=== PATIENT | female | born 2005 | race Caucasian/White ===

== ENCOUNTER 2024-03-28 00:12 | Emergency (ER) | payer OTHER, SELFPAY ==
[2024-03-28 00:18] VITALS: BP 121/83; PULSE 93; TEMP 36.6; O2SAT 96; BMI 28.2
--- NOTE | 2024-03-28 00:42 | ED_ITS ---
HPI - Female Genitourinary General Chief complaint: OB/Uterine Contractions Stated complaint: VAGNIAL BLEEDING Time Seen by Provider: 03/28/24 00:26 Source: patient Mode of arrival: walk-in History of Present Illness HPI Narrative: This 18-year-old female who states she had a home test 5 days ago that was positive presents for evaluation of vaginal bleeding. Patient states she has been having fairly heavy vaginal bleeding but is now just having some light spotting. She states the spotting is greater than implantation bleeding which she has had in the past. Her last menstrual period was February 25 but she states that when her period did not come 5 days ago when it was due she took a test that was positive. She denies any shortness of breath dizziness or syncope. She is not having any abdominal pain at this time. She states that she has had her right ovary removed when she was 14 due to ovarian cysts. She does not know her blood type but stated it is a good one. She has an appointment with her [facility] this morning in [facility] which is where she is from. Related Data Home Medications ?Medication ?Instructions ?Recorded ?Confirmed ondansetron 4 mg disintegrating mg 03/28/24 tablet Allergies Allergy/AdvReac Type Severity Reaction Status Date / Time No Known Drug Allergies Allergy Verified 03/28/24 00:22 Review of Systems ROS Status of ROS 10 or more systems reviewed and unremark able except as noted in history and below Exam Narrative Exam Narrative: Vital signs and Nursing Notes reviewed: Patient is afebrile with a normal pulse, normal blood pressure, she is not hypoxic with pulse ox of 96% on room air General: Awake, alert, oriented, no acute distress, lying comfortably on the stretcher HEENT: Normocephalic atraumatic, mucous membranes are moist and pink, eyes are clear, normal conjunctiva, vision is grossly intact Neck: Supple, no meningeal signs, no anterior or posterior cervical lymphadenopathy Chest: Lungs are clear to auscultation with good air entry, there is no wheezing rhonchi or rales appreciated no accessory muscle use, patient is speaking in complete sentences-no chest wall tenderness to palpation CVS: Regular rate and rhythm S1-S2, no murmurs rubs or gallops, pulses are brisk and equal bilaterally ABD: Soft, nondistended, nontender, no rebound guarding or rigidity, bowel sounds are normal, no pulsatile masses appreciated : Patient declined exam stating she is seeing her [facility] in the morning Extremities: Moving all extremities, no lower extremity tenderness or swelling noted, negative Homans' sign, pulses are brisk and equal bilaterally Skin: Normal in appearance without rash,pallor, petechiae or purpura Neuro: No focal deficits Constitutional Vital Signs, click to edit/add: Last Vital Signs Temp 97.8 F 03/28/24 00:18 Pulse 93 H 03/28/24 00:18 Resp 18 03/28/24 00:18 BP 121/83 03/28/24 00:18 Pulse Ox 96 03/28/24 00:18 O2 Del Method Room Air 03/28/24 00:18 Course Vital Signs Vital signs: Vital Signs Temperature 97.8 F 03/28/24 00:18 Pulse Rate 93 H 03/28/24 00:18 Respiratory Rate 18 03/28/24 00:18 Blood Pressure 121/83 03/28/24 00:18 Pulse Oximetry 96 03/28/24 00:18 Oxygen Delivery Method Room Air 03/28/24 00:18 Temperature 97.8 F 03/28/24 00:18 Pulse Rate 93 H 03/28/24 00:18 Respiratory Rate 18 03/28/24 00:18 Blood Pressure 121/83 03/28/24 00:18 Pulse Oximetry 96 03/28/24 00:18 Oxygen Delivery Method Room Air 03/28/24 00:18 MDM - Female Genitourinary MDM Narrative Medical decision making narrative: This 18-year-old female G3, P3 who was last menstrual period was February 25 and states that she had a positive test 5 days ago and then started having heavy vaginal bleeding that is now spotting and has an appointment tomorrow morning, later this morning with her [facility] in [facility] presents for evaluation of abdominal cramping and spotting. She states she was having some heavy vaginal bleeding and feeling 2-3 pads per hour. She denied any abdominal pain. She denies any dizziness or syncope. She does not know her blood type but states it is the good one. She declined a pelvic exam stating she was seeing her [facility] in the morning. Her vital signs are stable. Abdomen is soft. Routine labs are ordered and are reviewed. She has a normal white count and hemoglobin. Electrolytes are normal. Her beta quantitative hCG is less than 1. This was discussed with her and she verbalized understanding. She may have had a miscarriage of a very early but at this time she is stable for discharge and will be given a copy of her labs to share with her [facility] tomorrow. Lab Data Attestation: I reviewed the patient's lab results. Labs: Lab Results 03/28/24 Range/Units 00:49 WBC 7.9 (4.0-11.0) 10^3/uL RBC 4.24 (4.20-5.40) 10^6/uL Hgb 11.4 L (12.0-16.0) g/dL Hct 36.1 (36.0-48.0) % MCV 85.1 (81.0-99.0) fL MCH 26.9 (26.7-34.0) pg MCHC 31.6 (29.9-35.2) g/dL RDW 14.4 (11.0-15.0) % Plt Count 338 (150-450) 10^3/uL MPV 9.7 (9.5-13.5) fL Neut % (Auto) 52.6 (43.0-75.0) % Lymph % (Auto) 37.5 (20.5-60.0) % Dixon % (Auto) 7.5 (1.7-12.0) % Eos % (Auto) 1.3 (0.9-7.0) % Baso % (Auto) 0.8 (0.2-2.0) % Neut # (Auto) 4.2 (1.4-6.5) 10^3/uL Lymph # (Auto) 3.0 (1.2-3.8) 10^3/uL Dixon # (Auto) 0.6 (0.3-0.8) 10^3/uL Eos # (Auto) 0.1 (0.0-0.7) 10^3/uL Baso # (Auto) 0.1 (0.0-0.1) 10^3/uL Abs Immat Gran (auto) 0.02 (0.00-0.03) 10^3/uL Imm/Tot Granulo (auto) 0.3 (0.0-0.5) % Sodium 139 (136-145) mmol/L Potassium 3.6 (3.5-5.1) mmol/L Chloride 104 (98-107) mmol/L Carbon Dioxide 26.9 (21.0-32.0) mmol/L Anion Gap 11.7 BUN 11.0 (6.4-19.3) mg/dL Creatinine 0.91 (0.55-1.02) mg/dL Est GFR ( Amer) >60 (>=60) Est GFR (Non-Af Amer) >60 (>=60) BUN/Creatinine Ratio 12.1 Glucose 88 (74-106) mg/dL Calcium 8.9 (8.5-10.1) mg/dL Total Bilirubin 0.4 (0.2-1.0) mg/dL AST 22 (15-37) U/L ALT 43 (14-59) U/L Alkaline Phosphatase 74 (46-116) U/L Total Protein 7.6 (6.4-8.2) g/dL Albumin 3.8 (3.4-5.0) g/dL Globulin 3.8 g/dL Albumin/Globulin Ratio 1.0 HCG, Quant <1 mIU/mL Discharge Plan Discharge Stand Alone Forms: Portal Instructions Chief Complaint: OB/Uterine Contractions Clinical Impression: Abnormal vaginal bleeding Patient Disposition: Home, Self-Care Time of Disposition Decision: 01:52 Condition: Good Prescriptions / Home Meds: No Action ondansetron 4 mg tablet,disintegrating Print Language: [place] Instructions: Menorrhagia (ED) Additional Instructions: Follow up tomorrow as scheduled with your [facility]. Referrals: RA MATA [Primary Care Provider] - 1 week
[2024-03-28 01:23] LABS: Basophils Absolute Auto 0.1 10^3/uL (0.0-0.1); Basophils Percent Auto 0.8 % (0.2-2.0); Eosinophils Absolute Auto 0.1 10^3/uL (0.0-0.7); Eosinophils Percent Auto 1.3 % (0.9-7.0); Hematocrit 36.1 % (36.0-48.0); Hemoglobin 11.4 g/dL (12.0-16.0); Immature Granulocytes Abs Auto 0.02 10^3/uL (0.00-0.03); Immature Granulocytes Pct Auto 0.3 % (0.0-0.5); Lymphocytes Percent Auto 37.5 % (20.5-60.0); Mean Corpuscular HGB Conc 31.6 g/dL (29.9-35.2); Mean Corpuscular Hemoglobin 26.9 pg (26.7-34.0); Mean Corpuscular Volume 85.1 fL (81.0-99.0); Mean Platelet Volume 9.7 fL (9.5-13.5); Monocytes Absolute Auto 0.6 10^3/uL (0.3-0.8); Monocytes Percent Auto 7.5 % (1.7-12.0); Neutrophils Absolute Auto 4.2 10^3/uL (1.4-6.5); Neutrophils Percent Auto 52.6 % (43.0-75.0); Platelet Count 338 10^3/uL (150-450); Red Blood Count 4.24 10^6/uL (4.20-5.40); Red Cell Distribution Width 14.4 % (11.0-15.0); White Blood Count 7.9 10^3/uL (4.0-11.0)
[2024-03-28 01:39] LABS: Alanine Aminotransferase 43 U/L (14-59); Albumin Level 3.8 g/dL (3.4-5.0); Alkaline Phosphatase 74 U/L (46-116); Anion Gap 11.7; Aspartate Amino Transferase 22 U/L (15-37); BUN Creatinine Ratio 12.1; Bilirubin Total 0.4 mg/dL (0.2-1.0); Calcium 8.9 mg/dL (8.5-10.1); Carbon Dioxide 26.9 mmol/L (21.0-32.0); Chloride 104 mmol/L (98-107); Estimated GFR (African America >60 (>=60); Estimated GFR (Non-African Ame >60 (>=60); Globulin 3.8 g/dL; Glucose 88 mg/dL (74-106); Potassium 3.6 mmol/L (3.5-5.1); Sodium 139 mmol/L (136-145); Total Protein 7.6 g/dL (6.4-8.2)
[2024-03-28 01:45] LABS: HCG Quantitative <1 mIU/mL
== END 2024-03-28 02:04 | disposition home or self-care (01) ==
PROVIDERS: Emergency Provider Emergency Medicine; PCP Pediatrics
DX: N93.9 Abnormal uterine and vaginal bleeding, unspecified (principal); Z90.721 Acquired absence of ovaries, unilateral
CPT/HCPCS: 36415; 80053; 84702; 84703; 85025; 86900; 86901; 99283

== ENCOUNTER 2024-12-05 11:15 | Observation (INO) | payer OTHER, SELFPAY ==
--- OUTSIDE RECORDS SUMMARY | 2024-12-05 11:28 | XMS_ITS | CCD ---
Author Organization [facility] Care Team Providers Care Senior Design Engineer Name Role Phone RA MATA Unavailable Unavailable SELF, REFERRED Unavailable Unavailable DARA SHI Unavailable Unavailable MARKER, SHEELA Admitting Unavailable MARKER, SHEELA Attending Unavailable MARKER, SHEELA Consulting Unavailable KATEY PIMENTEL Consulting Unavailable Katey Pimentel Primary Care Provider Unavailabl e Katey Pimentel Primary Care Provider [phone] Unavailable Primary Care Provider Unavailabl e Katey Pimentel Primary Care Provider You INSPECTOR WATCH ASSEMBLY - 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 CRANE OPERATOR, Katey Allen Primary Care Provider Esperanza NEUMANN, Ra C Primary Care Provider Katey Pimentel RN Primary Care Provider Unavail able Esperanza NEUMANN, Knapp C Primary Care Provider [phone] Esperanza NEUMANN, Knapp C Primary Care Provider Esperanza NEUMANN, Knapp C Primary Care Provider Esperanza NEUMANN, Knapp C Primary Care Provider Paolo Rodriguez Attending Unavailab Paolo Martin Admitting Unavailab scott Mata Knapp C Primary Care Unavailable ESPERANZA, KNAPP C Primary Care Unavailable MATHIEU MCHUGH Attending Unavailab MATHIEU Medrano Attending Unavailab MATHIEU Medrano Referring Unavailab le ESPERANZA, KNAPP C Primary Care Unavailable YASMINE WELLS Admitting Unavailable YASMINE WELLS Attending Unavailable ESPERANZA KNAPP C Primary Care Unavailable ESPERANZA KNAPP C Primary Care Unavailable MYRTLE DELANEY Attending Unavailable MYRTLE DELANEY Attending Unavailable MYRTLE DELANEY Referring Unavailable KAKARALA, KNAPP C Primary Care Unavailable YASMINE WELLS Attending Unavailable YASMINE WELLS Referring Unavailable KAKARALA, KNAPP C Primary Care Unavailable KAKARALA, KNAPP C Primary Care Unavailable PAPI MARROQUIN Attending Unavailable POOL, YANA E Attending Unavailable KAKARALA, KNAPP C Primary Care Unavailable POOL, YANA E Admitting Unavailable KAKARALA, KNAPP C Primary Care Unavailable DESMOND RODRGIUEZ Attending Unavailable WALLACEHOMER Admitting Unavailable WALLACEHOMER RICKETTS Attending Unavailable KAKARALA, KNAPP C Primary Care Unavailable POOL, YANA E Admitting Unavailable POOL, YANA E Attending Unavailable KAKARALA, KNAPP C Primary Care Unavailable POOL, YANA E Referring Unavailable KAKARALA, KNAPP C Primary Care Unavailable KAKARALA, KNAPP C Referring Unavailable KAKARALA, KNAPP C Primary Care Unavailable KAKARALA, KNAPP C Primary Care Unavailable ANGELINA MATHEWS Referring Unavailabl e POOL, YANA E Referring Unavailable KAKARALA, KNAPP C Primary Care Unavailable D'ABREAU, MORRIS Admitting Unavailable D'ABREAU, MORRIS Attending Unavailable KAKARALA, KNAPP C Primary Care Unavailable ANGELINA MATHEWS Referring Unavailabl e KAKARALA, KNAPP C Primary Care Unavailable ANGELINA MATHEWS Referring Unavailabl e KAKARALA, KNAPP C Primary Care Unavailable POOL, YANA E Referring Unavailable KAKARALA, KNAPP C Primary Care Unavailable Kakarala Ra NEUMANN Primary Care Provider Medications Current Medications Medication Drug Class(es) Dates Sig (Normalized) Sig (Original) Amoxicillin (1 source) Penicillin-class Antibacterial AMOXICILLIN PO Take by mouth 0 Active benzocaine 200 mg/ml / menthol 5 mg/ml topical spray (4 sources) Standardized Chemical Allergen Start: 10-07-2022 apply 1 dose topically twice daily Topical, 2 TIMES DAILY, First dose on Mon10/07/22 at 0130 Apply to perineal area. Patient is capable and may self administer at bedside. Start: 04-22-2021 benzocaine-men thol (DERMOPLAST) 20-0.5 % AERO spray Apply 1 spray topically 2 times daily Can 04/22/2021 Active Start: 04-20-2021 apply 1 dose topical ly twice daily Topical, 2 TIMES DAILY, First dose on Mon04/20/21 at 2100 Apply to perineal area. Patient is capable and may self administer at bedside. 24 hr buPROPion hydrochloride 150 mg extended release oral tablet (3 sources) Aminoketone Start: 02-28-2024 take 1 tablet by mouth once daily in the morning buPROPion (WELLBUTRIN XL) 150 MG extended release tablet Indications: Post depression , Depression with anxiety Take 1 tablet by mouth every morning 30 tablet 1 02/28/2024 Active calcium chloride 0.0014 meq/ml / potassium chloride 0.004 meq/ml / sodium chloride 0.103 meq/ml / sodium lactate 0.028 meq/ml injectable solution (4 sources) Start: 12-28-2023 End: 12-28-2023 lactated ringers IV soln infusion Start: 10-06-2022 End: 10-07-2022 lactated ringers infusion Start: 04-20-2021 End: 04-20-2021 lactated ringers infusion cephalexin 500 mg oral capsule (1 source) Cephalosporin Antibacterial Start: 07-14-2022 End: 07-21-2022 take 1 capsule by mouth three times daily cephALEXin (KEFLEX) 500 MG capsule Take 1 capsule by mouth 3 times daily for 7 days 21 capsule 0 07/14/2022 07/21/2022 Active diphenhydrAMINE hydrochloride 25 mg oral capsule (1 source) Histamine-1 Receptor Antagonist Start: 04-22-2021 diphenhydrAMINE (BENADRYL) capsule 50 mg famotidine 20 mg oral tablet (1 source) Histamine-2 Receptor Antagonist Start: 09-03-2022 End: 09-03-2022 famotidine (PEPCID) tablet 20 mg Start: 09-03-2022 End: 09-03-2022 famotidine (PEPCID) tablet 2 0 mg FLUoxetine 20 mg oral capsule (6 sources) Serotonin Reuptake Inhibitor Start: 08-02-2021 End: 02-04-2022 FLUoxetine (PROZAC) 20 MG capsule take 1 capsule by mouth once dylan ly FLUoxetine (PROZAC) 10 MG capsule Take 1 capsule by mouth daily 0 Active ketorolac tromethamine 10 mg oral tablet (8 sources) Nonsteroidal Anti-inflammatory Drug, Cyclooxygenase Inhibitor Start: 02-24-2023 ketorolac (TORADOL) 10 MG tablet Take 1 tablet by mouth in the morning and 1 tablet at noon and 1 tablet in the evening. Take 3 times a day with food and water starting the day after surgery. Stop medication if having stomach pain.. 15 tablet 0 02/24/2023 Active Start: 10-13-2022 ketorolac (TOR ADOL) injection 30 mg Start: 10-01-2021 End: 02-04-2022 take 1 tablet by mouth every six hours as needed for pain ketorolac (TORADOL) 10 MG tablet Take 1 tablet by mouth every 6 hours as needed for Pain 20 tablet 0 10/01/2021 02/04/2022 Discontinued Start: 08-08-2017 End: 08-28-2020 take 1 tablet by mouth every six hours as needed for pain, then take 4 tablets by mouth every twenty-four hours as needed for pain ketorolac (TORADOL) 10 MG tablet Take 1 tablet by mouth every 6 hours as needed for Pain (maximum of 4 tablets per 24 hrs) 20 tablet 0 08/08/2017 08/28/2020 Discontinued (Therapy completed) lanolin 1000 mg/ml topical cream (2 sources) Start: 10-07-2022 Topical, PRN, Dry Skin, nipple discomfort, Starting on Mon10/07/22 at 0111, Start: 04-20-2021 Topical, PRN, Dry Skin, nipple discomfort, Starting on Tu04/20/21 at 1843, levonorgestrel 0.673429 mg/hr intrauterine system (1 source) Progestin, Progestin-containing Intrauterine Device Start: 07-21-2021 levonorgestrel (MIRENA) IUD 52 mg 1 each ondansetron 4 mg disintegrating oral tablet (15 sources) Serotonin-3 Receptor Antagonist Start: 07-31-2024 take 1 tablet by mouth every eight hours as needed for nausea ondansetron (ZOFRAN-ODT) 4 MG disintegrating tablet Take 1 tablet by mouth every 8 hours as needed for Nausea or Vomiting 30 tablet 1 07/31/2024 Active Start: 12-05-2023 take 1 tablet by gerry th three times daily as needed for nausea ondansetron (ZOFRAN) 4 MG tablet Indications: Nausea and vomiting in Take 1 tablet by mouth 3 times daily as needed for Nausea or Vomiting 30 tablet 0 12/05/2023 Active Start: 11-03-2023 End: 11-10-2023 take 1 tablet by mouth every eight hours as needed for nausea and vomiting ondansetron (ZOFRAN) 4 mg tablet Take 1 tablet (4 mg total) by mouth every 8 (eight) hours as needed for nausea or vomiting for up to 7 days. 21 tablet 0 11/03/2023 11/10/2023 Active Start: 09-03-2022 End: 10-08-2022 take 1 tablet by mouth every eight hours as needed for nausea ondansetron (ZOFRAN ODT) 4 MG disintegrating tablet Take 1 tablet by mouth every 8 hours as needed for Nausea or Vomiting 21 tablet 0 09/03/2022 10/08/2022 Discontinued (Stop Taking at Discharge) Start: 09-03-2022 End: 09-03-2022 ondansetron (ZOFRAN) injecti on 4 mg Start: 06-28-2022 End: 10-08-2022 take 1 tablet by mouth every eight hours as needed for nausea ondansetron (ZOFRAN) 4 MG tablet Indications: Nausea and vomiting during Take 1 tablet by mouth every 8 hours as needed for Nausea or Vomiting 30 tablet 1 06/28/2022 10/08/2022 Discontinued (Stop Taking at Discharge) Start: 04-04-2022 take 1 tablet by gerry th every eight hours as needed for nausea ondansetron (ZOFRAN) 4 MG tablet Indications: Nausea and vomiting during Take 1 tablet by mouth every 8 hours as needed for Nausea or Vomiting 30 tablet 1 04/04/2022 Active Start: 12-24-2019 End: 12-24-2019 ondansetron (ZOFRAN) injecti on 4 mg oxytocin (PITOCIN) 10 unit bolus from the bag (1 source) Start: 04-20-2021 oxytocin (JOSE G PRUDENCIO) 10 unit bolus from the bag penicillin G potassium 2.5 million units in 0.9% sodium chloride 100 mL IVPB (1 source) Start: 12-29-2023 penicillin G p otassium 2.5 million units in 0.9% sodium chloride 100 mL IVPB Prenat UB-Cdf-Hvigqburnlcx-FA (PRENATE) 0.6-0.4 MG CHEW (12 sources) take 1 tablet by mouth once daily Prenat PB-Vqy-Lzbmyxelppcl-FA (PRENATE) 0.6-0.4 MG CHEW Take 1 tablet by mouth Daily Active take 1 tablet by mouth once mary y Prenat JR-Gvq-Acyxmwsvbghj-FA (PRENATE) 0.6- 0.4 MG CHEW Take 1 tablet by mouth Daily 0 Active take 1 tablet by mouth once mary y Prenat VR-Fay-Xdlehmdbmfjt-FA (PRENATE) 0.6- 0.4 MG CHEW Take 1 tablet by mouth Daily 0 Suspended Vit-Fe Fumarate-FA ( VITAMIN) 27-0.8 MG TABS (11 sources) Start: 08-31-2020 take 1 tablet by mouth once daily Vit-Fe Fumarate-FA ( VITAMIN) 27-0.8 MG TABS Indications: Amenorrhea Take 1 tablet by mouth daily 30 tablet 12 08/31/2020 Active promethazine hydrochloride 25 mg oral tablet (4 sources) Phenothiazine Start: 09-03-2022 End: 09-03-2022 promethazine (PHENERGAN) tablet 25 mg Start: 10-12-2020 take 1 tablet by gerry th every six hours as needed for nausea promethazine (PHENERGAN) 25 MG tablet Indications: Nausea and vomiting in Take 1 tablet by mouth every 6 hours as needed for Nausea 30 tablet 0 10/12/2020 Active raNITIdine 150 mg oral tablet (11 sources) Histamine-2 Receptor Antagonist Start: 2017 take 1 tablet by mouth twice daily ranitidine (ZANTAC) 150 MG tablet Take 1 tablet by mouth 2 times daily 60 tablet 0 2017 Active sertraline 50 mg oral tablet (16 sources) Serotonin Reuptake Inhibitor Start: 06-28-2022 take 1 tablet by mouth once daily sertraline (ZOLOFT) 50 MG tablet Indications: Adjustment disorder with depressed mood Take 1 tablet by mouth daily 30 tablet 5 06/28/2022 Active take 1 tablet by mouth once mary y sertraline (ZOLOFT) 25 MG tablet Take 25 mg by mouth daily 0 Active terconazole 4 mg/ml vaginal cream (2 sources) Azole Antifungal Start: 11-06-2023 End: 11-13-2023 terconazole (TERAZOL 7) 0.4 % vaginal cream Indications: Vagina, candidiasis Insert 1 applicator into the vagina nightly for 7 days. 45 g 0 11/06/2023 11/13/2023 Active tolnaftate 10 mg/ml topical solution (2 sources) Start: 06-24-2023 tolnaftate (FU NGAL NAIL ERASER) 1 % external solution Apply topically nightly. 10 mL 0 06/24/2023 Active witch augusto 500 mg/ml medicated pad (4 sources) Start: 10-07-2022 apply 1 dose topically twice daily Topical, 2 TIMES DAILY, First dose on Mon10/07/22 at 0130 Apply to perineal area. Patient is capable and may self administer at bedside. Start: 04-22-2021 End: 05-22-2021 witch augusto-glycerin (TUCKS) pad Place rectally as needed. 40 each 2 04/22/2021 05/22/2021 Active Start: 04-20-2021 apply 1 dose topical ly twice daily Topical, 2 TIMES DAILY, First dose on Mon04/20/21 at 2100 Apply to perineal area. Patient is capable and may self administer at bedside. Completed/Discontinued Medications Medication Drug Class(es) Dates Sig (Normalized) Sig (Original) acetaminophen 325 mg oral tablet (11 sources) Start: 10-13-2022 End: 10-13-2022 acetaminophen (TYLENOL) tablet 650 mg Start: 10-07-2022 1,000 mg, Oral , EVERY 8 HOURS PRN, Starting on Mon10/07/22 at 0111, Until Discontinued, Other, Pain (1-10) Give in addition to any other pain medication ordered at same time for any pain indication. Maximum dose of acetaminophen is 4000mg from all sources in 24 hours. Alternate ibuprofen and acetaminophen every 4 hours. Start: 02-04-2022 End: 02-04-2022 acetaminophen (TYLENOL) tabl et 650 mg Start: 04-20-2021 take 650 mg by mouth every four hours as needed for fever, then take 4000 mg by mouth every twenty-four hours as needed for fever 650 mg, Oral, EVERY 4 HOURS PRN, Fever, Fever >100.5 F (38 C) or pain 1-10, Starting on Mon04/20/21 at 1843 Maximum dose of acetaminophen is 4000 mg from all sources in 24 hours. take 1 tablet by gerry th every six hours as needed for pain acetaminophen (TYLENOL) 500 MG tablet Take 500 mg by mouth every 6 hours as needed for Pain 0 Active End: 04-22-2021 take 1 tablet by mouth every four hours as needed for pain acetaminophen (TYLENOL) 80 MG chewable tablet Take 80 mg by mouth every 4 hours as needed for Pain 0 04/22/2021 Discontinued (Stop Taking at Discharge) acetaminophen 325 mg / butalbital 50 mg / caffeine 40 mg oral tablet (4 sources) Barbiturate, Central Nervous System Stimulant, Methylxanthine Start: 01-18-2021 End: 04-22-2021 aswqjeykbf-gygvdgrjwrwir-lqs feine (FIORICET, ESGIC) 50-325-40 MG per tablet Indications: Tension-type headache, not intractable, unspecified chronicity pattern Take 1-2 tablets every 6 hours as needed for headaches not to exceed more than 6 in 24 hour period. 30 tablet 1 01/18/2021 04/22/2021 Discontinued (Stop Taking at Discharge) acetaminophen 300 mg / codeine phosphate 30 mg oral tablet (5 sources) Opioid Agonist Start: 09-06-2017 End: 08-28-2020 take 1 tablet by mouth every six hours as needed for pain acetaminophen-codeine (TYLENOL #3) 300-30 MG per tablet Take 1 tablet by mouth every 6 hours as needed for Pain . 12 tablet 0 09/06/2017 08/28/2020 Discontinued (Therapy completed) betamethasone 0.5 mg/ml / clotrimazole 10 mg/ml topical cream (2 sources) Azole Antifungal, Corticosteroid Start: 04-13-2021 End: 04-22-2021 clotrimazole-betamethasone (LOTRISONE) 1-0.05 % cream Apply topically 3 times daily. 1 Tube 1 04/13/2021 04/22/2021 Discontinued (Stop Taking at Discharge) 1 ml carboprost 0.25 mg/ml injection (1 source) Prostaglandin Analog Start: 10-07-2022 250 mcg, IntraMUSCular, PRN, Starting on Mon10/07/22 at 0111, Until Discontinued, bleeding May repeat every 15 minutes up to a cumulative maximum dose of 1000 mcg, at physician's request. dexamethasone phosphate 10 mg/ml injectable solution (2 sources) Corticosteroid Start: 10-13-2022 End: 10-13-2022 dexamethasone (DECADRON) inj ection 10 mg Start: 08-21-2021 End: 08-21-2021 dexamethasone (DECADRON) tab let 10 mg docusate sodium 100 mg oral capsule (5 sources) Start: 10-07-2022 take 100 mg by mouth twice daily as needed 100 mg, Oral, 2 TIMES DAILY PRN, Starting on Mon10/07/22 at 0111, Until Discontinued, Constipation Do not crush or break. Start: 04-20-2021 take 1 capsule by mo uth twice daily docusate sodium (COLACE, DULCOLAX) 100 MG CAPS Take 100 mg by mouth 2 times daily 60 capsule 2 04/22/2021 Active Start: 11-09-2020 End: 12-09-2020 take 1 capsule by mouth twice daily docusate sodium (COLACE) 100 MG capsule Indications: Constipation, unspecified constipation type Take 1 capsule by mouth 2 times daily 60 capsule 2 11/09/2020 12/09/2020 Active hydrOXYzine pamoate 50 mg oral capsule (2 sources) Antihistamine Start: 12-29-2023 End: 12-29-2023 hydrOXYzine pamoate (VISTARIL) capsule 50 mg Start: 07-14-2022 End: 07-14-2022 hydrOXYzine pamoate (VISTARI L) capsule 50 mg ibuprofen 800 mg oral tablet (13 sources) Nonsteroidal Anti-inflammatory Drug Start: 10-07-2022 800 mg, Oral, NEMESIO RY 8 HOURS, First dose on Mon10/07/22 at 0130, Until Discontinued Once tolerating PO, discontinue Toradol and begin ibuprofen 8 hours after the final dose of Toradol. Alternate ibuprofen and acetaminophen every 4 hours. Start: 04-27-2021 ibuprofen (ADV IL;MOTRIN) tablet 400 mg Start: 04-20-2021 take 1 tablet by gerry th every eight hours ibuprofen (ADVIL;MOTRIN) 800 MG tablet Take 1 tablet by mouth every 8 hours 120 tablet 3 04/22/2021 Active Start: 04-28-2017 take 1 tablet by gerry th every eight hours as needed for pain ibuprofen (ADVIL;MOTRIN) 600 MG tablet Take 1 tablet by mouth every 8 hours as needed for Pain 120 tablet 3 04/28/2017 Active 1 ml LORazepam 2 mg/ml injection (1 source) Benzodiazepine Start: 12-24-2019 End: 12-24-2019 LORazepam (ATIVAN) injection 1 mg 1 ml methylergonovine maleate 0.2 mg/ml injection (1 source) Ergot Derivative Start: 10-07-2022 200 mcg, IntraMUSCular, PRN, Starting on Mon10/07/22 at 0111, Until Discontinued, Bleeding PRN for post- hemorrhage, if not hypertensive. 2 ml metoclopramide 5 mg/ml prefilled syringe (1 source) Dopamine-2 Receptor Antagonist Start: 10-13-2022 End: 10-13-2022 metoclopramide (REGLAN) injection 10 mg miSOPROStol 0.1 mg oral tablet (1 source) Prostaglandin E1 Analog Start: 10-07-2022 800 mcg, Rectal, PRN , 1 dose, Starting on Mon10/07/22 at 0111, Until Discontinued, Post- Hemorrhage Notify Physician prior to administration. 1 ml nalbuphine hydrochloride 10 mg/ml injection (1 source) Opioid Agonist/Antagonist Start: 04-20-2021 End: 04-20-2021 nalbuphine (NUBAIN) injection 10 mg oxytocin (PITOCIN) 30 units in 500 mL infusion (2 sources) Start: 10-06-2022 End: 10-07-2022 oxytocin (PITOCIN) 30 units in 500 mL infusion Start: 10-06-2022 oxytocin (JOSE G PRUDENCIO) 30 units in 500 mL infusion oxytocin (PITOCIN) 30 Units in sodium chloride 0.9 % 500 mL infusion (1 source) Start: 04-20-2021 End: 04-20-2021 oxytocin (PITOCIN) 30 Units in sodium chloride 0.9 % 500 mL infusion 50 ml sodium chloride 9 mg/m l injection (11 sources) Start: 10-13-2022 End: 10-13-2022 0.9 % sodium chloride bolus Start: 10-07-2022 take 1 dose intraven ously twice daily 5-40 mL, IntraVENous, EVERY 12 HOURS SCHEDULED (2 times per day), First dose on Mon10/07/22 at 0900, Until Discontinued For Line Patency: Peripheral IV = 5 mL; Midline or Central Line = 10 mL/lumen. If following IV push medication, administer flush at same rate as the IV push. Flush volume is determined by type of infusion therapy being given. For non-viscous solutions use: Peripheral IV = 5 mL Midline or Central Line = 10 mL/lumen For viscous solutions (i.e. blood components, parenteral nutrition, contrast media, or after obtaining blood sample) use: Peripheral IV = 10 mL Midline or Central Line = 20 mL/lumen Start: 10-07-2022 IntraVENous, a t 5-250 mL/hr, PRN, if patient receiving piggyback infusions and maintenance fluids are not ordered OR KVO fluids to protect IV site / prevent frequent line interruptions/ long duration, Starting on Mon10/07/22 at 0111 For piggyback infusion, administer at same rate as piggyback for a total of 25 mL. Enter 25 mL into dose field and piggyback rate into rate field of order. If piggyback is infusing at a rate less than 100 mL/hr, enter 25 mL into dose field and 100 mL/hr into rate field of order. For KVO fluids, enter rate of 20 mL/hr or less into rate field of order. Start: 10-07-2022 take 5-40 mL intrave nously once as needed 5-40 mL, IntraVENous, PRN, Starting on Mon10/07/22 at 0111, Until Discontinued, Line Care, After every IV line use For Line Patency: Peripheral IV = 5 mL; Midline or Central Line = 10 mL/lumen. If following IV push medication, administer flush at same rate as the IV push. Flush volume is determined by type of infusion therapy being given. For non-viscous solutions use: Peripheral IV = 5 mL Midline or Central Line = 10 mL/lumen For viscous solutions (i.e. blood components, parenteral nutrition, contrast media, or after obtaining blood sample) use: Peripheral IV = 10 mL Midline or Central Line = 20 mL/lumen Start: 09-03-2022 End: 09-03-2022 0.9 % sodium chloride bolus Start: 04-27-2021 End: 04-27-2021 0.9 % sodium chloride bolus Start: 04-20-2021 10 mL, Intrave nous, EVERY 12 HOURS SCHEDULED (2 times per day), First dose on Mon04/20/21 at 2100, Start: 04-20-2021 take 25 mL intraveno usly every hour as needed 25 mL, Intravenous, at 100 mL/hr, PRN, If patient receiving piggyback infusions without ordered maintenance IV fluids or with frequent/long duration piggyback infusions, Starting on Mon04/20/21 at 1843 Administer at the same rate as the piggyback being infused. Start: 04-20-2021 take 10 mL intravenously once 10 mL, Intravenous, PRN, Line Care, Starting on Mon04/20/21 at 1843 After every IV line use Start: 12-24-2019 End: 12-25-2019 0.9 % sodium chloride bolus Problems Active Problems Problem Classification Problem Date Documented Date Episodic/Chronic Cardiac dysrhythmias (1 source) Tachycardia; Translations: [Tachycardia] Episodic Fever of unknown origin (1 source) Fever; Translations: [Fever, unspecified] Episodic Fluid and electrolyte disorders (1 source) Dehydration; Translations: [Dehydration] Episodic Headache; including migraine (1 source) Headache; Translations: [Headache above the eye region] Episodic Hemorrhage during ; abruptio placenta; placenta previa (6 sources) Threatened miscarriage in first trimester; Translations: [Bleeding from female genital tract during ] Onset: 07-22-2024 Episodic Menstrual disorders (6 sources) Amenorrhea; Translations: [Amenorrhea, unspecified] Onset: 07-31-2024 Chronic Other complications of ; puerperium affecting management of mother (1 source) headache; Translations: [Other complications of the puerperium, not elsewhere classified] Episodic Other complications of (1 source) Rigid pelvic floor affecting ; Translations: [Rigid pelvic floor affecting , second trimester] Episodic Other complications of (1 source) Pruritus of ; Translations: [Diseases of the skin and subcutaneous tissue complicating , third trimester] Episodic Other ear and sense organ disorders (1 source) Unspecified acute noninfective otitis externa, left ear; Translations: [UNS AC NONINFECT OTITIS EXTERNA LT] Onset: 05-24-2019 Episodic Other female genital disorders (1 source) Vaginal bleeding; Translations: [Abnormal uterine and vaginal bleeding, unspecified] Chronic Other screening for suspected conditions (not mental disorders or infectious disease) (2 sources) Encounter for screening for malformations; Translations: [Encounter for other specified screening] Onset: 11-20-2023 Episodic Ovarian cyst (15 sources) Cyst of right ovary; Translations: [Unspecified ovarian cyst, right side] 10-01-2021 Episodic Ovarian cyst (1 source) Cyst of right ovary; Translations: [Cyst of right ovary] Residual codes; unclassified (1 source) Gestation period, 28 weeks; Translations: [28 weeks gestation of ] Episodic Residual codes; unclassified (1 source) Gestation period, 36 weeks; Translations: [36 weeks gestation of ] Episodic Residual codes; unclassified (1 source) Gestation period, 32 weeks; Translations: [32 weeks gestation of ] 12-05-2023 Episodic Residual codes; unclassified (1 source) 20 weeks gestation of ; Translations: [20 weeks gestation of ] Onset: 10-29-2024 Episodic Sprains and strains (1 source) Low back strain; Translations: [Strain of muscle, fascia and tendon of lower back, initial encounter] Episodic Superficial injury; contusion (2 sources) Contusion of right knee, initial encounter; Translations: [Contusion of left elbow, initial encounter] Onset: 05-26-2024 Episodic Unclassified (1 source) Abdominal Pain Onset: 07-22-2024 Unclassified (1 source) Vaginal Bleeding - Onset: 07-22-2024 Unclassified (1 source) Arm Injury Onset: 05-26-2024 Past or Other Problems Problem Classification Problem Date Documented Date Episodic/Chronic Abdominal pain (17 sources) Abdominal pain; Translations: [Unspecified abdominal pain] Onset: 09-03-2022 Resolved: 01-09-2024 Episodic Early or threatened labor (8 sources) Finding of uterine contractions; Translations: [False labor, unspecified] Onset: 12-31-2023 Resolved: 02-28-2024 01-09-2024 Episodic Immunizations and screening for infectious disease (1 source) Encounter for screening for infections with a predominantly sexual mode of transmission; Translations: [Encounter for screening for infections with a predominantly sexual mode of transmission] Onset: 12-05-2023 Episodic Mycoses (1 source) Candidiasis of vagina; Translations: [Vagina, candidiasis] 11-06-2023 Episodic Nausea and vomiting (16 sources) Nausea; Translations: [Nausea] Onset: 07-14-2022 Episodic Other complications of (20 sources) Abnormal findings on screening of mother; Translations: [Abnormal chromosomal and genetic finding on screening of mother] Onset: 11-09-2020 Resolved: 01-09-2024 11-09-2020 Episodic Other complications of (5 sources) Venereal disease in mother complicating , childbirth AND/OR puerperium; Translations: [Other infections with a predominantly sexual mode of transmission complicating , third trimester] Onset: 12-05-2023 Resolved: 02-28-2024 12-05-2023 Episodic Other complications of (1 source) Other specified related conditions, unspecified trimester; Translations: [Other specified related conditions, unspecified trimester] Onset: 11-03-2023 Episodic Other complications of (1 source) with inconclusive viability, not applicable or unspecified; Translations: [ with inconclusive viability, not applicable or unspecified] Onset: 07-31-2024 Episodic Other and delivery including normal (20 sources) Patient encounter status; Translations: [Encounter for supervision of normal , unspecified, unspecified trimester] Onset: 04-20-2021 Resolved: 02-28-2024 Episodic Other upper respiratory infections (20 sources) Acute pharyngitis, unspecified; Translations: [Acute pharyngitis] Onset: 05-22-2019 Resolved: 02-28-2024 04-19-2021 Episodic Residual codes; unclassified (10 sources) Admission statuses; Translations: [Other specified health status] Onset: 10-06-2022 Resolved: 10-08-2022 Episodic Residual codes; unclassified (10 sources) Gestation period, 39 weeks; Translations: [39 weeks gestation of ] Onset: 10-07-2022 Resolved: 10-08-2022 Episodic Residual codes; unclassified (3 sources) Gestation period, 38 weeks; Translations: [38 weeks gestation of ] Onset: 12-28-2023 Resolved: 02-28-2024 02-28-2024 Episodic Residual codes; unclassified (1 source) 36 weeks gestation of ; Translations: [36 weeks gestation of ] Onset: 01-02-2024 Episodic Residual codes; unclassified (1 source) 32 weeks gestation of ; Translations: [32 weeks gestation of ] Onset: 12-05-2023 Episodic Residual codes; unclassified (1 source) 30 weeks gestation of ; Translations: [30 weeks gestation of ] Onset: 11-20-2023 Episodic Urinary tract infections (1 source) Cystitis, unspecified without hematuria; Translations: [Cystitis, unspecified without hematuria] Onset: 03-15-2024 Episodic NEGATED: Highlighted row has been ruled out!Unclassified (6 sources) No known active problems 11-03-2023 Results Test Name Value Interpretation Reference Range Facility US OB LESS THAN 14 WEEKS SIN GLE OR FIRST GESTATIONon 08-02-2024 US OB LESS THAN 14 WEEKS SINGLE OR FIRST GESTATION 7.4 WK IUP CL:4.7 cm HR:155 bpm RT. OVARY:not visualized. LT. OVARY:seen, corpus luteum cyst latonia- 2.6 x 2.4 x 2.4 cm. Interpreted by: Ciera Martínez DO Signed by: Ciera Martínez DO 08/02/24 Final result Normal [facility] Chlamydia/GC DNA, Uron 08-01 Chlamydia Probe, Ur Negative Normal NEG [facility] Comment on above: Result Comment: CHLA MYDIA TRACHOMATIS DNA not detected by nucleic acid amplification. This test is intended for medical purposes only and is not valid for the evaluation of suspected sexual abuse or for other forensic purposes. In certain contexts, culture may be required to meet applicable laws and regulations for diagnosis of C. trachomatis and N. gonorrhoeae infections. Per 2014 CDC recommendations, this test does not include confirmation of positive results by an alternative nucleic acid target. Performed By: #### U [facility] #### [id number] [place] [address] Bone Tender: Wilber Blair MD Gonorrhea Probe, Ur Negative Normal NEG [facility] Comment on above: Result Comment: NEIS SERIA GONORRHOEAE DNA not detected by nucleic acid amplification. This test is intended for medical purposes only and is not valid for the evaluation of suspected sexual abuse or for other forensic purposes. In certain contexts, culture may be required to meet applicable laws and regulations for diagnosis of C. trachomatis and N. gonorrhoeae infections. Per 2014 CDC recommendations, this test does not include confirmation of positive results by an alternative nucleic acid target. Performed By: #### U CGP #### [address] [place] [address] Bone Tender: Wilber Blair MD Cult,Urineon 08-01-2024 Cult,Urine Specimen Description .CLEAN CATCH URINE Special Requests Site: Urine Culture NO SIGNIFICANT GROWTH Report Status FINAL 08/01/2024 Normal [facility] Comment on above: Performed By: #### U CGP #### [address] [place] [phone] Bone Tender: Wilber Blair MD HIV Ag/Abon 07-31-2024 HIV Ag/Ab Non-Reactive Normal [facility] Comment on above: Result Comment: No l aboratory evidence of HIV infection. If acute HIV infection is suspected, consider testing for HIV-1 RNA. Performed By: #### U CGP #### [address] [place] [address] Bone Tender: Wilber Blair MD HIV Screenon 07-31-2024 HIV 1+2 Ab+HIV1 p24 Ag IA Ql Non-Reactive NONREACTIVE [facility] Comment on above: No laboratory eviden ce of HIV infection. If acute HIV infection is suspected, consider testing for HIV-1 RNA. [facility] Hep C Abon 07-31-2024 Hep C Ab Non-Reactive Normal [facility] Comment on above: Result Comment: The hepatitis C procedure used in our laboratory is a Chemiluminescent test specific for three recombinant HCV antigens. A negative anti-HCV result indicates that the antibodies to hepatitis C virus are not present at this time. Individuals with reactive anti-HCV should be considered infected and infectious until proven otherwise. Confirmation of all equivocal or reactive results is recommended by ordering HCV RNA by PCR. Performed By: #### U CGP #### [facility] [employer] [facility] [place], [place] [id number] Bone Tender: Wilber Blair MD Hepatitis C Antibodyon 07-31 HCV Ab IA Ql Non-Reactive NONREACTIVE [facility] Comment on above: The hepatitis C procedure used in our laboratory is a Chemiluminescent test specific for three recombinant HCV antigens. A negative anti-HCV result indicates that the antibodies to hepatitis C virus are not present at this time. Individuals with reactive anti-HCV should be considered infected and infectious until proven otherwise. Confirmation of all equivocal or reactive results is recommended by ordering HCV RNA by PCR. [facility] TYPE AND SCREENon 1 ABO and Rh group Nom (Bld) Blood group O Rh(D) positive [facility] Blood group antibodies identified Nom Negative [facility] Profileon T.pallidum Ab Screen Non-Reactive Normal NR [facility] Comment on above: Result Comment: T. pallidum antibodies are not detected. There is no serological evidence of infection with T. pallidum (early primary syphilis cannot be excluded). Retest in 2-4 weeks if syphilis is clinically suspect. Performed By: #### U CGP #### [facility] [employer] [address] [place] [address] [phone] Bone Tender: Wilber Blair MD Hep B Surf Ag Non-Reactive Normal [facility] Comment on above: Performed By: #### U CGP #### [facility] [address] [place] [address] [phone] Bone Tender: Wilber Blari MD Rubella Ab, IgG 41.7 IU/mL [facility] Comment on above: Result Comment: <10 NON REACTIVE Negative for Anti-Rubella IgG >=10 REACTIVE Positive for Anti Rubella IgG The presence of IgG antibody to Rubella virus is an indication of previous exposure either by prior infection or vaccination. Performed By: #### U CGP #### [facility] [employer] [address] [place] [address] [place] [address] Bone Tender: Wilber Blair MD Abs. Basophil 0.03 k/uL Normal 0.00-0.20 [facility] Comment on above: Performed By: #### U CGP #### [address] [address] Bone Tender: Wilber Blair MD Abs.Imm.Granulocyte <0.03 Normal 0.00-0.30 [facility] Comment on above: Performed By: #### U CGP #### [address] [address] Bone Tender: Wilber Blair MD Abs.Neutrophil (Seg) 4.07 k/uL Normal 1.80-8.00 [facility] Comment on above: Performed By: #### U CGP #### [address] [address] Bone Tender: Wilber Blair MD Basophils/100 WBC (Bld) 1 % Normal 0-2 [facility] Comment on above: Performed By: #### U CGP #### [address] [address] Bone Tender: Wilber Blair MD Eosinophils (Bld) [#/Vol] 0.05 10*3/uL Normal 0.00-0.44 [facility] Comment on above: Performed By: #### U CGP #### [address] [address] Bone Tender: Wilber Blair MD Eosinophils/100 WBC (Bld) 1 % Normal 1-4 [facility] Comment on above: Performed By: #### U CGP #### [address] [address] Bone Tender: Wilber Blair MD Erythrocyte distribution width (RBC) [Ratio] 13.2 % Normal 11.8-14.4 [facility] Comment on above: Performed By: #### U CGP #### [address] [address] Bone Tender: Wilber Blair MD Hematocrit (Bld) [Volume fraction] 36.4 % Normal 36.3-47.1 [facility] Comment on above: Performed By: #### U CGP #### [address] [address] Bone Tender: Wilber Blair MD Hemoglobin (Bld) [Mass/Vol] 11.9 g/dL Normal 11.9-15.1 [facility] Comment on above: Performed By: #### U CGP #### [address] [address] Bone Tender: Wilber Blair MD Immature granulocytes/100 WBC (Bld) 0 % Normal 0 [facility] Comment on above: Performed By: #### U CGP #### [address] [address] Bone Tender: Wilber Blair MD Lymphocytes (Bld) [#/Vol] 1.78 10*3/uL Normal 1.20-5.20 [facility] Comment on above: Performed By: #### U CGP #### [address] [address] Bone Tender: Wilber Blair MD Lymphocytes/100 WBC (Bld) 28 % Normal 25-45 [facility] Comment on above: Performed By: #### U CGP #### [address] [address] Bone Tender: Wilber Blair MD MCH (RBC) [Entitic mass] 28.7 pg Normal 25.2-33.5 [facility] Comment on above: Performed By: #### U CGP #### [address] [address] Bone Tender: Wilber Blair MD MCHC (RBC) [Mass/Vol] 32.7 g/dL Normal 28.4-34.8 [facility] Comment on above: Performed By: #### U CGP #### [address] [address] Bone Tender: Wilber Blair MD MCV (RBC) [Entitic vol] 87.7 fL Normal 82.6-102.9 [facility] Comment on above: Performed By: #### U CGP #### [address] [address] Bone Tender: Wilber Blair MD Monocytes (Bld) [#/Vol] 0.40 10*3/uL Normal 0.10-1.40 [facility] Comment on above: Performed By: #### U CGP #### [address] [address] Bone Tender: Wilber Blair MD Monocytes/100 WBC (Bld) 6 % Normal 2-8 [facility] Comment on above: Performed By: #### U CGP #### [address] [address] Bone Tender: Wilber Blair MD Neutrophil (Seg) 64 % Normal 34-64 [facility] Comment on above: Performed By: #### U CGP #### [address] [address] Bone Tender: Wilber Blair MD NRBC Automated 0.0 per 100 WBC Normal 0.0 [facility] Comment on above: Performed By: #### U CGP #### [address] [address] Bone Tender: Wilber Blair MD Platelet mean volume (Bld) [Entitic vol] 9.9 fL Normal 8.1-13.5 [facility] Comment on above: Performed By: #### U CGP #### [address] [address] Bone Tender: Wilber Blair MD Platelets (Bld) [#/Vol] 272 10*3/uL Normal 138-453 [facility] Comment on above: Performed By: #### U CGP #### [facility] [address] [place], [place] [phone] Bone Tender: Wilber Blair MD RBC (Bld) [#/Vol] 4.15 10*6/uL Normal 3.95-5.11 [facility] Comment on above: Performed By: #### U CGP #### [facility] [address] [place] [address] Bone Tender: Wilber Blair MD WBC (Bld) [#/Vol] 6.4 10*3/uL Normal 4.5-13.5 [facility] Comment on above: Performed By: #### U CGP #### [facility] [employer] [address] [place] [address] Bone Tender: Wilber Blair MD Profile Ion 024 Basophils (Bld) [#/Vol] 0.03 10*3/uL [facility] Basophils/100 WBC (Bld) 1 % 0 - 2 % B on [facility] Eosinophils (Bld) [#/Vol] 0.05 10*3/uL [facility] Eosinophils/100 WBC (Bld) 1 % 1 - 4 % [facility] Erythrocyte distribution width (RBC) [Ratio] 13.2 % 11.8 - 14.4 % [facility] HBV surface Ag IA Ql Non-Reactive NONREACTIVE B on [facility] Hematocrit (Bld) [Volume fraction] 36.4 % 36.3 - 47.1 % [facility] Hemoglobin (Bld) [Mass/Vol] 11.9 g/dL 11.9 - 15.1 g/dL [facility] Immature granulocytes (Bld) [#/Vol] Bon [facility] Immature granulocytes/100 WBC (Bld) 0 % 0 [facility] Lymphocytes/100 WBC (Bld) 28 % 25 - 45 % [facility] Lymphocytes/100 WBC (Bld) 1.78 % [facility] MCH (RBC) [Entitic mass] 28.7 pg 25.2 - 33.5 pg [facility] MCHC (RBC) [Mass/Vol] 32.7 g/dL 28.4 - 34.8 g/dL [facility] MCV (RBC) [Entitic vol] 87.7 fL 82.6 - 102.9 fL [facility] Monocytes/100 WBC (Bld) 6 % 2 - 8 % B on [facility] Monocytes/100 WBC (Bld) 0.40 % B on [facility] Neutrophils/100 WBC (Bld) 64 % 34 - 64 % [facility] Nucleated RBC/100 WBC (Bld) [Ratio] 0.0 % 0.0 per 100 WBC [facility] Platelet mean volume (Bld) [Entitic vol] 9.9 fL 8.1 - 13.5 fL [facility] Platelets (Bld) [#/Vol] 272 10*3/uL [facility] RBC (Bld) [#/Vol] 4.15 10*6/uL 3.95 - 5.1 1 m/uL [facility] Rubella virus IgG IA Ql 41.7 IU/mL B on [facility] Comment on above: <10 NON REACTIVE Negative for Anti-Rubella IgG >=10 REACTIVE Positive for Anti Rubella IgG The presence of IgG antibody to Rubella virus is an indication of previous exposure either by prior infection or vaccination. Segmented neutrophils/100 WBC (Bld) 4.07 % [facility] T. pallidum Ab IA Ql (S) Non-Reactive NONREACTIVE [facility] Comment on above: T. pallidum antibodies are not detected. There is no serological evidence of infection with T. pallidum (early primary syphilis cannot be excluded). Retest in 2-4 weeks if syphilis is clinically suspect. WBC other (Bld) [#/Vol] 6.4 B on [facility] Type + Scrnon 07-31 Type + Scrn Negative Normal [facility] Comment on above: Performed By: #### P RTYS #### [facility] [address] [place] [address] Bone Tender: Omero Murry MD Chlamydia/GC,DNA Ampon 07-29 Chlamydia Probe Negative Normal [facility] Comment on above: Result Comment: CHLA MYDIA TRACHOMATIS DNA not detected by nucleic acid amplification. This test is intended for medical purposes only and is not valid for the evaluation of suspected sexual abuse or for other forensic purposes. In certain contexts, culture may be required to meet applicable laws and regulations for diagnosis of C. trachomatis and N. gonorrhoeae infections. Per 2014 CDC recommendations, this test does not include confirmation of positive results by an alternative nucleic acid target. Performed By: #### U CGP #### [address] [phone] Bone Tender: Wilber Blair MD Gonorrhea Probe Negative Normal [facility] Comment on above: Result Comment: NEIS SERIA GONORRHOEAE DNA not detected by nucleic acid amplification. This test is intended for medical purposes only and is not valid for the evaluation of suspected sexual abuse or for other forensic purposes. In certain contexts, culture may be required to meet applicable laws and regulations for diagnosis of C. trachomatis and N. gonorrhoeae infections. Per 2014 CDC recommendations, this test does not include confirmation of positive results by an alternative nucleic acid target. Performed By: #### U CGP #### [address] [phone] Bone Tender: Wilber Blair MD Trichomonas/Wet Prepon 07-28 Trichomonas/Wet Prep Specimen Descriptio n .VAGINA Direct Exam NO CLUE CELLS SEEN NO TRICHOMONAS SEEN NO YEAST OBSERVED Report Status FINAL 07/28/2024 [facility] Comment on above: Performed By: #### U CGP #### [address] [phone] Bone Tender: Wilbre Blair MD Microscopic Urinalysison Amorphous sediment LM Ql (Urine sed) 1+ Abnormal None [facility] Bacteria LM Ql (Urine sed) TRACE Abnormal None [facility] Epithelial cells LM.HPF (Urine sed) [#/Area] 0 TO 2 [facility] Interpretation and review of laboratory results Abnormal [facility] Mucus Ql (Urine sed) 1+ Abnormal None [facility] RBC LM.HPF (Urine sed) [#/Area] None [facility] WBC LM.HPF (Urine sed) [#/Area] None [facility] UA w/Reflex Cultureon 2023 Bilirubin, SemiQt,Ur Negative Normal NEG [facility] Comment on above: Performed By: #### U CGP #### [address] [place], [place] [phone] Bone Tender: Wilber Blair MD Blood, Urine Negative Normal NEG [facility] Comment on above: Performed By: #### U CGP #### [facility] [employer] [address] [place] [address] [phone] Bone Tender: Wilber Blair MD Clarity (U) Clear Normal CLEAR [facility] Comment on above: Performed By: #### U CGP #### [facility] [address] [place] [address] [phone] Bone Tender: Wilber Blair MD Color (U) Yellow Normal YEL [facility] Comment on above: Performed By: #### U CGP #### [facility] [address] [place] [address] [phone] Bone Tender: Wilber Blair MD Glucose Ql (U) Negative Normal NEG [facility] Comment on above: Performed By: #### U CGP #### [facility] [facility] [place], [place] [phone] Bone Tender: Wilber Blair MD Ketones Ql (U) Negative Normal NEG [facility] Comment on above: Performed By: #### U CGP #### [facility] [address] [place] [address] [phone] Bone Tender: Wilber Blair MD Leukocyte esterase Test strip Ql (U) Negative Normal NEG [facility] Comment on above: Performed By: #### U CGP #### [address] [address] Bone Tender: Wilber Blair MD Nitrite,Ur Negative Normal NEG [facility] Comment on above: Performed By: #### U CGP #### [address] [address] Bone Tender: Wilber Blair MD PH,Ur 6.5 Normal 5.0-9.0 [facility] Comment on above: Performed By: #### U CGP #### [address] [address] Bone Tender: Wilber Blair MD Protein Ql (U) Negative Normal NEG [facility] Comment on above: Performed By: #### U CGP #### [address] [address] Bone Tender: Wilber Blair MD Spec. [place],Ur 1.020 Normal 1.010-1.020 [facility] Comment on above: Performed By: #### U CGP #### [address] [address] Bone Tender: Wilber Blair MD Urobilinogen,Ur ELEVATED Normal 0.0-1.0 [facility] Comment on above: Performed By: #### U CGP #### [address] [address] Bone Tender: Wilber Blair MD Urinalysis with Reflex to Cu ltureon 07-27-2024 Bilirubin Ql (U) Negative NEGATIVE [facility] [employer] Clarity (U) Clear Clear [facility] [employer] Color (U) Yellow Yellow [facility] [employer] Glucose Test strip (U) [Mass/Vol] Negative NEGATIVE mg/dL [facility] [employer] Hemoglobin Auto test strip Ql (U) Negative NEGATIVE [facility] [employer] Ketones (U) [Mass/Vol] Negative NEGAT JG mg/dL [facility] Leukocyte esterase Test strip Ql (U) Negative NEGATIVE [facility] Nitrite Ql (U) Negative NEGATIVE [facility] pH (U) 6.5 [pH] 5.0 - 9.0 [facility] Protein (U) [Mass/Vol] Negative NEGAT JG mg/dL [facility] Specific gravity (U) [Rel density] 1.020 1.010 - 1.020 [facility] Urobilinogen Qn (U) ELEVATED 0.0 - 1. 0 EU/dL [facility] Urinalysis,Microon 4 Amorphous sediment LM Ql (Urine sed) 1+ Abnormal [facility] Comment on above: Performed By: #### U CGP #### [address] [address] Bone Tender: Wilber Blair MD Bacteria TRACE Abnormal [facility] Comment on above: Performed By: #### U CGP #### [facility] [employer] [address] [place] [address] [phone] Bone Tender: Wilber Blair MD Epithelial cells LM Ql (Urine sed) 0 TO 2 Normal 0-25 [facility] Comment on above: Performed By: #### U CGP #### [facility] [address] [place] [address] Bone Tender: Wilber Blair MD Mucus Strands 1+ Abnormal [facility] Comment on above: Performed By: #### U CGP #### [facility] [place] [address] Bone Tender: Wibler Blair MD Urine RBC's None Normal 0-2 [facility] Comment on above: Performed By: #### U CGP #### [facility] [address] [place] [address] Bone Tender: Wilber Blair MD Urine WBC's None Normal 0-5 [facility] Comment on above: Performed By: #### U CGP #### [address] [place] [address] Bone Tender: Wilber Blair MD HCG ( test) Ql (U)o n 07-22-2024 Beta HCG ( test) Ql (U) Positive Abnormal NEG [facility] Comment on above: Performed By: #### C SYBIL, CMP, 8, 3040-3 #### [facility] ([id number]) [address] [place] [address] HCG.beta subunit IA 3rd IS Q non 07-22-2024 [place] [address] m[IU]/mL Normal P [facility] Comment on above: Result Comment: NEW REFERENCE RANGE WEEKS (SINCE LMP) MIU/mL 3 WEEKS 5 - 50 4 WEEKS 5 - 426 5 WEEKS 18 - 7,340 6 WEEKS 1,080 - 56,500 7-8 WEEKS 7,650 - 229,000 9-12 WEEKS 25,700 - 288,000 13-16 WEEKS 13,300 - 254,000 17-24 WEEKS 4,060 - 165,400 25-40 WEEKS 3,640 - 117,000 MALES AND NON- FEMALES - <5 MIU/mL This test has been FDA approved for use in only. Elevated levels are not necessarily diagnostic for trophoblastic or nontrophoblastic neoplasms. Performed By: #### C SYBIL, CMP, 1798-05, 3040-3 #### [facility] ([id number]) [address] [place] [address] HEMOGLOBINon 07-22-2024 Hemoglobin (Bld) [Mass/Vol] 13.4 g/dL Normal 11.7-15.5 [facility] Comment on above: Performed By: #### C SYBIL, CMP, 1798-05, 3040-3 #### [facility] ([id number]) [address] [place] [phone] Hematocrit Auto (Bld) [Volum e fraction]on 07-22-2024 Hematocrit (Bld) [Volume fraction] 39.8 % Normal 35-47 [facility] Comment on above: Performed By: #### C KOFFI DEVINE, 1798-05, 0-3 #### [facility] ([id number]) [address] [place] [address] URN MACROSCOPIC NURon 2023 BILIRUBIN TONG Small Abnormal NEG [facility] Comment on above: Performed By: #### Bharat DEVINE CMP, 1798-05, 3039-3 #### [facility] ([id number]) [address] [place] [address] BLOOD/HGB TONG Trace Abnormal NEG [facility] Comment on above: Performed By: #### Bharat DEVINE CMP, 1798-05, 3039-3 #### [facility] ([id number]) [address] [place] [address] GLUCOSE TONG Negative Normal NEG [facility] Comment on above: Performed By: #### Bharat DEVINE CMP, 1798-05, 3039-3 #### [facility] ([id number]) [address] [place] [address] 68471 KETONES TONG 15 mg/dL Abnormal NEG [facility] [place] Comment on above: Performed By: #### Bharat DEVINE CMP, 1798-05, 3039-3 #### [facility] ([id number]) [address] [place] [address] 85271 LEUKOCYTE ESTERASE TONG Negative Normal NEG Pr [facility] [place] [place] Comment on above: Performed By: #### Bharat DEVINE CMP, 1798-05, 0-3 #### [facility] ([id number]) [address] [place] [address] 72943 NITRITE TONG Negative Normal NEG [facility] [place] Comment on above: Performed By: #### C SYBIL, CMP, 8, 3040-3 #### [facility] ([id number]) [address] [place] [address] 06623 PH TONG 5.5 Normal 5.0-8.5 [facility] [place] Comment on above: Performed By: #### C SYBIL, CMP, 1798-05, 3040-3 #### [facility] ([id number]) [address] [place] [address] 55616 PROTEIN TONG Negative Normal NEG [facility] [place] Comment on above: Performed By: #### C SYBIL, CMP, 1798-05, 3040-3 #### [facility] ([id number]) [address] [place] [address] 07723 SPECIFIC GRAVITY TONG >=1.030 Normal 1.003-1.035 [facility] Comment on above: Performed By: #### C SYBIL, CMP, 1798-05, 3040-3 #### [facility] ([id number]) [address] [place] [address] 21497 UROBILINOGEN TONG 0.2 eu/dL Normal <1.1 [facility] Comment on above: Performed By: #### C SYBIL, CMP, 8, 3040-3 #### [facility] ([id number]) [address] [place] [address] 50707 US PREG LESS THAN 14 WKS WIT H TRANSVAGINALon 07-22-2024 US PREG LESS THAN 14 WKS WITH TRANSVAGINAL US PREG LESS THAN 14 WKS WITH TRANSVAGINAL US PREG LESS THAN 14 WKS WITH TRANSVAGINAL Clinical History: Vaginal bleeding Comparison: CT abdomen and pelvis 03/15/2024, ultrasound 11/03/2023. FINDINGS: Single live IUP at 6 weeks 1 day based on crown-rump length of 4 mm.Yolk sac visualized, and appears unremarkable. Heart rate 112 beats per minute. The gestational sac is normal in morphology. Gestational sac fluid volume is normal for this very early gestational age. Placental morphology and location cannot be determined based on this early gestational age. Status post right oophorectomy. Left ovary measures 4.2 cm and appears unremarkable. No free fluid demonstrated in the pelvis. IMPRESSION: * Single live IUP, proximal gestational age 6 weeks 1 day based on CRL of 4 mm. * Status post right oophorectomy. Left adnexa appears unremarkable. Approved by Resident: Rj Stafford MD on 07/22/2024 5:33 PM IAntione MD have personally reviewed the image(s) and agree with and/or edited the report Finalized by Antione Carlson MD on 07/22/2024 5:41 PM Normal [facility] [place] XR ELBOW LT MIN 3 VWSon XR ELBOW LT MIN 3 VWS XR ELBOW LT MIN 3 VWS XR ELBOW LT MIN 3 VWS HISTORY: pain. COMPARISON: none IMPRESSION: 1. No acute fracture or dislocation. No effusion. 2. Mild soft tissue thickening about the olecranon. Finalized by Sreekanth Foster MD on 05/27/2024 12:47 AM Normal [facility] [place] XR KNEE RT MIN 4 VWSon 05-27 XR KNEE RT MIN 4 VWS XR KNEE RT MIN 4 VW S XR KNEE RT MIN 4 VWS HISTORY: pain, include sunrise. COMPARISON: none IMPRESSION: 1. No acute fracture or dislocation. No effusion. 2. Mild prepatellar soft tissue thickening. Finalized by Sreekanth Foster MD on 05/27/2024 12:47 AM Normal [facility] [place] ENT Food Panelon 05-01-2024 Banana IgE 0.13 kU/L Normal 0.00-0.34 [facility] Comment on above: Performed By: #### U CGP #### [address] [place] [address] Bone Tender: Wilber Blair MD Casein IgE <0.10 Normal 0.00-0.34 [facility] Comment on above: Performed By: #### U CGP #### [address] [address] Bone Tender: Wilber Blair MD Chicken IgE <0.10 Normal 0.00-0.34 [facility] Comment on above: Performed By: #### U CGP #### [address] [address] Bone Tender: Wilber Blair MD Chocolate IgE <0.10 Normal 0.00-0.34 [facility] Comment on above: Performed By: #### U CGP #### [address] [address] Bone Tender: Wilber Blair MD Cinnamon IgE <0.10 Normal 0.00-0.34 [facility] Comment on above: Performed By: #### U CGP #### [address] [address] Bone Tender: Wilber Blair MD Codfish IgE <0.10 Normal 0.00-0.34 [facility] Comment on above: Performed By: #### U CGP #### [address] [address] Bone Tender: Wilber Blair MD Red Level IgE 0.11 kU/L Normal 0.00-0.34 [facility] Comment on above: Performed By: #### U CGP #### [address] [address] Bone Tender: Wilber Blair MD Garlic IgE 0.11 kU/L Normal 0.00-0.34 [facility] Comment on above: Performed By: #### U CGP #### [address] [address] Bone Tender: Wilber Blair MD Milk (Cow) IgE <0.10 Normal 0.00-0.34 [facility] Comment on above: Performed By: #### U CGP #### [address] [address] Bone Tender: Wilber Blair MD Mustard IgE <0.10 Normal 0.00-0.34 [facility] Comment on above: Performed By: #### U CGP #### [address] [address] Bone Tender: Wilber Blair MD [place] IgE <0.10 Normal 0.00-0.34 [facility] Comment on above: Performed By: #### U CGP #### [address] [address] Bone Tender: Wilber Blair MD Peanut IgE 0.11 kU/L Normal 0.00-0.34 [facility] Comment on above: Performed By: #### U CGP #### [address] [address] Bone Tender: Wilber Blair MD Peas, Green IgE <0.10 Normal 0.00-0.34 [facility] Comment on above: Performed By: #### U CGP #### [address] [address] Bone Tender: Wilber Blair MD Potato IgE <0.10 Normal 0.00-0.34 [facility] Comment on above: Performed By: #### U CGP #### [address] [address] Bone Tender: Wilber Blair MD Rice IgE 0.11 kU/L Normal 0.00-0.34 [facility] Comment on above: Performed By: #### U CGP #### [address] [address] Bone Tender: Wilber Blair MD Faith IgE <0.10 Normal 0.00-0.34 [facility] Comment on above: Result Comment: ALLERGEN, INTERP, IMMUNOCAP SCORE IGE <0.10 Class 0 No significant level detected 0.10-0.34 Class 0/1 Clinical relevance undertermined 0.35 to 0.70 Class 1 Low 0.71 to 3.50 Class 2 Moderate 3.51 to 17.50 Class 3 High 17.51 to 50.00 Class 4 Very High 50.01 to 100.00 Class 5 Very High >100.00 Class 6 Very High units: kU/L Increasing ranges are reflective of increasing concentrations of allergen specific IgE. These concentrations may not correlate with the degree of clinical response or skin testing results when challenged with a specific allergen. The correlation of allergy laboratory results with the clinical history and in vivo reactivity to specific allergens is essential. A negative test may not rule out clinical allergy or even anaphylaxis. Performed By: #### U CGP #### [place] [address] Bone Tender: Wilber Blair MD Tuna IgE <0.10 Normal 0.00-0.34 [facility] Comment on above: Performed By: #### U CGP #### [place] [address] Bone Tender: Wilber Blair MD Chase/Bl.Chase IgE <0.10 Normal 0.00-0.34 [facility] Comment on above: Performed By: #### U CGP #### [facility] [address] [place] [address] Bone Tender: Wilber Blair MD Wheat IgE <0.10 Normal 0.00-0.34 [facility] Comment on above: Performed By: #### U CGP #### [facility] [employer] [address] [place] [address] Bone Tender: Wilber Blair MD Yeast, Bakers IgE <0.10 Normal 0.00-0.34 [facility] Comment on above: Result Comment: ALLERGEN, INTERP, IMMUNOCAP SCORE IGE <0.10 Class 0 No significant level detected 0.10-0.34 Class 0/1 Clinical relevance undertermined 0.35 to 0.70 Class 1 Low 0.71 to 3.50 Class 2 Moderate 3.51 to 17.50 Class 3 High 17.51 to 50.00 Class 4 Very High 50.01 to 100.00 Class 5 Very High >100.00 Class 6 Very High units: kU/L Increasing ranges are reflective of increasing concentrations of allergen specific IgE. These concentrations may not correlate with the degree of clinical response or skin testing results when challenged with a specific allergen. The correlation of allergy laboratory results with the clinical history and in vivo reactivity to specific allergens is essential. A negative test may not rule out clinical allergy or even anaphylaxis. Performed By: #### U CGP #### [address] [address] Bone Tender: Wilber Blair MD Beef IgE <0.10 Normal 0.00-0.34 [facility] Comment on above: Performed By: #### U CGP #### [address] [address] Bone Tender: Wilber Blair MD Egg White IgE <0.10 Normal 0.00-0.34 [facility] Comment on above: Performed By: #### U CGP #### [facility] [employer] [address] [place] [address] Bone Tender: Wilber Blair MD Egg, Whole IgE <0.10 Normal 0.00-0.34 [facility] Comment on above: Performed By: #### U CGP #### [facility] [employer] [address] [place] [address] Bone Tender: Wilber Blair MD Pork IgE <0.10 Normal 0.00-0.34 [facility] Comment on above: Performed By: #### U CGP #### [facility] [employer] [address] [place] [address] Bone Tender: Wilber Blair MD Scallop IgE 0.11 kU/L Normal 0.00-0.34 [facility] Comment on above: Performed By: #### U CGP #### [address] [address] Bone Tender: Wilber Blair MD Shrimp IgE <0.10 Normal 0.00-0.34 [facility] Comment on above: Performed By: #### U CGP #### [facility] [address] [place], [place] [phone] Bone Tender: Wilber Blair MD Soybean IgE <0.10 Normal 0.00-0.34 [facility] Comment on above: Performed By: #### U CGP #### [facility] [address] [place], [place] [phone] Bone Tender: Wilber Blair MD Tomato IgE 0.12 kU/L Normal 0.00-0.34 [facility] Comment on above: Result Comment: ALLERGEN, INTERP, IMMUNOCAP SCORE IGE <0.10 Class 0 No significant level detected 0.10-0.34 Class 0/1 Clinical relevance undertermined 0.35 to 0.70 Class 1 Low 0.71 to 3.50 Class 2 Moderate 3.51 to 17.50 Class 3 High 17.51 to 50.00 Class 4 Very High 50.01 to 100.00 Class 5 Very High >100.00 Class 6 Very High units: kU/L Increasing ranges are reflective of increasing concentrations of allergen specific IgE. These concentrations may not correlate with the degree of clinical response or skin testing results when challenged with a specific allergen. The correlation of allergy laboratory results with the clinical history and in vivo reactivity to specific allergens is essential. A negative test may not rule out clinical allergy or even anaphylaxis. Performed By: #### U CGP #### [facility] [address] [place] [address] Bone Tender: Wilber Blair MD Celiac Disease Panelon 04-30 Gliadin Deam Pep IgA 0.9 U/mL Normal <7.0 [facility] Comment on above: Result Comment: CELIAC INTERPRETATION <7.0 Negative 7.0-10.0 Equivocal >10.0 Positive units: U/mL Performed By: #### U CGP #### [facility] [address] [place], [place] [phone] Bone Tender: Wilber Blair MD Gliadin Deam Pep IgG 1.6 U/mL Normal <7.0 [facility] Comment on above: Result Comment: CELIAC INTERPRETATION <7.0 Negative 7.0-10.0 Equivocal >10.0 Positive units: U/mL Performed By: #### U CGP #### [facility] [address] [place], [place] [id number] Bone Tender: Wilber Blair MD Tiss Transglutam IgA 0.4 U/mL Normal <7.0 [facility] Comment on above: Result Comment: CELIAC INTERPRETATION <7.0 Negative 7.0-10.0 Equivocal >10.0 Positive units: U/mL Performed By: #### U CGP #### [address] [id number] Bone Tender: Wilber Blair MD ENT Food Panelon 04-30-2024 Immunoglobulin E 20 IU/mL Normal 0-100 [facility] Comment on above: Performed By: #### U CGP #### [address] [address] Bone Tender: Wilber Blair MD C-Reactive Proteinon 024 CRP High sensitivity method [Mass/Vol] mg/L 0.0 - 5.0 mg/L [facility] CRP [Mass/Vol] mg/L Normal 0.0-5.0 [facility] Comment on above: Performed By: #### P RTYS #### [facility] [address] [place] [address] Bone Tender: Omero [place] MD CBC with Auto Differentialon 04-29-2024 Basophils (Bld) [#/Vol] 0.06 10*3/uL [facility] Basophils/100 WBC (Bld) 1 % 0 - 2 % [facility] Eosinophils (Bld) [#/Vol] 0.19 10*3/uL [facility] Eosinophils/100 WBC (Bld) 3 % 1 - 4 % [facility] Erythrocyte distribution width (RBC) [Ratio] 14.1 % 11.8 - 14.4 % [facility] Hematocrit (Bld) [Volume fraction] 41.3 % 36.3 - 47.1 % [facility] Hemoglobin (Bld) [Mass/Vol] 13.2 g/dL 11.9 - 15.1 g/dL [facility] Immature granulocytes (Bld) [#/Vol] [facility] Immature granulocytes/100 WBC (Bld) 0 % 0 [facility] Lymphocytes/100 WBC (Bld) 37 % 25 - 45 % [facility] Lymphocytes/100 WBC (Bld) 2.21 % [facility] MCH (RBC) [Entitic mass] 27.6 pg 25.2 - 33.5 pg [facility] MCHC (RBC) [Mass/Vol] 32.0 g/dL 28.4 - 34.8 g/dL [facility] MCV (RBC) [Entitic vol] 86.4 fL 82.6 - 102.9 fL [facility] Monocytes/100 WBC (Bld) 6 % 2 - 8 % [facility] Monocytes/100 WBC (Bld) 0.37 % [facility] Neutrophils/100 WBC (Bld) 53 % 34 - 64 % [facility] Nucleated RBC/100 WBC (Bld) [Ratio] 0.0 % 0.0 per 100 WBC [facility] Platelet mean volume (Bld) [Entitic vol] 10.0 fL 8.1 - 13.5 fL [facility] Platelets (Bld) [#/Vol] 290 10*3/uL [facility] RBC (Bld) [#/Vol] 4.78 10*6/uL 3.95 - 5.1 1 m/uL [facility] Segmented neutrophils/100 WBC (Bld) 3.08 % [facility] WBC other (Bld) [#/Vol] 5.9 B [facility] CBC with Diffon 04-29-2024 Abs. Basophil 0.06 k/uL Normal 0.00-0.20 [facility] Comment on above: Performed By: #### P RTYS #### [facility] [address] [place] [address] Dr. Mcdaniel, [facility] Bone Tender: Omero [place] MD Abs.Imm.Granulocyte <0.03 Normal 0.00-0.30 [facility] Comment on above: Performed By: #### P RTYS #### [address] Mcdaniel, [facility] Bone Tender: Omero [place] MD Abs.Neutrophil (Seg) 3.08 k/uL Normal 1.80-8.00 [facility] Comment on above: Performed By: #### P RTYS #### [address] [place] [address] Bone Tender: Omero [place] MD Basophils/100 WBC (Bld) 1 % Normal 0-2 M [facility] Comment on above: Performed By: #### P RTYS #### [address] Mcdaniel, [place] [address] Bone Tender: Omero Mur[place] MD Eosinophils (Bld) [#/Vol] 0.19 10*3/uL Normal 0.00-0.44 [facility] Comment on above: Performed By: #### P RTYS #### [address] Mcdaniel, [facility] Bone Tender: Omero Murry MD Eosinophils/100 WBC (Bld) 3 % Normal 1-4 [facility] Comment on above: Performed By: #### P RTYS #### [facility] [address] [place] [address] Dr. Mcdaniel, [facility] Bone Tender: Omero Mur[place] MD Erythrocyte distribution width (RBC) [Ratio] 14.1 % Normal 11.8-14.4 [facility] Comment on above: Performed By: #### P RTYS #### [address] [place] [id number] Bone Tender: Omero Mur[place] MD Hematocrit (Bld) [Volume fraction] 41.3 % Normal 36.3-47.1 [facility] Comment on above: Performed By: #### P RTYS #### [address] [place], [place] [address]83 Bone Tender: Omero Murry MD Hemoglobin (Bld) [Mass/Vol] 13.2 g/dL Normal 11.9-15.1 [facility] Comment on above: Performed By: #### P RTYS #### [address] [place], [place] [phone] Bone Tender: Omero Mur[place] MD Immature granulocytes/100 WBC (Bld) 0 % Normal 0 [facility] Comment on above: Performed By: #### P RTYS #### [address] Mcdaniel, [facility] Bone Tender: Omero [place] MD Lymphocytes (Bld) [#/Vol] 2.21 10*3/uL Normal 1.20-5.20 [facility] Comment on above: Performed By: #### P RTYS #### [address] Mcdaniel, [facility] Bone Tender: Omero [place] MD Lymphocytes/100 WBC (Bld) 37 % Normal 25-45 [facility] Comment on above: Performed By: #### P RTYS #### [address] Mcdaniel, [facility] Bone Tender: Omero [place] MD MCH (RBC) [Entitic mass] 27.6 pg Normal 25.2-33.5 [facility] Comment on above: Performed By: #### P RTYS #### [address] [place], [place] [phone] Bone Tender: Omero [place] MD MCHC (RBC) [Mass/Vol] 32.0 g/dL Normal 28.4-34.8 [facility] Comment on above: Performed By: #### P RTYS #### [facility] [address] [place] [address] Bone Tender: Omero [place] MD MCV (RBC) [Entitic vol] 86.4 fL Normal 82.6-102.9 [facility] Comment on above: Performed By: #### P RTYS #### [facility] [address] [place] [id number] Bone Tender: Omero [place] MD Monocytes (Bld) [#/Vol] 0.37 10*3/uL Normal 0.10-1.40 [facility] Comment on above: Performed By: #### P RTYS #### [address] [place] [id number] Bone Tender: Omero [place] MD Monocytes/100 WBC (Bld) 6 % Normal 2-8 M [facility] Comment on above: Performed By: #### P RTYS #### [address] [place] [id number] Bone Tender: Omero [place] MD Neutrophil (Seg) 53 % Normal 34-64 [facility] Comment on above: Performed By: #### P RTYS #### [address] [place], [place] [id number] Bone Tender: Omero Mur[place] MD NRBC Automated 0.0 per 100 WBC Normal 0.0 [facility] Comment on above: Performed By: #### P RTYS #### [facility] [address] [place] [address] Dr. [place], [place] 2328883 Bone Tender: Omero Mur[place] MD Platelet mean volume (Bld) [Entitic vol] 10.0 fL Normal 8.1-13.5 [facility] Comment on above: Performed By: #### P RTYS #### [address] [place] [phone] Bone Tender: Omero [place] MD Platelets (Bld) [#/Vol] 290 10*3/uL Normal 138-453 [facility] Comment on above: Performed By: #### P RTYS #### [facility] [address] [place], [place] [phone] Bone Tender: Omero [place] MD RBC (Bld) [#/Vol] 4.78 10*6/uL Normal 3.95-5.11 [facility] Comment on above: Performed By: #### P RTYS #### [facility] [address] [place] [phone] Bone Tender: Omero Mur[place] MD WBC (Bld) [#/Vol] 5.9 10*3/uL Normal 4.5-13.5 [facility] Comment on above: Performed By: #### P RTYS #### [address] [place], [place] [phone] Bone Tender: Omero Mur[place] MD Celiac Disease Panelon 04-29 IgA [Mass/Vol] 201 mg/dL Normal 70-400 [facility] Comment on above: Performed By: #### U CGP #### [address] [address] Bone Tender: Wilber Blair MD Comp Metabolic Profon 2023 Albumin [Mass/Vol] 4.5 g/dL Normal 3.5-5.2 [facility] Comment on above: Performed By: #### P RTYS #### [facility] [address] [place], [place] [phone] Bone Tender: Omero Mur[place] MD Albumin/Glob Ratio 1.5 Normal 1.0-2.5 [facility] Comment on above: Performed By: #### P RTYS #### [facility] [address] [place] [address] Bone Tender: Omero Murry MD Alkaline Phos 74 U/L Normal 35-104 [facility] Comment on above: Performed By: #### P RTYS #### [facility] [address] [place], [place] [phone] Bone Tender: Omero Mur[place] MD ALT [Catalytic activity/Vol] 33 U/L Normal 5-33 [facility] Comment on above: Performed By: #### P RTYS #### [facility] [address] [place], [place] 8[address]83 Bone Tender: Omero Murry MD Anion gap [Moles/Vol] 8 mmol/L Low 9-17 [facility] Comment on above: Performed By: #### P RTYS #### [facility] [address] [place], [place] 2543383 Bone Tender: Omero Mur[place] MD AST [Catalytic activity/Vol] 24 U/L Normal <32 [facility] Comment on above: Performed By: #### P RTYS #### [facility] [address] [place], [place] 5018183 Bone Tender: Omero Murry MD Bilirubin [Mass/Vol] 0.3 mg/dL Normal 0.3-1.2 [facility] Comment on above: Performed By: #### P RTYS #### [facility] [address] [place], [place] 4415383 Bone Tender: Omero Murry MD BUN/CRE Ratio 11 Normal 9-20 [facility] Comment on above: Performed By: #### P RTYS #### [facility] [address] [place], [place] 2275983 Bone Tender: Omero Mur[place] MD Calcium [Mass/Vol] 9.0 mg/dL Normal 8.6-10.4 [facility] Comment on above: Performed By: #### P RTYS #### [facility] [address] [place], [place] 1544283 Bone Tender: Omero Murry MD Chloride [Moles/Vol] 105 mmol/L Normal 98-107 [facility] Comment on above: Performed By: #### P RTYS #### [facility] [address] [place] [address] Bone Tender: Omero Murry MD CO2 [Moles/Vol] 25 mmol/L Normal 20-31 [facility] Comment on above: Performed By: #### P RTYS #### [facility] [address] [place] [address] Bone Tender: Omero Murry MD Creatinine [Mass/Vol] 0.7 mg/dL Normal 0.5-0.9 [facility] Comment on above: Performed By: #### P RTYS #### [facility] [address] [place] [address] Bone Tender: Omero Murry MD GFR/1.73 sq M.predicted among non-blacks MDRD (S/P/Bld) [Vol rate/Area] mL/min/{1.73_m2} Normal >60 [facility] Comment on above: Result Comment: These results are not intended for use in patients <18 years of age. eGFR results are calculated without a race factor using the 2020 CKD-EPI equation. Careful clinical correlation is recommended, particularly when comparing to results calculated using previous equations. The CKD-EPI equation is less accurate in patients with extremes of muscle mass, extra-renal metabolism of creatine, excessive creatine ingestion, or following therapy that affects renal tubular secretion. Performed By: #### P RTYS #### [facility] [address] [place] [address] Bone Tender: Omero Murry MD Glucose [Mass/Vol] 84 mg/dL Normal 70-99 [facility] Comment on above: Performed By: #### P RTYS #### [facility] [address] [place] [address] Bone Tender: Omero Murry MD Potassium [Moles/Vol] 4.6 mmol/L Normal 3.7-5.3 [facility] Comment on above: Performed By: #### P RTYS #### [facility] [address] [place] [address] Bone Tender: Omero Murry MD Protein [Mass/Vol] 7.6 g/dL Normal 6.4-8.3 [facility] Comment on above: Performed By: #### P RTYS #### [facility] [address] [place], [place] [phone] Bone Tender: Omero Murry MD Sodium [Moles/Vol] 138 mmol/L Normal 135-144 [facility] Comment on above: Performed By: #### P RTYS #### [facility] [address] [place] [address] Bone Tender: Omero Murry MD Urea nitrogen [Mass/Vol] 8 mg/dL Normal 6-20 [facility] Comment on above: Performed By: #### P RTYS #### [facility] [address] [place] [address] Bone Tender: Omero Murry MD [facility] Metabolic [facility] 04-29-2024 Albumin [Mass/Vol] 4.5 g/dL 3.5 - 5.2 g/dL [facility] Albumin/Globulin [Mass ratio] 1.5 {ratio} 1.0 - 2.5 [facility] ALP [Catalytic activity/Vol] 74 U/L 35 - 104 U/L [facility] ALT [Catalytic activity/Vol] 33 U/L 5 - 33 U/L [facility] Anion gap [Moles/Vol] 8 mmol/L Low 9 - 17 mmol/L [facility] AST [Catalytic activity/Vol] 24 U/L NINF - 32 U/L [facility] Bilirubin [Mass/Vol] 0.3 mg/dL 0.3 - 1 .2 mg/dL [facility] Calcium [Mass/Vol] 9.0 mg/dL 8.6 - 10. 4 mg/dL [facility] Chloride [Moles/Vol] 105 mmol/L 98 - 10 7 mmol/L [facility] CO2 [Moles/Vol] 25 mmol/L 20 - 31 mmol/L [facility] Creatinine [Mass/Vol] 0.7 mg/dL 0.5 - 0.9 mg/dL [facility] Khari Stearns Rate - [facility] Comment on above: These results are not intended for use in patients <18 years of age. eGFR results are calculated without a race factor using the 2020 CKD-EPI equation. Careful clinical correlation is recommended, particularly when comparing to results calculated using previous equations. The CKD-EPI equation is less accurate in patients with extremes of muscle mass, extra-renal metabolism of creatine, excessive creatine ingestion, or following therapy that affects renal tubular secretion. Glucose [Mass/Vol] 84 mg/dL 70 - 99 mg/dL [facility] Interpretation and review of laboratory results Abnormal [facility] Potassium [Moles/Vol] 4.6 mmol/L 3.7 - 5.3 mmol/L [facility] Protein [Mass/Vol] 7.6 g/dL 6.4 - 8.3 g/dL [facility] Sodium [Moles/Vol] 138 mmol/L 135 - 144 mmol/L [facility] Urea nitrogen [Mass/Vol] 8 mg/dL 6 - 20 mg/dL [facility] Urea nitrogen/Creatinine [Mass ratio] 11 mg/mg 9 - 20 [facility] Ferritinon 04-29-2024 Ferritin [Mass/Vol] 11 ng/mL Low 13 - 150 ng/mL [facility] Comment on above: FERRITIN Reference Ranges: Adult Males 20 - 60 years: 30 - 400 ng/mL Adult females 17 - 60 years: 13 - 150 ng/mL Adults greater than 60 years: no established reference range Pediatrics: no established reference range Ferritin [Mass/Vol] 11 ng/mL Low 13-150 [facility] Comment on above: Result Comment: FERRITIN Reference Ranges: Adult Males 20 - 60 years: 30 - 400 ng/mL Adult females 17 - 60 years: 13 - 150 ng/mL Adults greater than 60 years: no established reference range Pediatrics: no established reference range Performed By: #### P RTYS #### [facility] [address] [place] [address] Bone Tender: Omero Murry MD HCG Qualitative, Serumon HCG ( test) Ql Negative NEGATIVE B ON [facility] Comment on above: Specimens with hCG l evels near the threshold of the test (25 mIU/mL) may give a negative or indeterminate result. In such cases, another test should be performed with a new specimen in 48-72 hours. If early is suspected clinically in this setting, correlation with quantitative serum b-hCG level is suggested. [facility] has confirmed the use of plasma for this test. This has not been cleared or approved by the U.S. Food and Drug Administration. The FDA has determined that such clearance is not necessary. [facility] HCG Screen, Bloodon 04-29-20 24 HCG Screen, Blood Negative Normal NEG [facility] Comment on above: Result Comment: Spec imens with hCG levels near the threshold of the test (25 mIU/mL) may give a negative or indeterminate result. In such cases, another test should be performed with a new specimen in 48-72 hours. If early is suspected clinically in this setting, correlation with quantitative serum b-hCG level is suggested. [facility] has confirmed the use of plasma for this test. This has not been cleared or approved by the U.S. Food and Drug Administration. The FDA has determined that such clearance is not necessary. Performed By: #### P RTYS #### [facility] [address] [place] [address] Bone Tender: Omero Murry MD Iron Binding Cap.on 04-29-20 24 % Fe Saturation 12 % Low 20-55 [facility] Comment on above: Performed By: #### P RTYS #### [facility] [address] [place] [address] Bone Tender: Omero Murry MD Iron [Mass/Vol] 47 ug/dL Normal 37-145 [facility] Comment on above: Performed By: #### P RTYS #### [facility] [address] [place], [place] [address] Bone Tender: Omero Murry MD Total Fe Binding Cap 381 ug/dL Normal 250-450 [facility] Comment on above: Performed By: #### P RTYS #### [facility] [address] [place], [place] [id number] Bone Tender: Omero Murry MD Unbound Fe Bind Cap 334 ug/dL Normal 112-347 [facility] Comment on above: Performed By: #### P RTYS #### [facility] [address] [place] [address] Bone Tender: Omero Murry MD Iron and TIBCon 04-29-2024 Iron [Mass/Vol] 47 ug/dL 37 - 145 ug/dL [facility] Iron binding capacity [Mass/Vol] 381 ug/dL 250 - 450 ug/dL [facility] Iron saturation [Mass fraction] 12 % Low 20 - 55 % [facility] UIBC 334 ug/dL 112 - 347 ug/dL [facility] No Panel Informationon 04-29 Interpretation and review of laboratory results Abnormal [facility] Sedimentation Rateon 024 ESR Photometric method (Bld) [Velocity] 6 [facility] Sedimentation Rate 6 mm/Hr Normal 0-20 [facility] Comment on above: Performed By: #### P RTYS #### [facility] [address] [place] [address] Bone Tender: Omero Murry MD T4, Freeon 04-29-2024 Free T4 [Mass/Vol] 1.2 ng/dL 0.92 - 1. 68 ng/dL [facility] TSHon 04-29-2024 TSH Qn 1.92 m[IU]/L [facility] Thyroid Stim. Horm.on 2023 Thyroid Stim. Horm. 1.92 uIU/mL Normal 0.30-5.00 [facility] Comment on above: Performed By: #### P RTYS #### [facility] [address] [place], [place] [address] Bone Tender: Omero Murry MD Thyroxine, Freeon 04-29-2024 Thyroxine, Free 1.2 ng/dL Normal 0.92-1.68 [facility] Comment on above: Performed By: #### P RTYS #### [facility] [address] [place], [place] [address] Bone Tender: Omero Murry MD CBC AND AUTO DIFFon 03-15-20 ABSOLUTE BASOPHIL 0.0 X10E9/L Normal 0.0-0.2 [facility] Comment on above: Performed By: #### C SYBIL, CMP, 1798-05, 0-3 #### [facility] ([id number]) [address] [place] [address] 50967 ABSOLUTE NEUTROPHIL 5.7 X10E9/L Normal 1.5-6.6 [facility] Comment on above: Performed By: #### C BCA, CMP, 1798-05, 0-3 #### [facility] ([id number]) [address] [place] [address] 92785 Basophils/100 WBC (Bld) 0.5 % Normal [facility] Comment on above: Performed By: #### C BCA, CMP, 1798-05, 0-3 #### [facility] ([id number]) [address] [place] [address] 79924 Eosinophils (Bld) [#/Vol] 0.0 10*3/uL Normal 0.0-0.4 [facility] Comment on above: Performed By: #### C BCA, CMP, 1798-05, 0-3 #### [facility] ([id number]) [address] [place] [address] 58796 Eosinophils/100 WBC (Bld) 0.2 % Normal [facility] Comment on above: Performed By: #### Bharat DEVINE CMP, 1798-05, 3 #### [facility] ([id number]) [address] [place] [address] 01559 Erythrocyte distribution width (RBC) [Ratio] 15.6 % High 11.5-15.0 [facility] Comment on above: Performed By: #### Bharat DEVINE CMP, 1798-05, 3 #### [facility] ([id number]) [address] [place] [address] 84375 Hematocrit (Bld) [Volume fraction] 35.1 % Normal 35-47 [facility] Comment on above: Performed By: #### Bharat DEVINE CMP, 1798-05, 3 #### [facility] ([id number]) [address] [place] [address] 88469 Hemoglobin (Bld) [Mass/Vol] 11.8 g/dL Normal 11.7-15.5 [facility] Comment on above: Performed By: #### Bharat DEVINE [facility], 1798-05, 3 #### [facility] ([id number]) [address] [place] [address] 85822 Lymphocytes (Bld) [#/Vol] 1.7 10*3/uL Normal 1.0-3.5 [facility] Comment on above: Performed By: #### Bharat DEVINE CMP, 1798-05, 3 #### [facility] ([id number]) [address] [place] [address] 84290 Lymphocytes/100 WBC (Bld) 20.2 % Normal [facility] Comment on above: Performed By: #### Bharat DEVINE CMP, 1798-05, 3 #### [facility] ([id number]) [address] [place] [address] 38837 MCH (RBC) [Entitic mass] 27.3 pg Normal 27-34 [facility] Comment on above: Performed By: #### Bharat DEVINE CMP, 1798-05, 3 #### [facility] ([id number]) [address] [place] [address] 21067 MCHC (RBC) [Mass/Vol] 33.7 g/dL Normal 32-36 [facility] Comment on above: Performed By: #### Bharat DEVINE CMP, 1798-05, 3 #### [facility] ([id number]) [address] [place] [address] 00842 MCV (RBC) [Entitic vol] 81 fL Normal 80-100 [facility] Comment on above: Performed By: #### Bharat DEVINE CMP, 1798-05, 3 #### [facility] ([id number]) [address] [place] [address] 49888 Monocytes (Bld) [#/Vol] 1.0 10*3/uL High 0-0.9 [facility] Comment on above: Performed By: #### Bharat DEVINE CMP, 1798-05, 3 #### [facility] ([id number]) [address] [place] [address] 63298 Monocytes/100 WBC (Bld) 12.1 % Normal [facility] Comment on above: Performed By: #### Bharat DEVINE CMP, 1798-05, 3 #### [facility] ([id number]) [address] [place] [address] 70565 Neutrophils/100 WBC (Bld) 67.0 % Normal [facility] Comment on above: Performed By: #### Bharat DEVINE CMP, 1798-05, 3 #### [facility] ([id number]) [address] [place] [address] 85631 Platelet mean volume (Bld) [Entitic vol] 8.0 fL Normal 7-12 [facility] Comment on above: Performed By: #### C BCA, CMP, 1798-05, 3039-3 #### [facility] ([id number]) [address] [place] [address] 02120 Platelets (Bld) [#/Vol] 226 10*3/uL Normal 150-450 [facility] Comment on above: Performed By: #### Bharat BCA, CMP, 1798-05, 3039-3 #### [facility] ([id number]) [address] [place] [address] 80566 RBC COUNT 4.35 X10E12/L Normal 3.80-5.20 [facility] Comment on above: Performed By: #### Bharat BCA, CMP, 1798-05, 3039-3 #### [facility] ([id number]) [address] [place] [address] 11739 WBC (Bld) [#/Vol] 8.5 10*3/uL Normal 4.0-11.0 [facility] Comment on above: Performed By: #### C BCA, CMP, 1798-05, 3039-3 #### [facility] ([id number]) [address] [place] [address] 82673 COMPREHENSIVE METABOLIC PANE Josh 03-15-2024 Albumin [Mass/Vol] 4.3 g/dL Normal 3.2-5.3 [facility] Comment on above: Performed By: #### C BCA, CMP, 1798-05, 3039-3 #### [facility] ([id number]) [address] [place] [address] 69010 ALP [Catalytic activity/Vol] 71 U/L Normal 39-130 [facility] Comment on above: Performed By: #### Bharat BCA, CMP, 1798-05, 3039-3 #### [facility] ([id number]) [address] [place] [address] ALT [Catalytic activity/Vol] 28 U/L Normal 0-31 [facility] Comment on above: Performed By: #### C BCA, CMP, 1798-05, 3039-3 #### [facility] ([id number]) [address] [place] [address] 06674 Anion gap [Moles/Vol] 9 mmol/L Normal 5-15 [facility] Comment on above: Performed By: #### C BCA, CMP, 1798-05, 3039-3 #### [facility] ([id number]) [address] [place] [address] 79424 AST [Catalytic activity/Vol] 20 U/L Normal 0-41 [facility] Comment on above: Performed By: #### C SYBIL, CMP, 1798-05, 3 #### [facility] ([id number]) [address] [place] [address] 22245 Bilirubin [Mass/Vol] 1.0 mg/dL Normal 0.3-1.2 [facility] Comment on above: Performed By: #### C BCA, CMP, 1798-05, 3039-3 #### [facility] ([id number]) [address] [place] [address] 01870 Calcium [Mass/Vol] 9.0 mg/dL Normal 8.5-10.5 [facility] Comment on above: Performed By: #### C BCA, CMP, 1798-05, 3039-3 #### [facility] ([id number]) [address] [place] [address] 62744 Chloride [Moles/Vol] 101 mmol/L Normal 98-109 [facility] Comment on above: Performed By: #### C BCA, CMP, 1798-05, 3039-3 #### [facility] ([id number]) [address] [place] [address] 40981 CO2 [Moles/Vol] 24 mmol/L Normal 22-32 [facility] Comment on above: Performed By: #### C KOFFI DEVINE, 1798-05, 3039-3 #### [facility] ([id number]) [address] [place] [address] 90203 Creatinine [Mass/Vol] 0.79 mg/dL Normal 0.40-1.00 [facility] Comment on above: Result Comment: METH OD TRACEABLE TO IDMS STANDARD Performed By: #### C KOFFI DEVINE, 1798-05, 3 #### [facility] ([id number]) [address] [place] [address] 49015 eGFR (CKD-EPI) NON-RACE DEPENDENT >90 Normal >59 [facility] Comment on above: Result Comment: Reported eGFR is based on the CKD-EPI 2020 equation that does not use a race coefficient. Performed By: #### C KOFFI DEVINE, 1798-05, 3 #### [facility] ([id number]) [address] [place] [address] 14042 Glucose [Mass/Vol] 97 mg/dL Normal 65-99 [facility] Comment on above: Performed By: #### C KOFFI DEVINE, 1798-05, 3039-3 #### [facility] ([id number]) [address] [place] [address] 08311 Potassium [Moles/Vol] 3.6 mmol/L Normal 3.5-5.0 [facility] Comment on above: Performed By: #### C KOFFI DEVINE, 1798-05, 3039-3 #### [facility] ([id number]) [address] [place] [address] 49525 Protein [Mass/Vol] 8.2 g/dL High 6.0-8.0 [facility] Comment on above: Performed By: #### C KOFFI DEVINE, 1798-05, 3040-3 #### [facility] ([id number]) [address] [place] [address] Sodium [Moles/Vol] 134 mmol/L Normal 134-146 [facility] Comment on above: Performed By: #### C BCA, CMP, 1798-8, 3040-3 #### [facility] ([id number]) [address] [place] [address] Urea nitrogen [Mass/Vol] 7 mg/dL Normal 5-23 [facility] Comment on above: Performed By: #### C BCA, CMP, 1798-8, 3040-3 #### [facility] ([id number]) [address] [place] [address] 48826 CRP [Mass/Vol]on 03-15-2024 C REACTIVE PROTEIN 8.3 mg/dL High 0.000-0.744 [facility] Comment on above: Performed By: #### C BCA, CMP, 1798-8, 3040-3 #### [facility] ([id number]) [address] [place] [address] ABDOMEN AND PELVIS WO CON Ton 03-15-2024 CT ABDOMEN AND PELVIS WO CONT CT ABDOMEN AND PELVIS WO CONT CLINICAL INFORMATION: Abdominal/flank pain, stone suspected. TECHNIQUE: CT Abdomen and Pelvis without intravenous contrast. All CT scans at this facility use dose modulation, iterative reconstruction, and/or weight based dosing when appropriate to reduce radiation dose to as low as reasonably achievable. COMPARISON: No relevant prior studies available. FINDINGS: Lack of intravenous contrast limits evaluation of the viscera and vessels. LOWER THORAX: Unremarkable. HEPATOBILIARY: No focal aggressive appearing hepatic lesions. No biliary ductal dilatation. Gallbladder surgically absent. SPLEEN: Unremarkable. PANCREAS: Grossly normal for technique. ADRENALS: No exophytic adrenal nodules. KIDNEYS/URETERS: No aggressive appearing exophytic mass lesion. No obstructive renal calculus. No collecting system dilatation. Bladder: Nonspecific bladder wall thickening. PELVIC ORGANS: Within normal limits. GI TRACT: No acute bowel obstruction. The appendix is normal. LYMPH NODES: No enlarged lymph nodes within limitations of noncontrast technique. VESSELS: No abdominal aortic aneurysm. BONES AND SOFT TISSUES: No suspicious osseous lesion. . PERITONEUM/RETROPERI TONEUM: No free air or significant free fluid. IMPRESSION: * Nonspecific bladder wall thickening. Otherwise unremarkable. Finalized by Guzman Ellison on 03/15/2024 8:48 PM Normal [facility] HCG ( test) Ql (U)o n 03-15-2024 Beta HCG ( test) Ql (U) Negative Normal NEG [facility] Comment on above: Performed By: #### C KOFFI DEVINE, 1798-05, 3039-3 #### [facility] ([id number]) [address] [place] [address] 84854 URINE CULTUREon 03-15-2024 Bacteria identified Cx Nom (U) CULTURE RESULTS NO GROWTH [facility] Comment on above: Performed By: #### C KOFFI DEVINE, 1798-05, 3039-3 #### [facility] ([id number]) [address] [place] [address] 81325 URN MACROSCOPIC NURon 2023 BILIRUBIN TONG Negative Normal NEG [facility] Comment on above: Performed By: #### C KOFFI DEVINE, 1798-05, 3039-3 #### [facility] ([id number]) [address] [place] [address] 93985 BLOOD/HGB TONG Trace Abnormal NEG [facility] Comment on above: Performed By: #### C KOFFI DEVINE, 1798-05, 3039-3 #### [facility] ([id number]) [address] [place] [address] 02571 GLUCOSE TONG Negative Normal NEG [facility] Comment on above: Performed By: #### C KOFFI DEVINE, 1798-05, 3039-3 #### [facility] ([id number]) [address] [place] [address] 51477 KETONES TONG Negative Normal NEG [facility] Comment on above: Performed By: #### C SYBIL, CMP, 1798-05, 0-3 #### [facility] ([id number]) [address] [place] [address] 81300 LEUKOCYTE ESTERASE TONG Trace Abnormal NEG Pr [facility] [place] Comment on above: Performed By: #### C SYBIL, CMP, 1798-05, 0-3 #### [facility] ([id number]) [address] [place] [address] 91529 NITRITE TONG Negative Normal NEG [facility] Comment on above: Performed By: #### C SYBIL, CMP, 1798-05, 3039-3 #### [facility] ([id number]) [address] [place] [address] 33394 PH TONG 5.5 Normal 5.0-8.5 [facility] Comment on above: Performed By: #### C SYBIL, CMP, 1798-05, 3039-3 #### [facility] ([id number]) [address] [place] [address] 73773 PROTEIN TONG Trace Abnormal NEG [facility] Comment on above: Performed By: #### C SYBIL, CMP, 1798-05, 3039-3 #### [facility] ([id number]) [address] [place] [address] 61416 SPECIFIC GRAVITY TONG 1.015 Normal 1.003-1.035 [facility] Comment on above: Performed By: #### C BCA, CMP, 1798-05, 3039-3 #### [facility] ([id number]) [address] [place] [address] 65797 UROBILINOGEN TONG 1.0 eu/dL Normal <1.1 [facility] Comment on above: Performed By: #### C BCA, CMP, 1798-05, 0-3 #### [facility] ([id number]) [address] [place] [address] 20161 CBC with Diffon 01-17-2024 Abs. Basophil <0.03 Normal 0.00-0.20 [facility] Comment on above: Performed By: #### P RTYS #### [facility] [address] [place], [place] [address] Bone Tender: Omero [place] MD Abs. Eosinophil <0.03 Normal 0.00-0.44 [facility] Comment on above: Performed By: #### P RTYS #### [facility] [address] [place], [facility] Bone Tender: Omero Murry MD Abs.Imm.Granulocyte 0.03 k/uL Normal 0.00-0.30 [facility] Comment on above: Performed By: #### P RTYS #### [facility] [address] [place], [facility] Bone Tender: Omero Murry MD Abs.Neutrophil (Seg) 6.12 k/uL Normal 1.80-8.00 [facility] Comment on above: Performed By: #### P RTYS #### [facility] [address] [place], [facility] Bone Tender: Omero Murry MD Basophils/100 WBC (Bld) 0 % Normal 0-2 [facility] Comment on above: Performed By: #### P RTYS #### [facility] [address] [place], [facility] Bone Tender: Omero Murry MD Eosinophils/100 WBC (Bld) 0 % Low 1-4 [facility] Comment on above: Performed By: #### P RTYS #### [facility] [address] [place] [id number] Bone Tender: Omero Murry MD Erythrocyte distribution width (RBC) [Ratio] 13.4 % Normal 11.8-14.4 [facility] Comment on above: Performed By: #### P RTYS #### [facility] [address] [place], [facility] Bone Tender: Omero Murry MD Hematocrit (Bld) [Volume fraction] 34.2 % Low 36.3-47.1 [facility] Comment on above: Performed By: #### P RTYS #### [address] [place] [facility] Bone Tender: Omero Murry MD Hemoglobin (Bld) [Mass/Vol] 11.1 g/dL Low 11.9-15.1 [facility] Comment on above: Performed By: #### P RTYS #### [address] [place], [facility] Bone Tender: Omero Mur[place] MD Immature granulocytes/100 WBC (Bld) 0 % Normal 0 [facility] Comment on above: Performed By: #### P RTYS #### [address] [place], [facility] Bone Tender: Omero [place] MD Lymphocytes (Bld) [#/Vol] 2.67 10*3/uL Normal 1.20-5.20 [facility] Comment on above: Performed By: #### P RTYS #### [address] [place], [facility] Bone Tender: Omero [place] MD Lymphocytes/100 WBC (Bld) 29 % Normal 25-45 [facility] Comment on above: Performed By: #### P RTYS #### [address] [place], [facility] Bone Tender: Omero [place] MD MCH (RBC) [Entitic mass] 27.2 pg Normal 25.2-33.5 [facility] Comment on above: Performed By: #### P RTYS #### [address] [place] [facility] Bone Tender: Omero [place] MD MCHC (RBC) [Mass/Vol] 32.5 g/dL Normal 28.4-34.8 [facility] Comment on above: Performed By: #### P RTYS #### [facility] [address] [place], [place] [id number] Bone Tender: Omero [place] MD MCV (RBC) [Entitic vol] 83.8 fL Normal 82.6-102.9 [facility] Comment on above: Performed By: #### P RTYS #### [facility] [address] [place] [address] Bone Tender: Omero Mur[place] MD Monocytes (Bld) [#/Vol] 0.49 10*3/uL Normal 0.10-1.40 [facility] Comment on above: Performed By: #### P RTYS #### [address] [place], [place] [address] Bone Tender: Omero [place] MD Monocytes/100 WBC (Bld) 5 % Normal 2-8 [facility] Comment on above: Performed By: #### P RTYS #### [address] [place] [address] Bone Tender: Omero Mur[place] MD Neutrophil (Seg) 66 % High 34-64 [facility] Comment on above: Performed By: #### P RTYS #### [facility] [address] [place], [place] [id number] Bone Tender: Omero Mur[place] MD NRBC Automated 0.0 per 100 WBC Normal 0.0 [facility] Comment on above: Performed By: #### P RTYS #### [facility] [address] [place], [place] [address] Bone Tender: Omero Mur[place] MD Platelet mean volume (Bld) [Entitic vol] 10.3 fL Normal 8.1-13.5 [facility] Comment on above: Performed By: #### P RTYS #### [facility] [address] [place], [place] [address] Bone Tender: Omero [place] MD Platelets (Bld) [#/Vol] 243 10*3/uL Normal 138-453 [facility] Comment on above: Performed By: #### P RTYS #### [facility] [address] [place], [place] [id number] Bone Tender: Omero [place] MD RBC (Bld) [#/Vol] 4.08 10*6/uL Normal 3.95-5.11 [facility] Comment on above: Performed By: #### P RTYS #### [facility] [address] [place] [id number] Bone Tender: Omero Murry MD WBC (Bld) [#/Vol] 9.4 10*3/uL Normal 4.5-13.5 [facility] Comment on above: Performed By: #### P RTYS #### [facility] [address] [place], [place] [id number] Bone Tender: Omero Murry MD Type + Screenon 01-17-2024 Type + Screen Sample Expiration 01/20/2024,2359 Arm Band Number [id number] ABO/Rh(D) O POSITIVE Antibody Screen NEGATIVE Normal [facility] Comment on above: Performed By: #### T YS #### [facility] [address] [place], [place] [id number] Bone Tender: Omero Murry MD Urinalysis, Routineon 2023 Bilirubin, SemiQt,Ur Negative Normal NEG [facility] Comment on above: Performed By: #### TOSHA Allen #### [facility] [address] [place] [address] Bone Tender: Omero Murry MD Blood, Urine Negative Normal NEG [facility] Comment on above: Performed By: #### TOSHA Allen #### [facility] [address] [place], [place] 9091983 Bone Tender: Omero Murry MD Clarity (U) Clear Normal CLEAR [facility] Comment on above: Performed By: #### U A, UMICAO #### [facility] [address] [place], [place] [id number] Bone Tender: Omero Murry MD Color (U) Yellow Normal YEL [facility] Comment on above: Performed By: #### U A, UMICAO #### [facility] [address] [place], [place] 1557683 Bone Tender: Omero Murry MD Glucose Ql (U) Negative Normal NEG [facility] in [facility] Comment on above: Performed By: #### U A, UMICAO #### [facility] [address] [place] [address] [place], [place] [phone] Bone Tender: Omero Murry MD Ketones Ql (U) Negative Normal NEG [facility] in [facility] Comment on above: Performed By: #### U A, UMICAO #### [address] [place], [place] [phone] Bone Tender: Omero Murry MD Leukocyte esterase Test strip Ql (U) Negative Normal NEG [facility] Comment on above: Performed By: #### U A, UMICAO #### [facility] [address] [place], [place] [phone] Bone Tender: Omero Murry MD Nitrite,Ur Negative Normal NEG [facility] Comment on above: Performed By: #### U A, UMICAO #### [facility] [address] [place], [place] [id number] Bone Tender: Omero Murry MD PH,Ur 6.0 Normal 5.0-9.0 [facility] Comment on above: Performed By: #### U A, UMICAO #### [facility] [address] [place], [place] [phone] Bone Tender: Omero Murry MD Protein Ql (U) Negative Normal NEG [facility] Comment on above: Performed By: #### U A, UMICAO #### [facility] [address] [place] [address] [place] [place], [place] [phone] Bone Tender: Omero Murry MD Spec. [place],Ur >1.030 High 1.010-1.020 [facility] Comment on above: Performed By: #### U A, UMICAO #### [facility] [address] [place] [address] [place], [place] [phone] Bone Tender: Omero Murry MD Urobilinogen,Ur ELEVATED Normal 0.0-1.0 [facility] Comment on above: Performed By: #### U A, UMICAO #### [facility] [address] [place] [address] [place] [address] Bone Tender: Omero Murry MD Urinalysis,Microon 4 Bacteria TRACE Abnormal [facility] Comment on above: Performed By: #### U A, UMICAO #### [address] [place], [place] [phone] Bone Tender: Omero Murry MD Crystals LM Nom (Urine sed) 5 TO 10 Abnormal [facility] Comment on above: Result Comment: CALC IUM OXALATE Performed By: #### U A, UMICAO #### [facility] [address] [place] [address] [place] [address] Bone Tender: Omero Murry MD Epithelial cells LM Ql (Urine sed) 2 TO 5 Normal 0-25 [facility] Comment on above: Performed By: #### U A, UMICAO #### [facility] [address] [place] [address] [place], [place] [phone] Bone Tender: Omero Murry MD Mucus Strands 2+ Abnormal [facility] Comment on above: Performed By: #### U A, UMICAO #### [facility] [address] [place], [place] [phone] Bone Tender: Omero Murry MD Urine RBC's None Normal 0-2 [facility] Comment on above: Performed By: #### U A, UMICAO #### [facility] [address] [place], [place] 3166983 Bone Tender: Omero Murry MD Urine WBC's 2 TO 5 Normal 0-5 [facility] Comment on above: Performed By: #### U A, UMICAO #### [facility] [address] [place], [place] [phone] Bone Tender: Omero Murry MD Rule Out Grp.B Strepon 01-04 Rule Out Grp.B Strep Specimen Descriptio n .VAGINA Culture NEGATIVE FOR GROUP B STREPTOCOCCI Report Status FINAL 01/05/2024 Normal [facility] Comment on above: Performed By: #### U A #### [facility] [address] [place] [address] Bone Tender: Omero Murry MD Chlamydia/GC,DNA Ampon 01-02 Chlamydia Probe Negative Normal NEG [facility] Comment on above: Result Comment: CHLA MYDIA TRACHOMATIS DNA not detected by nucleic acid amplification. This test is intended for medical purposes only and is not valid for the evaluation of suspected sexual abuse or for other forensic purposes. In certain contexts, culture may be required to meet applicable laws and regulations for diagnosis of C. trachomatis and N. gonorrhoeae infections. Per 2014 CDC recommendations, this test does not include confirmation of positive results by an alternative nucleic acid target. Performed By: #### U A #### [facility] [address] [place] [address] Bone Tender: Omero Murry MD Gonorrhea Probe Negative Normal NEG [facility] Comment on above: Result Comment: NEIS SERIA GONORRHOEAE DNA not detected by nucleic acid amplification. This test is intended for medical purposes only and is not valid for the evaluation of suspected sexual abuse or for other forensic purposes. In certain contexts, culture may be required to meet applicable laws and regulations for diagnosis of C. trachomatis and N. gonorrhoeae infections. Per 2014 CDC recommendations, this test does not include confirmation of positive results by an alternative nucleic acid target. Performed By: #### U A #### [facility] [address] [place] [address] Dr. [place], [id number] Bone Tender: Omero Murry MD Urinalysis, Routineon 2023 Bilirubin, SemiQt,Ur Negative Normal NEG [facility] Comment on above: Performed By: #### U A #### [address] [place], [facility] Bone Tender: Omero Murry MD Blood, Urine Negative Normal NEG [facility] Comment on above: Performed By: #### U A #### [address] [place], [facility] Bone Tender: Omero Murry MD Clarity (U) Clear Normal CLEAR [facility] Comment on above: Performed By: #### U A #### [address] [place], [facility] Bone Tender: Omero Murry MD Color (U) Yellow Normal YEL [facility] Comment on above: Performed By: #### U A #### [facility] [address] [place] [address] Dr. [place], [id number] Bone Tender: Omero Murry MD Glucose Ql (U) Negative Normal NEG [facility] Comment on above: Performed By: #### U A #### [address] [place] [address] Bone Tender: Omero Murry MD Ketones Ql (U) Negative Normal NEG [facility] Comment on above: Performed By: #### U A #### [address] [place], [place] [phone] Bone Tender: Omero Murry MD Leukocyte esterase Test strip Ql (U) Negative Normal NEG [facility] Comment on above: Performed By: #### U A #### [facility] [address] [place] [address] [place], [place] [phone] Bone Tender: Omero Murry MD Nitrite,Ur Negative Normal NEG [facility] Comment on above: Performed By: #### U A #### [facility] [address] [place] [address] [place] [address] Bone Tender: Omero Murry MD PH,Ur 6.5 Normal 5.0-9.0 [facility] Comment on above: Performed By: #### U A #### [facility] [address] [place] [address] [place], [place] [phone] Bone Tender: Omero Murry MD Protein Ql (U) Negative Normal NEG [facility] Comment on above: Performed By: #### U A #### [facility] [address] [place] [address] [place] [address] Bone Tender: Omero Murry MD Spec. [place],Ur 1.020 Normal 1.010-1.020 [facility] Comment on above: Performed By: #### U A #### [facility] [address] [place] [address] [place], [place] [phone] Bone Tender: Omero Murry MD Urobilinogen,Ur Normal Normal 0.0-1.0 [facility] Comment on above: Performed By: #### U A #### [facility] [address] [place] [address] [place] [address] Bone Tender: Omero Murry MD TYPE AND SCREENon 12-29-2023 ABO and Rh group Nom (Bld) Blood group O Rh(D) positive [facility] Arm Band Number [id number] [facility] Blood Bank Sample Expiration 12/31/2023,2359 [facility] Blood group antibodies identified Nom Negative [facility] Type + Screenon 12-29-2023 Type + Screen Sample Expiration 12/31/2023,2359 Arm Band Number [id number] ABO/Rh(D) O POSITIVE Antibody Screen NEGATIVE Normal [facility] Comment on above: Performed By: #### U A #### [facility] [address] [place] [address] Bone Tender: Omero Murry MD CBC with Auto Differentialon 12-28-2023 Basophils (Bld) [#/Vol] B [facility] Basophils/100 WBC (Bld) 0 % 0 - 2 % B [facility] Eosinophils (Bld) [#/Vol] 0.03 10*3/uL [facility] Eosinophils/100 WBC (Bld) 0 % Low 1 - 4 % [facility] Erythrocyte distribution width (RBC) [Ratio] 13.1 % 11.8 - 14.4 % [facility] Hematocrit (Bld) [Volume fraction] 33.6 % Low 36.3 - 47.1 % [facility] Hemoglobin (Bld) [Mass/Vol] 11.0 g/dL Low 11.9 - 15.1 g/dL [facility] Immature granulocytes (Bld) [#/Vol] [facility] Immature granulocytes/100 WBC (Bld) 0 % 0 [facility] Interpretation and review of laboratory results Abnormal [facility] Lymphocytes/100 WBC (Bld) 28 % 25 - 45 % [facility] Lymphocytes/100 WBC (Bld) 2.07 % [facility] MCH (RBC) [Entitic mass] 28.1 pg 25.2 - 33.5 pg [facility] MCHC (RBC) [Mass/Vol] 32.7 g/dL 28.4 - 34.8 g/dL [facility] MCV (RBC) [Entitic vol] 85.9 fL 82.6 - 102.9 fL [facility] Monocytes/100 WBC (Bld) 7 % 2 - 8 % B [facility] Monocytes/100 WBC (Bld) 0.51 % B [facility] Neutrophils/100 WBC (Bld) 65 % High 34 - 64 % [facility] Nucleated RBC/100 WBC (Bld) [Ratio] 0.0 % 0.0 per 100 WBC [facility] Platelet mean volume (Bld) [Entitic vol] 10.3 fL 8.1 - 13.5 fL [facility] Platelets (Bld) [#/Vol] 247 10*3/uL [facility] RBC (Bld) [#/Vol] 3.91 10*6/uL Low 3.95 - 5.1 1 m/uL [facility] Segmented neutrophils/100 WBC (Bld) 4.78 % [facility] WBC other (Bld) [#/Vol] 7.4 B ON [facility] CBC with Diffon 12-28-2023 Abs. Basophil <0.03 Normal 0.00-0.20 [facility] Comment on above: Performed By: #### U A #### [facility] [address] [place] [address] [place] [id number] Bone Tender: Omero Murry MD Abs.Imm.Granulocyte <0.03 Normal 0.00-0.30 [facility] Comment on above: Performed By: #### U A #### [facility] [address] [place] [address] [place] [address] Bone Tender: Omero Murry MD Abs.Neutrophil (Seg) 4.78 k/uL Normal 1.80-8.00 [facility] Comment on above: Performed By: #### U A #### [facility] [address] [place] [address] Bone Tender: Omero Murry MD Basophils/100 WBC (Bld) 0 % Normal 0-2 M [facility] Comment on above: Performed By: #### U A #### [facility] [address] [place] [address] [place] [address] Bone Tender: Omero Murry MD Eosinophils (Bld) [#/Vol] 0.03 10*3/uL Normal 0.00-0.44 [facility] Comment on above: Performed By: #### U A #### [address] [place] [address] Bone Tender: Omero Murry MD Eosinophils/100 WBC (Bld) 0 % Low 1-4 [facility] Comment on above: Performed By: #### U A #### [address] [place], [place] 9052383 Bone Tender: Omero Murry MD Erythrocyte distribution width (RBC) [Ratio] 13.1 % Normal 11.8-14.4 [facility] Comment on above: Performed By: #### U A #### [address] [place], [id number] Bone Tender: Omero Murry MD Hematocrit (Bld) [Volume fraction] 33.6 % Low 36.3-47.1 [facility] Comment on above: Performed By: #### U A #### [address] [place], [place] [phone] Bone Tender: Omero Murry MD Hemoglobin (Bld) [Mass/Vol] 11.0 g/dL Low 11.9-15.1 [facility] Comment on above: Performed By: #### U A #### [address] [place], [place] 1888883 Bone Tender: Omero Murry MD Immature granulocytes/100 WBC (Bld) 0 % Normal 0 [facility] Comment on above: Performed By: #### U A #### [address] [place] [address] Bone Tender: Omero Murry MD Lymphocytes (Bld) [#/Vol] 2.07 10*3/uL Normal 1.20-5.20 [facility] Comment on above: Performed By: #### U A #### [address] [place] [address] Bone Tender: Omero Murry MD Lymphocytes/100 WBC (Bld) 28 % Normal 25-45 [facility] Comment on above: Performed By: #### U A #### [address] [place], [id number] Bone Tender: Omero Murry MD MCH (RBC) [Entitic mass] 28.1 pg Normal 25.2-33.5 [facility] Comment on above: Performed By: #### U A #### [address] [place], [id number] Bone Tender: Omero Murry MD MCHC (RBC) [Mass/Vol] 32.7 g/dL Normal 28.4-34.8 [facility] Comment on above: Performed By: #### U A #### [address] [place], [id number] Bone Tender: Omero Murry MD MCV (RBC) [Entitic vol] 85.9 fL Normal 82.6-102.9 [facility] Comment on above: Performed By: #### U A #### [address] [place], [id number] Bone Tender: Omero Murry MD Monocytes (Bld) [#/Vol] 0.51 10*3/uL Normal 0.10-1.40 [facility] Comment on above: Performed By: #### U A #### [address] [place], [id number] Bone Tender: Omero Murry MD Monocytes/100 WBC (Bld) 7 % Normal 2-8 M [facility] Comment on above: Performed By: #### U A #### [address] [place] [id number] Bone Tender: Omero Murry MD Neutrophil (Seg) 65 % High 34-64 [facility] Comment on above: Performed By: #### U A #### [facility] [address] [place] [address] Bone Tender: Omero Murry MD NRBC Automated 0.0 per 100 WBC Normal 0.0 [facility] Comment on above: Performed By: #### U A #### [facility] [address] [place] [address] Bone Tender: Omero Murry MD Platelet mean volume (Bld) [Entitic vol] 10.3 fL Normal 8.1-13.5 [facility] Comment on above: Performed By: #### U A #### [address] [place] [address] Bone Tender: Omeor Murry MD Platelets (Bld) [#/Vol] 247 10*3/uL Normal 138-453 [facility] Comment on above: Performed By: #### U A #### [address] [place] [address] Bone Tender: Omero Murry MD RBC (Bld) [#/Vol] 3.91 10*6/uL Low 3.95-5.11 [facility] Comment on above: Performed By: #### U A #### [facility] [address] [place] [address] [place], [place] 3914583 Bone Tender: Omero Murry MD WBC (Bld) [#/Vol] 7.4 10*3/uL Normal 4.5-13.5 [facility] Comment on above: Performed By: #### U A #### [address] [place] [address] Bone Tender: Omero Murry MD Comp Metabolic Profon 2023 Albumin [Mass/Vol] 3.5 g/dL Normal 3.5-5.2 [facility] Comment on above: Performed By: #### U A #### [facility] [address] [place] [address] [place], [place] [phone] Bone Tender: Omero Murry MD Albumin/Glob Ratio 1.0 Normal 1.0-2.5 [facility] Comment on above: Performed By: #### U A #### [facility] [address] [place] [address] [place], [place] [phone] Bone Tender: Omero Murry MD Alkaline Phos 138 U/L High 35-104 [facility] Comment on above: Performed By: #### U A #### [address] [place], [place] 1660483 Bone Tender: Omero Murry MD ALT [Catalytic activity/Vol] 7 U/L Normal 5-33 [facility] Comment on above: Performed By: #### U A #### [facility] [address] [place] [address] [place], [place] 1916483 Bone Tender: Omero Murry MD Anion gap [Moles/Vol] 10 mmol/L Normal 9-17 [facility] Comment on above: Performed By: #### U A #### [address] [place], [place] 6656983 Bone Tender: Omero Murry MD AST [Catalytic activity/Vol] 13 U/L Normal <32 [facility] Comment on above: Performed By: #### U A #### [facility] [address] [place] [address] [place], [place] 1944383 Bone Tender: Omero Murry MD Bilirubin [Mass/Vol] 0.3 mg/dL Normal 0.3-1.2 [facility] Comment on above: Performed By: #### U A #### [address] [place], [place] 8861683 Bone Tender: Omero Murry MD BUN/CRE Ratio 15 Normal 9-20 [facility] Comment on above: Performed By: #### U A #### [facility] [address] [place], [place] [phone] Bone Tender: Omero Murry MD Calcium [Mass/Vol] 8.4 mg/dL Low 8.6-10.4 [facility] Comment on above: Performed By: #### U A #### [facility] [address] [place] 1838483 Bone Tender: Omero Murry MD Chloride [Moles/Vol] 101 mmol/L Normal 98-107 [facility] Comment on above: Performed By: #### U A #### [facility] [address] [place], [place] 2646683 Bone Tender: Omero Murry MD CO2 [Moles/Vol] 21 mmol/L Normal 20-31 [facility] Comment on above: Performed By: #### U A #### [facility] [address] [place], [place] 6707383 Bone Tender: Omero Murry MD Creatinine [Mass/Vol] 0.6 mg/dL Normal 0.5-0.9 [facility] Comment on above: Performed By: #### U A #### [facility] [address] [place], [place] 0377383 Bone Tender: Omero Murry MD GFR/1.73 sq M.predicted among non-blacks MDRD (S/P/Bld) [Vol rate/Area] mL/min/{1.73_m2} Normal >60 [facility] Comment on above: Result Comment: These results are not intended for use in patients <18 years of age. eGFR results are calculated without a race factor using the 2020 CKD-EPI equation. Careful clinical correlation is recommended, particularly when comparing to results calculated using previous equations. The CKD-EPI equation is less accurate in patients with extremes of muscle mass, extra-renal metabolism of creatine, excessive creatine ingestion, or following therapy that affects renal tubular secretion. Performed By: #### U A #### [facility] [address] [place], [place] 3979683 Bone Tender: Omero Murry MD Glucose [Mass/Vol] 96 mg/dL Normal 70-99 [facility] Comment on above: Performed By: #### U A #### [facility] [address] [place] 7183783 Bone Tender: Omero Murry MD Potassium [Moles/Vol] 4.0 mmol/L Normal 3.7-5.3 [facility] Comment on above: Performed By: #### U A #### [facility] [address] [place] [address] [place], [place] 5688383 Bone Tender: Omero Murry MD Protein [Mass/Vol] 7.0 g/dL Normal 6.4-8.3 [facility] Comment on above: Performed By: #### U A #### [facility] [address] [place] [address] [place], [place] 4323083 Bone Tender: Omero Murry MD Sodium [Moles/Vol] 132 mmol/L Low 135-144 [facility] Comment on above: Performed By: #### U A #### [facility] [address] [place] [address] [place], [place] [phone] Bone Tender: Omero Murry MD Urea nitrogen [Mass/Vol] 9 mg/dL Normal 6-20 [facility] Comment on above: Performed By: #### U A #### [facility] [address] [place], [place] 4830383 Bone Tender: Omero Murry MD Comprehensive Metabolic Pane [facility] 12-28-2023 Albumin [Mass/Vol] 3.5 g/dL 3.5 - 5.2 g/dL [facility] Albumin/Globulin [Mass ratio] 1.0 {ratio} 1.0 - 2.5 [facility] ALP [Catalytic activity/Vol] 138 U/L High 35 - 104 U/L [facility] ALT [Catalytic activity/Vol] 7 U/L 5 - 33 U/L [facility] Anion gap [Moles/Vol] 10 mmol/L 9 - 17 mmol/L [facility] AST [Catalytic activity/Vol] 13 U/L NINF - 32 U/L [facility] Bilirubin [Mass/Vol] 0.3 mg/dL 0.3 - 1 .2 mg/dL [facility] Calcium [Mass/Vol] 8.4 mg/dL Low 8.6 - 10. 4 mg/dL [facility] Chloride [Moles/Vol] 101 mmol/L 98 - 10 7 mmol/L [facility] CO2 [Moles/Vol] 21 mmol/L 20 - 31 mmol/L [facility] Creatinine [Mass/Vol] 0.6 mg/dL 0.5 - 0.9 mg/dL [facility] GFR/1.73 sq M.predicted MDRD (S/P/Bld) [Vol rate/Area] - PINF [facility] Comment on above: These results are not intended for use in patients <18 years of age. eGFR results are calculated without a race factor using the 2020 CKD-EPI equation. Careful clinical correlation is recommended, particularly when comparing to results calculated using previous equations. The CKD-EPI equation is less accurate in patients with extremes of muscle mass, extra-renal metabolism of creatine, excessive creatine ingestion, or following therapy that affects renal tubular secretion. Glucose [Mass/Vol] 96 mg/dL 70 - 99 mg/dL [facility] Interpretation and review of laboratory results Abnormal [facility] Potassium [Moles/Vol] 4.0 mmol/L 3.7 - 5.3 mmol/L [facility] Protein [Mass/Vol] 7.0 g/dL 6.4 - 8.3 g/dL [facility] Sodium [Moles/Vol] 132 mmol/L Low 135 - 144 mmol/L [facility] Urea nitrogen [Mass/Vol] 9 mg/dL 6 - 20 mg/dL [facility] Urea nitrogen/Creatinine [Mass ratio] 15 mg/mg 9 - 20 [facility] Microscopic Urinalysison Bacteria LM Ql (Urine sed) 1+ Abnormal None [facility] Epithelial cells LM.HPF (Urine sed) [#/Area] 0 TO 2 [facility] Interpretation and review of laboratory results Abnormal [facility] Mucus Ql (Urine sed) TRACE Abnormal None [facility] RBC LM.HPF (Urine sed) [#/Area] None [facility] WBC LM.HPF (Urine sed) [#/Area] 0 TO 2 [facility] Urinalysison 12-28-2023 Bilirubin Ql (U) Negative NEGATIVE [facility] Clarity (U) Clear Clear [facility] Color (U) Yellow Yellow [facility] Glucose Test strip (U) [Mass/Vol] Negative NEGATIVE mg/dL [facility] Hemoglobin Auto test strip Ql (U) Negative NEGATIVE [facility] Interpretation and review of laboratory results Abnormal [facility] Ketones (U) [Mass/Vol] TRACE Abnormal NEGAT JG mg/dL [facility] Leukocyte esterase Test strip Ql (U) TRACE Abnormal NEGATIVE [facility] H[facility]PITAL Nitrite Ql (U) Negative NEGATIVE [facility] pH (U) 7.0 [pH] 5.0 - 9.0 [facility] Protein (U) [Mass/Vol] Negative NEGAT JG mg/dL [facility] Specific gravity (U) [Rel density] 1.025 High 1.010 - 1.020 [facility] Urobilinogen Qn (U) ELEVATED 0.0 - 1. 0 EU/dL [facility] Urinalysis, Routineon 2023 Bilirubin, SemiQt,Ur Negative Normal NEG [facility] Comment on above: Performed By: #### U HUYEN THORPE #### [facility] [address] [place] [address] Bone Tender: Omero Murry MD Blood, Urine Negative Normal NEG [facility] Comment on above: Performed By: #### U MICAO, UA #### [facility] [address] [place], [place] [phone] Bone Tender: Omero Murry MD Clarity (U) Clear Normal CLEAR [facility] Comment on above: Performed By: #### U MICAO, UA #### [facility] [address] [place] [address] [place], [place] [phone] Bone Tender: Omero Murry MD Color (U) Yellow Normal YEL [facility] Comment on above: Performed By: #### U MICAO, UA #### [facility] [address] [place] [address] [place] [place], [place] [phone] Bone Tender: Omero Murry MD Glucose Ql (U) Negative Normal NEG [facility] in Hospital Comment on above: Performed By: #### U MICAO, UA #### [address] [place], [place] [phone] Bone Tender: Omero Murry MD Ketones Ql (U) TRACE Abnormal NEG [facility] Comment on above: Performed By: #### U MICAO, UA #### [address] [place], [place] [phone] Bone Tender: Omero Murry MD Leukocyte esterase Test strip Ql (U) TRACE Abnormal NEG [facility] Comment on above: Performed By: #### U MICAO, UA #### [facility] [address] [place] [address] [place], [place] [phone] Bone Tender: Omero Murry MD Nitrite,Ur Negative Normal NEG [facility] Comment on above: Performed By: #### U MICAO, UA #### [address] [place], [place] [phone] Bone Tender: Omero Murry MD PH,Ur 7.0 Normal 5.0-9.0 [facility] Comment on above: Performed By: #### U MICAO, UA #### [facility] [address] [place] [address] [place] [address] Bone Tender: Omero Murry MD Protein Ql (U) Negative Normal NEG [facility] Comment on above: Performed By: #### U MICAO, UA #### [facility] [address] [place] [address] [place], [place] 1886883 Bone Tender: Omero Murry MD Spec. [place],Ur 1.025 High 1.010-1.020 [facility] Comment on above: Performed By: #### U MICAO, UA #### [facility] [address] [place] [address] [place] [place], [place] [phone] Bone Tender: Omero Murry MD Urobilinogen,Ur ELEVATED Normal 0.0-1.0 [facility] Comment on above: Performed By: #### U CHRISTOPHERO, UA #### [facility] [address] [place] [address] Dr. [place], [id number] Bone Tender: Omero Murry MD Urinalysis,Microon 4 Bacteria 1+ Abnormal NONE [facility] Comment on above: Performed By: #### U CHRISTOPHERO, UA #### [address] [place], [place] [phone] Bone Tender: Omero Murry MD Epithelial cells LM Ql (Urine sed) 0 TO 2 Normal 0-25 [facility] Comment on above: Performed By: #### U MICAO, UA #### [facility] [address] [place] [address] Dr. [place], [id number] Bone Tender: Omero Murry MD Mucus Strands TRACE Abnormal NONE [facility] Comment on above: Performed By: #### U MICAO, UA #### [address] [place] [address] Bone Tender: Omero Murry MD Urine RBC's None Normal 0-2 [facility] Comment on above: Performed By: #### U MICAO, UA #### [facility] [address] [place] [address] [place], [place] [phone] Bone Tender: Omero Murry MD Urine WBC's 0 TO 2 Normal 0-5 [facility] Comment on above: Performed By: #### U MICAO, UA #### [address] [place], [place] [phone] Bone Tender: Omero Murry MD Vaginitis DNA Probeon 2023 Hieu Positive Abnormal NEG [facility] Comment on above: Result Comment: for Hieu sp. Method of testing is a DNA probe intended for detection and identification of Hieu species, Gardnerella vaginalis, and Trichomonas vaginalis nucleic acid in vaginal fluid specimens from patients with symptoms of vaginitis/vaginosis. Performed By: #### V AGP #### [address] [address] Bone Tender: Wilber Blair MD [address] [place], [place] [phone] Bone Tender: Omero Murry MD Gardnerella Negative [facility] Comment on above: Result Comment: for Gardnerella vaginalis Performed By: #### V AGP #### [address] [address] Bone Tender: Wilber Blair MD [address] [place], [place] [phone] Bone Tender: Omero Murry MD Trichomonas Negative Normal [facility] Comment on above: Result Comment: for Trichomonas Vaginalis Performed By: #### V AGP #### [address] [address] Bone Tender: Wilber Blair MD [address] [place], [place] [phone] Bone Tender: Omero Murry MD Urinalysis, Routineon 2023 Bilirubin, SemiQt,Ur Negative Normal NEG [facility] Comment on above: Performed By: #### U A #### [facility] [address] [place] [address] [place], [place] [phone] Bone Tender: Omero Murry MD Blood, Urine Negative Normal NEG [facility] Comment on above: Performed By: #### U A #### [facility] [address] [place] [address] [place] [place], [place] [phone] Bone Tender: Omero Murry MD Clarity (U) Clear Normal CLEAR [facility] Comment on above: Performed By: #### U A #### [facility] [address] [place] [address] [place] [address] Bone Tender: Omero Murry MD Color (U) Yellow Normal YEL [facility] Comment on above: Performed By: #### U A #### [address] [place], [id number] Bone Tender: Omero Murry MD Glucose Ql (U) Negative Normal NEG [facility] Comment on above: Performed By: #### U A #### [facility] [address] [place] [address] Dr. [place], [place] [address] Bone Tender: Omero Murry MD Ketones Ql (U) Negative Normal NEG [facility] Comment on above: Performed By: #### U A #### [facility] [address] [place] [address] Dr. [place], [id number] Bone Tender: Omero Murry MD Leukocyte esterase Test strip Ql (U) Negative Normal NEG [facility] Comment on above: Performed By: #### U A #### [facility] [address] [place] [address] Dr. [place], [id number] Bone Tender: Omero Murry MD Nitrite,Ur Negative Normal NEG [facility] Comment on above: Performed By: #### U A #### [facility] [address] [place] [address] [place] [address] Bone Tender: Omero Murry MD PH,Ur 6.5 Normal 5.0-9.0 [facility] Comment on above: Performed By: #### U A #### [facility] [address] [place] [address] [place], [place] 8872283 Bone Tender: Omero Murry MD Protein Ql (U) Negative Normal NEG [facility] Comment on above: Performed By: #### U A #### [facility] [address] [place] [address] [place] [address] Bone Tender: Omero Murry MD Spec. [place],Ur 1.020 Normal 1.010-1.020 [facility] Comment on above: Performed By: #### U A #### [address] [place] [address] Bone Tender: Omero Murry MD Urobilinogen,Ur Normal Normal 0.0-1.0 [facility] Comment on above: Performed By: #### U A #### [address] [place] [address] Bone Tender: Omero Murry MD Vaginitis DNA Probeon 2023 Source .VAGINAL SWAB Normal [facility] Comment on above: Performed By: #### V AGP #### [facility] [address] [place], [place] 3696808 Bone Tender: Wilber Blair MD [facility] [address] [place] [address] [place] [address] Bone Tender: Omero Murry MD Chlamydia/GC,DNA Ampon 12-06 Chlamydia Probe Negative Normal NEG [facility] Comment on above: Result Comment: CHLA MYDIA TRACHOMATIS DNA not detected by nucleic acid amplification. This test is intended for medical purposes only and is not valid for the evaluation of suspected sexual abuse or for other forensic purposes. In certain contexts, culture may be required to meet applicable laws and regulations for diagnosis of C. trachomatis and N. gonorrhoeae infections. Per 2014 CDC recommendations, this test does not include confirmation of positive results by an alternative nucleic acid target. Performed By: #### U A #### [facility] [address] [place] [address] Bone Tender: Omero Murry MD Gonorrhea Probe Negative Normal NEG [facility] Comment on above: Result Comment: NEIS SERIA GONORRHOEAE DNA not detected by nucleic acid amplification. This test is intended for medical purposes only and is not valid for the evaluation of suspected sexual abuse or for other forensic purposes. In certain contexts, culture may be required to meet applicable laws and regulations for diagnosis of C. trachomatis and N. gonorrhoeae infections. Per 2014 CDC recommendations, this test does not include confirmation of positive results by an alternative nucleic acid target. Performed By: #### U A #### [facility] [address] [place], [place] 9292583 Bone Tender: Omero Murry MD US OB FOLLOW UP TRANSABDOMIN AL APPROACHon 11-21-2023 OB FOLLOW UP TRANSABDOMINAL APPROACH Table formatting from the original result was not included. 11/20/2023 1:51 PM EST 31.6 WK IUP EFW:73% (3lb 14oz) CL:5.2cm ALINE:24.4cm HR:122bpm anterior placenta, cephalic presentation Active movements Renal pelvis: both measure 4mm Interpreted by: Yana Bird, INSPECTOR WATCH [employer]SEM[employer] - CNM Juma Colindres MD Signed by: Juma Colindres MD 11/21/23 Final result Normal [facility] AMYLASEon 11-03-2023 Amylase [Catalytic activity/Vol] 52 U/L Normal 28-100 [facility] Comment on above: Performed By: #### C KOFFI DEVINE, 1798-8, 3040-3 #### [facility] ([id number]) [address] [place] [address], [place] [address] CBC AND AUTO DIFFon 11-03-19 ABSOLUTE BASOPHIL 0.0 X10E9/L Normal 0.0-0.2 [facility] Comment on above: Performed By: #### C KOFFI DEVINE, 1798-05, 3 #### [facility] ([id number]) [address] [place] [address] ABSOLUTE NEUTROPHIL 6.5 X10E9/L Normal 1.5-6.6 [facility] Comment on above: Performed By: #### C SYBIL, CMP, 1798-05, 3 #### [facility] ([id number]) [address] [place] [address] Basophils/100 WBC (Bld) 0.2 % Normal [facility] Comment on above: Performed By: #### C SYBIL, [facility], 1798-05, 3 #### [facility] ([id number]) [address] [place] [address] Eosinophils (Bld) [#/Vol] 0.0 10*3/uL Normal 0.0-0.4 [facility] Comment on above: Performed By: #### Bharat DEVINE, CMP, 1798-05, 3039-12 #### [facility] ([id number]) [address] [place] [address] Eosinophils/100 WBC (Bld) 0.3 % Normal [facility] Comment on above: Performed By: #### Bharat DEVINE, CMP, 1798-05, 3 #### [facility] ([id number]) [address] [place] [address] Erythrocyte distribution width (RBC) [Ratio] 13.5 % Normal 11.5-15.0 [facility] Comment on above: Performed By: #### Bharat DEVINE, CMP, 1798-05, 3 #### [facility] ([id number]) [address] [place] [address] Hematocrit (Bld) [Volume fraction] 31.1 % Low 35-47 [facility] Comment on above: Performed By: #### Bharat DEVINE CMP, 1798-05, 3 #### [facility] ([id number]) [address] [place] [address] Hemoglobin (Bld) [Mass/Vol] 10.8 g/dL Low 11.7-15.5 [facility] Comment on above: Performed By: #### Bharat DEVINE [facility], 1798-05, 3 #### [facility] ([id number]) [address] [place] [address] Lymphocytes (Bld) [#/Vol] 1.2 10*3/uL Normal 1.0-3.5 [facility] Comment on above: Performed By: #### Bharat DEVINE [facility], 1798-05, 3 #### [facility] ([id number]) [address] [place] [address] Lymphocytes/100 WBC (Bld) 14.6 % Normal [facility] Comment on above: Performed By: #### Bharat DEVINE [facility], 1798-05, 3 #### [facility] ([id number]) [address] [place] [address] MCH (RBC) [Entitic mass] 30.0 pg Normal 27-34 [facility] Comment on above: Performed By: #### Bharat DEVINE [facility], 1798-05, 3 #### [facility] ([id number]) [address] [place] [address] MCHC (RBC) [Mass/Vol] 34.8 g/dL Normal 32-36 [facility] Comment on above: Performed By: #### Bharat DEVINE, [facility], 1798-05, 3 #### [facility] ([id number]) [address] [place] [address] MCV (RBC) [Entitic vol] 86 fL Normal 80-100 [facility] Comment on above: Performed By: #### Bharat DEVINE, CMP, 1798-05, 3039-3 #### [facility] ([id number]) [address] [place] [address] Monocytes (Bld) [#/Vol] 0.6 10*3/uL Normal 0-0.9 [facility] Comment on above: Performed By: #### Bharat DEVINE, CMP, 1798-05, 3039-3 #### [facility] ([id number]) [address] [place] [address] Monocytes/100 WBC (Bld) 6.7 % Normal [facility] Comment on above: Performed By: #### Bharat DEVINE, CMP, 1798-05, 3039-3 #### [facility] ([id number]) [address] [place] [address] Neutrophils/100 WBC (Bld) 78.2 % Normal [facility] Comment on above: Performed By: #### Bharat DEVINE, CMP, 1798-05, 3039-3 #### [facility] ([id number]) [address] [place] [address] Platelet mean volume (Bld) [Entitic vol] 7.6 fL Normal 7-12 [facility] Comment on above: Performed By: #### Bharat DEVINE, CMP, 1798-05, 3039-3 #### [facility] ([id number]) [address] [place] [address] Platelets (Bld) [#/Vol] 283 10*3/uL Normal 150-450 [facility] Comment on above: Performed By: #### Bharat DEVINE, CMP, 1798-05, 3039-3 #### [facility] ([id number]) [address] [place] [address] RBC COUNT 3.61 X10E12/L Low 3.80-5.20 [facility] Comment on above: Performed By: #### C KOFFI DEVINE, 1798-05, 3039-3 #### [facility] ([id number]) [address] [place] [address] WBC (Bld) [#/Vol] 8.4 10*3/uL Normal 4.0-11.0 [facility] Comment on above: Performed By: #### C KOFFI DEVINE, 1798-05, 3039-3 #### [facility] ([id number]) [address] [place] [address] CHLAMYDIA/GC BY PCRon 2023 CHLAMYDIA/GC BY PCR SPECIMEN SOURCE CERVICAL CHLAMYDIA DNA(PCR) Negative (qualifier value) Chlamydia trachomatis not detected by nucleic acid amplification. This does not exclude the possibility of infection because results are dependent on adequate specimen collection. GONORRHOEAE DNA(PCR) Negative (qualifier value) Neisseria gonorrhoeae not detected by nucleic acid amplification. This does not exclude the possibility of infection because results are dependent on adequate specimen collection. Normal [facility] Comment on above: Performed By: #### C KOFFI DEVINE, 1798-05, 3039-3 #### [facility] ([id number]) [address] [place] [address] COMPREHENSIVE METABOLIC PANE Josh 11-03-2023 Albumin [Mass/Vol] 3.0 g/dL Low 3.2-5.3 [facility] Comment on above: Performed By: #### C KOFFI DEVINE, 1798-05, 3039-3 #### [facility] ([id number]) [address] [place] [address] ALP [Catalytic activity/Vol] 89 U/L Normal 39-130 [facility] Comment on above: Performed By: #### C KOFFI DEVINE, 1798-05, 3039-3 #### [facility] ([id number]) [address] [place] [address] ALT [Catalytic activity/Vol] 12 U/L Normal 0-31 [facility] Comment on above: Performed By: #### C SYBIL, CMP, 1798-05, 3039-3 #### [facility] ([id number]) [address] [place] [address] Anion gap [Moles/Vol] 7 mmol/L Normal 5-15 [facility] Comment on above: Performed By: #### C SYBIL, CMP, 1798-05, 3039-3 #### [facility] ([id number]) [address] [place] [address] [place] [address] AST [Catalytic activity/Vol] 20 U/L Normal 0-41 [facility] Comment on above: Performed By: #### C SYBIL, CMP, 1798-05, 3 #### [facility] ([id number]) [address] [place] [address] [place] [address] Bilirubin [Mass/Vol] 0.6 mg/dL Normal 0.3-1.2 [facility] Comment on above: Performed By: #### C SYBIL, CMP, 1798-05, 3039-3 #### [facility] ([id number]) [address] [place] [address] [place] [address] Calcium [Mass/Vol] 8.4 mg/dL Low 8.5-10.5 [facility] Comment on above: Performed By: #### C SYBIL, CMP, 1798-05, 3 #### [facility] ([id number]) [address] [place] [address] [place] [address] Chloride [Moles/Vol] 104 mmol/L Normal 98-109 [facility] Comment on above: Performed By: #### C SYBIL, CMP, 1798-05, 3 #### [facility] ([id number]) [address] [place] [address] [place] [address] CO2 [Moles/Vol] 23 mmol/L Normal 22-32 [facility] Comment on above: Performed By: #### C KOFFI DEVINE, 1798-05, 3039-3 #### [facility] ([id number]) [address] [place] [address]797 Creatinine [Mass/Vol] 0.57 mg/dL Normal 0.40-1.00 [facility] Comment on above: Result Comment: METH OD TRACEABLE TO IDMS STANDARD Performed By: #### C KOFFI DEVINE, 1798-05, 3 #### [facility] ([id number]) [address] [place] [address]886 eGFR (CKD-EPI) NON-RACE DEPENDENT >90 Normal >59 [facility] Comment on above: Result Comment: Reported eGFR is based on the CKD-EPI 2020 equation that does not use a race coefficient. Performed By: #### C KOFFI DEVINE, 1798-05, 3 #### [facility] ([id number]) [address] [place] [address]16 Glucose [Mass/Vol] 104 mg/dL High 65-99 [facility] Comment on above: Performed By: #### C KOFFI DEVINE, 1798-05, 3 #### [facility] ([id number]) [address] [place] [address] 05900 Potassium [Moles/Vol] 3.5 mmol/L Normal 3.5-5.0 [facility] Comment on above: Performed By: #### C KOFFI DEVINE, 1798-05, 3039-3 #### [facility] ([id number]) [address] [place] [address] 34575 Protein [Mass/Vol] 6.7 g/dL Normal 6.0-8.0 [facility] Comment on above: Performed By: #### C KOFFI DEVINE, 1798-05, 3039-3 #### [facility] ([id number]) [address] [place] [address] 37061 Sodium [Moles/Vol] 134 mmol/L Normal 134-146 [facility] Comment on above: Performed By: #### C SYBIL, [facility], 1798-8, 3040-3 #### [facility] ([id number]) [address] [place] [address] 88420 Urea nitrogen [Mass/Vol] 8 mg/dL Normal 5-23 [facility] Comment on above: Performed By: #### C SYBIL, [facility], 1797-8, 3040-3 #### [facility] ([id number]) [address] [place] [address] 45461 DRUG SCREEN, URINEon 024 AMPHETAMINE/METHAMP Negative Normal NEG [facility] Comment on above: Result Comment: AMPH /METH screening cut off = 1000 ng/mL Performed By: #### D LABOY #### [facility] ([id number]) [address] [place] [address] 50819 BARBITURATES Negative Normal NEG [facility] Comment on above: Result Comment: Lisseth iturates screening cut off value = 200 ng/mL Performed By: #### D LABOY #### [facility] ([id number]) [address] [place] [address] 59955 BENZODIAZEPINES Negative Normal NEG [facility] Comment on above: Result Comment: Luke odiazepines screening cut off value = 200 ng/mL Performed By: #### D LABOY #### [facility] ([id number]) [address] [place] [address] [place] [address] CANNABINOIDS Negative Normal NEG [facility] Comment on above: Result Comment: Robbie abinoids/THC screening cut off value = 50 ng/mL Performed By: #### D LABOY #### [facility] ([id number]) [address] [place] [address] 10585 COCAINE METABOLITE Negative Normal NEG [facility] Comment on above: Result Comment: Coca ine screening cut off value = 300 ng/mL Performed By: #### D LABOY #### [facility] ([id number]) [address] [place] [address]56 ECSTASY Negative Normal NEG [facility] Comment on above: Result Comment: Ecst asy screening cut off value = 500 ng/mL This report is intended for use in clinical monitoring or management of patients. Performed By: #### D LABOY #### [facility] ([id number]) [address] [place] [address] 20010 METHADONE Negative Normal NEG [facility] Comment on above: Result Comment: Meth adone screening cut off value = 300 ng/mL. Performed By: #### D LABOY #### [facility] ([id number]) [address] [place] [address] 98774 OPIATES Negative Normal NEG [facility] Comment on above: Result Comment: Opia giselle screening cut off value = 300 ng/mL NOTE: This test is used for the detection of codeine, hydrocodone (>1000 ng/mL), morphine and hydromorphone (>900 ng/mL) in urine. Performed By: #### D ALBOY #### [facility] ([id number]) [address] [place] [address]35 OXYCODONE Negative Normal NEG [facility] Comment on above: Result Comment: Oxyc odone screening cut off value = 300 ng/mL NOTE: This test is used for the detection of oxycodone and oxymorphone in urine. Performed By: #### D LABOY #### [facility] ([id number]) [address] [place] [address] 72030 PHENCYCLIDINE Negative Normal [facility] Comment on above: Result Comment: Phen cyclidine screening cut off value = 25 ng/mL Performed By: #### D LABOY #### [facility] ([id number]) [address] [place] [address] 67662 Fibronectin. Ql (Vag fl d)on 11-03-2023 FIBRONECTIN Negative Normal NEG [facility] [place] [facility] Comment on above: Performed By: #### 2 0404-0 #### [facility] ([id number]) [address] [place] [address] #### VPPCR #### [facility] ([id number]) [address], [address] [place] [address] LIPASEon 11-03-2023 Lipase [Catalytic activity/Vol] 31 U/L Normal 17-40 [facility] Comment on above: Performed By: #### C BCA, CMP, 1798-8, 3040-3 #### [facility] ([id number]) [address] [place] [address] SARS/FLU A+B/RSV by NAAT/Mol ecularon 11-03-2023 SARS/FLU A+B/RSV by NAAT/Molecular FLU A PCR Negative (qualifier value) FLU B PCR Negative (qualifier value) RSV by PCR Negative (qualifier value) SARS CoV 2 Not detected (qualifier value) NOTE The Xpert Xpress SARS-CoV-2/Flu/RSV Plus test is a rapid, multiplexed real-time RT-PCR test intended for the simultaneous qualitative detection and differentiation of SARS-CoV-2, influenza A, influenza B and respiratory syncytial virus (RSV) viral RNA from individuals suspected of respiratory viral infection consistent with COVID-19 by their healthcare provider. This test has not been validated in asymptomatic patients. The Xpert Xpress SARS-CoV-2 test is intended for use by qualified and trained operators who are performing tests using either [employer] or [employer] systems and is limited to laboratories that meet the CLIA requirements to perform high and moderate complexity tests. The Xpert Xpress SARS-CoV-2/Flu/RSV Plus is only for use under the Food and Drug Administration's Emergency Use Authorization. Results are for the simultaneous detection and differentiation of SARS-CoV-2, influenza A, influenza B and RSV nucleic acids in clinical specimens. SARS-CoV-2, influenza A, influenza B and RSV RNA identified by this test are generally detectable in upper respiratory samples during the acute phase of infection. Positive results are indicative of the presence of the identified virus, but do not rule out bacterial infection or co-infection with other pathogens not detected by this test. Clinical correlation with patient history and other diagnostic information is necessary to determine patient infection status. The agent detected may not be the definite cause of disease. Negative results do not preclude SARS-CoV-2, influenza A, influenza B and RSV infection and should not be used as the sole basis for treatment or other patient management decisions. Negative results must be combined with clinical observations, patient history and epidemiological information. An Invalid result may occur with specimen-associated inhibition unable to be resolved with specimen repeat. Fact Sheet for Healthcare Providers: https://www.fda.gov/ media/904218/downloa d Fact Sheet for Patients: https://www.fda.gov/ media/046660/downloa d Normal [facility] [place] Comment on above: Performed By: #### C OVFLR #### [facility] ([id number]) [address] [place] [address]28 STREP B SCREEN CULTUREon S. agalactiae Org specific cx Ql (Vag+Rectum) CULTURE RESULTS NEGATIVE FOR GROUP B STREPTOCOCCUS BY NUCLEIC ACID AMPLIFICATION Normal [facility] [place] Comment on above: Performed By: #### C BCA, CMP, 1798-8, 3040-3 #### [facility] ([id number]) [address] [place] [address] 32235 URINALYSISon 11-03-2023 Bilirubin Ql (U) Negative Normal NEG [facility] Comment on above: Performed By: #### U A #### [facility] ([id number]) [address] [place] [address] BLOOD/HGB Negative Normal NEG [facility] [place] Comment on above: Performed By: #### U A #### [facility] ([id number]) [address] [place] [address] Color (U) YELLOW Normal YELLOW [facility] [place] Comment on above: Performed By: #### U A #### [facility] ([id number]) [address] [place] [address] [place] [address] Glucose Ql (U) Negative Normal NEG [facility] Comment on above: Performed By: #### U A #### [facility] ([id number]) [address] [place] [address] [place] [address] Ketones Ql (U) Negative Normal NEG [facility] [place] Comment on above: Performed By: #### U A #### [facility] ([id number]) [address] [place] [address] [place] [address] Leukocyte esterase Test strip Ql (U) Trace Abnormal NEG [facility] Comment on above: Performed By: #### U A #### [facility] ([id number]) [address] [place] [address]9768 Nitrite Ql (U) Negative Normal NEG [facility] [place] Comment on above: Performed By: #### U A #### [facility] ([id number]) [address] [place] [address] [place] [address] pH (U) 7.5 [pH] Normal 5.0-8.5 [facility] Comment on above: Performed By: #### U A #### [facility] ([id number]) [address] [place] [address] Protein Ql (U) Negative Normal NEG [facility] [place] Comment on above: Performed By: #### U A #### [facility] ([id number]) [address] [place] [address], [place] [address] R.B.CELLS 1 /hpf Normal 0-5 [facility] Comment on above: Performed By: #### U A #### [facility] ([id number]) [address] [place] [address] [place] [address] Specific gravity (U) [Rel density] 1.015 Normal 1.003-1.035 [facility] [place] Comment on above: Performed By: #### U A #### [facility] ([id number]) [address] [place] [address] SQUAMOUS EPITHELIUM 5 /hpf Normal 0-5 [facility] Comment on above: Performed By: #### U A #### [facility] ([id number]) [address] [place] [address] TURBIDITY HAZY Abnormal CLEAR [facility] [place] Comment on above: Performed By: #### U A #### [facility] ([id number]) [address] [place] [address]47 Urobilinogen Qn (U) 4.0 {Richa'U}/dL High <1.1 [facility] [place] Comment on above: Performed By: #### U A #### [facility] ([id number]) [address] [place] [address] W.B.CELLS 2 /hpf Normal 0-5 [facility] Comment on above: Performed By: #### U A #### [facility] ([id number]) [address] [place] [address]28[address] URINE CULTUREon 11-03-2023 Bacteria identified Cx Nom (U) CULTURE RESULTS 50-100,000 ORGANISMS/ML NORMAL UROGENITAL JOE Normal [facility] [place] Comment on above: Performed By: #### C BCA, CMP, 1798-8, 3040-3 #### [facility] ([id number]) [address] [place] [address] US ABDOMEN LMTDon 11-03-2023 US ABDOMEN LMTD US ABDOMEN LMTD History: Right upper quadrant pain. Patient is 20 weeks . Exam/Technique: 5 MHz curvilinear transducer utilized to scan the right upper quadrant. Doppler imaging and grayscale imaging performed. Comparison: None available. CBD diameter is 21.1 mm cm. Hepatopetal flow in the portal vein is noted. No obvious focal liver lesion. Hepatopedal flow in the portal vein. Mild pulsatile flow in the portal vein. Additional images in the right lower quadrant demonstrates no obvious dilated appendix. Evidence of a intrauterine . IMPRESSION: Study is limited given the patient's . Patient has had gallbladder removed however the CBD is dilated at 21 mm. Correlation should be made with any features of obstructive biliary symptoms and if present, patient may require MR of an MRCP abdomen and pancreas. Finalized by Jeremy Allen MD on 11/03/2023 11:27 PM Normal [facility] US PREG LMTD 1 OR MORE FETUS on 11-03-2023 US PREG LMTD 1 OR MORE FETUS US PREG LMTD 1 OR MORE FETUS History: [37 weeks . Epigastric pain. Concern for abruptio placentae. Exam/Technique: Study performed with maxwell scale imaging utilizing the appropriate ultrasound transducer and protocol for the patient's condition including Doppler imaging. Comparison: Findings: Note is made of a intrauterine gestation with the fetus in a cephalic presentation. Placenta is anterior without abruption. Placenta has a type II appearance. Amniotic fluid index is 20.4 cm which is appropriate. The heart is documented at 122 beats per minute. No survey was performed. Right ovary surgically absent. Left ovary measures 2.8 x 1.6 x 2.4 cm with both arterial and venous flow documented. IMPRESSION: Limited examination of the fetus demonstrates cephalic presentation fetus with a distended bladder demonstrates no obstruction. Finalized by Jeremy Allen MD on 11/03/2023 11:22 PM Normal [facility] US RETROPERITONEAL COMPLETEo n 11-03-2023 US RETROPERITONEAL COMPLETE US RETROPERITONEAL COMPLETE History: Patient with epigastric pain and 27 weeks . Evaluate for any renal abnormality. Exam/Technique: 5 MHz curvilinear transducer. Doppler imaging performed. Comparison: Findings: Right kidney: Normal echo pattern. No hydronephrosis. Measurements are 11.5 4.6 x 6.5cm. Cortex is cm. No stone or mass. Left kidney: Normal echo pattern. No hydronephrosis. Measurements are 11.7 x 6.1 x 4.6cm. Cortex is cm. No stone or mass. Both bladder jets visualized. IMPRESSION: No significant acute renal abnormality. Finalized by Jeremy Allen MD on 11/03/2023 11:20 PM Normal [facility] VAGINITIS PANEL PCRon 2023 VAGINITIS PANEL PCR BACT. VAGINOSIS DNA Not detected (qualifier value) Qualitative results are reported based on detection and quantitation of targeted organism markers which include: Lactobacillus spp. (L. crispatus and L. jensenii), Gardnerella vaginalis, Atopobium vaginae, Bacterial Vaginosis Associated Bacteria-2 (BVAB-2) and Megasphaera-1 HIEU SPECIES DNA Detected (qualifier value) Hieu species result based on detection of one or more of the following species: C. albicans, C. tropicalis, C. parapsilosis or C. dubliniensis HIEU KRUSEI DNA Not detected (qualifier value) No Hieu krusei detected HIEU GLABRATA DNA Not detected (qualifier value) No Hieu glabrata detected TRICHOMONAS VAG DNA Not detected (qualifier value) No Trichomonas vaginalis detected NOTE BD MAX Vaginal Panel has not been evaluated for patients under 18 years old. Results for these patients should be reviewed and assessed in accordance with clinical presentation to determine patient diagnosis. Normal [facility] Comment on above: Performed By: #### 2 0404-0 #### [facility] ([id number]) [address] [place] [address], [place] [address] #### VPPCR #### [facility] ([id number]) [address] [place] [address], [address] [place] [address] HIV Screenon 06-05-2023 HIV 1+2 Ab+HIV1 p24 Ag IA Ql Non-Reactive NONREACTIVE [facility] Comment on above: No laboratory eviden ce of HIV infection. If acute HIV infection is suspected, consider testing for HIV-1 RNA. [facility] Hepatitis C Antibodyon 06-05 HCV Ab IA Ql Non-Reactive NONREACTIVE [facility] Comment on above: The hepatitis C procedure used in our laboratory is a Chemiluminescent test specific for three recombinant HCV antigens. A negative anti-HCV result indicates that the antibodies to hepatitis C virus are not present at this time. Individuals with reactive anti-HCV should be considered infected and infectious until proven otherwise. Confirmation of all equivocal or reactive results is recommended by ordering HCV RNA by PCR. [facility] TYPE AND SCREENon 0 06-05-2023 ABO and Rh group Nom (Bld) Blood group O Rh(D) positive [facility] Blood group antibodies identified Nom Negative [facility] HCG, Quantitative, on 02-22-2023 hCG Quant NINF [facility] Comment on above: Non-preg premeno <=5 Postmeno <=8 Male <=3 If HCG results do not concur with clinical observations, additional testing to confirm results is recommended. [facility] CBC with Auto Differentialon 10-13-2022 Absolute Eos # 0.00 [facility] Absolute Immature Granulocyte 0.00 [facility] Absolute Lymph # 0.29 Low [facility] Absolute [place]ly # 0.46 [facility] Basophils (Bld) [#/Vol] 0.00 10*3/uL [facility] Basophils/100 WBC (Bld) 0 % 0 - 2 % [facility] Eosinophils/100 WBC (Bld) 0 % Low 1 - 4 % [facility] Hematocrit (Bld) [Volume fraction] 39.9 % 36.3 - 47.1 % [facility] Hemoglobin (Bld) [Mass/Vol] 13.1 g/dL 11.9 - 15.1 g/dL [facility] Immature granulocytes/100 WBC (Bld) 0 % 0 [facility] Interpretation and review of laboratory results Abnormal [facility] Lymphocytes/100 WBC (Bld) 5 % Low 25 - 45 % [facility] MCH (RBC) [Entitic mass] 29.2 pg 25.0 - 35.0 pg [facility] MCHC (RBC) [Mass/Vol] 32.8 g/dL 28.4 - 34.8 g/dL [facility] MCV (RBC) [Entitic vol] 88.9 fL 78.0 - 102.0 fL [facility] Monocytes/100 WBC (Bld) 8 % 2 - 8 % B ON [facility] Morphology [place] (Bld) [Interp] Normal [facility] NRBC Automated 0.0 0.0 per 100 WBC [facility] Platelet distribution width (Bld) [Ratio] 12.3 % 11.8 - 14.4 % [facility] Platelet mean volume (Bld) [Entitic vol] 9.6 fL 8.1 - 13.5 fL [facility] Platelets (Bld) [#/Vol] 240 10*3/uL [facility] RBC (Bld) [#/Vol] 4.49 10*6/uL 3.95 - 5.1 1 m/uL [facility] Segmented neutrophils/100 WBC (Bld) 87 % High 34 - 64 % [facility] Segs Absolute 5.05 [facility] WBC (Bld) [#/Vol] 5.8 10*3/uL [facility] COVID-19, Rapidon 10-13-2022 SARS-CoV-2 (COVID-19) RNA JULIO CÉSAR+probe Ql (Unsp spec) Not detected Not Detected [facility] Comment on above: Rapid NAAT: The specimen is NEGATIVE for SARS-CoV-2, the novel coronavirus associated with COVID-19. The ID NOW COVID-19 assay is designed to detect the virus that causes COVID-19 in patients with signs and symptoms of infection who are suspected of COVID-19. An individual without symptoms of COVID-19 and who is not shedding SARS-CoV-2 virus would expect to have a negative (not detected) result in this assay. Negative results should be treated as presumptive and, if inconsistent with clinical signs and symptoms or necessary for patient management, should be tested with an alternative molecular assay. Negative results do not preclude SARS-CoV-2 infection and should not be used as the sole basis for patient management decisions. Fact sheet for Healthcare Providers: https://www.fda.gov/media/727178/download Fact sheet for Patients: https://www.fda.gov/media/795351/download Methodology: Isothermal Nucleic Acid Amplification Specimen Description .NASOPHARYNGEAL SWAB [facility] Comprehensive Metabolic Pane josh 10-13-2022 Albumin [Mass/Vol] 4.1 g/dL 3.5 - 5.2 g/dL [facility] Albumin/Globulin [Mass ratio] 1.1 {ratio} 1.0 - 2.5 [facility] ALP (Bld) [Catalytic activity/Vol] 139 U/L High 35 - 104 U/L [facility] ALT [Catalytic activity/Vol] 23 U/L 5 - 33 U/L [facility] Anion gap [Moles/Vol] 11 mmol/L 9 - 17 mmol/L [facility] AST [Catalytic activity/Vol] 17 U/L NINF - 32 U/L [facility] Bilirubin [Mass/Vol] 0.2 mg/dL Low 0.3 - 1 .2 mg/dL [facility] Calcium [Mass/Vol] 9.5 mg/dL 8.6 - 10. 4 mg/dL [facility] Chloride [Moles/Vol] 98 mmol/L 98 - 10 7 mmol/L [facility] CO2 [Moles/Vol] 23 mmol/L 20 - 31 mmol/L [facility] Creatinine [Mass/Vol] 0.6 mg/dL 0.50 - 0.90 mg/dL [facility] GFR/1.73 sq M.predicted MDRD (S/P/Bld) [Vol rate/Area] - PINF [facility] Comment on above: Effective Jul 25, 2022 These results are not intended for use in patients <18 years of age. eGFR results are calculated without a race factor using the 2020 CKD-EPI equation. Careful clinical correlation is recommended, particularly when comparing to results calculated using previous equations. The CKD-EPI equation is less accurate in patients with extremes of muscle mass, extra-renal metabolism of creatine, excessive creatine ingestion, or following therapy that affects renal tubular secretion. Glucose [Mass/Vol] 98 mg/dL 70 - 99 mg/dL [facility] Interpretation and review of laboratory results Abnormal [facility] Potassium [Moles/Vol] 3.9 mmol/L 3.7 - 5.3 mmol/L [facility] Protein [Mass/Vol] 7.7 g/dL 6.4 - 8.3 g/dL [facility] Sodium [Moles/Vol] 132 mmol/L Low 135 - 144 mmol/L [facility] Urea nitrogen (BldV) [Mass/Vol] 12 mg/dL 6 - 20 mg/dL [facility] Urea nitrogen/Creatinine (Bld) [Mass ratio] 20 9 - 20 [facility] Lactic Acidon 10-13-2022 Lactate [Moles/Vol] 1.1 mmol/L 0.5 - 2. 2 mmol/L [facility] Microscopic Urinalysison Bacteria, UA TRACE Abnormal None [facility] Epithelial Cells UA 0 TO 2 [facility] Interpretation and review of laboratory results Abnormal [facility] Mucus, UA TRACE Abnormal None [facility] RBC, UA 0 TO 2 [facility] WBC, UA 2 TO 5 [facility] Mononucleosis Screenon 10-13 Mononucleosis Screen Negative NEGATIVE [facility] Rapid influenza A/B antigens on 10-13-2022 Flu A Antigen Negative NEGATIVE [facility] Comment on above: for Influenza A Anti gen Flu B Antigen Negative NEGATIVE [facility] Comment on above: for Influenza B Anti gen. [facility] Strep Screen Group A Throato n 10-13-2022 S. pyogenes Ag Ql (Throat) Negative NEGATIVE [facility] Comment on above: Rapid Strep A negati ve. A negative Rapid Group A Strep Screen result does not rule out the possibility of Group A Streptococci in the specimen. A Group A Strep DNA test is available upon request. Source .THROAT SWAB [facility] Urinalysis with Reflex to Cu ltureon 10-13-2022 Bilirubin Urine Negative NEGATIVE [facility] Color, UA Yellow Yellow [facility] Glucose, Ur Negative NEGATIVE [facility] Interpretation and review of laboratory results Abnormal [facility] Ketones Ql (U) Negative NEGATIVE [facility] Leukocyte esterase Test strip Ql (U) Negative NEGATIVE [facility] Nitrite, Urine Negative NEGATIVE [facility] pH, UA 7.0 5.0 - 9.0 [facility] Protein, UA Negative NEGATIVE [facility] Specific [place], UA 1.025 High 1.010 - 1.020 [facility] Turbidity UA Clear Clear [facility] Urine Hgb Negative NEGATIVE [facility] Urobilinogen, Urine Normal Normal [facility] CBCon 10-06-2022 Hematocrit (Bld) [Volume fraction] 32.1 % Low 36.3 - 47.1 % [facility] Hemoglobin (Bld) [Mass/Vol] 10.8 g/dL Low 11.9 - 15.1 g/dL [facility] Interpretation and review of laboratory results Abnormal [facility] MCH (RBC) [Entitic mass] 29.8 pg 25.0 - 35.0 pg [facility] MCHC (RBC) [Mass/Vol] 33.6 g/dL 28.4 - 34.8 g/dL [facility] MCV (RBC) [Entitic vol] 88.4 fL 78.0 - 102.0 fL [facility] NRBC Automated 0.0 0.0 per 100 WBC [facility] Platelet distribution width (Bld) [Ratio] 12.9 % 11.8 - 14.4 % [facility] Platelet mean volume (Bld) [Entitic vol] 10.4 fL 8.1 - 13.5 fL [facility] Platelets (Bld) [#/Vol] 223 10*3/uL [facility] RBC (Bld) [#/Vol] 3.63 10*6/uL Low 3.95 - 5.1 1 m/uL [facility] WBC (Bld) [#/Vol] 8.0 10*3/uL [facility] DRUG SCREEN MULTI URINEon Amphetamine Screen, Ur Negative NEGATIVE [facility] Barbiturate Screen, Ur Negative NEGATIVE [facility] Benzodiazepine Screen, Urine Negative NEGATIVE [facility] Buprenorphine Urine Negative NEGATIVE [facility] Cannabinoid Scrn, Ur Negative NEGATIVE [facility] Cocaine Metabolite, Urine Negative NEGATIVE [facility] Methadone Screen, Urine Negative NEGATIVE [facility] Methamphetamine, Urine Negative NEGATIVE [facility] Opiates, Urine Negative NEGATIVE [facility] Oxycodone Screen, Ur Negative NEGATIVE [facility] Phencyclidine, Urine Negative NEGATIVE [facility] Propoxyphene, Urine Negative NEGATIVE [facility] Tricyclic Antidepressants, Urine Negative NEGATIVE [facility] Comment on above: Drug screen results are to be used for medical purposes only. All positive results are unconfirmed. Testing for employment or legal uses should be sent to a reference laboratory for confirmation. [facility] TYPE AND SCREENon 10-06-2022 ABO/Rh Positive [facility] Arm Band Number [id number] [facility] Expiration Date 10/09/2022,2359 [facility] BMPon 09-03-2022 Anion gap [Moles/Vol] 10 mmol/L 9 - 17 mmol/L [facility] Calcium [Mass/Vol] 9.2 mg/dL 8.6 - 10. 4 mg/dL [facility] Chloride [Moles/Vol] 102 mmol/L 98 - 10 7 mmol/L [facility] CO2 [Moles/Vol] 23 mmol/L 20 - 31 mmol/L [facility] Creatinine [Mass/Vol] 0.5 mg/dL 0.50 - 0.90 mg/dL [facility] GFR/1.73 sq M.predicted MDRD (S/P/Bld) [Vol rate/Area] - PINF [facility] Comment on above: Effective Jul 25, 2022 These results are not intended for use in patients <18 years of age. eGFR results are calculated without a race factor using the 2020 CKD-EPI equation. Careful clinical correlation is recommended, particularly when comparing to results calculated using previous equations. The CKD-EPI equation is less accurate in patients with extremes of muscle mass, extra-renal metabolism of creatine, excessive creatine ingestion, or following therapy that affects renal tubular secretion. Glucose [Mass/Vol] 84 mg/dL 70 - 99 mg/dL [facility] Potassium [Moles/Vol] 3.9 mmol/L 3.7 - 5.3 mmol/L [facility] Sodium [Moles/Vol] 135 mmol/L 135 - 144 mmol/L [facility] Urea nitrogen (BldV) [Mass/Vol] 6 mg/dL 6 - 20 mg/dL [facility] Urea nitrogen/Creatinine (Bld) [Mass ratio] 12 9 - 20 [facility] CBC with Auto Differentialon 09-03-2022 Absolute Eos # 0.04 [facility] Absolute Immature Granulocyte 0.04 [facility] Absolute Lymph # 1.19 Low [facility] Absolute Stanly # 0.46 [facility] Basophils Absolute [facility] Basophils/100 WBC (Bld) 0 % 0 - 2 % [facility] Eosinophils/100 WBC (Bld) 1 % 1 - 4 % [facility] Hematocrit (Bld) [Volume fraction] 33.5 % Low 36.3 - 47.1 % [facility] Hemoglobin (Bld) [Mass/Vol] 11.4 g/dL Low 11.9 - 15.1 g/dL [facility] Immature granulocytes/100 WBC (Bld) 1 % High 0 [facility] Interpretation and review of laboratory results Abnormal [facility] Lymphocytes/100 WBC (Bld) 15 % Low 25 - 45 % [facility] MCH (RBC) [Entitic mass] 30.6 pg 25.0 - 35.0 pg [facility] MCHC (RBC) [Mass/Vol] 34.0 g/dL 28.4 - 34.8 g/dL [facility] MCV (RBC) [Entitic vol] 90.1 fL 78.0 - 102.0 fL [facility] Monocytes/100 WBC (Bld) 6 % 2 - 8 % [facility] NRBC Automated 0.0 0.0 per 100 WBC [facility] Platelet distribution width (Bld) [Ratio] 13.3 % 11.8 - 14.4 % [facility] Platelet mean volume (Bld) [Entitic vol] 9.7 fL 8.1 - 13.5 fL [facility] Platelets (Bld) [#/Vol] 194 10*3/uL [facility] RBC (Bld) [#/Vol] 3.72 10*6/uL Low 3.95 - 5.1 1 m/uL [facility] Segmented neutrophils/100 WBC (Bld) 77 % High 34 - 64 % [facility] Segs Absolute 6.12 [facility] WBC (Bld) [#/Vol] 7.9 10*3/uL [facility] COVID-19, Rapidon 09-03-2022 SARS-CoV-2 (COVID-19) RNA JULIO CÉSAR+probe Ql (Unsp spec) Not detected Not Detected [facility] Comment on above: Rapid NAAT: The specimen is NEGATIVE for SARS-CoV-2, the novel coronavirus associated with COVID-19. The ID NOW COVID-19 assay is designed to detect the virus that causes COVID-19 in patients with signs and symptoms of infection who are suspected of COVID-19. An individual without symptoms of COVID-19 and who is not shedding SARS-CoV-2 virus would expect to have a negative (not detected) result in this assay. Negative results should be treated as presumptive and, if inconsistent with clinical signs and symptoms or necessary for patient management, should be tested with an alternative molecular assay. Negative results do not preclude SARS-CoV-2 infection and should not be used as the sole basis for patient management decisions. Fact sheet for Healthcare Providers: https://www.fda.gov/media/624246/download Fact sheet for Patients: https://www.fda.gov/media/285293/download Methodology: Isothermal Nucleic Acid Amplification Specimen Description .NASOPHARYNGEAL SWAB [facility] Magnesiumon 09-03-2022 Interpretation and review of laboratory results Abnormal [facility] Magnesium [Mass/Vol] 1.6 mg/dL Low 1.7 - 2 .2 mg/dL [facility] No Panel Informationon 09-03 [facility] Rapid influenza A/B antigens on 09-03-2022 Flu A Antigen Negative NEGATIVE [facility] Comment on above: for Influenza A Anti gen Flu B Antigen Negative NEGATIVE [facility] Comment on above: for Influenza B Anti gen. [facility] Microscopic Urinalysison Bacteria, UA TRACE Abnormal None [facility] Epithelial Cells UA 0 TO 2 [facility] Interpretation and review of laboratory results Abnormal [facility] Mucus, UA 2+ Abnormal None [facility] RBC, UA 5 TO 10 [facility] WBC, UA 20 TO 50 [facility] Urinalysison 07-14-2022 Bilirubin Urine Negative NEGATIVE [facility] Color, UA Yellow Yellow [facility] Glucose, Ur Negative NEGATIVE [facility] Interpretation and review of laboratory results Abnormal [facility] Ketones Ql (U) Negative NEGATIVE [facility] Leukocyte esterase Test strip Ql (U) SMALL Abnormal NEGATIVE [facility] Nitrite, Urine Negative NEGATIVE [facility] pH, UA 7.0 5 - 9 [facility] Protein, UA Negative NEGATIVE [facility] Specific [place], UA 1.020 1.01 - 1.02 [facility] Turbidity UA Clear Clear [facility] Urine Hgb 1+ Abnormal NEGATIVE [facility] Urobilinogen, Urine ELEVATED Abnormal Normal [facility] CBC with Auto Differentialon 05-10-2022 Absolute Eos # 0.04 [facility] Absolute Immature Granulocyte [facility] Absolute Lymph # 2.27 [facility] Absolute Stanly # 0.46 [facility] Basophils Absolute [facility] Basophils/100 WBC (Bld) 0 % 0 - 2 % B [facility] Eosinophils/100 WBC (Bld) 1 % 1 - 4 % [facility] Hematocrit (Bld) [Volume fraction] 36.2 % Low 36.3 - 47.1 % [facility] Hemoglobin (Bld) [Mass/Vol] 11.9 g/dL 11.9 - 15.1 g/dL [facility] Immature granulocytes/100 WBC (Bld) 0 % 0 [facility] Interpretation and review of laboratory results Abnormal [facility] Lymphocytes/100 WBC (Bld) 29 % 25 - 45 % [facility] MCH (RBC) [Entitic mass] 29.8 pg 25 - 35 pg [facility] MCHC (RBC) [Mass/Vol] 32.9 g/dL 28.4 - 34.8 g/dL [facility] MCV (RBC) [Entitic vol] 90.5 fL 78 - 102 fL [facility] Monocytes/100 WBC (Bld) 6 % 2 - 8 % B ON [facility] NRBC Automated 0.0 0.0 per 100 WBC [facility] Platelet distribution width (Bld) [Ratio] 12.9 % 11.8 - 14.4 % [facility] Platelet mean volume (Bld) [Entitic vol] 9.5 fL 8.1 - 13.5 fL [facility] Platelets (Bld) [#/Vol] 229 10*3/uL [facility] RBC (Bld) [#/Vol] 4.00 10*6/uL 3.95 - 5.1 1 m/uL [facility] Segmented neutrophils/100 WBC (Bld) 64 % 34 - 64 % [facility] Segs Absolute 5.15 [facility] WBC (Bld) [#/Vol] 8.0 10*3/uL [facility] Microscopic Urinalysison - [facility] Epithelial Cells UA 2 TO 5 [facility] RBC, UA 10 TO 20 [facility] WBC, UA 10 TO 20 [facility] US OB 14 PLUS WEEKS SINGLE O R FIRST GESTATIONon 05-10-2022 A single live intrauterine with estimated gestational age of 18 weeks 0 days and heart rate of 153 beats per minute by ultrasound. The estimated weight is 233.15 g. ALINE of 10.18 but subjectively appears decreased on the ultrasound. [facility] RIS CONSOLIDATED EXAMINATION: TRANSABDOMINAL SECOND/THIRD TRIMESTER OBSTETRIC PELVIC ULTRASOUND WITH COLOR DOPPLER FLOW 05/10/2022 1:46 am TECHNIQUE: TRANSABDOMINAL PELVIC ULTRASOUND WITH COLOR DOPPLER FLOW Limited 2nd trimester ultrasound for viability. Not a anatomy survey. COMPARISON: 03/07/2022 HISTORY: ORDERING SYSTEM PROVIDED HISTORY: Bleeding in with confirmed IUP TECHNOLOGIST PROVIDED HISTORY: Bleeding in with confirmed IUP LMP of 01/06/2022. FINDINGS: GENERAL OBSERVATIONS: : Single CARDIAC ACTIVITY: Yes HEART RATE: 153 beats per minute BODY & LIMB MOVEMENTS: Not evaluated POSITION: Breech PLACENTA LOCATION: Anterior and appears acceptable ALINE: 10.18 ESTIMATED AGE: BY LMP: 17 weeks 5 days CURRENT US: 18 weeks 0 days ESTIMATED WEIGHT: 233.15 grams MEASUREMENTS: BPD: 3.78 cm corresponding to 17 weeks 4 days HEAD CIRCUMFERENCE: 14.73 cm corresponding to 17 weeks 6 days ABD. CIRCUMFERENCE: 13.02 cm corresponding to 18 weeks 4 days FEMUR LENGTH: 2.68 cm corresponding to 18 weeks 1 day CERVICAL LENGTH: 3.8 cm. [facility] Froylan Carmona - 05/10/2022 EXAMINATION: TRANSABDOMINAL SECOND/THIRD TRIMESTER OBSTETRIC PELVIC ULTRASOUND WITH COLOR DOPPLER FLOW 05/10/2022 1:46 am TECHNIQUE: TRANSABDOMINAL PELVIC ULTRASOUND WITH COLOR DOPPLER FLOW Limited 2nd trimester ultrasound for viability. Not a anatomy survey. COMPARISON: 03/07/2022 HISTORY: ORDERING SYSTEM PROVIDED HISTORY: Bleeding in with confirmed IUP TECHNOLOGIST PROVIDED HISTORY: Bleeding in with confirmed IUP LMP of 01/06/2022. FINDINGS: GENERAL OBSERVATIONS: : Single CARDIAC ACTIVITY: Yes HEART RATE: 153 beats per minute BODY & LIMB MOVEMENTS: Not evaluated POSITION: Breech PLACENTA LOCATION: Anterior and appears acceptable ALINE: 10.18 ESTIMATED AGE: BY LMP: 17 weeks 5 days CURRENT US: 18 weeks 0 days ESTIMATED WEIGHT: 233.15 grams MEASUREMENTS: BPD: 3.78 cm corresponding to 17 weeks 4 days HEAD CIRCUMFERENCE: 14.73 cm corresponding to 17 weeks 6 days ABD. CIRCUMFERENCE: 13.02 cm corresponding to 18 weeks 4 days FEMUR LENGTH: 2.68 cm corresponding to 18 weeks 1 day CERVICAL LENGTH: 3.8 cm. IMPRESSION: A single live intrauterine with estimated gestational age of 18 weeks 0 days and heart rate of 153 beats per minute by ultrasound. The estimated weight is 233.15 g. ALINE of 10.18 but subjectively appears decreased on the ultrasound. [employer] Work Phone: Radiology Study observation (narrative) BEAT[employer]Z [facility] [employer] Work Phone: US OB 14 PLUS WEEKS SINGLE O R FIRST GESTATIONOrdered By: Froylan Mendez on 05-10-2022 [facility] [employer] Work Phone: Urinalysison 05-10-2022 Bilirubin Urine Negative NEGATIVE [facility] [employer] Color, UA Yellow Yellow [facility] Glucose, Ur Negative NEGATIVE [facility] Interpretation and review of laboratory results Abnormal [facility] Ketones Ql (U) 1+ Abnormal NEGATIVE [facility] Leukocyte esterase Test strip Ql (U) TRACE Abnormal NEGATIVE [facility] Nitrite, Urine Negative NEGATIVE [facility] pH, UA 6.0 5 - 9 [facility] Protein, UA TRACE Abnormal NEGATIVE [facility] [employer] Specific [place], UA High 1.01 - 1.02 [facility] Turbidity UA Clear Clear [facility] Urine Hgb 3+ Abnormal NEGATIVE [facility] Urobilinogen, Urine Normal Normal [facility], quantitative, on 05-10-2022 hCG Quant [id number] High NINF [facility] Comment on above: Non-preg premeno <=5 Postmeno <=8 Male <=3 If HCG results do not concur with clinical observations, additional testing to confirm results is recommended. Elevated results not associated with may be found in patients with other diseases such as tumors of the germ cells (testis, ovaries, etc.), bladder, pancreas, stomach, lungs, and liver. Interpretation and review of laboratory results Abnormal [facility] [employer] [facility] HIV Screenon 03-07-2022 HIV Ag/Ab Non-Reactive NONREACTIVE [facility] Comment on above: No laboratory eviden ce of HIV infection. If acute HIV infection is suspected, consider testing for HIV-1 RNA. [facility] [employer] Hepatitis C Antibodyon 03-07 Hepatitis C Ab Non-Reactive NONREACTIVE [facility] Comment on above: The hepatitis C procedure used in our laboratory is a Chemiluminescent test specific for three recombinant HCV antigens. A negative anti-HCV result indicates that the antibodies to hepatitis C virus are not present at this time. Individuals with reactive anti-HCV should be considered infected and infectious until proven otherwise. Confirmation of all equivocal or reactive results is recommended by ordering HCV RNA by PCR. [facility] TYPE AND SCREENon 0 03-07-2022 ABO/Rh Positive [facility] Profile Ion 022 Absolute Eos # 0.06 [facility]al th Absolute Immature Granulocyte 0.03 [facility] Absolute Lymph # 2.23 [facility] alth Absolute Stanly # 0.50 [facility] Basophils (Bld) [#/Vol] 0.03 10*3/uL [facility] Basophils/100 WBC (Bld) 0 % 0 - 2 % [facility] Eosinophils/100 WBC (Bld) 1 % 1 - 4 % [facility] Hematocrit (Bld) [Volume fraction] 38.7 % 36.3 - 47.1 % [facility] Hemoglobin.gastrointest inal spec 1 Ql (Stl) 12.8 g/dL 11.9 - 15.1 g/dL [facility] Hepatitis B Surface Ag Non-Reactive NONREACTIVE [facility] Immature granulocytes/100 WBC (Bld) 0 % 0 [facility] Lymphocytes/100 WBC (Bld) 33 % 25 - 45 % [facility] MCH (RBC) [Entitic mass] 29.9 pg 25.0 - 35.0 pg [facility] MCHC (RBC) [Mass/Vol] 33.1 g/dL 28.4 - 34.8 g/dL [facility] MCV (RBC) [Entitic vol] 90.4 fL 78.0 - 102.0 fL [facility] Monocytes/100 WBC (Bld) 7 % 2 - 8 % [facility] NRBC Automated 0.0 0.0 per 100 WBC [facility] Platelet distribution width (Bld) [Ratio] 13.0 % 11.8 - 14.4 % [facility] Platelet mean volume (Bld) [Entitic vol] 9.8 fL 8.1 - 13.5 fL [facility] Platelets (Bld) [#/Vol] 281 10*3/uL [facility] RBC (Bld) [#/Vol] 4.28 10*6/uL 3.95 - 5.1 1 m/uL [facility] Rubella virus IgG Ql (S) 43.8 IU/mL [facility] Comment on above: REFERENCE RANGE: <5.0 NON-REACTIVE (non-immune) 5.0 TO 9.9 EQUIVOCAL >=10.0 REACTIVE (immune) Segmented neutrophils/100 WBC (Bld) 59 % 34 - 64 % [facility] Segs Absolute 4.01 [facility] T. pallidum, IgG Non-Reactive NONREACTIVE [facility] Comment on above: T. pallidum antibodies are not detected. There is no serological evidence of infection with T. pallidum (early primary syphilis cannot be excluded). Retest in 2-4 weeks if syphilis is clinically suspect. WBC (Bld) [#/Vol] 6.9 10*3/uL [facility] Urine Drug Screen, Comprehen siveon 03-07-2022 Amphetamine Screen, Ur Negative NEGATIVE [facility] Barbiturate Screen, Ur Negative NEGATIVE [facility] Benzodiazepine Screen, Urine Negative NEGATIVE [facility] Buprenorphine Urine Negative NEGATIVE [facility] Cannabinoid Scrn, Ur Negative NEGATIVE [facility] Cocaine Metabolite, Urine Negative NEGATIVE [facility] Methadone Screen, Urine Negative NEGATIVE [facility] Methamphetamine, Urine Negative NEGATIVE [facility] Opiates, Urine Negative NEGATIVE [facility] Oxycodone Screen, Ur Negative NEGATIVE [facility] Phencyclidine, Urine Negative NEGATIVE [facility] Propoxyphene, Urine Negative NEGATIVE [facility] Tricyclic Antidepressants, Urine Negative NEGATIVE [facility] Comment on above: Drug screen results are to be used for medical purposes only. All positive results are unconfirmed. Testing for employment or legal uses should be sent to a reference laboratory for confirmation. [facility] Microscopic Urinalysison - [facility] Epithelial Cells UA 10 TO 20 [facility] RBC, UA 0 TO 2 [facility] WBC, UA 5 TO 10 [facility] Urinalysis with Reflex to Cu ltureon 02-04-2022 Bilirubin Urine Negative NEGATIVE [facility] Hea lt Color, UA Yellow Yellow [facility] Glucose, Ur Negative NEGATIVE [facility] Interpretation and review of laboratory results Abnormal [facility] Ketones Ql (U) Negative NEGATIVE [facility] Leukocyte esterase Test strip Ql (U) SMALL Abnormal NEGATIVE [facility] Nitrite, Urine Negative NEGATIVE [facility] pH, UA 7.0 [facility] Protein, UA Negative NEGATIVE [facility] Specific [place], UA 1.020 [employer] Turbidity UA SLIGHTLY CLOUDY Abnormal Clear [facility] H ealth Urine Hgb Negative NEGATIVE [employer] Urobilinogen, Urine ELEVATED Abnormal Normal [facility] [employer] [facility], quantitative, on 02-04-2022 hCG Quant 105 High <5 mIU/mL [facility] Comment on above: Non-preg premeno <=5 Postmeno <=8 Male <=3 If HCG results do not concur with clinical observations, additional testing to confirm results is recommended. Elevated results not associated with may be found in patients with other diseases such as tumors of the germ cells (testis, ovaries, etc.), bladder, pancreas, stomach, lungs, and liver. Interpretation and review of laboratory results Abnormal [facility] hCG, Quantitative, Ordered By: Angelina Mathews on 07-20-2021 hCG Quant <1 <5 IU/L IMRSV Phone: Comment on above: Non-preg premeno <=5 Postmeno <=8 Male <=3 If HCG results do not concur with clinical observations, additional testing to confirm results is recommended. Elevated results not associated with may be found in patients with other diseases such as tumors of the germ cells (testis, ovaries, etc.), bladder, pancreas, stomach, lungs, and liver. [employer] Work Phone: APTTOrdered By: Sheela Mcdowell on 04-27-2021 aPTT Coag (Bld) [Time] 37.8 s High [facility] [employer] Work Phone: Comment on above: IV Heparin Therapy Range: 62.0-94.0 Interpretation and review of laboratory results Abnormal [employer] Work Phone: [employer] Work Phone: CBC Auto DifferentialOrdered By: Sheela Mcdowell on 04-27-2021 Absolute Eos # 0.09 [facility] HospitalSnapt[facility] Work Phone: Absolute Immature Granulocyte <0.03 [facility] Work Phone: Absolute Lymph # 2.38 [email or web address] Work Phone: Absolute [place]ly # 0.61 [facility] [facility] Work Phone: Basophils (Bld) [#/Vol] 0.03 10*3/uL [employer] Work Phone: Basophils/100 WBC (Bld) 0 % 0 - 2 % M [employer] Phone: Differential Type NOT REPORTED IMRSV Phone: Eosinophils/100 WBC (Bld) 1 % 1 - 4 % IM[facility] Phone: Hematocrit (Bld) [Volume fraction] 37.9 % 36.3 - 47.1 % IM[facility] Phone: Hemoglobin.gastrointest inal spec 1 Ql (Stl) 12.2 g/dL 11.9 - 15.1 g/dL IM[facility] Phone: Immature granulocytes/100 WBC (Bld) 0 % 0 [facility] Phone: Lymphocytes/100 WBC (Bld) 31 % 25 - 45 % [facility] Phone: MCH (RBC) [Entitic mass] 28.1 pg 25.0 - 35.0 pg [facility] Phone: MCHC (RBC) [Mass/Vol] 32.2 g/dL 28.4 - 34.8 g/dL [facility] Phone: MCV (RBC) [Entitic vol] 87.3 fL 78.0 - 102.0 fL [facility] Phone: Monocytes/100 WBC (Bld) 8 % 2 - 8 % M [employer] Work Phone: NRBC Automated 0.0 0.0 per 100 WBC [facility]V Phone: Platelet distribution width (Bld) [Ratio] 12.6 % 11.8 - 14.4 % IM[facility] Phone: Platelet Estimate NOT REPORTED [facility] Phone: Platelet mean volume (Bld) [Entitic vol] 9.4 fL 8.1 - 13.5 fL [facility] Phone: Platelets (Bld) [#/Vol] 332 10*3/uL [facility] Phone: RBC (Bld) [#/Vol] 4.34 10*6/uL 3.95 - 5.1 1 m/uL [employer] Work Phone: RBC (Bld) [#/Vol] NOT REPORTED IM[facility]V Phone: Segmented neutrophils/100 WBC (Bld) 60 % 34 - 64 % [employer] Work Phone: Segs Absolute 4.63 [employer] Work Phone: WBC (Bld) [#/Vol] 7.8 10*3/uL [employer] Work Phone: WBC (Bld) [#/Vol] NOT REPORTED IMRSV Phone: IMRSV Phone: Comprehensive Metabolic Pane l w/ Reflex to MGOrdered By: Sheela Mcdowell on 04-27-2021 Albumin [Mass/Vol] 4.4 g/dL 3.2 - 4.5 g/dL [facility] Phone: Albumin/Globulin [Mass ratio] 1.1 {ratio} IM[facility] Phone: ALP (Bld) [Catalytic activity/Vol] 175 U/L High 47 - 119 U/L IM[facility] Phone: ALT [Catalytic activity/Vol] 17 U/L 5 - 33 U/L IM[facility] Phone: Anion gap [Moles/Vol] 13 mmol/L 9 - 17 mmol/L IM[facility] Phone: AST [Catalytic activity/Vol] 16 U/L <32 IM[facility] Phone: Bilirubin [Mass/Vol] 0.25 mg/dL Low 0.3 - 1 .2 mg/dL [facility] Phone: Calcium [Mass/Vol] 9.8 mg/dL 8.4 - 10. 2 mg/dL [facility] Phone: Chloride [Moles/Vol] 99 mmol/L 98 - 10 7 mmol/L IM[facility] Phone: CO2 [Moles/Vol] 24 mmol/L 20 - 31 mmol/L IM[facility] Phone: Creatinine [Mass/Vol] 0.6 mg/dL 0.50 - 0.90 mg/dL [facility] Phone: Free PSA/Total PSA [Mass fraction] 8.5 g/dL High 6.0 - 8.0 g/dL [facility] Phone: GFR NOT REPORTED >60 mL/min [employer] Phone: GFR Non- Pediatric GFR requires additional information. Refer to [email or web address] website for calculator. >60 mL/min IM[facility] Phone: Glucose [Mass/Vol] 98 mg/dL 60 - 100 mg/dL IM[facility]V Phone: Interpretation and review of laboratory results Abnormal [facility] Phone: Potassium [Moles/Vol] 3.9 mmol/L 3.6 - 4.9 mmol/L IM[facility] Phone: Sodium [Moles/Vol] 136 mmol/L 135 - 144 mmol/L IM[facility] Phone: Urea nitrogen (BldV) [Mass/Vol] 14 mg/dL 5 - 18 mg/dL IM[facility] Phone: Urea nitrogen/Creatinine (Bld) [Mass ratio] 23 High IMRSV Phone: IMRSV Phone: Laboratory - Chemistry and C hemistry - challengeOrdered By: Sheela Mcdowell on 04-27-2021 GFR/1.73 sq M.predicted MDRD (S/P/Bld) [Vol rate/Area] [facility] Work Phone: Comment on above: Average GFR for <20 years old not available. Chronic Kidney Disease: <60 mL/min/1.73sq m Kidney failure: <15 mL/min/1.73sq m eGFR calculated using average adult body mass. Additional eGFR calculator available at: http://www.[employer]/multiple_crcl_2012.htm Stage 1: Some kidney damage normal GFR Stage 2: Mild kidney damage GFR 60-89 Stage 3: Moderate kidney damage GFR 30-59 Stage 4: Severe kidney damage GFR 15-29 Stage 5: Severe kidney damage GFR <15 ESRD - chronic treatment by dialysis or transplant Protime-INROrdered By: Day Mcdowell on 04-27-2021 INR Coag (Bld) [Relative time] 1.0 {INR} [facility] Work Phone: Comment on above: Non-therapeutic Range: INR = 0.9-1.2 Therapeutic Range: Moderate Anticoagulant Intensity: INR = 2.0-3.0 High Anticoagulant Intensity: INR = 2.5-3.5 PT Coag (PPP) [Time] 13.3 s [facility] [employer] Work Phone: [employer] Work Phone: CBC auto differentialOrdered By: Yana Bird on 04-20-2021 Absolute Eos # 0.04 [facility] HospitalSnaptalent [facility] Work Phone: Absolute Immature Granulocyte 0.03 [facility] [employer] Work Phone: Absolute Lymph # 3.04 [facility] HospitalSn[facility] al[facility] Work Phone: Absolute [place] # 0.55 [facility] HospitalSnaptalent [facility] Work Phone: Basophils (Bld) [#/Vol] 10*3/uL M [facility] [employer] Work Phone: Basophils/100 WBC (Bld) 0 % 0 - 2 % M [employer] Phone: Differential Type NOT REPORTED IMRSV Phone: Eosinophils/100 WBC (Bld) 1 % 1 - 4 % IMRSV Phone: Hematocrit (Bld) [Volume fraction] 33.0 % Low 36.3 - 47.1 % IMRSV Phone: Hemoglobin.gastrointest inal spec 1 Ql (Stl) 10.8 g/dL Low 11.9 - 15.1 g/dL IMRSV Phone: Immature granulocytes/100 WBC (Bld) 0 % 0 IMRSV Phone: Interpretation and review of laboratory results Abnormal IMRSV Phone: Lymphocytes/100 WBC (Bld) 37 % 25 - 45 % IMRSV Phone: MCH (RBC) [Entitic mass] 28.7 pg 25.0 - 35.0 pg IM[facility]V Phone: MCHC (RBC) [Mass/Vol] 32.7 g/dL 28.4 - 34.8 g/dL IM[facility]V Phone: MCV (RBC) [Entitic vol] 87.8 fL 78.0 - 102.0 fL IM[facility]V Phone: Monocytes/100 WBC (Bld) 7 % 2 - 8 % [employer] Phone: NRBC Automated 0.0 0.0 per 100 WBC IMRSV Phone: Platelet distribution width (Bld) [Ratio] 13.0 % 11.8 - 14.4 % IM[facility]V Phone: Platelet Estimate NOT REPORTED IMRSV Phone: Platelet mean volume (Bld) [Entitic vol] 10.9 fL 8.1 - 13.5 fL [employer] Work Phone: Platelets (Bld) [#/Vol] 220 10*3/uL [employer] Work Phone: RBC (Bld) [#/Vol] 3.76 10*6/uL Low 3.95 - 5.1 1 m/uL [employer] Work Phone: RBC (Bld) [#/Vol] NOT REPORTED [facility] Work Phone: Segmented neutrophils/100 WBC (Bld) 55 % 34 - 64 % [employer] Work Phone: Segs Absolute 4.58 [employer] Work Phone: WBC (Bld) [#/Vol] 8.3 10*3/uL [employer] Work Phone: WBC (Bld) [#/Vol] NOT REPORTED [facility] Work Phone: [employer] Work Phone: DRUG SCREEN MULTI URINEOrder ed By: Yana Bird on 04-20-2021 Amphetamine Screen, Ur Negative NEGATIVE [facility] Work Phone: Barbiturate Screen, Ur Negative NEGATIVE [facility] Work Phone: Benzodiazepine Screen, Urine Negative NEGATIVE [facility] Work Phone: Buprenorphine Urine Negative NEGATIVE [facility] Work Phone: Cannabinoid Scrn, Ur Negative NEGATIVE [facility] Work Phone: Cocaine Metabolite, Urine Negative NEGATIVE [facility] Work Phone: MDMA, Urine NOT REPORTED NEGATIVE [facility] [employer] [facility] [facility] Work Phone: Methadone Screen, Urine Negative [facility]IVE [facility] Work Phone: Methamphetamine, Urine Negative NEGATIVE [facility] Work Phone: Opiates, Urine Negative NEGATIVE [facility] Work Phone: Oxycodone Screen, Ur Negative NEGATIVE [employer] Phone: Phencyclidine, Urine Negative NEGATIVE [employer] Phone: Propoxyphene, Urine Negative NEGATIVE [employer] Work Phone: Test Information NOT REPORTED IMRSV Phone: Tricyclic Antidepressants, Urine Negative NEGATIVE [facility] Work Phone: Comment on above: Drug screen results are to be used for medical purposes only. All positive results are unconfirmed. Testing for employment or legal uses should be sent to a reference laboratory for confirmation. IMRSV Phone: Comprehensive Metabolic Pane lOrdered By: Angelina Mathews on 04-14-2021 Albumin [Mass/Vol] 3.6 g/dL 3.2 - 4.5 g/dL IM[facility]V Phone: Albumin/Globulin [Mass ratio] 1.1 {ratio} IM[facility]V Phone: ALP (Bld) [Catalytic activity/Vol] 198 U/L High 47 - 119 U/L [facility] Phone: ALT [Catalytic activity/Vol] 10 U/L 5 - 33 U/L [facility] Phone: Anion gap [Moles/Vol] 9 mmol/L 9 - 17 mmol/L [facility] Phone: AST [Catalytic activity/Vol] 15 U/L <32 [facility] Phone: Bilirubin [Mass/Vol] 0.24 mg/dL Low 0.3 - 1 .2 mg/dL [facility] Phone: Calcium [Mass/Vol] 9.6 mg/dL 8.4 - 10. 2 mg/dL [facility] Phone: Chloride [Moles/Vol] 106 mmol/L 98 - 10 7 mmol/L [facility] Phone: CO2 [Moles/Vol] 22 mmol/L 20 - 31 mmol/L [facility] Phone: Creatinine [Mass/Vol] 0.6 mg/dL 0.50 - 0.90 mg/dL [facility] Phone: Free PSA/Total PSA [Mass fraction] 7.0 g/dL 6.0 - 8.0 g/dL [facility] Phone: GFR NOT REPORTED >60 mL/min [employer] Phone: GFR Non- Pediatric GFR requires additional information. Refer to [email or web address] website for calculator. >60 mL/min [facility] Phone: Glucose [Mass/Vol] 95 mg/dL 60 - 100 mg/dL [facility] Phone: Interpretation and review of laboratory results Abnormal [facility] Phone: Potassium [Moles/Vol] 3.9 mmol/L 3.6 - 4.9 mmol/L [facility] Phone: Sodium [Moles/Vol] 137 mmol/L 135 - 144 mmol/L [facility] Phone: Urea nitrogen (BldV) [Mass/Vol] 9 mg/dL 5 - 18 mg/dL [facility] Phone: Urea nitrogen/Creatinine (Bld) [Mass ratio] 15 [facility] Phone: [facility] Phone: Laboratory - Chemistry and C hemistry - challengeOrdered By: Angelina Mathews on 04-14-2021 GFR/1.73 sq M.predicted MDRD (S/P/Bld) [Vol rate/Area] [facility] Phone: Comment on above: Average GFR for <20 years old not available. Chronic Kidney Disease: <60 mL/min/1.73sq m Kidney failure: <15 mL/min/1.73sq m eGFR calculated using average adult body mass. Additional eGFR calculator available at: http://www.[employer].WhipTail/multiple_crcl_2012.htm Stage 1: Some kidney damage normal GFR Stage 2: Mild kidney damage GFR 60-89 Stage 3: Moderate kidney damage GFR 30-59 Stage 4: Severe kidney damage GFR 15-29 Stage 5: Severe kidney damage GFR <15 ESRD - chronic treatment by dialysis or transplant Glucose tolerance, 1 houron 02-01-2021 GLU ADMN Glucola [employer] Work Phone: Glucose tolerance screen 50g 84 mg/dL 70 - 135 mg/dL [facility] Phone: Hemoglobinon 02-01-2021 Hemoglobin.gastrointest inal spec 1 Ql (Stl) 11.7 g/dL Low 11.9 - 15.1 g/dL [facility] Phone: Interpretation and review of laboratory results Abnormal [employer] Work Phone: Urinalysis with microscopico n 01-04-2021 Amorphous, UA NOT REPORTED None [employer] Work Phone: Bacteria, UA NOT REPORTED None [employer] Work Phone: Bilirubin Urine Negative NEGATIVE [employer] Work Phone: Casts UA NOT REPORTED /LPF [employer] Work Phone: Color, UA YELLOW YELLOW [employer] Work Phone: Crystals, UA NOT REPORTED None /HPF [employer] Work Phone: Epithelial Cells UA 2 TO 5 [employer] Work Phone: Glucose, Ur Negative NEGATIVE [employer] Work Phone: Interpretation and review of laboratory results Abnormal [facility] Phone: Ketones Ql (U) Negative NEGATIVE [employer] Work Phone: Leukocyte esterase Test strip Ql (U) Negative NEGATIVE [facility] Work Phone: Mucus, UA NOT REPORTED None [facility] Work Phone: Nitrite, Urine Negative NEGATIVE [facility] Work Phone: Other Observations UA NOT REPORTED NOT REQ. M [facility] [employer] Work Phone: pH, UA 6.0 [facility] [employer] Work Phone: Protein (U) [Mass/Vol] Negative NEGATIVE [facility] Work Phone: RBC (U) [#/Vol] 0 TO 2 [facility] Work Phone: Renal Epithelial, UA NOT REPORTED 0 /HPF [facility] Work Phone: Specific [place], UA 1.025 High [facility] [employer] Work Phone: Trichomonas, UA NOT REPORTED None [facility] Work Phone: Turbidity UA CLEAR CLEAR [facility] [employer] Work Phone: Urinalysis Comments NOT REPORTED [facility] Work Phone: Urine Hgb Negative NEGATIVE [facility] [employer] Work Phone: Urobilinogen, Urine Normal Normal [facility] [employer] Work Phone: WBC, UA 2 TO 5 [facility] [employer] Work Phone: Yeast, UA NOT REPORTED None [facility] [employer] Work Phone: - [facility] [employer] Work Phone: MRI PELVIS WO CONTRASTon The right ovary contains a 1.8 x 1.3 cm fat-containing lesion compatible with a dermoid. [employer] Work Phone: EXAMINATION: MRI OF THE PELVIS WITHOUT CONTRAST, 12/11/2020 10:13 am TECHNIQUE: Multiplanar multisequence MRI of the pelvis was performed without the administration of intravenous contrast. COMPARISON: Pelvic ultrasound on 09/07/2020, CT on 04/28/2017 HISTORY: 2nd trimester . Hyperechoic right ovarian lesion on previous ultrasound. FINDINGS: Intrauterine identified. The placenta is located posteriorly without previa. The right ovary contains multiple follicles measuring up to 1.3 cm along with a 1.8 x 1.3 cm fat-containing lesion. Normal left ovary with tiny follicles. Bladder is not well distended but unremarkable. No lymphadenopathy or significant free fluid. Visualized gastrointestinal tract and osseous structures are unremarkable. [facility] Phone: Jb, pn Incoming Radiant Results From [employer] - 12/11/2020 11:58 AM EST EXAMINATION: MRI OF THE PELVIS WITHOUT CONTRAST, 12/11/2020 10:13 am TECHNIQUE: Multiplanar multisequence MRI of the pelvis was performed without the administration of intravenous contrast. COMPARISON: Pelvic ultrasound on 09/07/2020, CT on 04/28/2017 HISTORY: 2nd trimester . Hyperechoic right ovarian lesion on previous ultrasound. FINDINGS: Intrauterine identified. The placenta is located posteriorly without previa. The right ovary contains multiple follicles measuring up to 1.3 cm along with a 1.8 x 1.3 cm fat-containing lesion. Normal left ovary with tiny follicles. Bladder is not well distended but unremarkable. No lymphadenopathy or significant free fluid. Visualized gastrointestinal tract and osseous structures are unremarkable. IMPRESSION: The right ovary contains a 1.8 x 1.3 cm fat-containing lesion compatible with a dermoid. [facility] Phone: PROFILE Ion 020 Basophils (Bld) [#/Vol] 0.03 10*3/uL [place] Basophils/100 WBC (Bld) 1 % 0 - 2 % [place] Differential Type NOT REPORTED [place] Eosinophils (Bld) [#/Vol] 0.04 10*3/uL [place] Eosinophils/100 WBC (Bld) 1 % 1 - 4 % [place] Erythrocyte distribution width (RBC) [Ratio] 12.2 % 11.8 - 14.4 % [place] Hematocrit (Bld) [Volume fraction] 39.0 % 36.3 - 47.1 % [place] Hemoglobin (Bld) [Mass/Vol] 12.6 g/dL 11.9 - 15.1 g/dL [place] Hepatitis B Surface Ag NONREACTIVE NONREACTIVE [place] Immature granulocytes (Bld) [#/Vol] 0 % 0 [place] Immature granulocytes (Bld) [#/Vol] 10*3/uL [place] Interpretation and review of laboratory results Abnormal [place] Lymphocytes (Bld) [#/Vol] 2.19 10*3/uL [place] Lymphocytes/100 WBC (Bld) 38 % 25 - 45 % [place] MCH (RBC) [Entitic mass] 29.6 pg 25 - 35 pg [place] MCHC (RBC) [Mass/Vol] 32.3 g/dL 28.4 - 34.8 g/dL [place] MCV (RBC) [Entitic vol] 91.8 fL 78 - 102 fL [place] Monocytes (Bld) [#/Vol] 0.55 10*3/uL [place] Monocytes/100 WBC (Bld) 10 % High 2 - 8 % [place] Platelet mean volume (Bld) [Entitic vol] 9.3 fL 8.1 - 13.5 fL [place] Platelets (Bld) [#/Vol] NOT REPORTED [place] Platelets (Bld) [#/Vol] 308 10*3/uL [place] RBC (Bld) [#/Vol] 4.25 10*6/uL 3.95 - 5.1 1 m/uL [place] RBC morphology finding Nom (Bld) NOT REPORTED [place] Rubella virus IgG Ql (S) 49.1 IU/mL [place] Comment on above: REFERENCE RANGE: <5.0 NON-REACTIVE (non-immune) 5.0 TO 9.9 EQUIVOCAL >=10.0 REACTIVE (immune) Segmented neutrophils/100 WBC (Bld) 50 % 34 - 64 % [place] Segs Absolute 2.97 [place] T. pallidum, IgG NONREACTIVE NONREACTIVE [place] Comment on above: T. pallidum antibodies are not detected. There is no serological evidence of infection with T. pallidum (early primary syphilis cannot be excluded). Retest in 2-4 weeks if syphilis is clinically suspect. WBC (Bld) [#/Vol] 5.8 10*3/uL [place] WBC (Bld) [#/Vol] 0.0 10*3/uL 0.0 per 10 0 WBC [place] WBC Morphology NOT REPORTED [place], [place] HCG, Quantitative, on 08-31-2020 hCG Quant 9039 High <5 IU/L [place] Comment on above: Non-preg premeno <=5 Postmeno <=8 Male <=3 If HCG results do not concur with clinical observations, additional testing to confirm results is recommended. Elevated results not associated with may be found in patients with other diseases such as tumors of the germ cells (testis, ovaries, etc.), bladder, pancreas, stomach, lungs, and liver. Interpretation and review of laboratory results Abnormal [place] HIV Screenon 08-31-2020 HIV Ag/Ab NONREACTIVE NONREACTIVE [place], [place] Comment on above: No laboratory eviden ce of HIV infection. If acute HIV infection is suspected, consider testing for HIV-1 RNA. Hepatitis C Antibodyon 08-31 Hepatitis C Ab NONREACTIVE NONREACTIVE [place], [place] Comment on above: The hepatitis C procedure used in our laboratory is a Chemiluminescent test specific for three recombinant HCV antigens. A negative anti-HCV result indicates that the antibodies to hepatitis C virus are not present at this time. Individuals with reactive anti-HCV should be considered infected and infectious until proven otherwise. Confirmation of all equivocal or reactive results is recommended by ordering HCV RNA by PCR. TYPE AND SCREENon 1 10-31-2019 ABO/Rh Positive [place], [place] Urine Drug Screen, Comprehen siveon 08-31-2020 Amphetamine Screen, Ur Negative NEGATIVE [place] Barbiturate Screen, Ur Negative NEGATIVE [place] Benzodiazepine Screen, Urine Negative NEGATIVE [place] Buprenorphine Urine Negative NEGATIVE [place] Cannabinoid Scrn, Ur Negative NEGATIVE [place], [place] Cocaine Metabolite, Urine Negative NEGATIVE [place] MDMA, Urine NOT REPORTED NEGATIVE [facility] [place] Methadone Screen, Urine Negative NEGATIVE [place] Methamphetamine, Urine Negative NEGATIVE [place] Opiates, Urine Negative NEGATIVE [place], [place] Oxycodone Screen, Ur Negative NEGATIVE [place], [place] Phencyclidine, Urine Negative NEGATIVE [place], [place] Propoxyphene, Urine Negative NEGATIVE [place] Test Information NOT REPORTED [place] Tricyclic Antidepressants, Urine Negative NEGATIVE [facility] [place] Comment on above: Drug screen results are to be used for medical purposes only. All positive results are unconfirmed. Testing for employment or legal uses should be sent to a reference laboratory for confirmation. ABO/RHon 08-29-2020 ABO/Rh Positive [place] CBC auto differentialon 0 Basophils (Bld) [#/Vol] 0.05 10*3/uL [place] Basophils/100 WBC (Bld) 1 % 0 - 2 % [place] Differential Type NOT REPORTED [place] Eosinophils (Bld) [#/Vol] 0.06 10*3/uL [place] Eosinophils/100 WBC (Bld) 1 % 1 - 4 % [place] Erythrocyte distribution width (RBC) [Ratio] 12.2 % 11.8 - 14.4 % [place] Hematocrit (Bld) [Volume fraction] 37.6 % 36.3 - 47.1 % [place] Hemoglobin (Bld) [Mass/Vol] 12.6 g/dL 11.9 - 15.1 g/dL [place] Immature granulocytes (Bld) [#/Vol] 10*3/uL [place] Immature granulocytes (Bld) [#/Vol] 0 % 0 [place] Lymphocytes (Bld) [#/Vol] 2.96 10*3/uL [place] Lymphocytes/100 WBC (Bld) 35 % 25 - 45 % [place] MCH (RBC) [Entitic mass] 29.9 pg 25 - 35 pg [place] MCHC (RBC) [Mass/Vol] 33.5 g/dL 28.4 - 34.8 g/dL [place] MCV (RBC) [Entitic vol] 89.3 fL 78 - 102 fL [place] Monocytes (Bld) [#/Vol] 0.61 10*3/uL [place] Monocytes/100 WBC (Bld) 7 % 2 - 8 % [place] Platelet mean volume (Bld) [Entitic vol] 9.0 fL 8.1 - 13.5 fL [place] Platelets (Bld) [#/Vol] 299 10*3/uL [place] Platelets (Bld) [#/Vol] NOT REPORTED [place] RBC (Bld) [#/Vol] 4.21 10*6/uL 3.95 - 5.1 1 m/uL [place] RBC morphology finding Nom (Bld) NOT REPORTED [place] Segmented neutrophils/100 WBC (Bld) 56 % 34 - 64 % [place] Segs Absolute 4.77 [place] WBC (Bld) [#/Vol] 8.5 10*3/uL [place] WBC (Bld) [#/Vol] 0.0 10*3/uL 0.0 per 10 0 WBC [place] WBC Morphology NOT REPORTED [place], [place] Microscopic Urinalysison Amorphous, UA NOT REPORTED None [place], [place] Bacteria, UA TRACE Abnormal None [place], [place] Casts UA NOT REPORTED /LPF [place] Crystals, UA NOT REPORTED None /HPF [place] Epithelial Cells UA 0 TO 2 [place] Interpretation and review of laboratory results Abnormal [place] Mucus, UA TRACE Abnormal None [place] Other Observations UA SPERM PRESENT NOT REQ. [place] RBC (U) [#/Vol] 0 TO [address] [facility] [place], [place] Renal Epithelial, UA NOT REPORTED 0 /HPF Me [facility], [place] Trichomonas, UA NOT REPORTED None [facility] [place] WBC, UA 0 TO 2 [facility], [place] Yeast, UA NOT REPORTED None [facility], [place] - [facility], [place] US OB TRANSVAGINALon 020 Jb, Mhpn Incoming Radiant Results From [employer] - 08/29/2020 4:13 AM EST EXAMINATION: FIRST TRIMESTER OBSTETRIC ULTRASOUND 08/29/2020 TECHNIQUE: Transvaginal first trimester obstetric pelvic ultrasound was performed with color Doppler flow evaluation. COMPARISON: None HISTORY: ORDERING SYSTEM PROVIDED HISTORY: r/o ectopic / vaginal bleeding tonight, uncertain gestational age / 8+ weeks by dates TECHNOLOGIST PROVIDED HISTORY: r/o ectopic / vaginal bleeding tonight, uncertain gestational age / 8+ weeks by dates FINDINGS: Uterus: 9.6 x 4.8 x 6.5 cm Gestational Sac(s): Single normal appearing gestational sac. No evidence of subchorionic hemorrhage. Yolk Sac: Present Pole: Not identified [place]gins Rump Length: Not measured Heart Rate: Not identified Right ovary: The right ovary measures 4.5 x 2.9 x 2.8 cm. Hyperechoic 1.4 x 1.4 x 1.2 cm focus in the right ovary could represent a hemorrhagic cyst, fat and/or calcification. Normal arterial and venous Doppler blood flow in the right ovary. Left ovary: Left ovary measures 4.3 x 3.3 x 2.4 cm. Anechoic 1.5 x 1.7 x 2.4 cm left ovarian cyst. Normal arterial and venous doppler blood flow in the left ovary. Free fluid: Small amount of complex free fluid in the pelvis. Focal 1.5 x 0.9 x 1.5 cm area of soft tissue echogenicity in the posterior cul-de-sac is nonspecific. IMPRESSION: Intrauterine gestational sac containing a yolk sac. No pole or cardiac activity is identified. Findings may relate to very early . Consider close clinical follow-up with serial beta hCG and short-term follow-up pelvic ultrasound as warranted. Small amount of nonspecific free fluid in the pelvis. Focal 1.5 cm area of soft tissue echogenicity in the posterior cul-de-sac could represent blood products. Continued attention on follow-up recommended. [place] EXAMINATION: FIRST TRIMESTER OBSTETRIC ULTRASOUND 08/29/2020 TECHNIQUE: Transvaginal first trimester obstetric pelvic ultrasound was performed with color Doppler flow evaluation. COMPARISON: None HISTORY: ORDERING SYSTEM PROVIDED HISTORY: r/o ectopic / vaginal bleeding tonight, uncertain gestational age / 8+ weeks by dates TECHNOLOGIST PROVIDED HISTORY: r/o ectopic / vaginal bleeding tonight, uncertain gestational age / 8+ weeks by dates FINDINGS: Uterus: 9.6 x 4.8 x 6.5 cm Gestational Sac(s): Single normal appearing gestational sac. No evidence of subchorionic hemorrhage. Yolk Sac: Present Pole: Not identified [place] Rump Length: Not measured Heart Rate: Not identified Right ovary: The right ovary measures 4.5 x 2.9 x 2.8 cm. Hyperechoic 1.4 x 1.4 x 1.2 cm focus in the right ovary could represent a hemorrhagic cyst, fat and/or calcification. Normal arterial and venous Doppler blood flow in the right ovary. Left ovary: Left ovary measures 4.3 x 3.3 x 2.4 cm. Anechoic 1.5 x 1.7 x 2.4 cm left ovarian cyst. Normal arterial and venous doppler blood flow in the left ovary. Free fluid: Small amount of complex free fluid in the pelvis. Focal 1.5 x 0.9 x 1.5 cm area of soft tissue echogenicity in the posterior cul-de-sac is nonspecific. [place] Intrauterine gestational sac containing a yolk sac. No pole or cardiac activity is identified. Findings may relate to very early . Consider close clinical follow-up with serial beta hCG and short-term follow-up pelvic ultrasound as warranted. Small amount of nonspecific free fluid in the pelvis. Focal 1.5 cm area of soft tissue echogenicity in the posterior cul-de-sac could represent blood products. Continued attention on follow-up recommended. [place] Urinalysison 08-29-2020 Bilirubin Urine Negative NEGATIVE [place], [place] Color, UA YELLOW YELLOW [place], [place] Glucose, Ur Negative NEGATIVE [place] Interpretation and review of laboratory results Abnormal [place] Ketones Ql (U) Negative NEGATIVE [place], [place] Leukocyte esterase Test strip Ql (U) Negative NEGATIVE [place], [place] Nitrite, Urine Negative NEGATIVE [place], [place] pH, UA 6.0 [place], [place] Protein (U) [Mass/Vol] Negative NEGATIVE [place], [place] Specific [place], UA 1.025 High [place], [place] Turbidity UA CLEAR CLEAR [place], [place] Urinalysis Comments NOT REPORTED [place], [place] Urine Hgb TRACE Abnormal NEGATIVE [place] Urobilinogen, Urine Normal Normal [place] hCG, quantitative, on 08-29-2020 hCG Quant [id number] High <5 IU/L [place], [place] Comment on above: Non-preg premeno <=5 Postmeno <=8 Male <=3 If HCG results do not concur with clinical observations, additional testing to confirm results is recommended. Elevated results not associated with may be found in patients with other diseases such as tumors of the germ cells (testis, ovaries, etc.), bladder, pancreas, stomach, lungs, and liver. Interpretation and review of laboratory results Abnormal [place] HCG Qualitative, Serumon hCG Qual Positive Abnormal NEGATIVE [place] Comment on above: If HCG results do not concur with clinical observations, additional testing to confirm result is recommended. This test is not labeled for use as a tumor marker. [facility] confirmed the use of plasma for this test. This has not been cleared or approved by the U.S. Food and Drug Administration. The FDA has determined that such clearance is not necessary. Interpretation and review of laboratory results Abnormal [place] D-dimer, quantitativeon D-Dimer, Quant 0.19 [place], [place] Comment on above: Elevated levels of D dimer can be seen in any state of coagulation activation including DVT, PE, arterial thrombosis, DIC, inflamatory disease, trauma, malignancy, sepsis, infection, hematoma, liver disease, post surgical state, , atherosclerosis, old age. When combined with a low clinical probability, a D dimer value of <0.50 mg/L is considered negative for DVT and PE (negative predictive value of 98%). CBC Auto Differentialon Basophils (Bld) [#/Vol] 0.04 10*3/uL [place] Basophils/100 WBC (Bld) 0 % 0 - 2 % [place] Differential Type NOT REPORTED [place] Eosinophils (Bld) [#/Vol] 0.06 10*3/uL [place] Eosinophils/100 WBC (Bld) 1 % 1 - 4 % [place] Erythrocyte distribution width (RBC) [Ratio] 12.1 % 11.8 - 14.4 % [place] Hematocrit (Bld) [Volume fraction] 39.8 % 36.3 - 47.1 % [place] Hemoglobin (Bld) [Mass/Vol] 13.0 g/dL 11.9 - 15.1 g/dL [place] Immature granulocytes (Bld) [#/Vol] 0 % 0 [place] Immature granulocytes (Bld) [#/Vol] 0.03 10*3/uL [place] Interpretation and review of laboratory results Abnormal [place] Lymphocytes (Bld) [#/Vol] 2.37 10*3/uL [place] Lymphocytes/100 WBC (Bld) 26 % 25 - 45 % [place] MCH (RBC) [Entitic mass] 29.2 pg 25 - 35 pg [place] MCHC (RBC) [Mass/Vol] 32.7 g/dL 28.4 - 34.8 g/dL [place] MCV (RBC) [Entitic vol] 89.4 fL 78 - 102 fL [place] Monocytes (Bld) [#/Vol] 0.54 10*3/uL [place] Monocytes/100 WBC (Bld) 6 % 2 - 8 % [place] Platelet mean volume (Bld) [Entitic vol] 9.2 fL 8.1 - 13.5 fL [place] Platelets (Bld) [#/Vol] 364 10*3/uL [place] Platelets (Bld) [#/Vol] NOT REPORTED [place] RBC (Bld) [#/Vol] 4.45 10*6/uL 3.95 - 5.1 1 m/uL [place] RBC morphology finding Nom (Bld) NOT REPORTED [place] Segmented neutrophils/100 WBC (Bld) 67 % High 34 - 64 % [place] Segs Absolute 6.16 [place] WBC (Bld) [#/Vol] 0.0 10*3/uL 0.0 per 10 0 WBC [place] WBC (Bld) [#/Vol] 9.2 10*3/uL [place] WBC Morphology NOT REPORTED [place], [place] Drug screen multi urineon Amphetamine Screen, Ur Negative NEGATIVE [place] Barbiturate Screen, Ur Negative NEGATIVE [place] Benzodiazepine Screen, Urine Negative NEGATIVE [place], [place] Buprenorphine Urine Negative NEGATIVE [place], [place] Cannabinoid Scrn, Ur Negative NEGATIVE [place], [place] Cocaine Metabolite, Urine Negative NEGATIVE [place], [place] MDMA, Urine NOT REPORTED NEGATIVE [place] Methadone Screen, Urine Negative NEGATIVE [place], [place] Methamphetamine, Urine Negative NEGATIVE [place] Opiates, Urine Negative NEGATIVE [place], [place] Oxycodone Screen, Ur Negative NEGATIVE [place], [place] Phencyclidine, Urine Negative NEGATIVE [place], [place] Propoxyphene, Urine Negative NEGATIVE [place] Test Information NOT REPORTED [place], [place] Tricyclic Antidepressants, Urine Negative NEGATIVE [place], [place] Comment on above: Drug screen results are to be used for medical purposes only. All positive results are unconfirmed. Testing for employment or legal uses should be sent to a reference laboratory for confirmation. Microscopic Urinalysison Amorphous, UA NOT REPORTED None [place], [place] Bacteria, UA 1+ Abnormal None [place], [place] Casts UA NOT REPORTED /LPF [place] Crystals, UA NOT REPORTED None /HPF [place] Epithelial Cells UA 2 TO 5 [place] Interpretation and review of laboratory results Abnormal [place] Mucus, UA TRACE Abnormal None [place], [place] Other Observations UA NOT REPORTED NOT REQ. [place] RBC (U) [#/Vol] 0 TO 2 [place], [place] Renal Epithelial, UA NOT REPORTED 0 /HPF [place] Trichomonas, UA NOT REPORTED None [place], [place] WBC, UA 2 TO 5 [place], [place] Yeast, UA NOT REPORTED None [place] - [place] , Urineon 0 Beta HCG ( test) Ql (U) Negative NEGATIVE [place] Comment on above: Specimens with hCG l evels near the threshold of the test (25 mIU/mL) may give a negative or indeterminate result. In such cases, another test should be performed with a new specimen in 48-72 hours. If early is suspected clinically in this setting, correlation with quantitative serum b-hCG level is suggested. [facility] has confirmed the use of plasma for this test. This has not been cleared or approved by the U.S. Food and Drug Administration. The FDA has determined that such clearance is not necessary. Salicylateon 12-24-2019 Interpretation and review of laboratory results Abnormal [place] Salicylate Lvl <1 Low 3 - 10 mg/dL [place], [place] TSH without Reflexon 020 TSH Qn 1.76 m[IU]/L [place] Urinalysis, reflex to micros copicon 12-24-2019 Bilirubin Urine Negative NEGATIVE [place] Color, UA YELLOW YELLOW [place] Glucose, Ur Negative NEGATIVE [place] Interpretation and review of laboratory results Abnormal [place] Ketones Ql (U) Negative NEGATIVE [place] Leukocyte esterase Test strip Ql (U) SMALL Abnormal NEGATIVE [place] Nitrite, Urine Negative NEGATIVE [place] pH, UA 5.5 [place] Protein (U) [Mass/Vol] Negative NEGATIVE [place] Specific [place], UA >1.030 High [facility] [place], [place] Turbidity UA CLEAR CLEAR [place] Urinalysis Comments NOT REPORTED [facility], [place] Urine Hgb Negative NEGATIVE [place] Urobilinogen, Urine Normal Normal [place] C-Reactive ProteinOrdered By : Akanksha Pimentel on 11-05-2019 CRP [Mass/Vol] 5.3 mg/L High 0 - 5 mg/L [facility] Work Phone: Interpretation and review of laboratory results Abnormal [facility] [employer] Work Phone: CBC Auto DifferentialOrdered By: Akanksha Pimentel on 11-05-2019 Absolute Eos # 0.16 [facility] HospitalSnapt[facility] Work Phone: Absolute Immature Granulocyte <0.03 [facility] Work Phone: Absolute Lymph # 3.23 [employer] [facility] Work Phone: Absolute Stanly # 0.55 [facility] HospitalHotelscanlakehealth [facility] Work Phone: Basophils (Bld) [#/Vol] 0.06 10*3/uL [facility] Work Phone: Basophils/100 WBC (Bld) 1 % 0 - 2 % M [facility] [employer] Work Phone: Differential Type NOT REPORTED [facility] [employer] Phone: Eosinophils/100 WBC (Bld) 2 % 1 - 4 % [facility] [employer] Phone: Erythrocyte distribution width (RBC) [Ratio] 12.2 % 11.8 - 14.4 % [facility] [employer] Work Phone: Hematocrit (Bld) [Volume fraction] 42.8 % 36.3 - 47.1 % [facility] Work Phone: Hemoglobin (Bld) [Mass/Vol] 13.7 g/dL 11.9 - 15.1 g/dL [facility] Work Phone: Immature granulocytes/100 WBC (Bld) 0 % 0 [facility] Work Phone: Lymphocytes/100 WBC (Bld) 42 % 25 - 45 % [employer] Work Phone: MCH (RBC) [Entitic mass] 29.4 pg 25 - 35 pg [employer] Work Phone: MCHC (RBC) [Mass/Vol] 32.0 g/dL 28.4 - 34.8 g/dL [facility] HospitalMind[facility] Phone: MCV (RBC) [Entitic vol] 91.8 fL 78 - 102 fL [facility] Work Phone: Monocytes/100 WBC (Bld) 7 % 2 - 8 % M [facility] hospitalMindShare Networks Phone: NRBC Automated 0.0 0.0 per 100 WBC IMRSV Phone: Platelet Estimate NOT REPORTED [facility] HospitalMind[facility] Phone: Platelet mean volume (Bld) [Entitic vol] 9.0 fL 8.1 - 13.5 fL [facility] Work Phone: Platelets (Bld) [#/Vol] 326 10*3/uL [facility] Phone: RBC (Bld) [#/Vol] 4.66 10*6/uL 3.95 - 5.1 1 m/uL [facility] Phone: RBC morphology finding Nom (Bld) NOT REPORTED [facility] [employer] Work Phone: Segmented neutrophils/100 WBC (Bld) 48 % 34 - 64 % [facility] Work Phone: Segs Absolute 3.69 [facility] [employer] Work Phone: WBC (Bld) [#/Vol] 7.7 10*3/uL IMRSV Phone: WBC Morphology NOT REPORTED [employer] [facility] Work Phone: Comprehensive Metabolic Pane lOrdered By: Akanksha Pimentel on 11-05-2019 Albumin [Mass/Vol] 4.5 g/dL 3.2 - 4.5 g/dL IMRSV Phone: Albumin/Globulin [Mass ratio] 1.3 {ratio} [facility] HospitalMind[facility] Phone: ALP [Catalytic activity/Vol] 85 U/L 50 - 162 U/L [facility] Phone: ALT [Catalytic activity/Vol] 13 U/L 5 - 33 U/L [facility] HospitalMind[facility] Phone: Anion gap [Moles/Vol] 13 mmol/L 9 - 17 mmol/L [facility] Phone: AST [Catalytic activity/Vol] 14 U/L <32 [facility] Phone: Bilirubin [Mass/Vol] 0.27 mg/dL Low 0.3 - 1 .2 mg/dL [facility] HospitalMind[facility] Phone: Bun/Cre Ratio 17 [facility] HospitalSnaptalent [facility] [employer] Work Phone: Calcium [Mass/Vol] 9.8 mg/dL 8.4 - 10. 2 mg/dL IMRSV Phone: Chloride [Moles/Vol] 100 mmol/L 98 - 10 7 mmol/L [facility] HospitalMind[facility] Phone: CO2 [Moles/Vol] 26 mmol/L 20 - 31 mmol/L [facility] Phone: Creatinine [Mass/Vol] 0.65 mg/dL 0.57 - 0.87 mg/dL [facility] HospitalMind[facility] Phone: GFR NOT REPORTED >60 mL/min [facility] Work Phone: GFR Comment [facility] HospitalMind[facility] Phone: Comment on above: Average GFR for <20 years old not available. Chronic Kidney Disease: <60 mL/min/1.73sq m Kidney failure: <15 mL/min/1.73sq m eGFR calculated using average adult body mass. Additional eGFR calculator available at: http://www.[employer]/multiple_crcl_2012.htm GFR Non- Pediatric GFR requires additional information. Refer to NKDEP website for calculator. >60 mL/min IMRSV Phone: GFR Staging IMRSV Phone: Comment on above: Stage 1: Some kidney damage normal GFR Stage 2: Mild kidney damage GFR 60-89 Stage 3: Moderate kidney damage GFR 30-59 Stage 4: Severe kidney damage GFR 15-29 Stage 5: Severe kidney damage GFR <15 ESRD - chronic treatment by dialysis or transplant Glucose [Mass/Vol] 87 mg/dL 60 - 100 mg/dL IM[facility]V Phone: Potassium [Moles/Vol] 4.7 mmol/L 3.6 - 4.9 mmol/L IM[facility]V Phone: Protein [Mass/Vol] 7.9 g/dL 6 - 8 g/dL IMRSV Phone: Sodium [Moles/Vol] 139 mmol/L 135 - 144 mmol/L IMRSV Phone: Urea nitrogen [Mass/Vol] 11 mg/dL 5 - 18 mg/dL IMRSV Phone: Lipid PanelOrdered By: Akanksha Pimentel on 11-05-2019 Cholesterol [Mass/Vol] 159 mg/dL <200 [employer] Phone: Comment on above: Cholesterol Guidelines: <200 Desirable 200-240 Borderline >240 Undesirable Cholesterol in HDL [Mass/Vol] 43 mg/dL >40 IMRSV Phone: Comment on above: HDL Guidelines: <40 Undesirable 40-59 Borderline >59 Desirable Cholesterol in LDL [Mass/Vol] 84 mg/dL 0 - 130 mg/dL IMRSV Phone: Comment on above: LDL Guidelines: <100 Desirable 100-129 Near to/above Desirable 130-159 Borderline >159 Undesirable Direct (measured) LDL and calculated LDL are not interchangeable tests. Cholesterol.total/Daniela sterol in HDL [Mass ratio] 3.7 {ratio} <5 [facility] [employer] Work Phone: Triglyceride [Mass/Vol] 158 mg/dL High <150 M [facility] [employer] Work Phone: Comment on above: Triglyceride Guidelines: <150 Desirable 150-199 Borderline 200-499 High >499 Very high Based on AHA Guidelines for fasting triglyceride, July 2012. VLDL NOT REPORTED High 1 - 30 mg/dL [facility] Work Phone: No Panel InformationOrdered By: Akanksha Pimentel on 11-05-2019 Interpretation and review of laboratory results Abnormal [facility] Work Phone: ReticulocytesOrdered By: Jammie Pimentel on 11-05-2019 Absolute Retic # 0.047 [facility] Work Phone: Immature Retic Fract 8.1 % 2.7 - 18.3 % [facility] Work Phone: Retic % 1.0 % 0.5 - 1.9 % [facility] Work Phone: Retic Hemoglobin 32.3 pg 28.2 - 35.7 pg [facility] Work Phone: Sedimentation RateOrdered By : Akanksha Pimentel on 11-05-2019 Sed Rate 15 mm 0 - 20 mm [facility] [employer] Phone: CULTURE THROATon 05-26-2019 CULTURE THROAT Isolate 1 Pantoea SPP. LIGHT GROWTH OF ORGANISM 1 Pantoea SPP. ANTIBIOTIC M.I.C RX STATUS Piperacillin/Tazobac cortez <=4 S F Cefazolin <=4 S F Ceftazidime <=1 S F Ceftriaxone <=1 S F Ertapenem <=0.5 S F Imipenem <=0.25 S F Amikacin <=2 S F Gentamicin <=1 S F Tobramycin <=1 S F Ciprofloxacin <=0.25 S F Levofloxacin <=0.12 S F Trimethoprim/Sulfame thoxazole <=20 S F Normal [facility] Comment on above: Performed By: #### S SCRN, THRTCX #### [facility] [address] [place], [place] [id number] Lizandro Sierra STREPT SCREENon 05-22-2019 STREP SCREEN A Negative Normal NEGATIVE [facility] Comment on above: Performed By: #### S BRENDA VALENZUELA #### [facility] [address] [place], [place] [address] Lizandro Sierra HCG, Urine Qualitativeon HCG.beta subunit ( test) Ql (U) Normal NEG [facility] Comment on above: Result Comment: Nega tiveFirst morning urine is the specimen of choice for urine test. False negative results can occur when random urine specimens are tested. A serum test is recommended if results do not correlate with the patient's clinical condition.Performed at [facility],[address] [place] [address] Urinalysis, Strip with Refle xon 05-08-2017 Bilirubin (total) Negative Normal NEG [facility] Comment on above: Performed By: #### U ASR ####[place] [address] Glucose mass conc Negative Normal NEG [facility] Comment on above: Performed By: #### U ASR ####Performed at [address] [address] Occult Blood Trace Abnormal NEG [facility] Comment on above: Performed By: #### U ASR ####Performed at [address] [address] pH of blood 6.0 [pH] Normal 4.5-8.0 [facility] Comment on above: Performed By: #### U ASR ####Performed at [address] [address] Protein Negative Normal NEG [facility] Comment on above: Performed By: #### U ASR ####Performed at [address] [address] Specific [place], Urine 1.023 Normal 1.007-1.030 [facility] Comment on above: Performed By: #### U ASR ####Performed at [address] [address] Specimen Appearance Clear Normal [facility] Comment on above: Performed By: #### U ASR ####[place] [address] Specimen Color Yellow Normal [facility] Comment on above: Performed By: #### U ASR ####[place] [address] Urine, ketones presence Negative Normal NEG N [facility] Comment on above: Performed By: #### U ASR ####[place] [address] Urine, leukocyte esterase presence Normal NEG [facility] Comment on above: Result Comment: Nega tivePerformed at [facility],[address] , [place] [address] Performed By: #### U ASR ####[place] [address] Urine, nitrite presence Negative Normal NEG N [facility] Comment on above: Performed By: #### U ASR ####[place] [address] Urine, urobilinogen 4 mg/dL High <1.1 [facility] Comment on above: Performed By: #### U ASR ####[place] [address] Source Clean catch midstream urine Normal [facility] Comment on above: Performed By: #### U ASR ####[place] [address] Vital Signs Date Time Vital Sign Value Performing Clinician Facility 07-27-2024 23:27-0400 Body temperature 98.4 [degF] Desmond Rodriguez MD Work Phone: [facility] 07-27-2024 23:27-0400 Diastolic blood pressure 74 mm[Hg] Desmond Rodriguez MD Work Phone: [facility] 07-27-2024 23:27-0400 Heart rate 72 /min Desmond Rodriguez MD Work Phone: [facility] 07-27-2024 23:27-0400 Respiratory rate 18 /min Desmond Rodrigeuz MD Work Phone: [facility] [email or web address] 07-27-2024 23:27-0400 SaO2% (BldA) [Mass fraction] 99 % Desmond Rodriguez MD Work Phone: [facility] [email or web address] 07-27-2024 23:27-0400 Systolic blood pressure 129 mm[Hg] Desmond Rodriguez MD Work Phone: [facility] [email or web address] 07-27-2024 21:25-0400 Body height 173 cm Desmond Rodriguez MD Work Phone: [facility] [email or web address] 07-27-2024 21:25-0400 Body mass index (BMI) [Ratio] 27.28 kg/m2 Desmond Rodriguez MD Work Phone: [facility] [email or web address] 07-27-2024 21:25-0400 Body weight 81.65 kg Desmond Rodriguez MD Work Phone: [facility] [email or web address] 12-29-2023 01:13-0500 Diastolic blood pressure 72 mm[Hg] Yana Pool INSPECTOR WATCH ASSEMBLY - CNM Work Phone: [facility] [email or web address] 12-29-2023 01:13-0500 Heart rate 89 /min Yana Pool INSPECTOR WATCH ASSEMBLY - CNM Work Phone: [facility] [email or web address] 12-29-2023 01:13-0500 Systolic blood pressure 112 mm[Hg] Yana Pool INSPECTOR WATCH ASSEMBLY - CNM Work Phone: [facility] [email or web address] 12-28-2023 21:09-0500 SaO2% (BldA) [Mass fraction] 97 % Yana Pool INSPECTOR WATCH ASSEMBLY - CNM Work Phone: [facility] [email or web address] 10-13-2022 10:47-0500 Heart rate 111 /min Steve Russo MD Work Phone: [employer] 10-13-2022 10:47-0500 SaO2% (BldA) [Mass fraction] 96 % Steve Russo MD Work Phone: [employer] 10-13-2022 10:27-0500 Body temperature 100.09 [degF] Steve Russo MD Work Phone: [facility] [email or web address] 10-13-2022 09:31-0500 Diastolic blood pressure 61 mm[Hg] Steve Russo MD Work Phone: [facility] [email or web address] 10-13-2022 09:31-0500 Systolic blood pressure 121 mm[Hg] Steve Russo MD Work Phone: [employer] 10-13-2022 06:53-0500 Body height 170.2 cm Steve Russo MD Work Phone: [facility] [email or web address] 10-13-2022 06:53-0500 Body mass index (BMI) [Percentile] Per age and sex 91.92 % Steve Russo MD Work Phone: [employer] 10-13-2022 06:53-0500 Body mass index (BMI) [Ratio] 28.19 kg/m2 Steve Russo MD Work Phone: [employer] 10-13-2022 06:53-0500 Body weight 81.65 kg Steve Russo MD Work Phone: [employer] 10-13-2022 06:53-0500 Respiratory rate 18 /min Steve Russo MD Work Phone: [employer] 10-08-2022 07:39-0500 Body temperature 98.29 [degF] Angelina Hess CNM Work Phone: [employer] 10-08-2022 07:39-0500 Diastolic blood pressure 69 mm[Hg] Angelina Hess CNM Work Phone: [employer] 10-08-2022 07:39-0500 Heart rate 67 /min Angelina Hess CNM Work Phone: [employer] 10-08-2022 07:39-0500 Respiratory rate 16 /min Angelina Hess CNM Work Phone: [facility] [email or web address] 10-08-2022 07:39-0500 Systolic blood pressure 124 mm[Hg] Angelina Hess CNM Work Phone: [employer] 10-06-2022 23:05-0500 SaO2% (BldA) [Mass fraction] 97 % Angelina Hess CNM Work Phone: [employer] 10-06-2022 15:41-0500 Body height 170.2 cm Angelina Hess CNM Work Phone: [employer] 10-06-2022 15:41-0500 Body mass index (BMI) [Percentile] Per age and sex 94.68 % Angelina Hess CNM Work Phone: [employer] 10-06-2022 15:41-0500 Body mass index (BMI) [Ratio] 30.07 kg/m2 Angelina Hess CNM Work Phone: [employer] 10-06-2022 15:41-0500 Body weight 87.09 kg Angelina Hess CNM Work Phone: [employer] 09-03-2022 14:13-0500 Diastolic blood pressure 69 mm[Hg] Billie Hess CNM Work Phone: [employer] 09-03-2022 14:13-0500 Heart rate 108 /min Billie Hess CNM Work Phone: [employer] 09-03-2022 14:13-0500 Systolic blood pressure 107 mm[Hg] Billie Rigo BERUMEN - JAYDA Work Phone: [employer] 09-03-2022 13:25-0500 Body temperature 98.2 [degF] Billie Sierra INSPECTOR WATCH ASSEMBLY - CNM Work Phone: [facility] [email or web address] 09-03-2022 13:25-0500 Respiratory rate 16 /min Billie Sierra INSPECTOR WATCH ASSEMBLY - CNM Work Phone: [facility] [email or web address] 09-03-2022 06:00-0500 Diastolic blood pressure 68 mm[Hg] Lexy Tony MD Work Phone: [facility] [email or web address] 09-03-2022 06:00-0500 SaO2% (BldA) [Mass fraction] 96 % Lexy Tony MD Work Phone: [facility] [email or web address] 09-03-2022 06:00-0500 Systolic blood pressure 114 mm[Hg] Lexy Tony MD Work Phone: [facility] [email or web address] 09-03-2022 05:59-0500 Body temperature 97.59 [degF] Lexy Tony MD Work Phone: [facility] [email or web address] 09-03-2022 05:59-0500 Heart rate 95 /min Lexy Tony MD Work Phone: [facility] [email or web address] 09-03-2022 05:59-0500 Respiratory rate 18 /min Lexy Tony MD Work Phone: [facility] [email or web address] 07-14-2022 09:13-0400 Body temperature 98.2 [degF] Angelina Mathews APRN - CNM Work Phone: [facility] [email or web address] 07-14-2022 09:13-0400 Diastolic blood pressure 64 mm[Hg] Angelina Mathews APRN - CNM Work Phone: [facility] [email or web address] 07-14-2022 09:13-0400 Heart rate 88 /min Angelina Mathews APRN - CNM Work Phone: [facility] [email or web address] 07-14-2022 09:13-0400 Respiratory rate 16 /min Angelina Mathews APRN - CNM Work Phone: [facility] [email or web address] 07-14-2022 09:13-0400 Systolic blood pressure 116 mm[Hg] Angelina Mathews INSPECTOR WATCH ASSEMBLY - CNM Work Phone: [facility] 05-10-2022 02:47-0400 Diastolic blood pressure 54 mm[Hg] Lexy Tony MD Work Phone: [facility] [email or web address] 05-10-2022 02:47-0400 SaO2% (BldA) [Mass fraction] 98 % Lexy Tony MD Work Phone: [facility] [email or web address] 05-10-2022 02:47-0400 Systolic blood pressure 120 mm[Hg] Lexy Tony MD Work Phone: [facility] [email or web address] 05-10-2022 00:43-0400 Body temperature 98.2 [degF] Lexy Tony MD Work Phone: [facility] [email or web address] 05-10-2022 00:43-0400 Heart rate 90 /min Lexy Tony MD Work Phone: [facility] [email or web address] 05-10-2022 00:43-0400 Respiratory rate 12 /min Lexy Tony MD Work Phone: [facility] 02-04-2022 08:50-0400 Body temperature 98.4 [degF] [facility] Work Phone: [facility] [employer] 02-04-2022 08:50-0400 Body weight 84.82 kg [facility] Phone: [facility] 02-04-2022 08:50-0400 Diastolic blood pressure 72 mm[Hg] [facility] Work Phone: [facility] 02-04-2022 08:50-0400 Heart rate 86 /min [facility] Work Phone: [employer] 02-04-2022 08:50-0400 Respiratory rate 16 /min [facility] Work Phone: [employer] 02-04-2022 08:50-0400 SaO2% (BldA) [Mass fraction] 99 % [facility] Work Phone: [employer] 02-04-2022 08:50-0400 Systolic blood pressure 144 mm[Hg] [facility] Work Phone: [employer] 08-21-2021 23:07-0400 Diastolic blood pressure 82 mm[Hg] Chani Clifton MD Work Phone: [employer] Work Phone: 08-21-2021 23:07-0400 Heart rate 84 /min Chani Clifton MD Work Phone: [employer] Work Phone: 08-21-2021 23:07-0400 SaO2% (BldA) [Mass fraction] 97 % Chani Clifton MD Work Phone: [employer] Work Phone: 08-21-2021 23:07-0400 Systolic blood pressure 127 mm[Hg] Chani Clifton MD Work Phone: [employer] Work Phone: 08-21-2021 22:17-0400 Body height 172.7 cm Chani Clifton MD Work Phone: [employer] Work Phone: 08-21-2021 22:17-0400 Body mass index (BMI) [Ratio] 28.28 kg/m2 Chani Clifton MD Work Phone: [employer] Work Phone: 08-21-2021 22:17-0400 Body temperature 98.2 [degF] Chani Clifton MD Work Phone: [employer] Work Phone: 08-21-2021 22:17-0400 Body weight 84.37 kg Chani Clifton MD Work Phone: [employer] Work Phone: 08-21-2021 22:17-0400 Respiratory rate 16 /min Chani Clifton MD Work Phone: [employer] Work Phone: 04-27-2021 19:21-0400 Body temperature 99.5 [degF] Sheela Mcdowell MD Work Phone: [employer] Work Phone: 04-27-2021 19:21-0400 Diastolic blood pressure 77 mm[Hg] Sheela Mcdowell MD Work Phone: [employer] Work Phone: 04-27-2021 19:21-0400 Heart rate 88 /min Sheela Mcdowell MD Work Phone: [employer] Work Phone: 04-27-2021 19:21-0400 Respiratory rate 16 /min Sheela Mcdowell MD Work Phone: [employer] Work Phone: 04-27-2021 19:21-0400 SaO2% (BldA) [Mass fraction] 98 % Sheela Mcdowell MD Work Phone: [employer] Work Phone: 04-27-2021 19:21-0400 Systolic blood pressure 122 mm[Hg] Sheela Mcdowell MD Work Phone: [employer] Work Phone: 04-22-2021 15:24-0400 Body temperature 98.71 [degF] Yana Pool INSPECTOR WATCH ASSEMBLY - CNM Work Phone: [employer] Work Phone: 04-22-2021 15:24-0400 Diastolic blood pressure 77 mm[Hg] Yana Pool INSPECTOR WATCH ASSEMBLY - CNM Work Phone: [employer] Work Phone: 04-22-2021 15:24-0400 Heart rate 80 /min Yana Pool INSPECTOR WATCH ASSEMBLY - CNM Work Phone: [employer] Work Phone: 04-22-2021 15:24-0400 Respiratory rate 16 /min Yana Pool INSPECTOR WATCH ASSEMBLY - CNM Work Phone: [employer] Work Phone: 04-22-2021 15:24-0400 Systolic blood pressure 135 mm[Hg] Yana Pool INSPECTOR WATCH ASSEMBLY - CNM Work Phone: [employer] Work Phone: 04-20-2021 16:58-0400 SaO2% (BldA) [Mass fraction] 97 % Yana Pool INSPECTOR WATCH ASSEMBLY - CNM Work Phone: [employer] Work Phone: 01-04-2021 13:00-0400 BMI (Body Mass Index) 28.66 kg/m2 Angelina [facility] Work Phone: 01-04-2021 13:00-0400 Body Temperature 98.01 [degF] Angelina Mathews [facility] Work Phone: 01-04-2021 13:00-0400 Body weight 83.01 kg Angelina Mathews [facility] Work Phone: 01-04-2021 13:00-0400 BP Diastolic 70 mm[Hg] Angelina Mathews [facility] Work Phone: 01-04-2021 13:00-0400 BP Systolic 123 mm[Hg] Angelina Mathews [facility] Work Phone: 01-04-2021 13:00-0400 Height 170.2 cm Angelina Mathews [facility] Work Phone: 01-04-2021 13:00-0400 Pulse (Heart Rate) 101 /min Angelina Mathews [facility] Work Phone: 01-04-2021 13:00-0400 Respiratory Rate 18 /min Angelina Mathews [facility] [employer] Work Phone: 08-29-2020 04:20-0500 BP Diastolic 72 mm[Hg] [facility] [place] 08-29-2020 04:20-0500 BP Systolic 127 mm[Hg] Abdon [facility] , [place] 08-29-2020 04:20-0500 Pulse (Heart Rate) 82 /min Abdon [facility] [place] 08-28-2020 23:30-0500 Pulse Oximetry 99 % Abdon [facility] , [place] 08-28-2020 23:26-0500 Body Temperature 98.71 [degF] [facility] [place] 08-28-2020 23:26-0500 Body weight 81.65 kg Abdon [facility] , [place] 08-28-2020 23:26-0500 Respiratory Rate 16 /min [facility]don [facility] [place] 12-25-2019 00:32-0500 BP Diastolic 69 mm[Hg] [facility] [place] 12-25-2019 00:32-0500 BP Systolic 122 mm[Hg] Anjel [facility] , [place] 12-25-2019 00:32-0500 Pulse (Heart Rate) 76 /min Anjel [employer] [facility], [place] 12-25-2019 00:07-0500 Respiratory Rate 21 /min Anjel [employer] [place] , [place] 12-24-2019 20:33-0500 Pulse Oximetry 99 % [facility] [place] 12-24-2019 19:31-0500 BMI (Body Mass Index) 26 kg/m2 Anjel rai [employer] [facility] [place], [place] 12-24-2019 19:31-0500 Body Temperature 98.6 [degF] [facility] [employer] [place] , [place] 12-24-2019 19:31-0500 Body weight 77.56 kg [facility] [place] 12-24-2019 19:31-0500 Height 172.7 cm Anjel [facility] [place] , [place] Encounters Encounter Date Encounter Type Care Provider Facility Start: 10-29-2024 End: 10-29-2024 ambulatory ANGELINA MATHEWS [facility] Start: 07-31-2024 End: 07-31-2024 [facility] Start: 07-31-2024 End: 07-31-2024 Subsequent hospital visit by physician Ra Mata MD Work Phone: [facility] Comment on above: Amenorrhea; Positive urine test; Encounter for supervision of other normal in first trimester Start: 07-31-2024 End: 07-31-2024 ambulatory ANGELINA MATHEWS [facility] Start: 07-27-2024 End: 07-27-2024 Emergency department patient visit KNAPPADWOA MATA [facility] Comment on above: Vaginal bleeding in (Primary Dx) Start: 07-22-2024 End: 07-22-2024 Emergency department patient visit [facility] Start: 05-26-2024 End: 05-28-2024 Emergency department patient visit MYRTLE DELANEY [facility] [place] Start: 04-29-2024 End: [facility] Start: 04-29-2024 End: 04-29-2024 Subsequent hospital visit by physician Ra Mata MD Work Phone: [email or web address] Start: 03-15-2024 End: 03-16-2024 Emergency department patient visit MATHIEU MCHUGH [facility] [place] Start: 01-16-2024 End: 01-18-2024 Evaluation and management of inpatient YANA Koko [facility] Start: 01-02-2024 End: 01-02-2024 ambulatory [facility] [facility] Start: 12-31-2023 End: 01-01-2024 ambulatory MORRIS TRENT [facility] Start: 12-28-2023 End: 12-29-2023 ambulatory THERESA Koko [facility] Start: 12-28-2023 End: 12-29-2023 Subsequent hospital visit by physician Yana Bird INSPECTOR WATCH ASSEMBLY - CNM Work Phone: [facility] Start: 12-26-2023 End: 12-26-2023 ambulatory HOMER BETTS [facility] Start: 12-05-2023 End: 12-05-2023 ambulatory [facility] Start: 12-05-2023 End: 12-05-2023 Subsequent hospital visit by physician Ra Mata MD Work Phone: [facility] Comment on above: 32 weeks gestation o f ; Screen for STD (sexually transmitted disease) Start: 11-20-2023 End: 11-20-2023 ambulatory THERESA Koko [facility] Start: 11-06-2023 Telephone encounter Yasmine thornton INSPECTOR WATCH ASSEMBLY-CNM Work Phone: [place] Start: 11-03-2023 End: 11-05-2023 ambulatory [facility] Start: 11-03-2023 End: 11-04-2023 ambulatory [facility] Start: 08-17-2023 ambulatory Paolo Sky acility[facility] Start: 06-05-2023 End: 06-05-2023 Subsequent hospital visit by physician Ra Mata MD Work Phone: [facility] Laboratory Comment on above: Encounter for superv ision of other normal in first trimester; Amenorrhea; Positive urine test Start: 02-22-2023 End: 02-22-2023 Subsequent hospital visit by physician Ra Mata MD Work Phone: [facility] Start: 10-13-2022 End: 10-13-2022 Emergency department patient visit Steve Russo MD Work Phone: [facility] ED Comment on above: Febrile illness, acu te (Primary Dx); Headache above the eye region; headache Start: 10-06-2022 End: 10-08-2022 Subsequent hospital visit by physician Angelina Mathews INSPECTOR WATCH ASSEMBLY - CNM Work Phone: [facility] Start: 09-03-2022 End: 09-03-2022 Subsequent hospital visit by physician Billie Sierra INSPECTOR WATCH ASSEMBLY - CNM Work Phone: [facility] Start: 09-03-2022 End: 09-03-2022 Emergency department patient visit Lexy Tony MD Work Phone: [facility] ED Comment on above: Nausea and vomiting, unspecified vomiting type (Primary Dx); Dehydration Start: 07-14-2022 End: 07-14-2022 Evaluation and management of inpatient Angelina Mathews INSPECTOR WATCH ASSEMBLY - CNM Work Phone: [facility] Start: 05-10-2022 End: 05-10-2022 Emergency department patient visit Lexy Tony MD Work Phone: [facility] ED Comment on above: Vaginal bleeding in (Primary Dx) Start: 03-07-2022 End: 03-07-2022 Subsequent hospital visit by physician Ra Mata MD Work Phone: [facility] Comment on above: Amenorrhea; Encounter for supervision of other normal in first trimester Start: 02-04-2022 End: 02-04-2022 Emergency department patient visit Mathieu Wyatt PA-C Work Phone: [facility] ED Comment on above: Strain of lumbar reg ion, initial encounter (Primary Dx) Start: 08-21-2021 End: 08-21-2021 Emergency department patient visit Chani Clifton MD Work Phone: [facility] ED Comment on above: Acute pharyngitis, u nspecified etiology (Primary Dx) Start: 07-20-2021 End: 07-20-2021 Subsequent hospital visit by physician Ra Mata MD Work Phone: [facility] Comment on above: Amenorrhea Start: 04-27-2021 End: 04-27-2021 Emergency department patient visit Sheela Mcdowell MD Work Phone: [facility] ED Comment on above: Vaginal bleeding (Pr imary Dx) Start: 04-20-2021 End: 04-22-2021 Evaluation and management of inpatient Yana Bird INSPECTOR WATCH ASSEMBLY - CNM Work Phone: [facility] Labor [facility] Delivery Start: 04-14-2021 End: 04-14-2021 Subsequent hospital visit by physician Ra Mata MD Work Phone: [facility] Laboratory Comment on above: Pruritus of pregnanc y in third trimester Start: 04-05-2021 End: 04-05-2021 Subsequent hospital visit by physician Katey Pimentel INSPECTOR WATCH ASSEMBLY - MIXER CRANE OPERATOR Work Phone: [facility] Laboratory Comment on above: 36 weeks gestation o f Start: 02-01-2021 End: 02-01-2021 Subsequent hospital visit by physician Katey Pimentel [facility] Laboratory Comment on above: 28 weeks gestation o f Start: 01-04-2021 End: 01-04-2021 Subsequent hospital visit by physician Angelina Mathews Work Phone: [facility] Labor [facility] Delivery Start: 12-11-2020 End: 12-13-2020 Subsequent hospital visit by physician [facility] Mri Scanner [facility] MRI Comment on above: Rigid pelvic floor a ffecting , second trimester; Cyst of right ovary Start: 11-26-2020 End: 11-26-2020 Subsequent hospital visit by physician Katey Pimentel [facility] Start: 08-31-2020 End: 08-31-2020 Subsequent hospital visit by physician Katey Pimentel [facility] Start: 08-31-2020 End: 08-31-2020 Subsequent hospital visit by physician Katey Pimentel [facility] Laboratory Comment on above: Amenorrhea Start: 08-31-2020 End: 08-31-2020 Subsequent hospital visit by physician Katey Pimentel [facility] Comment on above: Threatened miscarria ge in early Start: 08-28-2020 End: 08-29-2020 Emergency department patient visit Abdon Cornell Work Phone: [facility] ED Comment on above: Threatened miscarria ge in early (Primary Dx) Start: 08-13-2020 End: 08-13-2020 Subsequent hospital visit by physician Katey Pimentel [facility] Start: 12-27-2019 End: 12-27-2019 Subsequent hospital visit by physician [facility] Mining Engineering Technologist [facility] EKG Comment on above: Arrived Start: 12-24-2019 End: 12-25-2019 Emergency department patient visit Anjel Marino Work Phone: [facility] ED Comment on above: Tachycardia (Primary Dx) Start: 11-05-2019 End: 11-05-2019 Subsequent hospital visit by physician Katey Pimentel RN [facility] Start: 05-22-2019 End: 05-22-2019 Patient encounter procedure SHEELA MARKER Facility:[facility] Start: 05-08-2017 End: 05-08-2017 Emergency department patient visit RA MATA [facility] Procedures Date Procedure Procedure Detail Performing Clinician Start: 07-31-2024 Antibody hiv-1&hiv-2 single result Angelina Glenda Mathews INSPECTOR WATCH ASSEMBLY - CNM Work Phone: Start: 07-27-2024 End: 07-27-2024 Urinalysis microscopic only Desmond Rodriguez MD Work Phone: Start: 07-27-2024 Urnls dip stick/tabl et rgnt auto w/o microscopy Desmond Rodriguez MD Work Phone: Start: 04-29-2024 C-reactive protein Kylie Mata MD Work Phone: Start: 04-29-2024 Comprehensive metabo lic panel Ra Mata MD Work Phone: Start: 04-29-2024 ENT FOOD PANEL Letty Austin INSPECTOR WATCH ASSEMBLY - NUT PROCESSING SUPERVISOR Work Phone: Start: 12-28-2023 Blood typing serologic abo Yana E Pool INSPECTOR WATCH ASSEMBLY - CNM Work Phone: Start: 12-28-2023 Comprehensive metabo lic panel Yana E Pool INSPECTOR WATCH ASSEMBLY - CNM Work Phone: Start: 12-28-2023 Urinalysis microscopic only Yana E Pool INSPECTOR WATCH ASSEMBLY - CNM Work Phone: Start: 12-28-2023 Urnls dip stick/tabl et rgnt auto w/o microscopy Yana Bird INSPECTOR WATCH ASSEMBLY - CNM Work Phone: Start: 12-05-2023 Iadna multiple organ isms amplified probe tq Yana Bird INSPECTOR WATCH ASSEMBLY - CNM Work Phone: Start: 06-05-2023 End: 06-05-2023 Antibody hiv-1&hiv-2 single result Yana Bird INSPECTOR WATCH ASSEMBLY - CNM Work Phone: Start: 02-22-2023 Gonadotropin chorion ic quantitative Michelle Amber INSPECTOR WATCH ASSEMBLY - 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 Work Phone: Start: 10-13-2022 Iaadiadoo streptococ cus group a Steve Russo MD Work Phone: Start: 10-13-2022 Comprehensive metabo lic panel Steve Russo MD Work Phone: Start: 10-13-2022 Heterophile antibodi es screen Steve Russo MD Work Phone: Start: 10-13-2022 Urnls dip stick/tabl et rgnt auto w/o microscopy Steve Russo MD Work Phone: Start: 10-13-2022 COVID-19, RAPID Steve Russo MD Work Phone: Start: 10-13-2022 End: 10-13-2022 Iaadiadoo influenza Steve Russo MD Work Phone: Start: 10-06-2022 Antibody screen Angelina montanojennifer INSPECTOR WATCH ASSEMBLY - CNM Work Phone: Start: 10-06-2022 Blood count complete automated Angelina Mathews INSPECTOR WATCH ASSEMBLY - CNM Work Phone: Start: 10-06-2022 End: 10-06-2022 Blood typing serologic abo Angelina Snyder INSPECTOR WATCH ASSEMBLY - CNM Work Phone: Start: 09-03-2022 Basic metabolic pane l calcium total Lexy Tony MD Work Phone: Start: 09-03-2022 COVID-19, RAPID Lexy Tony MD Work Phone: Start: 09-03-2022 Iaadiadoo influenza Kelly Tony MD Work Phone: Start: 07-14-2022 Urinalysis microscopic only Angelinaulisses Mathews INSPECTOR WATCH ASSEMBLY - CNM Work Phone: Start: 07-14-2022 Urnls dip stick/tabl et rgnt auto w/o microscopy Angelina Glenda Mathews INSPECTOR WATCH ASSEMBLY - CNM Work Phone: Start: 05-10-2022 Us preg uterus after 1st trimest 10/23 gestation Lexy Tony MD Work Phone: Start: 05-10-2022 Gonadotropin chorion ic quantitative Lexy Tony MD Work Phone: Start: 05-10-2022 Urinalysis microscopic only Lexy Tony MD Work Phone: Start: 05-10-2022 Urnls dip stick/tabl et rgnt auto w/o microscopy Lexy Tony MD Work Phone: Start: 03-07-2022 Antibody screen Ra Mata MD Work Phone: Start: 03-07-2022 End: 03-07-2022 Antibody hiv-1&hiv-2 single result Angelina Mathews INSPECTOR WATCH ASSEMBLY - CNM Work Phone: Start: 03-07-2022 Drug screen, qualitate/multi Angelina Glenda Mathews INSPECTOR WATCH ASSEMBLY - CNM Work Phone: Start: 02-04-2022 Gonadotropin chorion ic quantitative Mathieu Wyatt PA-C Work Phone: Start: 02-04-2022 Urinalysis microscopic only Mathieu Wyatt PA-C Work Phone: Start: 02-04-2022 Urnls dip stick/tabl et rgnt auto w/o microscopy Mathieu Wyatt PA-C Work Phone: Start: 07-20-2021 Gonadotropin chorion ic quantitative Angelina Doshi Mathews INSPECTOR WATCH ASSEMBLY - CNM Work Phone: Start: 04-27-2021 Prothrombin time Lashell Mcdowell MD Work Phone: Start: 04-20-2021 Blood count complete auto&auto difrntl wbc Yana Sutherland Pool INSPECTOR WATCH ASSEMBLY - CNM Work Phone: Start: 04-20-2021 Drug screen class list a Yana Sutherland Pool INSPECTOR WATCH ASSEMBLY - CNM Work Phone: Start: 04-14-2021 Comprehensive metabo lic panel Angelina Wigginsgreer Mathews INSPECTOR WATCH ASSEMBLY - CNM Work Phone: Start: 02-01-2021 Blood count hemoglobin Angelina Doshi Mathews Work Phone: Start: 02-01-[address] gtt 3 specimens Angelina Wigginsgreer Mathews Work Phone: Start: 01-04-2021 Urnls dip stick/tabl et reagent auto microscopy Angelina Wigginsgreer Mathews Work Phone: Start: 12-11-2020 Mri pelvis w/o contr ast material Ross Pardo Work Phone: Start: 08-31-2020 Antibody screen Katey You Start: 08-31-2020 Blood typing serologic abo Angelina Doshi Mathews Work Phone: Start: 08-31-2020 Antibody hiv-1&hiv-2 single result Angelina Glenda Mathews Work Phone: Start: 08-31-2020 Hepatitis c antibody Lbaoy robin Doshi Mathews Work Phone: Start: 08-31-2020 Obstetric panel Angelina Mathews Work Phone: Start: 08-31-2020 Drug screen, qualitate/multi Angelina Glenda Mathews Work Phone: Start: 08-31-2020 Gonadotropin chorion ic quantitative Abdon Cornell Work Phone: Start: 08-29-2020 Us preg uterus real time w/image dcmtn transvag Abdon Cornell Work Phone: Start: 08-28-2020 Blood count complete auto&auto difrntl wbc Abdon Cornell Work Phone: Start: 08-28-2020 Blood typing serologic abo Abdon Cornell Work Phone: Start: 08-28-2020 Gonadotropin chorion ic quantitative Abdon Cornell Work Phone: Start: 08-28-2020 Urinalysis microscopic only Abdon Cornell Work Phone: Start: 08-28-2020 Urnls dip stick/tabl et rgnt auto w/o microscopy Abdon Cornell Work Phone: Start: 08-13-2020 Gonadotropin chorion ic qualitative Akanksha Pimentel Work Phone: Start: 12-24-2019 Fibrin dgradj produc ts d-dimer quantitative Anjel Koko Marino Work Phone: Start: 12-24-2019 Drug screen class list a Anjel E Ned Work Phone: Start: 12-24-2019 Urinalysis microscopic only Anjel Koko Marino Work Phone: Start: 12-24-2019 Urine test visual color cmprsn meths Anjel E Ned Work Phone: Start: 12-24-2019 Urnls dip stick/tabl et rgnt auto w/o microscopy Anjel E Ned Work Phone: Start: 12-24-2019 Assay of thyroid stimulating hormone tsh Anjel E Ned Work Phone: Start: 12-24-2019 Assay of salicylate Eta n E Ned Work Phone: Start: 12-24-2019 Blood count complete auto&auto difrntl wbc Anjel E Ned Work Phone: Start: 11-05-2019 Comprehensive metabo lic panel Akanksha Pimentel INSPECTOR WATCH ASSEMBLY - MIXER CRANE OPERATOR Work Phone: Start: 11-05-2019 Lipid panel Akanksha wiseman INSPECTOR WATCH ASSEMBLY - MIXER CRANE OPERATOR Work Phone: Plan of Treatment Date Care Activity Detail Author Start: 2064 Respiratory Syncytial Virus (RSV) or age 60 yrs+ (1 - 1-dose 60+ series) Respiratory Syncytial Virus (RSV) or age 60 yrs+ (1 - 1-dose 60+ series) [facility] Start: 07-27-2025 Screening for Chlamydia trachomatis Chlamydia/GC screen [facility] Start: 01-06-2025 End: 01-06-2025 Patient encounter procedure 01/06/2025 9:30 AM EDT Routine [facility] [address] [place] [id number] Angelina Mathews, [place] - JAYDA [address] [facility] [address] [place], [place] [id number] EDIN 03/15 [facility] Comment on above: EDIN 03/15 Start: 01-06-2025 End: 01-06-2025 Professional / ancillary services management 01/06/2025 9:00 AM EDT Ancillary Procedure [facility] [address] [place], [place] [id number] EDIN 03/15 [facility] Comment on above: EDIN 03/15 Start: 01-01-2025 Screening for Chlamydia trachomatis Chlamydia/GC screen [facility] Start: 12-05-2024 DTaP/Tdap/Td vaccine (5 - Tdap) DTaP/Tdap/Td vaccine (5 - Tdap) [facility] Comment on above: Postponed from 2015 (Patient Refus ed) Start: 12-05-2024 Screening for Chlamydia trachomatis Chlamydia/GC screen [facility] Start: 11-03-2024 Screening for Chlamydia trachomatis Chlamydia Screening [facility] Start: 11-03-2024 Tobacco Screening Tobacco Screening [facility] Start: 10-29-2024 End: 10-29-2024 Patient encounter procedure 10/29/2024 11:00 AM EST Routine [facility] [address] [place] [address] Angelina Mathews, [place] - JAYDA [address] [place] [address] [address] [place] [address] OB 20 wk US [facility] Comment on above: OB 20 wk US Start: 10-29-2024 End: 10-29-2024 Professional / ancillary services management 10/29/2024 10:00 AM EST Ancillary Procedure [facility] Part [address] [place] [address] OB 20 wk US [facility] Comment on above: OB 20 wk US Start: 10-25-2024 Depression Screen Depression Screen [facility] Start: 09-30-2024 End: 09-30-2024 Patient encounter procedure 09/30/2024 8:50 AM EST Routine [facility] G[facility]OLOG[facility] Part [address] [place] [address] Angelina Mathews, INSPECTOR WATCH ASSEMBLY - CNKristan [address] [place] [address] [address] [place] [address] OB-USs scheduled [facility] Comment on above: OB-USs scheduled Start: 09-02-2024 End: 09-02-2024 Patient encounter procedure 09/02/2024 8:50 AM EST Routine [facility] [address] [place], [place] [id number] Angelina Mathews, INSPECTOR WATCH ASSEMBLY - CNKristan [address] [place] [address] 202 [place] [address] OB TBE-USs scheduled [facility] Comment on above: OB TBE-USs scheduled Start: 08-12-2024 Adult BMI Screening Adult BMI Screening [facility] [employer] [facility] Start: 07-31-2024 End: 07-31-2024 Professional / ancillary services management 07/31/2024 10:00 AM EDT Ancillary Procedure [facility] Part of [address] [place] [address] New OB, SS, LMP 06/02/24 [facility] Comment on above: New OB, SS, LMP 06/02/24 Start: 07-31-2024 End: 07-31-2024 ambulatory 07/31/2024 9:00 AM EDT Initial [facility] Part of [address] [place] [id number] New OB, SS, LMP 06/02/24 [facility] Comment on above: New OB, SS, LMP 06/02/24 Start: 06-23-2024 COVID-19 Vaccine () COVID-19 Vaccine () [facility] Start: 05-23-2024 Influenza vaccination Flu vaccine (#1) [facility] Start: 01-30-2024 End: 01-30-2024 Patient encounter procedure 01/30/2024 11:00 AM EDT Routine [facility] Part of [address] [place] [address] Yana Bird APRN - JAYDA [address] [place] [address] 202 [place] [address] ob / nst [facility] Comment on above: ob / nst Start: 01-23-2024 End: 01-23-2024 Patient encounter procedure 01/23/2024 9:20 AM EDT Routine [facility] Part of [address] [place], [place] [id number] Yana Bird APRN - JAYDA [address] [place] [address] [address] [place] [address] ob [facility] Part of [facility] Comment on above: ob Start: 01-16-2024 End: 01-16-2024 Patient encounter procedure 01/16/2024 9:30 AM EDT Routine [facility] Part of [address] [place] [address] Yana Bird, INSPECTOR WATCH ASSEMBLY - JAYDA [address] [place] [address] [facility] [address] [place] [address] ob [facility] Part [facility] Comment on above: ob Start: 01-09-2024 End: 01-09-2024 Patient encounter procedure 01/09/2024 9:10 AM EDT Routine [facility] Part of [address] [place] [address] Yana Bird, INSPECTOR WATCH ASSEMBLY - CNKristan [address] [place] [address] [address] [place] [address] ob [facility] Part [facility] Comment on above: ob Start: 01-02-2024 End: 01-02-2024 Patient encounter procedure 01/02/2024 10:20 AM EDT Routine [facility] Part of [address] [place] [address] Yana Bird, INSPECTOR WATCH ASSEMBLY - CNKristan [address] [place] [address] [address] [place] [address] ob / gbs [facility] Part [facility] Comment on above: ob / gbs Start: 12-19-2023 End: 12-19-2023 Patient encounter procedure 12/19/2023 2:00 PM EST Routine [facility] Part of [address] [place] [address] Yana Bird INSPECTOR WATCH ASSEMBLY - CNKristan [address] [place] [address] [address] [place] [address] ob [facility] Comment on above: ob Start: 10-28-2023 Tdap Vaccine during Tdap Vaccine during [facility] Start: 07-03-2023 End: 07-03-2023 Patient encounter procedure 07/03/2023 Routine Obstetrics and Gynecology Yana Bird APRN - JAYDA [address] [facility] [address] [place] [address] [facility] Start: 07-03-2023 End: 07-03-2023 Professional / ancillary services management 07/03/2023 Ancillary Procedure Obstetrics and Gynecology [facility] Start: 05-23-2023 Influenza vaccination [facility] Start: 03-07-2023 Screening for Chlamydia trachomatis [facility] Start: 02-24-2023 End: 02-24-2023 Admission to same day surgery center 02/24/2023 Surgery IP Unit Juan C Nicole MD [address] [facility] [place] [address] KNEE ARTHROSCOPY-DIAGNOSTIC , MEDIAL MENISCECTOMY VS REPAIR [facility] Comment on above: KNEE ARTHROSCOPY-DIAGNOSTIC , MEDIAL MEN ISCECTOMY VS REPAIR Start: 02-24-2023 End: 02-24-2023 Arthroscopy knee diagnostic w/wo synovial bx spx KNEE ARTHROSCOPY Acute medial meniscus tear of left knee, initial encounter 02/24/2023 11:00 AM EDT [facility] Start: 02-24-2023 Subsequent hospital visit by physician 02/24/2023 Hospital Encounter IP Unit Juan C Nicole MD [address] [place] [address] [facility] Start: 11-21-2022 End: 11-21-2022 ambulatory 11/21/2022 Visit Obstetrics and Gynecology Angelina Mathews APRN Deshawn MONTELONGO [address] [place] [address] [facility] Start: 10-10-2022 End: 10-10-2022 Patient encounter procedure 10/10/2022 Routine Obstetrics and Gynecology Angelina Mathews APRN - CNM [address] [place] [address] [facility] Start: 10-03-2022 End: 10-03-2022 Patient encounter procedure 10/03/2022 Routine Obstetrics and Gynecology Angelina Mathews APRN - CNM [address] [place] [address] [facility] Start: 09-26-2022 End: 09-26-2022 Patient encounter procedure 09/26/2022 Routine Obstetrics and Gynecology Angelina Mathews APRN - CNM [address] [place] [address] [facility] Start: 09-19-2022 End: 09-19-2022 Patient encounter procedure 09/19/2022 Routine Obstetrics and Gynecology Angelina Mathews APRN - CNM [address] [place] [address] [facility] Start: 09-05-2022 End: 09-05-2022 Patient encounter procedure 09/05/2022 Routine Obstetrics and Gynecology Angelina Mathews APRN - CNM [address] [place] [address] [facility] Start: 2022 Adult BMI Follow Up Plan Adult BMI Follow Up Plan [facility] [employer] [facility] Start: 08-08-2022 End: 08-08-2022 Patient encounter procedure 08/08/2022 Routine Obstetrics and Gynecology Angelina Mathews, [place] - JAYDA [address] [place], [place] [id number] [facility] Start: 08-08-2022 End: 08-08-2022 Professional / ancillary services management 08/08/2022 Ancillary Procedure Obstetrics and Gynecology [facility] Start: 07-19-2022 End: 07-19-2022 Patient encounter procedure 07/19/2022 Routine Obstetrics and Gynecology Yana Bird APRN - CNM [address] [place] [address] [facility] Start: 06-23-2022 Influenza vaccination [facility] Start: 05-30-2022 End: 05-30-2022 Patient encounter procedure 05/30/2022 Routine Obstetrics and Gynecology Angelina Mathews, [place] Hess CNM [address] [place] [address] [facility] Start: 05-30-2022 End: 05-30-2022 Professional / ancillary services management 05/30/2022 Ancillary Procedure Obstetrics and Gynecology [facility] [facility] Start: 05-23-2022 Influenza vaccination Flu vaccine (#1) [facility] Start: 04-04-2022 End: 04-04-2022 Patient encounter procedure 04/04/2022 Routine Obstetrics and Gynecology Angelina Mathews, JAMAICA Hess CNM [address] [place], [place] [id number] [facility] Start: 03-07-2022 End: 03-07-2022 Professional / ancillary services management 03/07/2022 Ancillary Procedure Obstetrics and Gynecology [facility] Start: 03-07-2022 End: 03-07-2022 ambulatory 03/07/2022 Initial Obstetrics and Gynecology [facility] Start: 01-12-2022 Depression Screen Depression Screen [facility] Start: 10-08-2021 End: 10-08-2021 Admission to same day surgery center 10/08/2021 Surgery IP Unit Emre Ciera Carrion, DO [address] [facility] [place] [address] OVARIAN CYSTECTOMY LAPAROSCOPIC- POSSIBLE RIGHT SALPINGOOPHORETOMY MTHZ OR Comment on above: OVARIAN CYSTECTOMY LAPAROSCOPIC- POSSIBL E RIGHT SALPINGOOPHORETOMY Start: 10-08-2021 Subsequent hospital visit by physician 10/08/2021 Hospital Encounter IP Unit Emre Ciera Carrion, DO [address] [place] [address] [facility] Start: 08-31-2021 Screening for Chlamydia trachomatis Chlamydia screen [facility] Start: 08-10-2021 End: 08-10-2021 Patient encounter procedure 08/10/2021 Office Visit Obstetrics and Gynecology Emre Ciera Carrion, DO [address] [facility] [address] [facility] Start: 07-21-2021 End: 07-21-2021 Patient encounter procedure 07/21/2021 Procedure visit Obstetrics and Gynecology Angelina Mathews APRN - CNM [address] [place], [place] [id number] [facility] Start: 06-23-2021 Influenza vaccination [facility] Work Phone: Start: 05-04-2021 End: 05-04-2021 ambulatory 05/04/2021 Visit Obstetrics and Gynecology Angelina Mathews APRN - CNM [address] [place] [address] [phone] [facility] Start: 04-27-2021 End: 04-27-2021 Patient encounter procedure 04/27/2021 Routine Obstetrics and Gynecology Angelina Mathews APRN - JAYDA [address] [place] [address] [phone] [facility] Start: 04-19-2021 End: 04-19-2021 Patient encounter procedure 04/19/2021 Routine Obstetrics and Gynecology Yana Bird APRN - JAYDA [address] [place] [address] [phone] [facility] Start: 04-14-2021 End: 04-14-2021 Patient encounter procedure 04/14/2021 Routine Obstetrics and Gynecology Angelina Mathews APRN - CNM [address] [place] [address] [phone] [facility] Start: 04-14-2021 End: 04-14-2021 Professional / ancillary services management 04/14/2021 Ancillary Procedure Obstetrics and Gynecology [facility] Start: 03-11-2021 End: 03-11-2021 Routine 03/11/2021 Routine Perinatology [facility] Start: 02-16-2021 End: 02-16-2021 Ancillary Procedure [facility] Start: 02-03-2021 End: 02-03-2021 Routine 02/03/2021 Routine Obstetrics and Gynecology Angelina Mathews APRN - CNM [address] [place] [address] [phone] [facility] Start: 01-21-2021 End: 01-21-2021 Routine 01/21/2021 Routine Perinatology [facility] Start: 01-11-2021 End: 01-11-2021 Routine 01/11/2021 Routine Obstetrics and Gynecology Angelina Mathews, INSPECTOR WATCH ASSEMBLY - CNM [address] [place], [place] [id number] [facility] Start: 12-14-2020 End: 12-14-2020 Ancillary Procedure [facility] Start: 12-08-2020 End: 12-08-2020 Ancillary Procedure [facility] Start: 09-21-2020 End: 09-21-2020 Routine 09/21/2020 Routine Obstetrics and Gynecology Angelina Mathews, INSPECTOR WATCH ASSEMBLY - CNM [address] [place], [place] [id number] [facility] Start: 09-07-2020 End: 09-07-2020 Ancillary Procedure 09/07/2020 Ancillary Procedure Obstetrics and Gynecology [facility] Start: 08-31-2020 End: 08-31-2020 Initial 08/31/2020 Initial Obstetrics and Gynecology [facility] Start: 08-31-2020 End: 09-01-2020 hCG, Quantitative, hCG, Quantitative, Lab Routine Threatened miscarriage in early Expected: 08/31/2020, Expires: 09/01/2020 [place], [place] Comment on above: Expected: 08/31/2020, Expires: 0 Start: 2020 COVID-19 Vaccine (1) COVID-19 Vaccine (1) [facility] [employer] Phone: Start: 2020 Meningococcal (ACWY) vaccine (1 - 2-dose series) Meningococcal (ACWY) vaccine (1 - 2-dose series) [facility] Start: 2020 Screening for Chlamydia trachomatis Chlamydia screen [place], [place] Start: 06-23-2020 Influenza vaccination Flu vaccine (#1) [place], [place] Start: 2019 HIV screen HIV screen [facility] [employer] Phone: Start: 2019 HIV screening HIV screen [place], [place] Start: 2019 HPV vaccine (1 - 3-dose series) HPV vaccine (1 - 3-dose series) [facility] Start: 06-23-2019 Influenza vaccination Flu vaccine (#1) [facility] [employer] Phone: Start: 2016 COVID-19 Vaccine (1) COVID-19 Vaccine (1) [facility] [employer] Phone: Start: 2016 Depression Screen Depression Screen [facility] Start: 2016 Depression Screening Depression Screening [facility] Start: 2015 DTaP,Tdap and Td Vaccines (5 - Tdap) DTaP,Tdap and Td Vaccines (5 - Tdap) [facility] Start: 2015 HPV vaccine (1 - 2-dose series) HPV vaccine (1 - 2-dose series) [facility] Start: 2015 HPV vaccine (1 - Female 2-dose series) HPV vaccine (1 - Female 2-dose series) [facility] [employer] Phone: Start: 2015 Meningococcal (ACWY) vaccine (1 - 2-dose series) Meningococcal (ACWY) vaccine (1 - 2-dose series) [facility] [employer] Phone: Start: 2011 DTaP/Tdap/Td vaccine (1 - Tdap) DTaP/Tdap/Td vaccine (1 - Tdap) [facility] Start: 2009 COVID-19 Vaccine (1) COVID-19 Vaccine (1) [facility] Start: 2008 Polio vaccine (4 of 4 - 4-dose series) Polio vaccine (4 of 4 - 4-dose series) [facility] Start: 2008 Varicella vaccine (2 of 2 - 2-dose childhood series) Varicella vaccine (2 of 2 - 2-dose childhood series) [facility] Start: 2005 Hepatitis A vaccine (1 of 2 - 2-dose series) Hepatitis A vaccine (1 of 2 - 2-dose series) [facility] Start: 2005 Measles,Mumps,Rubella (MMR) vaccine (1 of 2 - Standard series) Measles,Mumps,Rubella (MMR) vaccine (1 of 2 - Standard series) [facility] Start: 2005 Varicella vaccine (1 of 2 - 2-dose childhood series) Varicella vaccine (1 of 2 - 2-dose childhood series) [facility] Start: 04-19-2005 Hepatitis B vaccine (3 of 3 - 3-dose series) Hepatitis B vaccine (3 of 3 - 3-dose series) [facility] Start: 02-22-2005 COVID-19 Vaccine (#1) COVID-19 Vaccine (#1) [facility] Start: 2004 Polio vaccine (1 of 3 - 4-dose series) Polio vaccine (1 of 3 - 4-dose series) [facility] Start: 2004 Polio vaccine 0-18 (1 of 3 - 4-dose series) Polio vaccine 0-18 (1 of 3 - 4-dose series) [facility] Work Phone: Start: 2004 Hepatitis B vaccine (1 of 3 - 3-dose primary series) Hepatitis B vaccine (1 of 3 - 3-dose primary series) [facility] Start: 2004 Hepatitis B vaccine (1 of 3 - 3-dose series) Hepatitis B vaccine (1 of 3 - 3-dose series) [facility] End: 11-26-2020 Alpha Fetoprotein, Maternal Alpha Fetoprotein, Maternal Lab Routine Once for 1 Occurrences starting 11/26/2020 until 11/26/2020 [place], [place] Comment on above: Once for 1 Occurrences starting 11/26/19 until 11/26/2020 Alpha Fetoprotein, Maternal Alpha Fetoprotein, Maternal Lab Routine 11/26/2020 5:20 PM [place], [place] End: 07-14-2022 Bacteria identified in Urine by Culture [facility] Work Phone: Comment on above: One Time for 1 Occurrences starting 06/24 until 07/14/2022 End: 12-28-2023 Bacteria identified in Urine by Culture Urine culture Microbiology Routine One Time for 1 Occurrences starting 12/28/2023 until 12/28/2023 [facility] Comment on above: One Time for 1 Occurrences starting 04/2024 until 12/28/2023 End: 04-14-2021 Bile Acids, Total Bile Acids, Total Lab Routine Pruritus of in third trimester 1 Occurrences starting 04/14/2021 until 04/14/2021 [facility] Phone: Comment on above: 1 Occurrences starting 04/14/2021 until 04/14/2021 Bile Acids, Total Bile Acids, To akila Lab Routine Pruritus of in third trimester 04/14/2021 10:02 AM EDT [facility] Phone: C.trachomatis N.gonorrhoeae DNA C.trachomatis N.gonorrhoeae DNA Microbiology Routine 32 weeks gestation of Screen for STD (sexually transmitted disease) 12/05/2023 10:00 AM EST [employer] C.trachomatis N.gonorrhoeae DNA C.trachomatis N.gonorrhoeae DNA Microbiology STAT 07/27/2024 11:32 PM EDT [employer] End: 08-31-2020 C.trachomatis N.gonorrhoeae DNA, Urine C.trachomatis N.gonorrhoeae DNA, Urine Microbiology Routine Amenorrhea 1 Occurrences starting 08/31/2020 until 08/31/2020 [employer] Comment on above: 1 Occurrences starting 08/31/2020 until 08/31/2020 C.trachomatis N.gonorrhoeae DNA, Urine C.trachomatis N.gonorrhoeae DNA, Urine Microbiology Routine Amenorrhea 08/31/2020 4:28 PM EST [employer] End: 03-07-2022 C.trachomatis N.gonorrhoeae DNA, Urine [facility] Phone: Comment on above: 1 Occurrences starting 03/07/2022 until 03/07/2022 End: 06-05-2023 C.trachomatis N.gonorrhoeae DNA, Urine [employer] Comment on above: 1 Occurrences starting 06/05/2023 until 06/05/2023 End: 07-31-2024 C.trachomatis N.gonorrhoeae DNA, Urine [employer] Comment on above: 1 Occurrences starting 07/31/2024 until 07/31/2024 Celiac Disease Panel Celiac Dise ase Panel Lab Routine 04/29/2024 11:47 AM EDT [employer] Phone: End: 04-05-2021 Culture, Strep B Screen, Vaginal/Rectal Culture, Strep B Screen, Vaginal/Rectal Microbiology Routine 36 weeks gestation of 1 Occurrences starting 04/05/2021 until 04/05/2021 [facility] Phone: Comment on above: 1 Occurrences starting 04/05/2021 until 04/05/2021 Culture, Strep B Scr een, Vaginal/Rectal Culture, Strep B Screen, Vaginal/Rectal Microbiology Routine 36 weeks gestation of 04/05/2021 5:57 PM EDT [facility] Phone: End: 08-31-2020 Culture, Urine Culture, Urine Microbiology Routine Amenorrhea 1 Occurrences starting 08/31/2020 until 08/31/2020 [facility] Comment on above: 1 Occurrences starting 08/31/2020 until 08/31/2020 Culture, Urine Culture, Urine Microbiology Routine Amenorrhea 08/31/2020 4:27 PM EST [facility] End: 03-07-2022 Culture, Urine [facility] Phone: Comment on above: 1 Occurrences starting 03/07/2022 until 03/07/2022 End: 05-10-2022 Culture, Urine Culture, Urine Microbiology Routine Once for 1 Occurrences starting 05/10/2022 until 05/10/2022 [employer] Phone: Comment on above: Once for 1 Occurrences starting 05/10/20 22 until 05/10/2022 Culture, Urine Culture, Urine Microbiology Routine 05/10/2022 12:51 AM EDT [employer] Phone: End: 06-05-2023 Culture, Urine [employer] Comment on above: 1 Occurrences starting 06/05/2023 until 06/05/2023 End: 07-31-2024 Culture, Urine [employer] Comment on above: 1 Occurrences starting 07/31/2024 until 07/31/2024 ENT Food Panel ENT Food Panel L ab Routine 04/29/2024 11:47 AM EDT [employer] End: 11-05-2019 Lan-Hernandez virus VCA antibody panel Lan-Hernandez virus VCA antibody panel Lab Routine Once for 1 Occurrences starting 11/05/2019 until 11/05/2019 [facility] Phone: Comment on above: Once for 1 Occurrences starting 11/05/19 until 11/05/2019 Lan-Hernandez virus V CA antibody panel Lan-Hernandez virus VCA antibody panel Lab Routine 11/05/2019 8:05 AM [employer] [facility] Phone: nonstress test nonst ress test OB Routine Daily until discontinued starting 12/29/2023 [employer] Comment on above: Daily until discontinued starting 2023 End: 11-26-2020 MISCELLANEOUS TESTING MISCELLANEOUS TESTING Lab Routine Once for 1 Occurrences starting 11/26/2020 until 11/26/2020 [facility] Comment on above: Once for 1 Occurrences starting 11/26/19 until 11/26/2020 MISCELLANEOUS TESTING MISCELLANE OUS TESTING Lab Routine 11/26/2020 5:20 PM EST [employer] Nonrebreather mask oxygen Nonreb reather mask oxygen Respiratory Care Routine As directed - RT (PRN) until discontinued starting 07/14/2022 [employer] Phone: Comment on above: As directed - RT (PRN) until discontinue d starting 07/14/2022 Nonrebreather mask oxygen Nonreb reather mask oxygen Respiratory Care Routine As directed - RT (PRN) until discontinued starting 09/03/2022 [employer] Phone: Comment on above: As directed - RT (PRN) until discontinue d starting 09/03/2022 End: 11-05-2019 Path Review, Smear Path Review, Smear Lab Routine Once for 1 Occurrences starting 11/05/2019 until 11/05/2019 [facility] Phone: Comment on above: Once for 1 Occurrences starting 11/05/19 20 until 11/05/2019 Path Review, Smear Path Review, Smear Lab Routine 11/05/2019 8:05 AM EST [facility] Phone: End: 06-05-2023 Profile I [employer] Comment on above: 1 Occurrences starting 06/05/2023 until 06/05/2023 End: 10-13-2022 Procalcitonin [employer] Phone: Comment on above: One Time for 1 Occurrences starting 09/23 until 10/13/2022 End: 07-14-2022 SVE SVE Point of Care Testing Routine One Time for 1 Occurrences starting 07/14/2022 until 07/14/2022 [employer] Phone: Comment on above: One Time for 1 Occurrences starting 06/24 until 07/14/2022 End: 09-03-2022 SVE SVE Point of Care Testing Routine One Time for 1 Occurrences starting 09/03/2022 until 09/03/2022 [employer] Phone: Comment on above: One Time for 1 Occurrences starting 08/23 until 09/03/2022 End: 12-28-2023 SVE SVE Point of Care Testing Routine One Time for 1 Occurrences starting 12/28/2023 until 12/28/2023 [employer] Comment on above: One Time for 1 Occurrences starting 04/2024 until 12/28/2023 End: 01-04-2021 US OB 14 PLUS WEEKS SINGLE OR FIRST GESTATION US OB 14 PLUS WEEKS SINGLE OR FIRST GESTATION Imaging Routine Once for 1 Occurrences starting 01/04/2021 until 01/04/2021 [facility] Phone: Comment on above: Once for 1 Occurrences starting 01/05/20 until 01/04/2021 US OB 14 PLUS WEEKS SINGLE OR FIRST GESTATION US OB 14 PLUS WEEKS SINGLE OR FIRST GESTATION Imaging Routine 01/04/2021 2:29 PM EDT [facility] Phone: End: 01-04-2021 US OB TRANSVAGINAL US OB TRANSVAGINAL Imaging Routine Once for 1 Occurrences starting 01/04/2021 until 01/04/2021 [facility] Phone: Comment on above: Once for 1 Occurrences starting 01/05/20 until 01/04/2021 US OB TRANSVAGINAL US OB TRANSVA GINAL Imaging Routine 01/04/2021 2:29 PM EDT [employer] Work Phone: End: 07-27-2024 Wet prep, genital [facility] [email or web address] Comment on above: One Time for 1 Occurrences starting 02/2024 until 07/27/2024 Immunizations Immunization Date Immunization Notes Care Provider Fa cili 10-07-2022 diphtheria, tetanus toxoids and acellular pertussis vaccine, unspecified formulation Angelina Mathews INSPECTOR WATCH ASSEMBLY [employer] Work Phone: [employer] Work Phone: 10-07-2022 measles, mumps and rubella virus vaccine Angelina Mathews INSPECTOR WATCH ASSEMBLY [employer] Work Phone: [employer] Work Phone: 04-20-2021 diphtheria, tetanus toxoids and acellular pertussis vaccine, unspecified formulation Yana Khai INSPECTOR WATCH ASSEMBLY - [employer] Work Phone: [facility] Phone: 04-20-2021 measles, mumps and rubella virus vaccine Yana Pool INSPECTOR WATCH ASSEMBLY [employer] Work Phone: [employer] Work Phone: Payers Date Payer Category Payer Self-pay 2018 Medicaid [place] [employer] [place] [employer] [id number] 2018-Present [phone] [address] [place] [address] [id number] 2016 Unknown [id number] 2016 Unknown [facility] HEALTH PLAN [facility] xxxxxxxxxxxx 2016-Present [phone] [address] [place] [address] xxxxxxxxxxxx [id number] 2004 Unknown [id number] 2.16.840.1.441385.3.579.2.593 2004 Unknown [id number] 2.16.840.1.132439.3.579.2.128 6 2004 Unknown [id number] 2.16.840.1.318246.3.579.2.128 6 2004 Unknown [id number] 2.16.840.1.551723.3.579.2.128 6 2004 Unknown [id number] 2.16.840.1.036687.3.579.2.128 6 2004 Unknown [id number] 2.16.840.1.441819.3.579.2.128 6 2004 Unknown [id number] 2.16.840.1.105880.3.579.2.128 6 2004 Unknown [id number] 2.16.840.1.263209.3.579.2.128 6 2004 Unknown [id number] 2.16.840.1.986564.3.579.2.128 6 2004 Unknown [id number] 2.16.840.1.063074.3.579.2.128 6 2004 Unknown [id number] 2.16.840.1.704460.3.579.2.128 6 2004 Unknown [id number] 2.16.840.1.674702.3.579.2.173 2004 Unknown [id number] 2.16.840.1.702924.3.579.2.173 2004 Unknown [id number] 2.16.840.1.092855.3.579.2.173 2004 Unknown [id number] 2.16.840.1.190531.3.579.2.173 2004 Unknown [id number] 2.16.840.1.427048.3.579.2.173 2004 Unknown [id number] 2.16.840.1.781049.3.579.2.173 2004 Unknown [id number] 2.16.840.1.422224.3.579.2.173 2004 Unknown [id number] 2.16.840.1.684717.3.579.2.173 2004 Unknown [id number] 2.16.840.1.656497.3.579.2.173 2004 Unknown [id number] 2.16.840.1.223892.3.579.2.175 2004 Unknown [id number] 2.16.840.1.186380.3.579.2.175 2004 Unknown [id number] 2.16.840.1.539732.3.579.2.175 1985 Unknown [id number] 2.16.840.1.630023.3.579.2.593 1959 Unknown [id number] Unknown [id number] 2.16.840.1.996308.3.579.2.531 Social History Date Type Detail Facility Start: 12-24-2019 End: 11-03-2023 Tobacco smoking status MTIS Never smoker [facility] Start: 12-24-2019 End: 07-31-2024 Alcohol intake Current non-drinker of alcohol (finding) [facility] Phone: Start: 2004 Sex Assigned At Not on file [facility] [employer] Phone: Start: 12-24-2019 End: 11-03-2023 Tobacco use and exposure Never used [facility] [place], [place] Start: 01-25-2022 End: 02-10-2023 Exposure to SARS-CoV-2 (event) Not sure [employer] [facility] [employer] Start: 07-13-2020 [employer] [employer] Start: 2004 Sex Assigned At Female B ON [email or web address] Start: 12-03-2020 End: 12-05-2023 History of Social function [facility] [email or web address] Start: 12-03-2020 End: 12-05-2023 Tobacco use panel [facility] [email or web address] How hard is it for y ou to pay for the very basics like food, housing, medical care, and heating Not hard at all [facility] [employer] (I/We) worried whemaykel er (my/our) food would run out before (I/we) got money to buy more. Never true [employer] At any time in the p ast 12 months, were you homeless or living in fpc [including now]? No [employer] The thought of ariel martinez myself has occurred to me Never [employer] Start: 04-04-2022 Gender identity Identifies as female gender (finding) [employer] Start: 04-04-2022 Sexual orientation Heterosexual (rebekah salmon) [employer] Start: 11-03-2023 Alcohol intake Lifetime non-d katherine (finding) [employer] Medical Equipment Procedure Code Equipment Code Equipment Origin al Text Equipment Identifier Dates Truespan [employer] [id number] Start: 02-24-2023 True Span [employer] [id number] Start: 02-24-2023 Clinical Notes 04-22-2021 to 07-27-2024 Discharge InstructionsDischarge InstructionsTelephone Encounter - CIERRA Neville - 11/06/2023 5:28 PM ESTTelephone Encounter - CIERRA Neville - 11/06/2023 5:28 PM ESTAttachments Note Date & Type Note Facility 07-27-2024 Hospital Discharge instructions Desmond Rodriguez MD - 07/27/2024 11:38 PM EDT At this time everything is looking well with your . The cervical os was closed and had no active bleeding. The patient was able to be visualized on bedside ultrasound and did have adequate heart rate. Please follow-up with the PRODUCTION GEAR CUTTER for results of the vaginitis testing that was performed today as these did not result prior to your discharge. If you develop worsening bleeding such as soaking through more than 1 pad per hour please return the emergency department for repeat assessment. documented in this encounter [facility] 12-29-2023 Hospital Discharge instructions Macey Mayfield RN - 12/29/2023 2:38 AM EST OUTPATIENT DISCHARGE Dr. Jens Bird [facility] Dr. Efren Mathews [facility] [address] [facility] [address] [place] or [place] ACTIVITY LIMITATIONS: ( x )Up and about as desired and tolerated ( )Up to bathroom only ( )Lay on either side ( )Avoid heavy lifting or exercise ( )No sex ( )No nipple stimulation ( )Complet bedrest ( )Avoid using stairs ( x )Increase fluids DRINK AT LEAST eight-8oz. Glasses of water daily. Call your Doctor if: ( )Contractions are every 5 minutes apart (from start of one to the start of the next contraction) lasting 60 seconds for at least 1 hour, strong enough you can not walk or talk through the contraction and regular. ( x )Bag of water breaks ( x )Vaginal bleeding ( x )Unusual pain occurs ( x )Decreased movement ( x ) labor: If you have 4 contractions in an hour Keep your scheduled follow up appointment. Or call for a follow up on . IN CASE OF EMERGENCY CONTACT LABOR AND DELIVERY . documented in this encounter [facility] 11-06-2023 Miscellaneous Notes Opened in error documented in this encounter [facility] 11-06-2023 Telephone encounter Note Opened in error [facility] 11-06-2023 Miscellaneous Notes Call to pt. To discuss lab results and pt. Pt. Advised GBS, chlamydia and gonorrhea are all negative. documented in this encounter [facility] 11-06-2023 Telephone encounter Note Call to pt. To discuss lab results and pt. Pt. Advised GBS, chlamydia and gonorrhea are all negative. [facility] 10-13-2022 Hospital Discharge instructions Steve Russo MD - 10/13/2022 10:41 AM EST Please make sure to drink at least 64 ounces of fluid a day. Take Tylenol and or ibuprofen for fever and pain control. Return to the ER for any recurrence of your symptoms. The following attachments cannot be sent through Care Everywhere.Headache (Moroccan)Fever: General Info (Moroccan) (Moroccan)documented in this encounter [employer] Work Phone: 10-08-2022 Hospital course Narrative Vaginal Delivery Discharge Summary Gestational Age:39w2d Antepartum complications: none Date of Delivery: Information for the patient's : [place] Nena, Baby Boy Mac [[id number]] 10/07/2022 Type of Delivery: Vaginal Labs: CBC Lab Results Component Value Date HGB 10.8 (L) 10/06/2022 HCT 32.1 (L) 10/06/2022 Intrapartum complications: None complications: none Discharge Medications: Medication List START taking these medications sertraline 50 MG tablet Commonly known as: ZOLOFT Take 1 tablet by mouth daily CONTINUE taking these medications Prenate 0.6-0.4 MG Chew STOP taking these medications ketorolac 10 MG tablet Commonly known as: TORADOL ondansetron 4 MG disintegrating tablet Commonly known as: Zofran ODT ondansetron 4 MG tablet Commonly known as: ZOFRAN The patient is ambulating well. The patient is tolerating a normal diet. Discharged to: Home Discharge Date: 10/08/2022 Plan: Follow up in 2 week(s) Juma Colindres MD documented in this encounter [facility] [facility] [employer] Phone: 10-08-2022 Hospital Discharge instructions Jennifer Hill RN - 10/08/2022 10:03 AM EST Follow-up with your OB doctor as specified. [facility] OB Department phone: Dr. Jens MONTANO Dr. Efren Mathews [phone] [address] [place] [id number] [place] [address] or [place] DIET Eat a well balanced diet focusing on foods high in fiber and protein. Drink plenty of fluids especially water. To avoid constipation you may take a mild stool softener as recommended by your doctor or manager internet retails sales. ACTIVITY Gradually increase your activity. Resume exercise regimen only after advice by your doctor or manager internet retails sales. Avoid lifting anything heavier than a gallon of milk for SIX weeks. Avoid driving until your doctor or manager internet retails sales has given their approval. Rise slowly from a lying to sitting and then a standing position. Climb stairs one at a time. Use caution when carrying your baby up and down the stairs. NO SEXUAL Activity for 4-6 weeks or until advised by your doctor; Nothing in vagina: intercourse, tampons, or douching. Be prepared to discuss family planning at your follow-up OB visit. You may feel tired or have a lack of energy. You may continue your vitamin to replenish nutrients post delivery. Nap when baby naps to catch up on sleep. EMOTIONS You may feel dan, sad, teary, & overwhelmed. Contact your OB provider if you feel you may be showing signs of depression, or have thoughts of harming yourself or your infant. If infant will not stop crying, contact another adult for help or place in their crib on their back and take a break. NEVER shake your . BLEEDING Vaginal bleeding will decrease in amount over the next few weeks. You will notice that as your activity increases, your flow may increase. This is your body's way of telling you, you need to take things easier and rest more often. Call your care provider if you are saturating more than one maxi pad in an hour & resting does not help. BREAST CARE Take medications as recommended by your doctor or manager internet retails sales for pain If you develop a warm, red, tender area on your breast or develop a fever contact your OB provider. For moms: If you become engorged, feeding may be more difficult or painful for 1-2 days. You may find it helpful to hand express some milk so that the infant can latch on more easily. While , continue to take your vitamins as directed by your doctor or manager internet retails sales. Refer to the booklet in the folder/binder for more information. If you feel you need more assistance or have questions, please call Caroline De Leon IBCLC, beverage sales consultant, at or the OB department to schedule an appointment or phone consultation. For more FREE help, visit the Support Group on Monday evenings at 7 pm in the OB department. For NON- moms: You may apply ice packs to your breasts over your bra for twenty minutes at a time for comfort. Avoid stimulation to your breasts, when showering allow the water to strike your back not your breasts. Wear a good fitting bra until your milk dries, such as a sports bra. JUMANA CARE Use the jumana-bottle after toileting until bleeding stops. Cleanse your perineum from front to back If used, stitches will dissolve in 4-6 weeks. You may use a sitz bath or soak in a clean tub as needed for comfort. Kegel exercises will help restore bladder control. SWELLING Try to keep your legs elevated when you are sitting. When lying down keep your legs elevated. When wearing stocking or socks, make sure they are not too tight. WHEN TO CALL THE DOCTOR If you have a temp of 100.6 or more. If your bleeding has increased and you are saturating a pad in an hour. Your abdomen is tender to touch. You are passing blood clots bigger than the size of a lemon. If you are experiencing extreme weakness or dizziness. If you are having flu-like symptoms such as achy muscles or joints. There is a foul smell or a green color to your vaginal bleeding. If you have pain that cannot be relieved. You have persistent burning or frequency with urination. Call if you have concerns about your well-being. You are unable to sleep, eat, or are having thoughts of harming yourself or your baby. You have swelling, bleeding, drainage, foul odor, redness, or warmth in/around your incision or stitches. You have a red, warm, tender area in your calf. documented in this encounter [facility] Phone: 10-07-2022 History of Present illness Narrative RN remained at bedside throughout pushing. EFM continuously assessed. Vaginal delivery of viable . Spontaneous vaginal delivery of viable male . with lusty cry, dried and stimulated when placed on mothers abdomen immediately after delivery. Cord clamped and then cut by mother. remains on mothers abdomen with lusty cry, strong tone and pink color. Continued with routine care. Patient actively pushing. RN remains in continuous attendance at the bedside. Assessment & evaluation of heart rate ongoing via continuous EFM. 2138- COLT Dubois in room 2141- Consent signed 2143- Time out performed with fiction and nonfiction prose writerSilvino CRNA and patient 2145- Catheter in place 2146- Test dose given, pt HR 91 2152 patient laid down and tilted to right side Department of Obstetrics and Gynecology Progress Note SUBJECTIVE: pt is ready to have her water broke OBJECTIVE: Vitals: 10/06/22 1538 10/06/22 1541 10/06/22 1850 10/06/22 1914 BP: 121/66 Pulse: 76 Resp: 16 20 18 Temp: 97.6 F (36.4 C) 98.2 F (36.8 C) 98.6 F (37 C) TempSrc: Oral Axillary Oral Weight: 192 lb (87.1 kg) Height: 5' 7 (1.702 m) heart rate: Baseline Heart Rate: 148 Accelerations: present Assisted Variability: moderate Decelerations: absent Contraction frequency: 2 minutes Membranes: Ruptured clear fluid with finger cot Cervix: Dilation: 3 cm Effacement: 70 Station: -2 Position: mid ASSESSMENT & PLAN: Continue care Epidural when ready Department of Obstetrics and Gynecology Progress Note SUBJECTIVE: pt resting well with an epidural OBJECTIVE: Vitals: 10/06/22 2200 10/06/22 2204 10/06/220 10/06/222234 BP: 120/65 (!) 110/58 (!) 101/59 Pulse: 93 (!) 118 (!) 114 Resp: 18 18 18 Temp: 99.1 F (37.3 C) TempSrc: Oral SpO2: 99% 98% 97% Weight: Height: heart rate: Cat 1 Contraction frequency: 1-3 minutes Membranes: leaking Cervix: Dilation: 5 cm Effacement: 70 Station: -1 Position: mid ASSESSMENT & PLAN: Continue care documented in this encounter [facility] Phone: 09-03-2022 Hospital Discharge instructions Ciera Cornell RN - 09/03/2022 2:29 PM EST OUTPATIENT DISCHARGE Dr. Jens Bird [facility] Dr. Efren Mathews [facility] [address] [facility] [address] [facility] [id number] [place] [address] or [place] ACTIVITY LIMITATIONS: (x )Up and about as desired and tolerated ( )Up to bathroom only ( )Lay on either side ( )Avoid heavy lifting or exercise ( )No sex ( )No nipple stimulation ( )Complet bedrest ( )Avoid using stairs ( x )Increase fluids DRINK AT LEAST eight-8oz. Glasses of water daily. Call your Doctor if: ( )Contractions are every 5 minutes apart (from start of one to the start of the next contraction) lasting 60 seconds for at least 1 hour, strong enough you can not walk or talk through the contraction and regular. (x )Bag of water breaks ( x )Vaginal bleeding ( x )Unusual pain occurs ( x )Decreased movement (x ) labor: If you have 4 contractions in an hour Keep your scheduled follow up appointment. Or call for a follow up on . IN CASE OF EMERGENCY CONTACT LABOR AND DELIVERY . documented in this encounter [employer] [employer] Phone: 09-03-2022 Hospital Discharge instructions Lexy Tony MD - 09/03/2022 7:01 AM EST Thank you for trusting us with your care today. You may use tylenol or ibuprofen as needed for fever and pain. Please also make sure to follow-up with your truck sales manager Please make an appointment with your primary care doctor for reevalaution in 1-4 days. Please return to the emergency department for any new concerning or worsening symptoms. The following attachments cannot be sent through Care Everywhere.Dehydration (Moroccan)Nausea and Vomiting (Moroccan)documented in this encounter [facility] Phone: 07-14-2022 Hospital Discharge instructions Kristina Tucker RN - 07/14/2022 10:37 AM EDT OUTPATIENT DISCHARGE Dr. Jens Bird CNM Dr. Efren Mathews CN [address] [facility] [address] [facility] [address] [place] or [place] [address] Efren Betts CN [address] [facility] [address] [phone] Monalisa Ash, MSN, INSPECTOR WATCH ASSEMBLY, CNM [facility] [address] [facility] [address] [address] Guerrero [address] [facility] [address] Angelina Rodriguez CNM [address] [address] [place] [address] Billie Sierra CNM [address] [place] [address] [place] [address] [phone] ACTIVITY LIMITATIONS: ( x)Up and about as desired and tolerated ( )Up to bathroom only ( )Lay on either side ( )Avoid heavy lifting or exercise ( )No sex ( )No nipple stimulation ( )Complet bedrest ( )Avoid using stairs ( x )Increase fluids DRINK AT LEAST eight-8oz. Glasses of water daily. Call your Doctor if: ( )Contractions are every 5 minutes apart (from start of one to the start of the next contraction) lasting 60 seconds for at least 1 hour, strong enough you can not walk or talk through the contraction and regular. ( x)Bag of water breaks ( x )Vaginal bleeding ( x )Unusual pain occurs ( x )Decreased movement (x ) labor: If you have 4 contractions in an hour TAIL BOARD MAN PRESCRIPTION AND BEGIN TODAY. Keep your scheduled follow up appointment. IN CASE OF EMERGENCY CONTACT LABOR AND DELIVERY . documented in this encounter [facility] Phone: 05-10-2022 Hospital Discharge instructions Lexy Tony MD - 05/10/2022 3:27 AM EDT Thank you for trusting us with your care today. You may use tylenol as needed for pain. Please make sure to follow-up with truck sales manager in the morning. Please make an appointment with your primary care doctor for reevalaution in 1-4 days. Please return to the emergency department for any new concerning or worsening symptoms. The following attachments cannot be sent through Care Everywhere.: Vaginal Bleeding (Moroccan)documented in this encounter [facility] Phone: 04-27-2021 Hospital Discharge instructions Sheela Mcdowell MD - 04/27/2021 Motrin as needed for any pain. Increase fluids. Follow up with shoe patternmaker as scheduled. Seek medical attention for any heavy bleeding, more than 1 pad per hour passing large golf ball size clots, worsening pain, fevers, chills, foul smelling discharge or any other concerns The following attachments cannot be sent through Care Everywhere. Bleeding: Retained Placenta (Moroccan)documented in this encounter [facility] Phone: 04-22-2021 History of Present illness Narrative Patient leaves unit ambulatory accompanied by significant other who carries in rear facing carseat. ID bands checked and confirmed. Discharge instructions reviewed. Patient verbalizes understanding and mother of patient signs discharge paperwork. Denies any questions or concerns at this time. Department of Obstetrics and Gynecology Labor and Delivery Post Progress Note SUBJECTIVE: Awake in the bed and watching TV and visiting with significant other. C/o a rash on her shoulder and lower arm, denies pain, just itching OBJECTIVE: Vitals: BP 110/67 Pulse 69 Temp 97.9 F (36.6 C) Resp 14 LMP 06/29/2020 (Exact Date) SpO2 97% Unknown Patient Vitals for the past 24 hrs: BP Temp Temp src Pulse Resp 04/21/21 2312 110/67 97.9 F (36.6 C) 69 14 04/21/21 1933 130/70 97.9 F (36.6 C) 84 16 04/21/21 1530 131/65 98.7 F (37.1 C) Oral 71 18 04/21/21 1144 125/72 97.5 F (36.4 C) Oral 80 16 04/21/21 0724 125/72 98.2 F (36.8 C) 82 16 04/21/21 0447 108/66 97.3 F (36.3 C) 74 18 ABDOMEN: normal shape, position and consistency GENITAL/URINARY: External Genitalia: General appearance; normal, Hair distribution; normal, Lesions absent Uterus: Size normal, Tenderness absent, FF U/-1 Breast:normal appearance, no masses or tenderness Cor: RRR no Murmurs Pulmonary: clear to auscultation anterior and posterior Extremities: no Clubbing cyanosis or ecchymosis DATA: 15 yo S/p Vaginal repair ASSESSMENT : Principal Problem: Encounter for induction of labor Active Problems: Term (normal spontaneous vaginal delivery) Plan: Discharge home today with baby Follow up with CIERRA Gonzales in 2 weeks Patient called out at this time and states the motrin given earlier did not help her pain. PRN tylenol offered and patient accepts. See MAR for details. Pt and her s/o had questions about infants circumcision tomorrow. Both were educated on circumcision, what to expect and care. Pt and FOB verbalize understanding. Department of Obstetrics and Gynecology Labor and Delivery Post Progress Note SUBJECTIVE: Up ambulating, denies discomfort OBJECTIVE: Vitals: BP 125/72 Pulse 82 Temp 98.2 F (36.8 C) Resp 16 LMP 06/29/2020 (Exact Date) SpO2 97% Unknown Patient Vitals for the past 24 hrs: BP Temp Pulse Resp SpO2 04/21/21 0724 125/72 98.2 F (36.8 C) 82 16 04/21/21 0447 108/66 97.3 F (36.3 C) 74 18 04/20/21 2329 129/75 97.8 F (36.6 C) 86 20 04/20/212019 129/78 98.5 F (36.9 C) 92 18 04/20/21 1904 125/71 94 04/20/21 1849 126/76 99 04/20/21 1834 126/73 85 04/20/21 1819 137/81 85 04/20/21 1804 138/76 86 04/20/21 1801 135/72 83 04/20/21 1734 129/60 106 04/20/21 1719 130/62 94 04/20/21 1704 131/56 118 04/20/21 1658 97 % 04/20/21 1655 92 % 04/20/21 1653 90 % 04/20/21 1649 128/74 127 04/20/21 1648 99 % 04/20/21 1643 99 % 04/20/21 1638 99 % 04/20/21 1634 129/75 111 04/20/21 1633 98 % 04/20/21 1628 96 % 04/20/21 1623 97 % 04/20/21 1619 126/69 99 04/20/21 1618 97 % 04/20/21 1613 98 % 04/20/21 1608 98 % 04/20/21 1604 121/68 88 04/20/21 1603 97 % 04/20/21 1558 97 % 04/20/21 1553 96 % 04/20/21 1549 123/66 99 04/20/21 1548 98 % 04/20/21 1543 99 % 04/20/21 1538 99 % 04/20/21 1534 125/76 108 16 04/20/21 1533 96 % 04/20/21 1528 96 % 04/20/21 1523 97 % 04/20/21 1519 123/74 107 04/20/21 1518 97 % 04/20/21 1513 97 % 04/20/21 1508 98 % 04/20/21 1504 131/77 102 04/20/21 1503 98 % 04/20/21 1458 98 % 04/20/21 1453 97 % 04/20/21 1450 131/75 95 97 % 04/20/21 1449 131/75 95 04/20/21 1448 97 % 04/20/21 1443 98 % 04/20/21 1438 98 % 04/20/21 1433 97 % 04/20/21 1431 (!) 140/79 90 20 04/20/21 1428 98 % 04/20/21 1427 134/78 89 04/20/21 1423 97 % 04/20/21 1421 134/72 93 16 04/20/21 1418 97 % 04/20/21 1416 131/75 90 04/20/21 1413 97 % 04/20/21 1410 128/72 86 04/20/21 1408 131/70 85 97 % 04/20/21 1407 (!) 81 % 04/20/21 1404 134/76 86 04/20/21 1403 (!) 150/78 98.2 F (36.8 C) 86 16 98 % 04/20/21 1402 98 % 04/20/21 1400 (!) 138/96 101 04/20/21 1358 (!) 134/95 93 04/20/21 1357 98 % 04/20/21 1356 (!) 130/93 101 04/20/21 1352 98 % 04/20/21 1347 98 % 04/20/21 1326 130/74 73 04/20/21 1257 114/63 76 04/20/21 1226 (!) 143/86 98.6 F (37 C) 78 16 04/20/21 1156 (!) 141/77 77 20 04/20/21 1126 122/70 74 16 04/20/21 1056 113/64 81 ABDOMEN: NT GENITAL/URINARY: WNL Uterus: WNL Breast: WNL Pulmonary: no respiratory distress Extremities: no edema ASSESSMENT : Principal Problem: Encounter for induction of labor Active Problems: Term (normal spontaneous vaginal delivery) Plan: F/U in am RN remained at bedside throughout pushing. EFM continuously assessed. Vaginal delivery of viable . Patient actively pushing. RN remains in continuous attendance at the bedside. Assessment & evaluation of heart rate ongoing via continuous EFM. Allen Bird CNM called in office. Updated that pt is complete with no urge to push. Pt dozing and feeling only very mild discomfort to right lower quadrant at this time. States to allow patient to labor down and call if anything changes. Plan of care updated with pt and pt agreeable. Epidural complete. Pt to left tilt position Test dose given Time out completed. Anesthesia in room discussing consent. Pt up to side of bed. Pt assisted up to BR to void prior to epidural placement. Pt requesting an epidural. IV bolus started and SURGERY CENTER ADMINISTRATOR called. Allen Bird CNM phoned. Updated that pt is uncomfortable with ctx and requesting pain meds. SVE and ctx pattern. Pit will go to 21 at 11am. No new orders. Dr Garcia on unit. Updated on pts induction. Ok for routine orders when pt delivered. Pt assisted up to BR. Moderate amount of clear odorless fluid noted when pt stands. Pt able to void and then returns to bed. Pt positioned on right side for comfort. Allen Bird CNM in to see pt and AROM. documented in this encounter [facility] Phone: 04-22-2021 Hospital Discharge instructions Caroline Crowley RN - 04/22/2021 Follow-up with your OB doctor as specified. [facility] OB Department phone: Dr. Jens Schwartz MD Angelina Mathews CNM [address] [facility] [address] [facility] [address] [place] or [place] [address] Efren Betts CN [address] [facility] [id number] [phone] Monalisa Ash, MSN, INSPECTOR WATCH ASSEMBLY, CNM [facility] [address] [facility] [address] [address] Guerrero [address] [facility] [id number] Angelinaulisses Lonik CNM [address] [place] [address] Billie Sierra CN [address] [place] [address] [place] [address] [phone] DIET Eat a well balanced diet focusing on foods high in fiber and protein. Drink plenty of fluids especially water. To avoid constipation you may take a mild stool softener as recommended by your doctor or manager internet retails sales. ACTIVITY Gradually increase your activity. Resume exercise regimen only after advice by your doctor or manager internet retails sales. Avoid lifting anything heavier than a gallon of milk for SIX weeks. Avoid driving until your doctor or manager internet retails sales has given their approval. Rise slowly from a lying to sitting and then a standing position. Climb stairs one at a time. Use caution when carrying your baby up and down the stairs. NO SEXUAL Activity for 4-6 weeks or until advised by your doctor; Nothing in vagina: intercourse, tampons, or douching. Be prepared to discuss family planning at your follow-up OB visit. You may feel tired or have a lack of energy. You may continue your vitamin to replenish nutrients post delivery. Nap when baby naps to catch up on sleep. EMOTIONS You may feel dan, sad, teary, & overwhelmed. Contact your OB provider if you feel you may be showing signs of depression, or have thoughts of harming yourself or your . If infant will not stop crying, contact another adult for help or place infant in their crib on their back and take a break. NEVER shake your infant. BLEEDING Vaginal bleeding will decrease in amount over the next few weeks. You will notice that as your activity increases, your flow may increase. This is your body's way of telling you, you need to take things easier and rest more often. Call your care provider if you are saturating more than one maxi pad in an hour & resting does not help. BREAST CARE Take medications as recommended by your doctor or manager internet retails sales for pain If you develop a warm, red, tender area on your breast or develop a fever contact your OB provider. For moms: If you become engorged, feeding may be more difficult or painful for 1-2 days. You may find it helpful to hand express some milk so that the infant can latch on more easily. While , continue to take your vitamins as directed by your doctor or manager internet retails sales. Refer to the booklet in the folder/binder for more information. If you feel you need more assistance or have questions, please call Caroline De Leon IBSUZANNE, beverage sales consultant, at or the OB department to schedule an appointment or phone consultation. For more FREE help, visit the Support Group on Monday evenings at 7 pm in the OB department. For NON- moms: You may apply ice packs to your breasts over your bra for twenty minutes at a time for comfort. Avoid stimulation to your breasts, when showering allow the water to strike your back not your breasts. Wear a good fitting bra until your milk dries, such as a sports bra. INCISIONAL CARE / JUMANA CARE If you have an acticoat dressing in place after your please leave your dressing in place for one week until you follow up with your provider. They will remove this dressing in the office when you see them. If you have a DEDRA negative pressure wound dressing please leave the dressing in place for 7 days after delivery. Your health care provider will remove the dressing at your one week incisional check. You may shower with your DEDRA dressing, however the DEDRA pump should be disconnected and placed in a safe location where it will not get wet. To disconnect the pump from the dressing, press the orange button to pause the therapy, unscrew the two part connector, and place the pump somewhere safe. While disconnected, ensure the end of the tubing attached to the dressing is facing downward so that water does not enter the tubing. Then re-connect the pump after your shower is complete. If your dressing starts to peel up or becomes soiled prior to your appointment with your provider, you may remove the dressing and clean your incision as directed below. Clean your incision in the shower with mild soap. After shower pat the incision area dry and allow the area open to air. If used, Steri-strips should be completely removed by 2 weeks but you may remove them as they become loose or soiled. If used, Lester should be removed by your care provider. If used/ordered, an abdominal binder may provide support for your incision. Use the jumana-bottle after toileting until bleeding stops. Cleanse your perineum from front to back If used, stitches will dissolve in 4-6 weeks. You may use a sitz bath or soak in a clean tub as needed for comfort. Kegel exercises will help restore bladder control. SWELLING Try to keep your legs elevated when you are sitting. When lying down keep your legs elevated. When wearing stocking or socks, make sure they are not too tight. WHEN TO CALL THE DOCTOR If you have a temp of 100.6 or more. If your bleeding has increased and you are saturating a pad in an hour. Your abdomen is tender to touch. You are passing blood clots bigger than the size of a lemon. If you are experiencing extreme weakness or dizziness. If you are having flu-like symptoms such as achy muscles or joints. There is a foul smell or a green color to your vaginal bleeding. If you have pain that cannot be relieved. You have persistent burning or frequency with urination. Call if you have concerns about your well-being. You are unable to sleep, eat, or are having thoughts of harming yourself or your baby. You have swelling, bleeding, drainage, foul odor, redness, or warmth in/around your incision or stitches. You have a red, warm, tender area in your calf. The following attachments cannot be sent through Care Everywhere. OB CORONAVIRUS (COVID-19): , AND BABY CARE DISCHARGE INSTRUCTIONSdocumented in this encounter [facility] Phone: Evaluation note Diagnosis 36 weeks gestation of state, incidental documented in this encounter [facility] Phone: evaluation note* Diagnosis Pruritus of in third trimester documented in this encounter [facility] Phone: [email or web address] note* Diagnosis Encounter for induction of labor- Primary Term (normal spontaneous vaginal delivery) Normal delivery documented in this encounter [facility] Phone: evaluation note* Diagnosis Vaginal bleeding- Primary Other specified noninflammatory disorder of vagina documented in this encounter [facility] Phone: evaluation note* Diagnosis Amenorrhea Absence of menstruation documented in this encounter [facility] Phone: evaluation note* Diagnosis Acute pharyngitis, unspecified etiology- Primary documented in this encounter [facility] Phone: [email or web address] note* Diagnosis Strain of lumbar region, initial encounter- Primary documented in this encounter [facility] Phone: [email or web address] note* Diagnosis Amenorrhea Absence of menstruation Encounter for supervision of other normal in first trimester documented in this encounter IMRSV Phone: evaluation note* Diagnosis Vaginal bleeding in - Primary Unspecified antepartum hemorrhage, unspecified as to episode of care documented in this encounter [facility] Equipment Phone: [email or web address] note* Diagnosis Nausea- Primary Nausea alone documented in this encounter [facility] [employer] Phone: [email or web address] note* Diagnosis Nausea and vomiting, unspecified vomiting type- Primary Dehydration documented in this encounter [facility] Equipment Phone: evaluation note* Diagnosis Abdominal pain- Primary Abdominal pain, unspecified site documented in this encounter [employer] Phone: evaluation note* Diagnosis Admitted to labor and delivery- Primary 39 weeks gestation of state, incidental documented in this encounter [facility] Equipment Phone: [email or web address] note* Diagnosis Febrile illness, acute- Primary Fever, unspecified Headache above the eye region Headache headache documented in this encounter [employer] Phone: evaluation note* Diagnosis Encounter for supervision of other normal in first trimester Amenorrhea Absence of menstruation Positive urine test documented in this encounter [facility] note* Diagnosis 32 weeks gestation of state, incidental Screen for STD (sexually transmitted disease) Screening examination for venereal disease documented in this encounter [facility] note* Diagnosis Third trimester - Primary documented in this encounter [facility] note* Diagnosis Vaginal bleeding in - Primary Unspecified antepartum hemorrhage, unspecified as to episode of care documented in this encounter [facility] note* Diagnosis Amenorrhea Absence of menstruation Positive urine test Encounter for supervision of other normal in first trimester documented in this encounter [facility] note* Diagnosis Vagina, candidiasis- Primary Candidiasis of vulva and vagina [facility] Attachments The following attachments cannot be sent through Care Everywhere. * Sore Throat: Teen (Moroccan) [email or web address] Phone: Hospital Discharge instructions* Instructions* Mathieu Wyatt PA-C - 02/04/2022 Take Tylenol every 6 hours as needed for pain [id number]. Return to emergency room for any worsening symptoms. Apply heat to the lower back. Follow- up with PRODUCTION GEAR CUTTER specialist as scheduled. * Attachments The following attachments cannot be sent through Care Everywhere. * Back: Strain: Teen (Moroccan) [email or web address] Phone: InstructionsNot on filedocumented in this encounter [facility] filed[facility] this [facility] Summary Purpose Family History No Family History Records FoundNo Family History Records FoundNo Family History Records FoundNo Family History Records FoundNo Family History Records FoundNo Family History Records Found Advance Directives Documents on File Type Date Recorded Patient Raw Sampler Expl anation Advance Directives and Living Will Power of Paint Booth Operator Documents on File Type Date Recorded Patient Raw Sampler Expl anation Advance Directives and Living Will Power of Paint Booth Operator Documents on File Type Date Recorded Patient Raw Sampler Expl anation ACP-Advance Directive ACP-Power of Paint Booth Operator Documents on File Type Date Recorded Patient Raw Sampler Expl anation ACP-Advance Directive ACP-Power of Paint Booth Operator Latest Code Status on File Code Status Date Activated Date Inactivated Comments Full Code 04/20/2021 6:43 PM Full Code 04/20/2021 5:30 AM 04/20/2021 6:43 PM Latest Code Status on File Code Status Date Activated Date Inactivated Comments Full Code 04/20/2021 6:43 PM 04/22/2021 7:39 PM Latest Code Status on File Code Status Date Activated Date Inactivated Comments Full Code 10/01/2021 11:51 AM 10/01/2021 6:23 PM Full Code 04/20/2021 6:43 PM 04/22/2021 7:39 PM Latest Code Status on File Code Status Date Activated Date Inactivated Comments Full Code 07/14/2022 9:19 AM Full Code 10/01/2021 11:51 AM 10/01/2021 6:23 PM Latest Code Status on File Code Status Date Activated Date Inactivated Comments Full Code 07/14/2022 9:19 AM 07/14/2022 1:03 PM Latest Code Status on File Code Status Date Activated Date Inactivated Comments Full Code 09/03/2022 1:38 PM Full Code 07/14/2022 9:19 AM 07/14/2022 1:03 PM Latest Code Status on File Code Status Date Activated Date Inactivated Comments Full Code 10/06/2022 4:57 PM 10/07/2022 1:11 AM Full Code 09/03/2022 1:38 PM 09/03/2022 4:42 PM Latest Code Status on File Code Status Date Activated Date Inactivated Comments Full Code 10/06/2022 4:57 PM 10/07/2022 1:11 AM Code Status History Code Status Date Activated Date Inactivated Comments Full Code 09/03/2022 1:38 PM 09/03/2022 4:42 PM Full Code 07/14/2022 9:19 AM 07/14/2022 1:03 PM Full Code 10/01/2021 11:51 AM 10/01/2021 6:23 PM Full Code 04/20/2021 6:43 PM 04/22/2021 7:39 PM Latest Code Status on File Code Status Date Activated Date Inactivated Comments Full Code 12/28/2023 9:15 PM Code Status History Code Status Date Activated Date Inactivated Comments Full Code 12/26/2023 11:25 AM 12/26/2023 10:11 PM Full Code 10/06/2022 4:57 PM 10/07/2022 1:11 AM Full Code 09/03/2022 1:38 PM 09/03/2022 4:42 PM Full Code 07/14/2022 9:19 AM 07/14/2022 1:03 PM Latest Code Status on File Code Status Date Activated Date Inactivated Comments Full Code 01/16/2024 11:24 PM 01/17/2024 12:10 PM Code Status History Code Status Date Activated Date Inactivated Comments Full Code 12/31/2023 11:20 PM 01/01/2024 4:17 AM Full Code 12/28/2023 9:15 PM 12/29/2023 7:44 AM Full Code 12/26/2023 11:25 AM 12/26/2023 10:11 PM Full Code 10/06/2022 4:57 PM 10/07/2022 1:11 AM Date Activated Date Inactivated Comments 01/16/2024 11:24 PM 01/17/2024 12:10 PM Date Activated Date Inactivated Comments 12/31/2023 11:20 PM 01/01/2024 4:17 AM Date Activated Date Inactivated Comments 12/28/2023 9:15 PM 12/29/2023 7:44 AM Date Activated Date Inactivated Comments 12/26/2023 11:25 AM 12/26/2023 10:11 PM Date Activated Date Inactivated Comments 10/06/2022 4:57 PM 10/07/2022 1:11 AM Discharge Instructions * Instructions* Anjel Marino MD - 12/25/2019 He had a very fast sinus heart rate. Please follow-up with her regular doctor. If it recurs he may need to come back here or you may need to get a referral for cardiology. documented in this encounter* Attachments The following attachments cannot be sent through Care Everywhere. * Miscarriage: Threatened (Moroccan) documented in this encounter* Instructions* Lani Shane RN - 01/04/[address] Jens MONTAN[address] Dr. Efren Mathews [address] Efrne Betts CN [address] [facility] [id number] [phone] Monalisa Ash, MSN, INSPECTOR WATCH ASSEMBLY, CNM [facility] [address] [facility] [address] [address] Guerrero [address] [facility] [id number] Angelina Rodriguez CNM [address] [place] [address] [place] [address] Billie Rigo CNM [address] [place] [address] [address] [place] [address] [phone] ACTIVITY LIMITATIONS: ( X )Up and about as desired and tolerated ( )Up to bathroom only ( )Lay on either side ( )Avoid heavy lifting or exercise ( )No sex ( )No nipple stimulation ( )Complet bedrest ( )Avoid using stairs ( X )Increase fluids DRINK AT LEAST eight-8oz. Glasses of water daily. Call your Doctor if: ( )Contractions are every 5 minutes apart (from start of one to the start of the next contraction) lasting 60 seconds for at least 1 hour, strong enough you can not walk or talk through the contraction and regular. ( X )Bag of water breaks ( X )Vaginal bleeding ( X )Unusual pain occurs ( X )Decreased movement ( X ) labor: If you have 4 contractions in an hour Keep your scheduled follow up appointment. IN CASE OF EMERGENCY CONTACT LABOR AND DELIVERY . documented in this encounter Assessments Diagnosis Tachycardia- Primary Tachycardia, unspecified Diagnosis Threatened miscarriage in early Threatened , unspecified as to episode of care Diagnosis Threatened miscarriage in early Threatened , unspecified as to episode of care Diagnosis Rigid pelvic floor affecting , second trimester Cyst of right ovary Other and unspecified ovarian cyst Diagnosis Amenorrhea Absence of menstruation Diagnosis 28 weeks gestation of state, incidental History of Present Illness * Nancy Tamez - 12/27/2019 2:00 PM EST Explained Holter monitor and diary. documented in this encounter Reason for Referral Status Reason Specialty Diagnoses / Procedures Referre d By Contact Referred To Contact Closed Radiology Diagnoses Rigid pelvic floor affecting , second trimester Cyst of right ovary Procedures MRI PELVIS WO CONTRAST Ross Pardo MD [address] [facility] [address] [place] [address] Additional Source Comments INFORMATION SOURCE (unrecogn ized section and content) DATE CREATED AUTHOR 04/18/2018 [facility] DATE CREATED AUTHOR AUTHOR'S ORGANIZ ATION 06/22/2019 [facility] DATE CREATED AUTHOR AUTHOR'S ORGANIZ ATION 11/04/2023 [facility] DATE CREATED AUTHOR AUTHOR'S ORGANIZ ATION 07/23/2024 [facility] DATE CREATED AUTHOR AUTHOR'S ORGANIZ ATION 08/02/2024 [facility] DATE CREATED AUTHOR AUTHOR'S ORGANIZ ATION 11/04/2024 [facility] Reason for Visit (unrecogniz ed section and content) Reason Comments Scheduled Induction Specialty Diagnoses / Procedures Referred By Conteva t Referred To Contact Diagnoses Admitted to labor and delivery Yana Bird, INSPECTOR WATCH ASSEMBLY - CNM [address] [facility] [address] [place] [address] [facility] [address] [place] [address] Referral ID Status Reason Start Date Expiration Date Visits Re quested Visits Authorized [id number] 1 1 Reason Comments Tachycardia increased HR, 150s a t home Shaking past hour R DEVELOPER Status Reason Specialty Diagnoses / Procedures Referred By Contact Referred To Contact Not Required - [facility] EKG Diagnoses Tachycardia, unspecified Procedures HOLTER MONITOR Ra Mata MD [address] [place] [address] [facility] Ekg [address] [place] [address] Reason Comments Vaginal Bleeding onset approx 2 hours ago, states found out she was 2 weeks ago Status Reason Specialty Diagnoses / Procedures Referre d By Contact Referred To Contact Closed Radiology Diagnoses Rigid pelvic floor affecting , second trimester Cyst of right ovary Procedures MRI pelvis without contrast Ross Pardo MD [address] [facility] [address] [place] [address] [facility] Mri [address] [facility] [place] [address] Reason Comments Vaginal Bleeding Status Reason Specialty Diagnoses / Procedures Referre d By Contact Referred To Contact Diagnoses Encounter for induction of labor Term KhaiYana, INSPECTOR WATCH ASSEMBLY - CNM [address] [facility] [address] [place] [address] [facility] Reason Comments Vaginal Bleeding 6 days post vaginal delivery; going through 2 pads/hour and passing golf ball sized clots Reason Comments Pharyngitis sore throat and coug h since 08/17. Pt is taking amoxicillin per PCP, Also seen in urgent care. Covid negative. Otalgia bilateral ear pain. Reason Comments Back Pain lumbar area--onset l ast night when she bent over to continuous pickling line pickler shampoo--denies injury--pt states she is 4 weeks Reason Comments Vaginal Bleeding Onset 2300, light bl eeding and cramping. Reason Comments Nausea No vomiting Reason Comments Emesis Nausea Pt reports she is 34 weeks and for the last 3-4 days has been vomiting. Is a pt of Dr. Mathews Reason Comments Abdominal Pain Reason Comments Illness COLE, fever since yest erday Reason Comments Contractions Reason Comments Vaginal Bleeding C/O vaginal bleeding and abdominal pain. Pt is approximately 7 weeks with 4th baby. Vaginal bleeding is minimal. OBGYN is Angelina Mathews. Ordered Prescriptions (unrec ognized section and content) Prescription Sig Dispensed Refills Start Date End Da te docusate sodium (COLACE, DULCOLAX) 100 MG CAPS Take 100 mg by mouth 2 times daily 60 capsule 2 04/22/2021 witch augusto-glycerin (TUCKS) pad Place rectally as needed. 40 each 2 04/22/2021 05/22/2021 benzocaine-menthol (DERMOPLAST) 20-0.5 % AERO spray Apply 1 spray topically 2 times daily 1 Can 2 04/22/2021 ibuprofen (ADVIL;MOTRIN) 800 MG tablet Take 1 tablet by mouth every 8 hours 120 tablet 3 04/22/2021 Prescription Sig Dispensed Refills Start Date End Da te cephALEXin (KEFLEX) 500 MG capsule Take 1 capsule by mouth 3 times daily for 7 days 21 capsule 0 07/14/2022 07/21/2022 Prescription Sig Dispensed Refills Start Date End Da te ondansetron (ZOFRAN ODT) 4 MG disintegrating tablet Take 1 tablet by mouth every 8 hours as needed for Nausea or Vomiting 21 tablet 0 09/03/2022 Scheduled Active and Recently Administ ered Medications (unrecognized section and content) Medication Order 04/20/2021 04/21/2021 04/22/2021 benzocaine-menthol (DERMOPLAST) 20-0.5 % spray Topical, 2 TIMES DAILY, First dose on Mon04/20/21 at 2100, Apply to perineal area. Patient is capable and may self administer at bedside., 2329 (Given - Provider: Maryam Pena RN) 1455 (Not Given - Provider: Martha Funes RN - Reason: Patient/family refused)2013 (Not Given - Provider: Eri Kim RN - Reason: Other - Comment: Remains at patients bedside) 1202 (Not Given - Provider: Caroline Crowley RN - Reason: Other - Comment: remains in patient bathroom.)2100 (Due) ibuprofen (ADVIL;MOTRIN) tablet 800 mg 800 mg, Oral, EVERY 8 HOURS, First dose on Mon04/20/21 at 1900, Do not crush or break., 2328 (Given - Provider: Maryam Pena RN) 0300 (Due)1137 (Given - Provider: Ansley Alvares RN)1900 (Not Given - Provider: Eri Kim RN - Reason: Patient/family refused) 0300 (Not Given - Provider: Eri Kim RN - Reason: Patient/family refused)1203 (Not Given - Provider: Caroline Crowley RN - Reason: Patient/family refused)1900 (Due) measles, mumps & rubella vaccine (MMR) injection 0.5 mL 0.5 mL, Subcutaneous, PRIOR TO DISCHARGE, Starting on Mon04/20/21 at 1843, For 1 dose, sodium chloride flush 0.9 % injection 10 mL 10 mL, Intravenous, EVERY 12 HOURS SCHEDULED (2 times per day), First dose on Mon04/20/21 at 2100, 2100 (Due) 1454 (Not Given - Provider: Martha Funes RN - Reason: Loss of IV access)2013 (Not Given - Provider: Eri Kim RN - Reason: Other - Comment: No IV) 1203 (Not Given - Provider: Caroline Crowley RN - Reason: Loss of IV access)2099 (Due) Cbznwyi-Ovtakl-Ldwzr Pertussis (BOOSTRIX) injection 0.5 mL 0.5 mL, Intramuscular, PRIOR TO DISCHARGE, Starting on Mon04/20/21 at 1843, For 1 dose, If not previously administered during at 27-36 weeks as recommended by CDC., witch augusto-glycerin (TUCKS) pad Topical, 2 TIMES DAILY, First dose on Mon04/20/21 at 2100, Apply to perineal area. Patient is capable and may self administer at bedside., 2328 (Given - Provider: Maryam Pena RN) 1454 (Not Given - Provider: Martha Funes RN - Reason: Patient/family refused)2013 (Not Given - Provider: Eri Kim RN - Reason: Other - Comment: Remains at patient's bedside) 1204 (Not Given - Provider: Caroline Crowley RN - Reason: Other - Comment: Remains in patient bathroom.)2099 (Due) Continuous Medication Order 04/20/2021 04/21/2021 04/22/2021 lactated ringers infusion (CANCELED) Intravenous, at 125 mL/hr, CONTINUOUS, Starting on Mon04/20/21 at 0600, Labor and Delivery 0530 (New Bag - Provider: Glenda Leblanc, FRANTZ)1217 (New Bag - Provider: Paula Massey, RN)1307 (Rate/Dose Change - Provider: Paula Massey, RN)1409 (New Bag - Provider: Paula Massey, FRANTZ) oxytocin (PITOCIN) 30 Units in sodium chloride 0.9 % 500 mL infusion (CANCELED) 1 ashley-units/min (1 mL/hr), Intravenous, at 1 mL/hr, CONTINUOUS, Starting on Mon04/20/21 at 0600, Begin infusion at 1 ashley-unit/min (1 ashley-unit per min = 1 mL per hour) and increase by 2 ashley-units/min as needed, every 30 minutes, until labor is achieved. Labor is defined as contractions every 2-3 minutes with cervical changes or Hayden units (MVU) greater than 200 in a 10-minute window. Maximum infusion rate: 24 ashley-unit/min. Contact provider if maximum rate does not achieve desired response. Provider may order alternative titration goal or other clinically appropriate goal of titration rate (s). If staff does not increase pitocin at ordered rate, or if pitocin is turned down or off notify provider., Labor and Delivery 0605 (New Bag - Provider: Glenda Leblanc RN)0635 (Rate/Dose Change - Provider: Glenda Leblanc RN)0705 (Rate/Dose Change - Provider: Glenda Leblanc RN)0730 (Rate/Dose Change - Provider: Paula Massey RN)0800 (Rate/Dose Change - Provider: Paula Massey RN)0830 (Rate/Dose Change - Provider: Paula Massey RN)0857 (Rate/Dose Change - Provider: Paula Massey RN)0930 (Rate/Dose Change - Provider: Paula Massey RN)1000 (Rate/Dose Change - Provider: Paula Massey RN)1030 (Rate/Dose Change - Provider: Paula Massey RN)1100 (Rate/Dose Change - Provider: Paula Massey RN)1130 (Rate/Dose Change - Provider: Paula Massey RN)1200 (Rate/Dose Change - Provider: Paula Massey RN)1707 (Rate/Dose Change - Provider: Paula Massey RN) PRN Medication Order 04/20/2021 04/21/2021 04/22/2021 0.9 % sodium chloride infusion 25 mL, Intravenous, at 100 mL/hr, PRN, If patient receiving piggyback infusions without ordered maintenance IV fluids or with frequent/long duration piggyback infusions, Starting on Mon04/20/21 at 1843, Administer at the same rate as the piggyback being infused., acetaminophen (TYLENOL) tablet 650 mg 650 mg, Oral, EVERY 4 HOURS PRN, Fever, Fever >100.5 F (38 C) or pain 1-10, Starting on Mon04/20/21 at 1843, Maximum dose of acetaminophen is 4000 mg from all sources in 24 hours., 1429 (Given - Provider: Martha Funes RN)2228 (Given - Provider: Eri Kim, FRANTZ) 1522 (Given - Provider: Caroline Crowley RN) diphenhydrAMINE (BENADRYL) capsule 50 mg 50 mg, Oral, EVERY 6 HOURS PRN, Itching, Starting on Yajaira 04/22/21 at 0356 0404 (Given - Provider: Eri Kim, FRANTZ) docusate sodium (COLACE) capsule 100 mg 100 mg, Oral, 2 TIMES DAILY PRN, Constipation, Starting on Mon04/20/21 at 1843, Do not crush or break., 2328 (Given - Provider: Maryam Pena RN) lansinoh lanolin ointment Topical, PRN, Dry Skin, nipple discomfort, Starting on Mon04/20/21 at 1843, nalbuphine (NUBAIN) injection 10 mg (CANCELED) 10 mg, Intravenous, EVERY 2 HOURS PRN, Pain Moderate (4-6), Pain Severe (7-10), For moderate pain 4-6, Starting on Mon04/20/21 at 0529, PRN for pain, Labor and Delivery 1035 (Given - Provider: Paula Massey RN)1252 (Given - Provider: Paula Massey RN) oxytocin (PITOCIN) 10 unit bolus from the bag 999 mL/hr, Intravenous, at 999 mL/hr, Administer over 20 Minutes, PRN, Bleeding, Starting on Mon04/20/21 at 0529, For 1 dose, For Post Use Only. Give after delivery of placenta. Bolus for bag to infuse at 999ml/20 minutes. oxytocin (PITOCIN) 30 Units in sodium chloride 0.9 % 500 mL infusion (CANCELED) 166 ashley-units/min (166 mL/hr), Intravenous, at 166 mL/hr, PRN, Bleeding, Starting on Mon04/20/21 at 0529, For 1 dose, For Post Use Only. Give after delivery of placenta. Following Bolus from bag administration, reduce the rate to 166 mL/hr and administer remaining bag, Post Delivery 1718 (Rate/Dose Change - Provider: Paula Massey, FRANTZ) sodium chloride flush 0.9 % injection 10 mL 10 mL, Intravenous, PRN, Line Care, Starting on Mon04/20/21 at 1843, After every IV line use, No Frequency Medication Order 04/20/2021 04/21/2021 04/22/2021 diphenhydrAMINE (BENADRYL) 25 MG capsule Starting on Yajaira 04/22/21 at 0403, For 1 dose, Eri Kim: cabinet override 0415 (Not Given - Pr ovider: Eri Kim RN - Reason: Other - Comment: See other administration) Scheduled Medication Order 04/25/2021 04/26/2021 04/27/2021 0.9 % sodium chloride bolus (COMPLETED) 1,000 mL, Intravenous, at 1,000 mL/hr, Administer over 1 Hours, ONCE, On Mon04/27/21 at 1945, For 1 dose 2002 (New Bag - Prov ider: Cris Cornell RN)2108 (Stopped - Provider: Milagro Cummings RN) ibuprofen (ADVIL;MOTRIN) tablet 400 mg (COMPLETED) 400 mg, Oral, ONCE, On Mon04/27/21 at 2115, For 1 dose, Do not crush or chew. 2108 (Given - Provid er: Milagro Cummings RN) Scheduled Medication Order 08/19/2021 08/20/2021 08/21/2021 dexamethasone (DECADRON) tablet 10 mg (COMPLETED) 10 mg, Oral, ONCE, On 08/21/21 at 2245, For 1 dose 2301 (Given - Provid er: Cristina Phipps RN) Scheduled Medication Order 02/02/2022 02/03/2022 02/04/2022 acetaminophen (TYLENOL) tablet 650 mg (COMPLETED) 650 mg, Oral, ONCE, 1 dose, On Mon02/04/22 at 0945, Maximum dose of acetaminophen is 4000 mg from all sources in 24 hours. 0947 (Given - Provid er: Huong Cruz RN) Scheduled Medication Order 07/12/2022 07/13/2022 07/14/2022 hydrOXYzine pamoate (VISTARIL) capsule 50 mg (COMPLETED) 50 mg, Oral, ONCE, 1 dose, On Yajaira 07/14/22 at 1045, STAT 1030 (Given - Provid er: Kristina Tucker, FRANTZ) Scheduled Medication Order 09/01/2022 09/02/2022 09/03/2022 0.9 % sodium chloride bolus (COMPLETED) 1,000 mL, IntraVENous, at 495.9 mL/hr, Administer over 121 Minutes, ONCE, On 09/03/22 at 0600, For 1 dose, For adult patients weighing > 55 kg (120 lbs.) and less than <50 years of age initiate 0.9NS at 500 mL/ hr. All bolus orders are to be given over 10 to 15 minutes 0628 (New Bag - Prov ider: Jeremias Dye RN)0801 (Stopped - Provider: Manuel Faustin RN) ondansetron (ZOFRAN) injection 4 mg (COMPLETED) 4 mg, IntraVENous, ONCE, 1 dose, On 09/03/22 at 0600 0629 (Given - Provid er: Jeremias Dye RN) Scheduled Medication Order 09/01/2022 09/02/2022 09/03/2022 famotidine (PEPCID) tablet 20 mg (COMPLETED) 20 mg, Oral, ONCE, 1 dose, On 09/03/22 at 1445 1432 (Given - Provid er: Ciera Cornell RN) promethazine (PHENERGAN) tablet 25 mg (COMPLETED) 25 mg, Oral, ONCE, 1 dose, On 09/03/22 at 1445 1432 (Given - Provid er: Ciera Cornell RN) Scheduled Medication Order 10/06/2022 10/07/2022 10/08/2022 benzocaine-menthol (DERMOPLAST) 20-0.5 % spray Topical, 2 TIMES DAILY, First dose on 10/07/22 at 0130, Apply to perineal area. Patient is capable and may self administer at bedside., 0130 (Due)0906 (Given - Provider: Martha Funes RN) 0423 (Not Given - Provider: Connie Garnett RN - Reason: Other - Comment: pt received 10/07/22 at 0906. Pt has at bedside using as needed.)899 (Due)2099 (Due) ibuprofen (ADVIL;MOTRIN) tablet 800 mg 800 mg, Oral, EVERY 8 HOURS, First dose on Mon10/07/22 at 0130, Until Discontinued, Once tolerating PO, discontinue Toradol and begin ibuprofen 8 hours after the final dose of Toradol. Alternate ibuprofen and acetaminophen every 4 hours., 0207 (Given - Provider: Magdalena Jefferson, RN)1448 (Given - Provider: Martha Funes, FRANTZ)1730 (Due)2239 (Given - Provider: Connie Garnett RN - Comment: due now, last given at 1448.) 1233 (Given - Provider: Jennifer Hill RN)1730 (Due) measles, mumps & rubella vaccine (MMR) injection 0.5 mL 0.5 mL, SubCUTAneous, PRIOR TO DISCHARGE, 1 dose, Starting on Mon10/07/22 at 0111, Until Discontinued, sodium chloride flush 0.9 % injection 5-40 mL 5-40 mL, IntraVENous, EVERY 12 HOURS SCHEDULED (2 times per day), First dose on Mon10/07/22 at 0900, Until Discontinued, For Line Patency: Peripheral IV = 5 mL; Midline or Central Line = 10 mL/lumen. If following IV push medication, administer flush at same rate as the IV push. Flush volume is determined by type of infusion therapy being given. For non-viscous solutions use: Peripheral IV = 5 mL Midline or Central Line = 10 mL/lumen For viscous solutions (i.e. blood components, parenteral nutrition, contrast media, or after obtaining blood sample) use: Peripheral IV = 10 mL Midline or Central Line = 20 mL/lumen, 899 (Due)2099 (Not Given - Provider: Connie Garnett RN - Reason: Loss of IV access - Comment: IV taken out per order.) 899 (Due)2099 (Due) iyzhmih-qtjgmh-ysewl pertussis (BOOSTRIX) injection 0.5 mL 0.5 mL, IntraMUSCular, PRIOR TO DISCHARGE, 1 dose, Starting on Mon10/07/22 at 0111, Until Discontinued, If not previously administered during at 27-36 weeks as recommended by CDC., witch augusto-glycerin (TUCKS) pad Topical, 2 TIMES DAILY, First dose on Mon10/07/22 at 0130, Apply to perineal area. Patient is capable and may self administer at bedside., 0130 (Due)09 (Given - Provider: Martha Funes RN)2099 (Not Given - Provider: Connie Garnett RN - Reason: Other - Comment: pt received 10/07/22. Pt has at bedside using as needed .) 0900 (Due)2099 (Due) Continuous Medication Order 10/06/2022 10/07/2022 10/08/2022 lactated ringers infusion (CANCELED) IntraVENous, at 125 mL/hr, CONTINUOUS, Starting on Yajaira 10/06/22 at 1715, Labor and Delivery 1711 (New Bag - Provider: Jennifer Ferreira RN) 031 (Stopped - Provider: Magdalena Jefferson RN) oxytocin (PITOCIN) 30 units in 500 mL infusion (CANCELED) 1-24 ashley-units/min (1-24 mL/hr), IntraVENous, CONTINUOUS, Starting on Yajaira 10/06/22 at 1715, Until Mon10/07/22 at 0111, Begin infusion at 1 ashley-unit/min (1 ashley-unit per min = 1 mL per hour) and increase by 2 ashley-units/min as needed, every 30 minutes, until labor is achieved. Labor is defined as contractions every 2-3 minutes with cervical changes or Hayden units (MVU) greater than 200 in a 10-minute window. Maximum infusion rate: 24 ashley-unit/min. Contact provider if maximum rate does not achieve desired response. Provider may order alternative titration goal or other clinically appropriate goal of titration rate (s). If staff does not increase pitocin at ordered rate, or if pitocin is turned down or off notify provider., Labor and Delivery 1859 (New Bag - Provider: Jennifer Ferreira RN)1929 (Rate/Dose Change - Provider: Magdalena Jefferson, FRANTZ)2014 (Rate/Dose Change - Provider: Magdalena Jefferson RN)2044 (Rate/Dose Change - Provider: Magdalena Jefferson RN)2115 (Rate/Dose Change - Provider: Magdalena Jefferson RN)2199 (Rate/Dose Change - Provider: Magdalena Jefferson RN)2233 (Rate/Dose Change - Provider: Magdalena Jefferson RN)2323 (Rate/Dose Change - Provider: Magdalena Jefferson RN - Comment: Per verbal order by Leydi Bird CNM) 14 (Stopped - Provider: Magdalena Jefferson RN) PRN Medication Order 10/06/2022 10/07/2022 10/08/2022 0.9 % sodium chloride infusion IntraVENous, at 5-250 mL/hr, PRN, if patient receiving piggyback infusions and maintenance fluids are not ordered OR KVO fluids to protect IV site / prevent frequent line interruptions/ long duration, Starting on Mon10/07/22 at 0111, For piggyback infusion, administer at same rate as piggyback for a total of 25 mL. Enter 25 mL into dose field and piggyback rate into rate field of order. If piggyback is infusing at a rate less than 100 mL/hr, enter 25 mL into dose field and 100 mL/hr into rate field of order. For KVO fluids, enter rate of 20 mL/hr or less into rate field of order., acetaminophen (TYLENOL) tablet 1,000 mg 1,000 mg, Oral, EVERY 8 HOURS PRN, Starting on Mon10/07/22 at 0111, Until Discontinued, Other, Pain (1-10), Give in addition to any other pain medication ordered at same time for any pain indication. Maximum dose of acetaminophen is 4000mg from all sources in 24 hours. Alternate ibuprofen and acetaminophen every 4 hours., 905 (Given - Provider: Martha Funes, FRANTZ)2010 (Given - Provider: Connie Garnett, FRANTZ) carboprost (HEMABATE) injection 250 mcg 250 mcg, IntraMUSCular, PRN, Starting on Mon10/07/22 at 0111, Until Discontinued, bleeding, May repeat every 15 minutes up to a cumulative maximum dose of 1000 mcg, at physician's request., docusate sodium (COLACE) capsule 100 mg 100 mg, Oral, 2 TIMES DAILY PRN, Starting on Mon10/07/22 at 0111, Until Discontinued, Constipation, Do not crush or break., 2236 (Given - Provider: Connie Garnett, FRANTZ) 0838 (Given - Provider: Jennifer Hill, FRANTZ) lansinoh lanolin ointment Topical, PRN, Dry Skin, nipple discomfort, Starting on Mon10/07/22 at 0111, methylergonovine (METHERGINE) injection 200 mcg 200 mcg, IntraMUSCular, PRN, Starting on Mon10/07/22 at 0111, Until Discontinued, Bleeding, PRN for post- hemorrhage, if not hypertensive., miSOPROStol (CYTOTEC) tablet 800 mcg 800 mcg, Rectal, PRN, 1 dose, Starting on Mon10/07/22 at 0111, Until Discontinued, Post- Hemorrhage, Notify Physician prior to administration., oxytocin (PITOCIN) 10 unit bolus from the bag(Linked Group 1) 999 mL/hr, IntraVENous, PRN, 1 dose, Starting on Yajaira 10/06/22 at 1655, Until Discontinued, Bleeding, For Post Use Only. Give after delivery of placenta. Bolus for bag to infuse at 999ml/20 minutes. 0015 (Bolus from Bag - Provider: Magdalena Jefferson RN)0030 (Stop Time - Provider: Magdalena Jefferson RN) oxytocin (PITOCIN) 30 units in 500 mL infusion(Linked Group 1) 166 ashley-units/min (166 mL/hr), IntraVENous, PRN, 1 dose, Starting on Yajaira 10/06/22 at 1655, Until Discontinued, Bleeding, For Post Use Only. Give after delivery of placenta. Following Bolus from bag administration, reduce the rate to 166 mL/hr and administer remaining bag 0030 (Rate/Dose Change - Provider: Magdalena Jefferson RN)0218 (Stopped - Provider: Magdalena Jefferson RN) sodium chloride flush 0.9 % injection 5-40 mL 5-40 mL, IntraVENous, PRN, Starting on Mon10/07/22 at 0111, Until Discontinued, Line Care, After every IV line use, For Line Patency: Peripheral IV = 5 mL; Midline or Central Line = 10 mL/lumen. If following IV push medication, administer flush at same rate as the IV push. Flush volume is determined by type of infusion therapy being given. For non-viscous solutions use: Peripheral IV = 5 mL Midline or Central Line = 10 mL/lumen For viscous solutions (i.e. blood components, parenteral nutrition, contrast media, or after obtaining blood sample) use: Peripheral IV = 10 mL Midline or Central Line = 20 mL/lumen, Linked Groups Order Group 1: oxytocin (PITOCIN) 30 units in 500 mL infusionJump to med 166 ashley-units/min (166 mL/hr), IntraVENous, PRN, 1 dose, Starting on Yajaira 10/06/22 at 1655, Until Discontinued, Bleeding
For Post Use Only. Give after delivery of placenta. Following Bolus from bag administration, reduce the rate to 166 mL/hr and administer remaining bag
And oxytocin (PITOCIN) 10 unit bolus from the bagJump to med 999 mL/hr, IntraVENous, PRN, 1 dose, Starting on Yajaira 10/06/22 at 1655, Until Discontinued, Bleeding
For Post Use Only. Give after delivery of placenta. Bolus for bag to infuse at 999ml/20 minutes.
Scheduled Medication Order 10/11/2022 10/12/2022 10/13/2022 0.9 % sodium chloride bolus (COMPLETED) 2,000 mL (24.5 mL/kg), IntraVENous, at 991.7 mL/hr, Administer over 121 Minutes, ONCE, On Yajaira 10/13/22 at 0800, For 1 dose, For adult patients weighing > 55 kg (120 lbs.) and less than <50 years of age initiate 0.9NS at 500 mL/ hr. All bolus orders are to be given over 10 to 15 minutes 0812 (New Bag - Prov ider: Cristina Phipps RN)1015 (Stopped - Provider: Cristina Phipps RN) acetaminophen (TYLENOL) tablet 650 mg (COMPLETED) 650 mg, Oral, ONCE, 1 dose, On Yajaira 10/13/22 at 0800, Maximum dose of acetaminophen is 4000 mg from all sources in 24 hours. 0814 (Given - Provid er: Cristina Phipps RN) dexamethasone (DECADRON) injection 10 mg (COMPLETED) 10 mg, IntraVENous, ONCE, On Yajaira 10/13/22 at 0945, For 1 dose 0948 (Given - Provid er: Cristina Phipps RN) ketorolac (TORADOL) injection 30 mg (COMPLETED) Ketorolac is contraindicated in patients with advanced renal impairment and in patients at risk of renal failure due to volume depletion. For 65 years of age and older OR weight less than 50 kg, use 15 mg IV every 6 hours; MAX dose: 60 mg/day. Dose greater than 30 mg must be administered via intramuscular route. Do not administer for more than 5 days., 30 mg, IntraVENous, ONCE, 1 dose, On Yajaira 10/13/22 at 0945, Do not administer for more than 5 days. 0948 (Given - Provid er: Cristina Phipps RN) metoclopramide (REGLAN) injection 10 mg (COMPLETED) 10 mg, IntraVENous, ONCE, 1 dose, On Yajaira 10/13/22 at 0945 0948 (Given - Provid er: Cristina Phipps RN) Scheduled Medication Order 12/27/2023 12/28/2023 12/29/2023 hydrOXYzine pamoate (VISTARIL) capsule 50 mg (COMPLETED) 50 mg, Oral, ONCE, 1 dose, On Mon12/29/23 at 0100 0109 (Given - Provid er: Macey Mayfield RN) lactated ringers bolus 500 mL (COMPLETED) 500 mL, IntraVENous, at 999 mL/hr, Administer over 30.029 Minutes, ONCE, On Yajaira 12/28/23 at 2230, For 1 dose 2226 (New Bag - Provider: Magdalena Jefferson RN)2258 (Stopped - Provider: Magdalena Jefferson RN) penicillin G potassium 2.5 million units in 0.9% sodium chloride 100 mL IVPB(Linked Group 1) 2.5 Million Units, IntraVENous, EVERY 4 HOURS, First dose on Mon12/29/23 at 0445, Until Discontinued, Antimicrobial Indications: GBS Prophylaxis, Begin 4 hours after loading dose. Continue until delivery. 0445 (Due)0845 (Due)1245 (Due)1645 (Due)2045 (Due) penicillin G potassium 5 Million Units in sodium chloride 0.9 % 100 mL IVPB(Linked Group 1) 5 Million Units, IntraVENous, ONCE, 1 dose, On Mon12/29/23 at 0100, Antimicrobial Indications: GBS Prophylaxis 0237 (Not Given - Provider: Macey Mayfield RN - Reason: Patient/family refused) Continuous Medication Order 12/27/2023 12/28/2023 12/29/2023 lactated ringers IV soln infusion IntraVENous, at 150 mL/hr, CONTINUOUS, Starting on Yajaira 12/28/23 at 2230 2258 (Rate/Dose Change - Provider: Magdalena Jefferson RN) 0235 (Stopped - Provider: Macey Mayfeild RN) Linked Groups Order Group 1: penicillin G potassium 5 Million Units in sodium chloride 0.9 % 100 mL IVPBJump to med 5 Million Units, IntraVENous, ONCE, 1 dose, On Mon12/29/23 at 0100
Antimicrobial Indications: GBS Prophylaxis Followed by penicillin G potassium 2.5 million units in 0.9% sodium chloride 100 mL IVPBJump to med 2.5 Million Units, IntraVENous, EVERY 4 HOURS, First dose on Mon12/29/23 at 0445, Until Discontinued
Antimicrobial Indications: GBS Prophylaxis
Begin 4 hours after loading dose. Continue until delivery.
Care Teams (unrecognized sec tion and content) Senior Design Engineer Relationship Specialty Start Date End Date Ra Mata MD [address] [place] [phone] PCP - General Pediatrics 04/14/21 Senior Design Engineer Relationship Specialty Start Date End Date Ra Mata MD [address] [place] [phone] PCP - General Pediatrics 04/14/21 Senior Design Engineer Relationship Specialty Start Date End Date Ra Mata MD [address] [place] [phone] PCP - General Pediatrics 04/14/21 Senior Design Engineer Relationship Specialty Start Date End Date Ra Mata MD [address] [place] [phone] PCP - General Pediatrics 04/14/21 Senior Design Engineer Relationship Specialty Start Date End Date Ra Mata MD [address] [place] [phone] PCP - General Pediatrics 04/14/21 Senior Design Engineer Relationship Specialty Start Date End Date Ra Mata MD [address] [place] [phone] PCP - General Pediatrics 04/14/21 Senior Design Engineer Relationship Specialty Start Date End Date Ra Mata MD [address] [place] [phone] PCP - General Pediatrics 04/14/21 Senior Design Engineer Relationship Specialty Start Date End Date Ra Mata MD [address] [place] [phone] PCP - General Pediatrics 04/14/21 Senior Design Engineer Relationship Specialty Start Date End Date Ra Mata MD [address] [place] [phone] PCP - General Pediatrics 04/14/21 Senior Design Engineer Relationship Specialty Start Date End Date Ra Mata MD [address] [place] [phone] PCP - General Pediatrics 04/14/21 Senior Design Engineer Relationship Specialty Start Date End Date Ra Mata MD [address] [place], [place] [phone] PCP - General Pediatrics 04/14/21 Senior Design Engineer Relationship Specialty Start Date End Date Ra Mata MD [address] [place] [phone] PCP - General Pediatrics 04/14/21 Senior Design Engineer Relationship Specialty Start Date End Date Ra Mata MD [address] [place] [phone] PCP - General Pediatrics 08/12/23 Senior Design Engineer Relationship Specialty Start Date End Date Ra Mata MD [address] [place] [phone] PCP - General Pediatrics 08/12/23 FOR RECORDS PERTAINING TO PATIENTS WHO ARE OR HAVE BEEN ENROLLED IN A CHEMICAL DEPENDENCY/SUBSTANCEABUSE PROGRAM, SOME INFORMATION MAY BE OMITTED. This clinical summary was aggregated from multiple sources. Caution should be exercised in using it in the provision of clinical care. This summary normalizes information from multiple sources, and as a consequence, information in this document may materially change the coding, format and clinical context of patient data. In addition, data may be omitted in some cases. CLINICAL DECISIONS SHOULD BE BASED ON THE PRIMARY CLINICAL RECORDS. [facility] [employer] [facility]. provides no warranty or guarantee of the accuracy or completeness of information in this document.
[2024-12-05 11:34] VITALS: BP 108/59; PULSE 90
[2024-12-05 11:45] VITALS: BP 108/59; PULSE 60; TEMP 35.9
[2024-12-05 11:57] LABS: Bilirubin Urine NEGATIVE (NEGATIVE); Blood Urine LARGE (NEGATIVE); Clarity Urine CLEAR (CLEAR); Color Urine LT. YELLOW (YELLOW); Glucose Urine UA NEGATIVE (NEGATIVE); Ketones Urine NEGATIVE (NEGATIVE); Leukocyte Esterase Urine SMALL (NEGATIVE); Nitrite Urine NEGATIVE (NEGATIVE); Protein Urine >=300 mg/dL (NEG/TRACE)
[2024-12-05 11:58] LABS: Urine Microscopic Indicated YES
[2024-12-05 12:04] LABS: Bacteria Urine SMALL #/HPF (NONE SEEN); Mucus Urine NONE SEEN (NONE SEEN); WBC Urine 50-75 #/HPF (NONE SEEN)
[2024-12-05 12:05] LABS: Cast Seen? NONE SEEN #/LPF (NONE SEEN); Crystals Seen? None Seen #/HPF (None Seen); Squamous Epithelial Cell Urine FEW #/LPF (NONE/RARE)
[2024-12-05 12:24] LABS: Urine Culture Indicated YES-LC
[2024-12-05] MEDS: CEPHALEXIN 500 MG CAPSULE PO (12:52)
--- NOTE | 2024-12-10 08:21 | CM.NOTE ---
Faxed final culture result to Monalisa Ash and called office ([facility])
== END 2024-12-05 13:00 | disposition home or self-care (01) ==
PROVIDERS: Admitting Provider Midwife; PCP Pediatrics; Visit Provider Midwife
DX: O99.891 Other specified diseases and conditions complicating pregnancy (principal); R10.9 Unspecified abdominal pain; Z3A.00 Weeks of gestation of pregnancy not specified; O23.40 Unspecified infection of urinary tract in pregnancy, unspecified trimester; B96.20 Unspecified Escherichia coli [E. coli] as the cause of diseases classified elsewhere; N39.0 Urinary tract infection, site not specified
CPT/HCPCS: 59025; 81001; 87086; 87186; G0378; G0379

== ENCOUNTER 2025-01-25 00:45 | Observation (INO) | payer OTHER, SELFPAY ==
--- OUTSIDE RECORDS SUMMARY | 2025-01-25 00:51 | XMS_ITS | CCD ---
Author Organization [facility] Inform ion [facility] Care Team Providers Care Customer [employer] Supervisor Name Role Phone RA MATA Unavailable Unavailable SELF, REFERRED Unavailable Unavailable DARA SHI Unavailable Unavailable MARKER, SHEELA Admitting Unavailable MARKER, SHEELA Attending Unavailable MARKER, SHEELA Consulting Unavailable KATEY PIMENTEL Consulting Unavailable Katey Pimentel Primary Care Provider Unavailabl e Katey Pimentel Primary Care Provider [phone] Unavailable Primary Care Provider Unavailbruno e Katey Pimentel Primary Care Provider [phone] Yuo FORENSIC MEDICAL EXAMINER - ALUMINUM POOL INSTALLER, Katey Allen Primary Care Provider Carolyn NEUMANN, Ra Nicholson Primary Care Provider You RNKatey Primary Care Provider Unavail able Carolyn NEUMANN, Ra Nicholson Primary Care Provider Carolyn NEUMANN, Ra Nicholson Primary Care Provider Carolyn NEUMANN, Ra Nicholson Primary Care Provider Carolyn NEUMANN, Ra Nicholson Primary Care Provider Paolo Rodriguez Attending Unavailab Paolo Martin Admitting Unavailab Ra Lundberg Primary Care Unavailable Carolyn NEUMANN, Ra Nicholson Primary Care Provider Unavailable Primary Care Provider UnavailRA Villeda Primary Care Unavailable MATHIEU MCHUGH Attending Unavailab MATHIEU Medrano Attending Unavailab MATHIEU Medrano Referring Unavailab RA Lundberg Primary Care Unavailable RA MATA Primary Care Unavailable MYRTLE DELANEY Attending Unavailable MYRTLE DELANEY Attending Unavailable MYRTLE DELANEY Referring Unavailable KAKARALA, KNAPP C Primary Care Unavailable KAKARALA, KNAPP C Primary Care Unavailable PAPI MARROQUIN Attending Unavailable KAKARALA, KNAPP C Primary Care Unavailable DONA RHODES Attending Unavailable KAKARALA, KNAPP C Referring Unavailable KAKARALA, KNAPP C Primary Care Unavailable KAKARALA, KNAPP C Primary Care Unavailable ANGELINA MATHEWS Attending Unavailabl ANGELINA Crowley Admitting Unavailabl e KAKARALA, KNAPP C Primary Care Unavailable DESMOND RODRIGUEZ Attending Unavailable KAKARALA, KNAPP C Primary Care Unavailable ANGELINA MATHEWS Referring Unavailabl e KAKARALA, KNAPP C Primary Care Unavailable ANGELINA MATHEWS Referring Unavailabl e KAKARALA, KNAPP C Primary Care Unavailable ANGELINA MATHEWS Referring Unavailabl e KAKARALA, KNAPP C Primary Care Unavailable ANGELINA MATHEWS Referring Unavailabl e Medications Current Medications Medication Drug Class(es) Dates [...] spray topically 2 times daily 1 Can 04/22/2021 Active Start: 04-20-2021 apply 1 [...] ringers infusion cephalexin 500 mg oral capsule (2 sources) Cephalosporin Antibacterial Start: 12-05-2024 End: 12-15-2024 take 1 capsule by mouth in the morning, then take 1 capsule by mouth in the evening, then take 1 capsule by mouth at bedtime cephalexin (Keflex) 500 MG capsule Indications: Acute cystitis with hematuria Take 1 capsule (500 mg) by mouth in the morning and 1 capsule (500 mg) in the evening and 1 capsule (500 mg) before bedtime. Do all this for 10 days. 30 capsule 12/05/2024 12/15/2024 Active Start: 07-14-2022 End: 07-21-2022 take 1 capsule [...] nipple discomfort, Starting on Mon04/20/21 at 1843, levonorgestrel 0.633031 mg/hr intrauterine system (1 source) Progestin, Progestin-containing Intrauterine Device Start: 07-21-2021 levonorgestrel (MIRENA) IUD 52 mg 1 each ondansetron 4 mg disintegrating oral tablet (17 sources) Serotonin-3 Receptor Antagonist Start: 07-31-2024 take 1 tablet by mouth every eight hours as needed for nausea ondansetron (ZOFRAN-ODT) 4 MG disintegrating tablet Take 1 tablet by mouth every 8 hours as needed for Nausea or Vomiting 30 tablet 10/29/2024 Active Start: 12-05-2023 take 1 tablet by gerry three times daily as needed for nausea [...] 0.9% sodium chloride 100 mL IVPB Prenat GF-Nbd-Tdjgbnifdbdi-FA (PRENATE) 0.6-0.4 MG CHEW (13 sources) take 1 tablet by mouth once daily Prenat BL-Cva-Zgzhnzvyclkx-FA (PRENATE) 0.6-0.4 MG CHEW Take 1 tablet by mouth Daily Active take 1 tablet by mouth once mary y Prenat KG-Idk-Pssknamolbwc-FA (PRENATE) 0.6- 0.4 MG CHEW Take 1 tablet by mouth Daily 0 Active take 1 tablet by mouth once mary y Prenat GX-Wex-Lqzqletkyaci-FA (PRENATE) 0.6- 0.4 MG CHEW Take 1 [...] Start: 10-12-2020 take 1 tablet by gerry every six hours as needed for nausea [...] 24 hours. take 1 tablet by gerry every six hours as needed for pain [...] System Stimulant, Methylxanthine Start: 01-18-2021 End: 04-22-2021 asxlbzhzxi-banbblezoqzuw-hlg feine (FIORICET, ESGIC) 50-325-40 MG per tablet [...] mg Start: 04-20-2021 take 1 tablet by egrry th every eight hours ibuprofen (ADVIL;MOTRIN) 800 [...] dysrhythmias (1 source) Tachycardia; Translations: [Tachycardia] Episodic Early or threatened labor (12 sources) Finding of uterine contractions; Translations: [False labor, unspecified] Onset: 12-31-2023 Resolved: 02-28-2024 01-09-2024 Episodic Fever of unknown origin (1 source) Fever; Translations: [Fever, unspecified] Episodic Fluid and electrolyte disorders (1 source) Dehydration; Translations: [Dehydration] Episodic Headache; including migraine (1 source) Headache; Translations: [Headache above the eye region] Episodic Menstrual disorders (6 sources) Amenorrhea; Translations: [...] or infectious disease) (2 sources) Encounter for other specified screening; Translations: [Encounter for screening for malformations] Onset: 10-29-2024 Episodic Otitis media and related conditions (1 source) Otitis media, unspecified, unspecified ear; Translations: [Otitis media, unspecified, unspecified ear] Onset: 12-15-2024 Episodic Ovarian cyst (16 sources) Cyst of right ovary; Translations: [Unspecified [...] Translations: [30 weeks gestation of ] Onset: 01-06-2025 Episodic Residual codes; unclassified (1 source) 20 weeks gestation of ; Translations: [20 weeks gestation of ] Onset: 10-29-2024 Episodic Sprains and strains (1 source) Low back strain; Translations: [Strain of muscle, fascia and tendon of lower back, initial encounter] Episodic Unclassified (1 source) Earache Onset: 12-15-2024 Unclassified (1 source) Abdominal Pain Onset: 07-22-2024 Unclassified (1 source) Vaginal Bleeding - Onset: 07-22-2024 Unclassified (1 source) Arm Injury Onset: 05-26-2024 Past or Other Problems Problem Classification Problem Date Documented Date Episodic/Chronic Abdominal pain (16 sources) Abdominal pain; Translations: [Unspecified abdominal pain] Onset: 09-03-2022 Resolved: 01-09-2024 Episodic Hemorrhage during ; abruptio placenta; placenta previa (6 sources) Threatened miscarriage in first trimester; Translations: [Bleeding from female genital tract during ] Onset: 07-22-2024 Episodic Mycoses (1 source) Candidiasis of vagina; Translations: [Vagina, candidiasis] 11-06-2023 Episodic Nausea and vomiting (17 sources) Nausea; Translations: [Nausea] Onset: 07-14-2022 Episodic Other complications of (20 sources) Abnormal findings on screening of mother; Translations: [Abnormal chromosomal and genetic finding on screening of mother] Onset: 11-09-2020 Resolved: 01-09-2024 11-09-2020 Episodic Other complications of (6 sources) Venereal disease in mother complicating , childbirth AND/OR puerperium; Translations: [Other infections with a predominantly sexual mode of transmission complicating , third trimester] Onset: 12-05-2023 Resolved: 02-28-2024 12-05-2023 Episodic Other complications of (1 source) with [...] Resolved: 02-28-2024 04-19-2021 Episodic Residual codes; unclassified (11 sources) Admission statuses; Translations: [Other specified health status] Onset: 10-06-2022 Resolved: 10-08-2022 Episodic Residual codes; unclassified (11 sources) Gestation period, 39 weeks; Translations: [39 weeks gestation of ] Onset: 10-07-2022 Resolved: 10-08-2022 Episodic Residual codes; unclassified (4 sources) Gestation period, 38 weeks; Translations: [38 weeks gestation of ] Onset: 12-28-2023 Resolved: 02-28-2024 02-28-2024 Episodic Superficial injury; contusion (2 sources) Contusion of right knee, initial encounter; Translations: [Contusion of left elbow, initial encounter] Onset: 05-26-2024 Episodic Urinary tract infections (2 sources) Acute cystitis; Translations: [Acute cystitis with hematuria] Onset: 03-15-2024 12-05-2024 Episodic NEGATED: Highlighted row has been ruled out!Unclassified (6 sources) No known active problems 11-03-2023 Results Test Name Value Interpretation Reference Range Facility US OB 1 OR MORE FETUS LIMITE Don 01-15-2025 US OB 1 OR MORE FETUS LIMITED EXAMINATION: 01/15/2025 THIRD TRIMESTER OBSTETRIC ULTRASOUND TECHNIQUE: Transabdominal third trimester obstetric pelvic ultrasound was performed with color Doppler flow evaluation. COMPARISON: 01/06/2025 HISTORY: ORDERING SYSTEM PROVIDED HISTORY: Contractions TECHNOLOGIST PROVIDED HISTORY: Check placenta and location, CL and estimated weight Contractions FINDINGS: EVALUATION Number of Fetuses: Single Presentation: Cephalic Heart Rate: 138 beats per minute Placenta: Posterior positioning ALINE: 14.2 cm CERVIX: 4.8 cm GESTATIONAL AGE: Provided gestational age: 31 weeks, 4 days Provided EDIN: 03/15/2025 Sonographic gestational age: 31 weeks, 3 days Sonographic EDIN: 03/16/2025 BIOMETRY: BPD: 7.9 cm (31 weeks, 4 days) HC: 29.4 cm (32 weeks, 3 days) AC: 27 cm (31 weeks, 1 day) FL: 5.9 cm (30 weeks, 5 days) Estimated weight: 1711 g (26 percentile) Gross ratios and anatomy were not assessed. IMPRESSION: Single live intrauterine with an estimated gestational age of 31 weeks, 3 days. Estimated delivery date is 03/16/2025. Interpreted by: Akila Gonzalez MD Signed by: Akila Gonzalez MD 01/15/[address] [facility] Urinalysison 01-15-2025 Bilirubin Ql (U) Negative NEGATIVE Bon [facility] Clarity (U) Clear Clear [facility] Color (U) Yellow Yellow [facility] Glucose Test strip (U) [Mass/Vol] Negative NEGATIVE mg/dL [facility] Hemoglobin Auto test strip Ql (U) Negative NEGATIVE Bon [facility] Ketones (U) [Mass/Vol] Negative NEGAT JG mg/dL [facility] Leukocyte esterase Test strip Ql (U) Negative NEGATIVE [facility] Nitrite Ql (U) Negative NEGATIVE [facility] pH (U) 7 [pH] 5.0 - 9.0 [facility] Protein (U) [Mass/Vol] Negative NEGAT JG mg/dL [facility] Specific gravity (U) [Rel density] 1.02 1.010 - 1.020 [facility] Urobilinogen Qn (U) Normal 0.0 - 1. 0 EU/dL [facility] Urinalysis, Routineon 2024 Bilirubin, SemiQt,Ur Negative Normal NEG [facility] Comment on above: Performed By: #### U A #### [facility] [address] [place] [address] [place] [address] Repairer Shoe Sticks: Omero Murry MD Blood, Urine Negative Normal NEG [facility] Comment on above: Performed By: #### U A #### [facility] [address] [place] [address] Dr. [place], [facility] Repairer Shoe Sticks: Omero Murry MD Clarity (U) Clear Normal CLEAR [facility] Comment on above: Performed By: #### U A #### [address] [place] [address] Repairer Shoe Sticks: Omero Murry MD Color (U) Yellow Normal YEL [facility] Comment on above: Performed By: #### U A #### [facility] [address] [place] [address] Dr. [place], [facility] Repairer Shoe Sticks: Omero Murry MD Glucose Ql (U) Negative Normal NEG [facility] Comment on above: Performed By: #### U A #### [address] [place] [address] Repairer Shoe Sticks: Omero Murry MD Ketones Ql (U) Negative Normal NEG [facility] Comment on above: Performed By: #### U A #### [facility] [address] [place] [address] Dr. [place], [place] [id number] Repairer Shoe Sticks: Omero Murry MD Leukocyte esterase Test strip Ql (U) Negative Normal NEG [facility] Comment on above: Performed By: #### U A #### [facility] [address] [place] [address] Dr[place] [id number] Repairer Shoe Sticks: Omero Murry MD Nitrite,Ur Negative Normal NEG [facility] Comment on above: Performed By: #### U A #### [facility] [address] [place] [address] Dr[place], [place] [id number] Repairer Shoe Sticks: Omero Murry MD PH,Ur 7.0 Normal 5.0-9.0 [facility] Comment on above: Performed By: #### U A #### [address] [place], [place] [id number] Repairer Shoe Sticks: Omero Murry MD Protein Ql (U) Negative Normal NEG [facility] Comment on above: Performed By: #### U A #### [facility] [address] [place] [address] Dr. [place], [place] [id number] Repairer Shoe Sticks: Omero Murry MD Spec. Alder,Ur 1.020 Normal 1.010-1.020 [facility] Comment on above: Performed By: #### U A #### [address] [place], [place] [id number] Repairer Shoe Sticks: Omero Murry MD Urobilinogen,Ur Normal Normal 0.0-1.0 [facility] Comment on above: Performed By: #### U A #### [facility] [address] [place] [address] [place] [address] Repairer Shoe Sticks: Omero Murry MD US OB FOLLOW UP TRANSABDOMIN AL APPROACHon 01-06-2025 US OB FOLLOW UP TRANSABDOMINAL APPROACH 31.2 WK IUP EFW:59.6% (3lb 11oz) CL:3.5cm ALINE:17.5cm HR:142bpm posterior placenta, cephalic presentation Active movements Grade 2 placenta 2 vessel umbilical cord again noted Interpreted by: Angelina Mathews, FORENSIC MEDICAL EXAMINER - CNM Ciera Martínez DO Signed by: Ciera Martínez DO 01/06/25 Final result Normal [facility] No Panel Informationon 12-05 Interpretation and review of laboratory results Abnormal [facility] TB UA (CLEAN/CATCH) ABRASIVE WORKER/MERYL RO IF IND.on 12-05-2024 BILIRUBIN URINE Negative NEGATIVE [facility] BLOOD URINE LARGE Abnormal NEGATIVE [facility] Clarity (U) CLEAR [facility] Color (U) LT. YELLOW YELLOW [facility] GLUCOSE URINE UA Negative NEGATIVE mg/dL [facility] Ketones Ql (U) Negative NEGATIVE mg/dL [facility] Leukocyte esterase Test strip Ql (U) SMALL Abnormal NEGATIVE [facility] NITRITE URINE Negative NEGATIVE [facility] pH (U) 8.0 [pH] 5.0 - 9.0 [facility] PROTEIN URINE >=300 Abnormal NEG/TRACE mg/dL [facility] SPECIFIC GRAVITY URINE 1.020 1.005 - 1.025 [facility] URINE MICROSCOPIC INDICATED YES [facility] UROBILINOGEN URINE 1.0 EU/dL 0.2 - 1.0 EU/dL [facility] URINE MICROSCOPIC ONLYon 12-05-2024 BACTERIA URINE SMALL Abnormal NONE SEEN #/HPF [facility] CAST SEEN? NONE SEEN NONE SEEN #/LPF [facility] CRYSTALS SEEN? None Seen None Seen #/HPF [facility] MUCUS URINE NONE SEEN NONE SEEN [facility] SQUAMOUS EPITHELIAL CELL URINE FEW Abnormal NONE/RARE #/LPF [facility] RBC 10-20 Abnormal [facility] WBC 50-75 Abnormal NONE SEEN #/HPF [facility] URINE CULTURE INDICATED YES [facility] US OB LESS THAN 14 WEEKS SIN GLE OR FIRST GESTATIONon 08-02-2024 US OB LESS THAN 14 WEEKS SINGLE OR FIRST GESTATION 7.4 WK IUP CL:4.7 cm HR:155 bpm RT. OVARY:not visualized. LT. OVARY:seen, corpus luteum cyst [place]- 2.6 x 2.4 x 2.4 cm. Interpreted by: Ciera Martínez DO Signed by: Ciera Martínez DO 08/02/24 Final result Normal [facility] Chlamydia/GC DNA, Uron 08-01 Chlamydia Probe, Ur Negative Normal NEG [facility] Comment on above: Result Comment: CHLA [...] nucleic acid target. Performed By: #### U AX, UMICAO #### [facility] [address] [place] [address] Repairer Shoe Sticks: Omero Murry MD Gonorrhea Probe, Ur Negative Normal NEG [facility] Comment on above: Result Comment: NEIS [...] nucleic acid target. Performed By: #### U AX, UMICAO #### [facility] [address] [place] [address] Repairer Shoe Sticks: Omero Murry MD Cult,Urineon 08-01-2024 Cult,Urine Specimen Description .CLEAN CATCH URINE Special Requests Site: Urine Culture NO SIGNIFICANT GROWTH Report Status FINAL 08/01/[address] [facility] Comment on above: Performed By: #### U RC #### [facility] [address] [place] [address] Repairer Shoe Sticks: Wilber Blair MD [facility] [address] [place] [address] Repairer Shoe Sticks: Omero Murry MD HIV Ag/Abon 07-31-2024 HIV Ag/Ab Non-Reactive Normal NR [facility] Comment on above: Result Comment: No l aboratory evidence of HIV infection. If acute HIV infection is suspected, consider testing for HIV-1 RNA. Performed By: #### A HCV, HIVCMB #### [facility] [place], [place] [id number] Repairer Shoe Sticks: Wilber Blair MD HIV Screenon 07-31-2024 HIV 1+2 Ab+HIV1 p24 Ag IA Ql Non-Reactive NONREACTIVE [facility] Comment on above: No laboratory eviden ce of HIV infection. If acute HIV infection is suspected, consider testing for HIV-1 RNA. [facility] Hep C Abon 07-31-2024 Hep C Ab Non-Reactive Normal NR [facility] Comment on above: Result Comment: The [...] HCV RNA by PCR. Performed By: #### A HCV, HIVCMB #### [facility] [address] [place] [address] [id number] Repairer Shoe Sticks: Wilber Blair MD Hepatitis C Antibodyon 07-31 HCV Ab IA Ql Non-Reactive NONREACTIVE [facility] Comment on above: The hepatitis C procedure [...] recommended by ordering HCV RNA by PCR. [facility] TYPE AND SCREENon 1 ABO and Rh group Nom (Bld) Blood group O Rh(D) positive [facility] Blood group antibodies identified Nom Negative [facility] Profileon T.pallidum Ab Screen Non-Reactive Normal NR [facility] Comment on above: Result Comment: T. pallidum antibodies are not detected. There is no serological evidence of infection with T. pallidum (early primary syphilis cannot be excluded). Retest in 2-4 weeks if syphilis is clinically suspect. Performed By: #### P RENAT #### [facility] [address] [place] [address] Repairer Shoe Sticks: Wilber Blair MD [address] [place] [id number] Repairer Shoe Sticks: Omero Murry MD Hep B Surf Ag Non-Reactive Normal [facility] Comment on above: Performed By: #### P RENAT #### [address] [address] Repairer Shoe Sticks: Wilber Blair MD [address] [place] [address] Repairer Shoe Sticks: Omero Murry MD Rubella Ab, IgG 41.7 IU/mL Normal [facility] Comment on above: Result Comment: <10 NON REACTIVE Negative for Anti-Rubella IgG >=10 REACTIVE Positive for Anti Rubella IgG The presence of IgG antibody to Rubella virus is an indication of previous exposure either by prior infection or vaccination. Performed By: #### P RENAT #### [address] [address] Repairer Shoe Sticks: Wilber Blair MD [facility] [address] [place] [address] [place] [id number] Repairer Shoe Sticks: Omero Murry MD Abs. Basophil 0.03 k/uL Normal 0.00-0.20 [facility] Comment on above: Performed By: #### P RENAT #### [address] [address] Repairer Shoe Sticks: Wilber Blair MD [facility] [address] [place] [address] [place] [address] Repairer Shoe Sticks: Omero Murry MD Abs.Imm.Granulocyte <0.03 Normal 0.00-0.30 [facility] Comment on above: Performed By: #### P RENAT #### [address] [address] Repairer Shoe Sticks: Wilber Blair MD [address] [place] [address] Repairer Shoe Sticks: Omero Murry MD Abs.Neutrophil (Seg) 4.07 k/uL Normal 1.80-8.00 [facility] Comment on above: Performed By: #### P RENAT #### [address] [address] Repairer Shoe Sticks: Wilber Blair MD [address] [place] [id number] Repairer Shoe Sticks: Omero Murry MD Basophils/100 WBC (Bld) 1 % Normal 0-2 [facility] Comment on above: Performed By: #### P RENAT #### [address] [address] Repairer Shoe Sticks: Wilber Blair MD [address] [place] [id number] Repairer Shoe Sticks: Omero Murry MD Eosinophils (Bld) [#/Vol] 0.05 10*3/uL Normal 0.00-0.44 [facility] Comment on above: Performed By: #### P RENAT #### [address] [address] Repairer Shoe Sticks: Wilber Blair MD [address] [place] [id number] Repairer Shoe Sticks: Omero Murry MD Eosinophils/100 WBC (Bld) 1 % Normal 1-4 [facility] Comment on above: Performed By: #### P RENAT #### [address] [address] Repairer Shoe Sticks: Wilber Blair MD [address] [place] [id number] Repairer Shoe Sticks: Omero Murry MD Erythrocyte distribution width (RBC) [Ratio] 13.2 % Normal 11.8-14.4 [facility] Comment on above: Performed By: #### P RENAT #### [address] [address] Repairer Shoe Sticks: Wilber Blair MD [facility] [address] [place] [address] [place] [id number] Repairer Shoe Sticks: Omero Murry MD Hematocrit (Bld) [Volume fraction] 36.4 % Normal 36.3-47.1 [facility] Comment on above: Performed By: #### P RENAT #### [address] [address] Repairer Shoe Sticks: Wilber Blair MD [facility] [address] [place] [address] [address] [id number] Repairer Shoe Sticks: Omero Murry MD Hemoglobin (Bld) [Mass/Vol] 11.9 g/dL Normal 11.9-15.1 [facility] Comment on above: Performed By: #### P RENAT #### [address] [address] Repairer Shoe Sticks: Wilber Blair MD [facility] [address] [place] [address] [place] [address] Repairer Shoe Sticks: Omero Murry MD Immature granulocytes/100 WBC (Bld) 0 % Normal 0 [facility] Comment on above: Performed By: #### P RENAT #### [address] [address] Repairer Shoe Sticks: Wilber Blair MD [facility] [address] [place] [address] [place] [address] Repairer Shoe Sticks: Omero Murry MD Lymphocytes (Bld) [#/Vol] 1.78 10*3/uL Normal 1.20-5.20 [facility] Comment on above: Performed By: #### P RENAT #### [address] [address] Repairer Shoe Sticks: Wilber Blair MD [address] [place] [address] Repairer Shoe Sticks: Omero Murry MD Lymphocytes/100 WBC (Bld) 28 % Normal 25-45 [facility] Comment on above: Performed By: #### P RENAT #### [address] [address] Repairer Shoe Sticks: Wilber Blair MD [address] [place] [address] Repairer Shoe Sticks: Omero Murry MD MCH (RBC) [Entitic mass] 28.7 pg Normal 25.2-33.5 [facility] Comment on above: Performed By: #### P RENAT #### [address] [address] Repairer Shoe Sticks: Wilber Blair MD [address] [place] [phone] Repairer Shoe Sticks: Omero Murry MD MCHC (RBC) [Mass/Vol] 32.7 g/dL Normal 28.4-34.8 [facility] Comment on above: Performed By: #### P RENAT #### [address] [address] Repairer Shoe Sticks: Wilber Blair MD [address] [place] [phone] Repairer Shoe Sticks: Omero Murry MD MCV (RBC) [Entitic vol] 87.7 fL Normal 82.6-102.9 M [facility] Comment on above: Performed By: #### P RENAT #### [address] [address] Repairer Shoe Sticks: Wilber Blair MD [address] [place] [phone] Repairer Shoe Sticks: Omero uMrry MD Monocytes (Bld) [#/Vol] 0.40 10*3/uL Normal 0.10-1.40 [facility] Comment on above: Performed By: #### P RENAT #### [address] [address] Repaire[employer]: Wilber Blair MD [facility] [address] [place] [address] Dr. [place] [id number] Rep[employer]: Omero Murry MD Monocytes/100 WBC (Bld) 6 % Normal 2-8 M [facility] Comment on above: Performed By: #### P RENAT #### [address] [address] Repaire[employer]: Wilber Blair MD [facility] [address] [place] [address] Dr. [place] [phone] Repaire[employer]: Omero Murry MD Neutrophil (Seg) 64 % Normal 34-64 [facility] Comment on above: Performed By: #### P RENAT #### [address] [address] Repaire[employer]: Wilber Blair MD [address] [place] [address] Repairer [employer]: Omero Murry MD NRBC Automated 0.0 per [address] [facility] Comment on above: Performed By: #### P RENAT #### [address] [address] Repairer [employer]: Wilber Blair MD [facility] [address] [place] [address] Dr. [place] [phone] Repairer [employer]: Omero Murry MD Platelet mean volume (Bld) [Entitic vol] 9.9 fL Normal 8.1-13.5 [facility] Comment on above: Performed By: #### P RENAT #### [address] [address] Repaire[employer]: Wilber Blair MD [facility] [address] [place] [address] Dr. [place], [place] [phone] Repaire[employer]: Omero Murry MD Platelets (Bld) [#/Vol] 272 10*3/uL Normal 138-453 [facility] Comment on above: Performed By: #### P RENAT #### [place] 251282 [place], [place] [id number] Repairer [employer]: Wilber Blair MD [facility] [address] [place] [address] Dr. [place] [phone] Repaire[employer]: Omero Murry MD RBC (Bld) [#/Vol] 4.15 10*6/uL Normal 3.95-5.11 [facility] Comment on above: Performed By: #### P RENAT #### [address] [address] Repaire[employer]: Wilber Blair MD [address] [place] [phone] Repairer [employer]: Omero Murry MD WBC (Bld) [#/Vol] 6.4 10*3/uL Normal 4.5-13.5 [facility] Comment on above: Performed By: #### P RENAT #### [address] [address] Repaire[employer]: Wilber Blair MD [address] [place] [phone] Repaire[employer]: Omero Murry MD Profile Ion 024 Basophils (Bld) [#/Vol] 0.03 10*3/uL Bon [facility] Basophils/100 WBC (Bld) 1 % 0 - 2 % B on [facility] Eosinophils (Bld) [#/Vol] 0.05 10*3/uL Bon [facility] Eosinophils/100 WBC (Bld) 1 % 1 - 4 % [facility] Erythrocyte distribution width (RBC) [Ratio] 13.2 % 11.8 - 14.4 % [facility] HBV surface Ag IA Ql Non-Reactive NONREACTIVE B on [facility] Hematocrit (Bld) [Volume fraction] 36.4 % 36.3 - 47.1 % [facility] Hemoglobin (Bld) [Mass/Vol] 11.9 g/dL 11.9 - 15.1 g/dL [facility] Immature granulocytes (Bld) [#/Vol] [facility] Immature granulocytes/100 WBC (Bld) 0 % 0 [facility] Lymphocytes/100 WBC (Bld) 28 % 25 - 45 % [facility] Lymphocytes/100 WBC (Bld) 1.78 % [facility] MCH (RBC) [Entitic mass] 28.7 pg 25.2 - 33.5 pg [facility] MCHC (RBC) [Mass/Vol] 32.7 g/dL 28.4 - 34.8 g/dL [facility] MCV (RBC) [Entitic vol] 87.7 fL 82.6 - 102.9 fL [facility] Monocytes/100 WBC (Bld) 6 % 2 - 8 % B on [facility] Monocytes/100 WBC (Bld) 0.40 % B on [facility] Neutrophils/100 WBC (Bld) 64 % 34 - 64 % [facility] Nucleated RBC/100 WBC (Bld) [Ratio] 0.0 % 0.0 per 100 WBC [facility] Platelet mean volume (Bld) [Entitic vol] 9.9 fL 8.1 - 13.5 fL [facility] Platelets (Bld) [#/Vol] 272 10*3/uL [facility] RBC (Bld) [#/Vol] 4.15 10*6/uL 3.95 - 5.1 1 m/uL [facility] Rubella virus IgG IA Ql 41.7 IU/mL B on [facility] Comment on above: <10 NON REACTIVE Negative for Anti-Rubella IgG >=10 REACTIVE Positive for Anti Rubella IgG The presence of IgG antibody to Rubella virus is an indication of previous exposure either by prior infection or vaccination. Segmented neutrophils/100 WBC (Bld) 4.07 % [facility] T. pallidum Ab IA Ql (S) Non-Reactive NONREACTIVE [facility] Comment on above: T. pallidum antibodies are not detected. There is no serological evidence of infection with T. pallidum (early primary syphilis cannot be excluded). Retest in 2-4 weeks if syphilis is clinically suspect. WBC other (Bld) [#/Vol] 6.4 B on [facility] Type + Scrnon 07-31 Type + Scrn Negative Normal [facility] Comment on above: Performed By: #### P RTYS #### [facility] [address] [place] [address] Repairer [employer]: Omero Murry MD Chlamydia/GC,DNA Ampon 07-29 Chlamydia Probe Negative [facility] Comment on above: Result Comment: CHLA [...] alternative nucleic acid target. Performed By: #### S WCGP #### [address] [id number] Rep[employer]: Wilber Blair MD Gonorrhea Probe Negative Normal [facility] Comment on above: Result Comment: NEIS SERIA [...] alternative nucleic acid target. Performed By: #### S WCGP #### [facility] [employer] [address] [place] [address] [id number] Repaire[employer]: Wilber Blair MD Trichomonas/Wet Prepon 07-28 Trichomonas/Wet Prep Specimen Descriptio n .VAGINA Direct Exam NO CLUE CELLS SEEN NO TRICHOMONAS SEEN NO YEAST OBSERVED Report Status FINAL 07/28/[address] [facility] Comment on above: Performed By: #### W P #### [facility] [address] [place] [address] Repairer [employer]: Omero Murry MD Microscopic Urinalysison Amorphous sediment LM Ql (Urine sed) 1+ Abnormal None [facility] Bacteria LM Ql (Urine sed) TRACE Abnormal None [facility] Epithelial cells LM.HPF (Urine sed) [#/Area] 0 TO 2 [facility] Interpretation and review of laboratory results Abnormal [facility] Mucus Ql (Urine sed) 1+ Abnormal None [facility] RBC LM.HPF (Urine sed) [#/Area] None [facility] WBC LM.HPF (Urine sed) [#/Area] None [facility] UA w/Reflex Cultureon 2023 Bilirubin, SemiQt,Ur Negative Normal NEG [facility] Comment on above: Performed By: #### TOSHA BAILEY #### [facility] [address] [place], [facility] Rep[employer]: Omero Murry MD Blood, Urine Negative Normal NEG [facility] Comment on above: Performed By: #### U TOSHA ROUSE #### [facility] [address] [place] [address] Repairer [employer]: Omero Murry MD Clarity (U) Clear Normal CLEAR [facility] Comment on above: Performed By: #### U TOSHA ROUSE #### [facility] [address] [place] [address] Repairer [employer]: Omero Murry MD Color (U) Yellow Normal YEL [facility] Comment on above: Performed By: #### U TOSHA ROUSE #### [facility] [address] [place], [place] [id number] Repaire[employer]: Omero Murry MD Glucose Ql (U) Negative Normal NEG [facility] Comment on above: Performed By: #### U AX, UMICAO #### [facility] [address] [place], [place] [id number] Repaire[employer]: Omero Murry MD Ketones Ql (U) Negative Normal NEG [facility] Comment on above: Performed By: #### U AX, UMICAO #### [facility] [address] [place] [address] Dr. [place], [place] [id number] Repaire[employer]: Omero Murry MD Leukocyte esterase Test strip Ql (U) Negative Normal NEG [facility] Comment on above: Performed By: #### U AX, UMICAO #### [facility] [address] [place] [address] Dr. [place], [facility] Repaire[employer]: Omero Murry MD Nitrite,Ur Negative Normal [facility] Comment on above: Performed By: #### U AX, UMICAO #### [facility] [address] [place] [address] Dr. [place], [facility] Repaire[employer]: Omero Murry MD PH,Ur 6.5 Normal 5.0-9.0 [facility] Comment on above: Performed By: #### U AX, UMICAO #### [facility] [address] [place] [address] Dr. [place], [facility] Repaire[employer]: Omero Murry MD Protein Ql (U) Negative Normal NEG [facility] Comment on above: Performed By: #### U AX, UMICAO #### [facility] [address] [place], [place] [id number] Repairer [employer]: Omero Murry MD Spec. Alder,Ur 1.020 Normal 1.010-1.020 [facility] Comment on above: Performed By: #### U AX, UMICAO #### [facility] [address] [place] [address] Repairer [employer]: Omero Murry MD Urobilinogen,Ur ELEVATED Normal 0.0-1.0 [facility] Comment on above: Performed By: #### U AX, UMICAO #### [facility] [address] [place] [address] Repairer [employer]: Omero Murry MD Urinalysis with Reflex to Cu ltureon 07-27-2024 Bilirubin Ql (U) Negative NEGATIVE [facility] Clarity (U) Clear Clear [facility] Color (U) Yellow Yellow [facility] Glucose Test strip (U) [Mass/Vol] Negative NEGATIVE mg/dL [facility] Hemoglobin Auto test strip Ql (U) Negative NEGATIVE [facility] Ketones (U) [Mass/Vol] Negative NEGAT JG mg/dL [facility] Leukocyte esterase Test strip Ql (U) Negative NEGATIVE [facility] Nitrite Ql (U) Negative NEGATIVE [facility] pH (U) 6.5 [pH] 5.0 - 9.0 [facility] Protein (U) [Mass/Vol] Negative NEGAT JG mg/dL [facility] Specific gravity (U) [Rel density] 1.020 1.010 - 1.020 [facility] Urobilinogen Qn (U) ELEVATED 0.0 - 1. 0 EU/dL [facility] Urinalysis,Microon 4 Amorphous sediment LM Ql (Urine sed) 1+ Abnormal [facility] Comment on above: Performed By: #### U AX UMICAO #### [facility] [address] [place] [address] Repairer [employer]: Omero Murry MD Bacteria TRACE Abnormal [facility] Comment on above: Performed By: #### U AX UMICAO #### [facility] [address] [place] [address] Repairer [employer]: Omero Murry MD Epithelial cells LM Ql (Urine sed) 0 TO 2 Normal 0-25 [facility] Comment on above: Performed By: #### U AX, UMICAO #### [facility] [address] [place], [place] 9543483 Repaire[employer]: Omero Murry MD Mucus Strands 1+ Abnormal NONE [facility] Comment on above: Performed By: #### U AX, UMICAO #### [facility] [address] [place], [place] [id number] Repairer [employer]: Omero Murry MD Urine RBC's None Normal 0-2 [facility] Comment on above: Performed By: #### U AX, UMICAO #### [facility] [address] [place], [place] 0461683 Repaire[employer]: Omero Murry MD Urine WBC's None Normal 0-5 [facility] Comment on above: Performed By: #### U AX, UMICAO #### [facility] [address] [place], [place] [id number] Repairer [employer]: Omero Murry MD HCG ( test) Ql (U)o n 07-22-2024 Beta HCG ( test) Ql (U) Positive Abnormal NEG [facility] Comment on above: Performed By: #### 2 106-3 #### [facility] ([id number]) [address] [place] [address], [place] [address] HCG.beta subunit IA 3rd IS Q non 07-22-2024 [place] [address] m[IU]/mL Normal P [facility] Comment on above: Result Comment: NEW REFERENCE [...] trophoblastic or nontrophoblastic neoplasms. Performed By: #### 2 106-3 #### [facility] ([id number]) [address] [place] [address] HEMOGLOBINon 07-22-2024 Hemoglobin (Bld) [Mass/Vol] 13.4 g/dL Normal 11.7-15.5 [facility] Comment on above: Performed By: #### 2 106-3 #### [facility] ([id number]) [address] [place] [address] Hematocrit Auto (Bld) [Volum e fraction]on 07-22-2024 Hematocrit (Bld) [Volume fraction] 39.8 % Normal 35-47 [facility] Comment on above: Performed By: #### 2 106-3 #### [facility] ([id number]) [address] [place] [address] URN MACROSCOPIC NURon 2023 BILIRUBIN TONG Small Abnormal NEG [facility] Comment on above: Performed By: #### N UM #### [facility] ([id number]) [address] [place] [address] BLOOD/HGB TONG Trace Abnormal NEG [facility] Comment on above: Performed By: #### N UM #### [facility] ([id number]) [address] [place] [address] GLUCOSE TONG Negative Normal NEG [facility] Comment on above: Performed By: #### N UM #### [facility] ([id number]) [address] [place] [address] KETONES TONG 15 mg/dL Abnormal NEG [facility] Comment on above: Performed By: #### N UM #### [facility] ([id number]) [address] [place] [address] LEUKOCYTE ESTERASE TONG Negative Normal NEG [facility] Comment on above: Performed By: #### N UM #### [facility] ([id number]) [address] [place] [address] NITRITE TONG Negative Normal NEG [facility] Comment on above: Performed By: #### N UM #### [facility] ([id number]) [address] [place] [address] PH TONG 5.5 Normal 5.0-8.5 [facility] Comment on above: Performed By: #### N UM #### [facility] ([id number]) [address] [place] [address] PROTEIN TONG Negative Normal NEG [facility] Comment on above: Performed By: #### N UM #### [facility] ([id number]) [address] [place] [address] SPECIFIC GRAVITY TONG >=1.030 Normal 1.003-1.035 [facility] Comment on above: Performed By: #### N UM #### [facility] ([id number]) [address] [place] [address] UROBILINOGEN TOGN 0.2 eu/dL Normal <1.1 [facility] Comment on above: Performed By: #### N UM #### [facility] ([id number]) [address] [place] [address] US PREG LESS THAN 14 WKS WIT [...] Rj Stafford MD on 07/22/2024 5:33 PM I, Antione Carlson MD have personally reviewed the image(s) and agree with and/or edited the report Finalized by Antione Carlson MD on 07/22/2024 5:41 PM Normal [facility] XR ELBOW LT MIN 3 VWSon 08 XR ELBOW LT MIN 3 VWS XR ELBOW LT MIN 3 VWS XR ELBOW LT MIN 3 VWS HISTORY: pain. COMPARISON: none IMPRESSION: 1. No acute fracture or dislocation. No effusion. 2. Mild soft tissue thickening about the olecranon. Finalized by Sreekanth Foster MD on 05/27/2024 12:47 AM Normal [facility] XR KNEE RT MIN 4 VWSon 05-27 XR KNEE RT MIN 4 VWS XR KNEE RT MIN 4 VW S XR KNEE RT MIN 4 VWS HISTORY: pain, include sunrise. COMPARISON: none IMPRESSION: 1. No acute fracture or dislocation. No effusion. 2. Mild prepatellar soft tissue thickening. Finalized by Sreekanth Foster MD on 05/27/2024 12:47 AM Normal [facility] ENT Food Panelon 05-01-2024 Banana IgE 0.13 kU/L Normal 0.00-0.34 [facility] Comment on above: Performed By: #### W P #### [facility] [address] [place] [address] Rep[employer]: Omero Murry MD Casein IgE <0.10 Normal 0.00-0.34 [facility] Comment on above: Performed By: #### W P #### [facility] [address] [place] [address] Repairer [employer]: Omero Murry MD Chicken IgE <0.10 Normal 0.00-0.34 [facility] Comment on above: Performed By: #### W P #### [facility] [address] [place], [place] [id number] Repairer [employer]: Omero Murry MD Chocolate IgE <0.10 Normal 0.00-0.34 [facility] Comment on above: Performed By: #### W P #### [facility] [address] [place] [address] Repairer [employer]: Omero Murry MD Cinnamon IgE <0.10 Normal 0.00-0.34 [facility] Comment on above: Performed By: #### W P #### [facility] [address] [place] [address] [place] [address] Repairer [employer]: Omero Murry MD Codfish IgE <0.10 Normal 0.00-0.34 [facility] Comment on above: Performed By: #### W P #### [facility] [address] [place] [address] Repairer [employer]: Omero Murry MD [place] IgE 0.11 kU/L Normal 0.00-0.34 [facility] Comment on above: Performed By: #### W P #### [facility] [address] [place] [address] Repaire[employer]: Omero Murry MD Garlic IgE 0.11 kU/L Normal 0.00-0.34 [facility] Comment on above: Performed By: #### W P #### [facility] [address] [place] [address] [place] [address] Repairer [employer]: Omero Murry MD Milk (Cow) IgE <0.10 Normal 0.00-0.34 [facility] Comment on above: Performed By: #### W P #### [facility] [address] [place] [address] Dr. [place], [facility] Repaire[employer]: Omero Murry MD Mustard IgE <0.10 Normal 0.00-0.34 [facility] Comment on above: Performed By: #### W P #### [facility] [address] [place] [address] [place] [address] Repairer [employer]: Omero Murry MD [place] IgE <0.10 Normal 0.00-0.34 [facility] Comment on above: Performed By: #### W P #### [facility] [address] [place] [address] Dr. [place], [place] [id number] Repairer [employer]: Omero Murry MD Peanut IgE 0.11 kU/L Normal 0.00-0.34 [facility] Comment on above: Performed By: #### W P #### [address] [place] [id number] Repairer [employer]: Omero Murry MD Peas, Holden IgE <0.10 Normal 0.00-0.34 [facility] Comment on above: Performed By: #### W P #### [facility] [address] [place] [address] Dr. [place], [place] 5781683 Rep[employer]: Omero Murry MD Potato IgE <0.10 Normal 0.00-0.34 [facility] Comment on above: Performed By: #### W P #### [facility] [address] [place] [address] Dr. [place], [place] [id number] Repairer [employer]: Omero Murry MD Rice IgE 0.11 kU/L Normal 0.00-0.34 [facility] Comment on above: Performed By: #### W P #### [address] [place] [address] Repairer [employer]: Omero Murry MD Foster IgE <0.10 Normal 0.00-0.34 [facility] Comment on above: Result Comment: ALLERGEN, INTERP, [...] allergy or even anaphylaxis. Performed By: #### W P #### [address] [place] [address] Repairer [employer]: Omero Murry MD Tuna IgE <0.10 Normal 0.00-0.34 [facility] Comment on above: Performed By: #### W P #### [address] [place] [address] Repairer [employer]: Omero Murry MD [place]/Bl.[place] IgE <0.10 Normal 0.00-0.34 [facility] Comment on above: Performed By: #### W P #### [address] [place] [address] Repairer [employer]: Omero Murry MD Wheat IgE <0.10 Normal 0.00-0.34 [facility] Comment on above: Performed By: #### W P #### [facility] [address] [place] [address] [place] [address] Repairer [employer]: Omero Murry MD Yeast, Bakers IgE <0.10 Normal 0.00-0.34 [facility] Comment on above: Result Comment: ALLERGEN, INTERP, [...] allergy or even anaphylaxis. Performed By: #### W P #### [facility] [address] [place] [address] [place] [address] Rep[employer]: Omero Murry MD Beef IgE <0.10 Normal 0.00-0.34 [facility] Comment on above: Performed By: #### W P #### [address] [place] [address] Repairer [employer]: Omero Murry MD Egg White IgE <0.10 Normal 0.00-0.34 [facility] Comment on above: Performed By: #### W P #### [facility] [address] [place] [address] [place] [address] Repairer [employer]: Omero Murry MD Egg, Whole IgE <0.10 Normal 0.00-0.34 [facility] Comment on above: Performed By: #### W P #### [facility] [address] [place] [address] [place] [address] Repairer [employer]: Omero Murry MD Pork IgE <0.10 Normal 0.00-0.34 [facility] Comment on above: Performed By: #### W P #### [facility] [address] [place] [address] Dr. [place], [facility] Repairer Sh[employer]: Omero Murry MD Scallop IgE 0.11 kU/L Normal 0.00-0.34 [facility] Comment on above: Performed By: #### W P #### [facility] [address] [place] [address] Repairer [employer]: Omero Murry MD Shrimp IgE <0.10 Normal 0.00-0.34 [facility] Comment on above: Performed By: #### W P #### [address] [place] [address] Repairer [employer]: Omero Murry MD Soybean IgE <0.10 Normal 0.00-0.34 [facility] Comment on above: Performed By: #### W P #### [address] [place] [id number] Repairer Sh[employer]: Omero Murry MD Tomato IgE 0.12 kU/L Normal 0.00-0.34 [facility] Comment on above: Result Comment: ALLERGEN, INTERP, [...] allergy or even anaphylaxis. Performed By: #### W P #### [address] [place] [address] Repairer [employer]: Omero Murry MD Celiac Disease Panelon 04-30 Gliadin Deam Pep IgA 0.9 U/mL Normal <7.0 [facility] Comment on above: Result Comment: CELIAC INTERPRETATION <7.0 Negative 7.0-10.0 Equivocal >10.0 Positive units: U/mL Performed By: #### W P #### [facility] [address] [place] [address] [place] [address] Repairer [employer]: Omero Murry MD Gliadin Deam Pep IgG 1.6 U/mL Normal <7.0 [facility] Comment on above: Result Comment: CELIAC INTERPRETATION <7.0 Negative 7.0-10.0 Equivocal >10.0 Positive units: U/mL Performed By: #### W P #### [address] [place] [address] Repairer [employer]: Omero Murry MD Tiss Transglutam IgA 0.4 U/mL Normal <7.0 [facility] Comment on above: Result Comment: CELIAC INTERPRETATION <7.0 Negative 7.0-10.0 Equivocal >10.0 Positive units: U/mL Performed By: #### W P #### [address] [place], [place] [id number] Repairer [employer]: Omero Murry MD ENT Food Panelon 04-30-2024 Immunoglobulin E 20 IU/mL Normal 0-100 [facility] Comment on above: Performed By: #### W P #### [facility] [address] [place] [address] [place] [address] Repairer [employer]: Omero Murry MD C-Reactive Proteinon 024 CRP High sensitivity method [Mass/Vol] mg/L 0.0 - 5.0 mg/L [facility] CRP [Mass/Vol] mg/L Normal 0.0-5.0 [facility] Comment on above: Performed By: #### U TOSHA ROUSE #### [facility] [address] [place] [address] Repairer Shoe Sticks: Omero Murry MD CBC with Auto Differentialon 04-29-2024 Basophils (Bld) [#/Vol] 0.06 10*3/uL [facility] Basophils/100 WBC (Bld) 1 % 0 - 2 % [facility] Eosinophils (Bld) [#/Vol] 0.19 10*3/uL [facility] Eosinophils/100 WBC (Bld) 3 % 1 - 4 % [facility] Erythrocyte distribution width (RBC) [Ratio] 14.1 % 11.8 - 14.4 % [facility] Hematocrit (Bld) [Volume fraction] 41.3 % 36.3 - 47.1 % [facility] Hemoglobin (Bld) [Mass/Vol] 13.2 g/dL 11.9 - 15.1 g/dL [facility] Immature granulocytes (Bld) [#/Vol] [facility] Immature granulocytes/100 WBC (Bld) 0 % 0 [facility] Lymphocytes/100 WBC (Bld) 37 % 25 - 45 % [facility] Lymphocytes/100 WBC (Bld) 2.21 % [facility] MCH (RBC) [Entitic mass] 27.6 pg 25.2 - 33.5 pg [facility] MCHC (RBC) [Mass/Vol] 32.0 g/dL 28.4 - 34.8 g/dL [facility] MCV (RBC) [Entitic vol] 86.4 fL 82.6 - 102.9 fL [facility] Monocytes/100 WBC (Bld) 6 % 2 - 8 % [facility] Monocytes/100 WBC (Bld) 0.37 % [facility] Neutrophils/100 WBC (Bld) 53 % 34 - 64 % [facility] Nucleated RBC/100 WBC (Bld) [Ratio] 0.0 % 0.0 per 100 WBC [facility] Platelet mean volume (Bld) [Entitic vol] 10.0 fL 8.1 - 13.5 fL [facility] Platelets (Bld) [#/Vol] 290 10*3/uL [facility] RBC (Bld) [#/Vol] 4.78 10*6/uL 3.95 - 5.1 1 m/uL [facility] Segmented neutrophils/100 WBC (Bld) 3.08 % [facility] WBC other (Bld) [#/Vol] 5.9 B ON [facility] CBC with Diffon 04-29-2024 Abs. Basophil 0.06 k/uL Normal 0.00-0.20 [facility] Comment on above: Performed By: #### U AX, UMICAO #### [address] [place] [address] Repairer Sh[employer]icks: Omero Murry MD Abs.Imm.Granulocyte <0.03 Normal 0.00-0.30 [facility] Comment on above: Performed By: #### U AX, UMICAO #### [address] [place], [place] [id number] Repairer Sh[employer]: Omero Murry MD Abs.Neutrophil (Seg) 3.08 k/uL Normal 1.80-8.00 [facility] Comment on above: Performed By: #### U AX, UMICAO #### [address] [place], [place] 8[address]83 Repaire[employer]: Omero Murry MD Basophils/100 WBC (Bld) 1 % Normal 0-2 M [facility] Comment on above: Performed By: #### U AX, UMICAO #### [address] [place], [place] 5[address]83 Repaire[employer]: Omero Murry MD Eosinophils (Bld) [#/Vol] 0.19 10*3/uL Normal 0.00-0.44 [facility] Comment on above: Performed By: #### U AX, UMICAO #### [address] [place] [id number] Repairer Sh[employer]: Omero Murry MD Eosinophils/100 WBC (Bld) 3 % Normal 1-4 [facility] Comment on above: Performed By: #### U AX, UMICAO #### [facility] [address] [place], [place] 8[address]83 Repaire[employer]: Omero Murry MD Erythrocyte distribution width (RBC) [Ratio] 14.1 % Normal 11.8-14.4 [facility] Comment on above: Performed By: #### U AX, UMICAO #### [facility] [address] [place], [facility]83 Rep[employer]: Omero Murry MD Hematocrit (Bld) [Volume fraction] 41.3 % Normal 36.3-47.1 [facility] Comment on above: Performed By: #### U AX, UMICAO #### [address] [place], [facility] ( Rep[employer]: Omero Murry MD Hemoglobin (Bld) [Mass/Vol] 13.2 g/dL Normal 11.9-15.1 [facility] Comment on above: Performed By: #### U AX, UMICAO #### [address] [place], [facility]83 Rep[employer]: Omero Murry MD Immature granulocytes/100 WBC (Bld) 0 % Normal 0 [facility] Comment on above: Performed By: #### U AX, UMICAO #### [facility] [address] [place] [address] Dr[place], [facility]83 Repaire[employer]: Omero Murry MD Lymphocytes (Bld) [#/Vol] 2.21 10*3/uL Normal 1.20-5.20 [facility] Comment on above: Performed By: #### U AX, UMICAO #### [facility] [address] [place], [facility]83 Rep[employer]: Omero Murry MD Lymphocytes/100 WBC (Bld) 37 % Normal 25-45 [facility] Comment on above: Performed By: #### U AX, UMICAO #### [address] [place], [place] 2695283 Repairer Sh[employer]: Omero Murry MD MCH (RBC) [Entitic mass] 27.6 pg Normal 25.2-33.5 [facility] Comment on above: Performed By: #### U AX, UMICAO #### [address] [place], [facility]83 Repaire[employer]: Omero Murry MD MCHC (RBC) [Mass/Vol] 32.0 g/dL Normal 28.4-34.8 [facility] Comment on above: Performed By: #### U AX, UMICAO #### [address] [place], [facility]83 Repaire[employer]: Omero Murry MD MCV (RBC) [Entitic vol] 86.4 fL Normal 82.6-102.9 [facility] Comment on above: Performed By: #### U AX, MEAGANICAO #### [address] [place], [facility]83 Repaire[employer]: Omero Murry MD Monocytes (Bld) [#/Vol] 0.37 10*3/uL Normal 0.10-1.40 [facility] Comment on above: Performed By: #### U AX, UMICAO #### [address] [place], [facility]83 Repaire[employer]: Omero Murry MD Monocytes/100 WBC (Bld) 6 % Normal 2-8 M [facility] Comment on above: Performed By: #### U AX, UMICAO #### [address] [place], [place] 2297983 Repairer [employer]: Omero Murry MD Neutrophil (Seg) 53 % Normal 34-64 [facility] Comment on above: Performed By: #### U AX, UMICAO #### [facility] [address] [place], [place] [id number] Repairer [employer]: Omero Murry MD NRBC Automated 0.0 per [address] [facility] Comment on above: Performed By: #### U AXMEAGANICAO #### [facility] [address] [place], [facility]83 Rep[employer]: Omero Murry MD Platelet mean volume (Bld) [Entitic vol] 10.0 fL Normal 8.1-13.5 [facility] Comment on above: Performed By: #### U AXMEAGANICAO #### [facility] [address] [place], [facility]83 Repaire[employer]: Omero Murry MD Platelets (Bld) [#/Vol] 290 10*3/uL Normal 138-453 [facility] Comment on above: Performed By: #### U MEAGAN ROUSEICAO #### [address] [place], [place] 1828483 Repairer [employer]: Omero Murry MD RBC (Bld) [#/Vol] 4.78 10*6/uL Normal 3.95-5.11 [facility] Comment on above: Performed By: #### U AXMEAGANICAO #### [address] [place], [facility]73 ( Repaire[employer]: Omero Murry MD WBC (Bld) [#/Vol] 5.9 10*3/uL Normal 4.5-13.5 [facility] Comment on above: Performed By: #### U AXMEAGANICAO #### [facility] [address] [place] [address] Repairer Sh[employer]: Omero Murry MD Celiac Disease Panelon 04-29 IgA [Mass/Vol] 201 mg/dL Normal 70-400 [facility] Comment on above: Performed By: #### W P #### [facility] [address] [place], [place] [address]40[address]83 Repaire[employer]: Omero Murry MD Comp Metabolic Profon 2023 Albumin [Mass/Vol] 4.5 g/dL Normal 3.5-5.2 [facility] Comment on above: Performed By: #### U AX, UMICAO #### [facility] [address] [place], [place] 3044183 Repairer [employer]: Omero Murry MD Albumin/Glob Ratio 1.5 Normal 1.0-2.5 [facility] Comment on above: Performed By: #### U AX, UMICAO #### [address] [place], [place] 2655383 Repairer Sh[employer]: Omero Murry MD Alkaline Phos 74 U/L Normal 35-104 [facility] Comment on above: Performed By: #### U AX, UMICAO #### [address] [place], [place] 0958883 Repairer Sh[employer]: Omero Murry MD ALT [Catalytic activity/Vol] 33 U/L Normal 5-33 [facility] Comment on above: Performed By: #### U AX, UMICAO #### [facility] [address] [place] [address] [place], [place] 1978883 Repairer [employer]: Omero Murry MD Anion gap [Moles/Vol] 8 mmol/L Low 9-17 [facility] Comment on above: Performed By: #### U AX, UMICAO #### [facility] [address] [place], [place] 8923383 Repairer Sh[employer]: Omero Murry MD AST [Catalytic activity/Vol] 24 U/L Normal <32 [facility] Comment on above: Performed By: #### U AX, UMICAO #### [facility] [address] [place], [place] 36[address]083 Repairer Sh[employer]: Omero Murry MD Bilirubin [Mass/Vol] 0.3 mg/dL Normal 0.3-1.2 [facility] Comment on above: Performed By: #### U AX, UMICAO #### [facility] [address] [place], [place] 6805483 Repairer Sh[employer]: Omero Murry MD BUN/CRE Ratio 11 Normal 9-20 [facility] Comment on above: Performed By: #### U AX, UMICAO #### [facility] [address] [place], [place] 7224383 Repairer Sh[employer]: Omero Murry MD Calcium [Mass/Vol] 9.0 mg/dL Normal 8.6-10.4 [facility] Comment on above: Performed By: #### U AX, UMICAO #### [facility] [address] [place], [place] 80[address]83 Repairer [employer]: Omero Murry MD Chloride [Moles/Vol] 105 mmol/L Normal 98-107 [facility] Comment on above: Performed By: #### U AX, UMICAO #### [facility] [address] [place] [address] [place], [place] 16[address]83 Repairer Sh[employer]: Omero Murry MD CO2 [Moles/Vol] 25 mmol/L Normal 20-31 [facility] Comment on above: Performed By: #### U AX, UMICAO #### [facility] [address] [place], [place] [address]882183 Repairer Sh[employer] St[employer]: Omero Murry MD Creatinine [Mass/Vol] 0.7 mg/dL Normal 0.5-0.9 [facility] Comment on above: Performed By: #### U AX, UMICAO #### [facility] [address] [place], [place] [address]92[address]83 Repaire[employer]: Omero Murry MD GFR/1.73 sq M.predicted among non-blacks MDRD (S/P/Bld) [Vol rate/Area] mL/min/{1.73_m2} Normal >60 [facility] Comment on above: Result Comment: These results [...] renal tubular secretion. Performed By: #### U AX, UMICAO #### [facility] [address] [place] [address] [place] [address] Repairer Sh[employer]: Omero Murry MD Glucose [Mass/Vol] 84 mg/dL Normal 70-99 [facility] Comment on above: Performed By: #### U AX, UMICAO #### [facility] [address] [place] [address] Repairer Shoe [employer]icks: Omero Murry MD Potassium [Moles/Vol] 4.6 mmol/L Normal 3.7-5.3 [facility] Comment on above: Performed By: #### U AX, UMICAO #### [address] [place] [address] Repairer Shoe Sticks: Omero Murry MD Protein [Mass/Vol] 7.6 g/dL Normal 6.4-8.3 [facility] Comment on above: Performed By: #### U AX, UMICAO #### [facility] [address] [place] [address] Repairer Sh[employer]: Omero Murry MD Sodium [Moles/Vol] 138 mmol/L Normal 135-144 [facility] Comment on above: Performed By: #### U AX, UMICAO #### [facility] [address] [place] [address] Repairer Shoe Sticks: Omero Murry MD Urea nitrogen [Mass/Vol] 8 mg/dL Normal 6-20 [facility] Comment on above: Performed By: #### U TOSHA ROUSE #### [facility] [address] [place] [address] Repairer Sh[employer]icks: Omero Murry MD Comprehensive Metabolic Pane [facility] 04-29-2024 Albumin [Mass/Vol] 4.5 g/dL 3.5 - 5.2 g/dL [facility] Albumin/Globulin [Mass ratio] 1.5 {ratio} 1.0 - 2.5 [facility] ALP [Catalytic activity/Vol] 74 U/L 35 - 104 U/L [facility] ALT [Catalytic activity/Vol] 33 U/L 5 - 33 U/L [facility] Anion gap [Moles/Vol] 8 mmol/L Low 9 - 17 mmol/L [facility] AST [Catalytic activity/Vol] 24 U/L NINF - 32 U/L [facility] Bilirubin [Mass/Vol] 0.3 mg/dL 0.3 - 1 .2 mg/dL [facility] Calcium [Mass/Vol] 9.0 mg/dL 8.6 - 10. 4 mg/dL [facility] Chloride [Moles/Vol] 105 mmol/L 98 - 10 7 mmol/L [facility] CO2 [Moles/Vol] 25 mmol/L 20 - 31 mmol/L [facility] Creatinine [Mass/Vol] 0.7 mg/dL 0.5 - 0.9 mg/dL [facility] Est, Glom Filt Rate - [facility] Comment on above: These results are not [...] [Mass/Vol] 84 mg/dL 70 - 99 mg/dL [facility] Interpretation and review of laboratory results Abnormal [facility] Potassium [Moles/Vol] 4.6 mmol/L 3.7 - 5.3 mmol/L [facility] Protein [Mass/Vol] 7.6 g/dL 6.4 - 8.3 g/dL [facility] Sodium [Moles/Vol] 138 mmol/L 135 - 144 mmol/L [facility] Urea nitrogen [Mass/Vol] 8 mg/dL 6 - 20 mg/dL [facility] Urea nitrogen/Creatinine [Mass ratio] 11 mg/mg 9 - 20 [facility] Ferritinon 04-29-2024 Ferritin [Mass/Vol] 11 ng/mL Low 13 - 150 ng/mL [facility] Comment on above: FERRITIN Reference Ranges: Adult Males 20 - 60 years: 30 - 400 ng/mL Adult females 17 - 60 years: 13 - 150 ng/mL Adults greater than 60 years: no established reference range Pediatrics: no established reference range Ferritin [Mass/Vol] 11 ng/mL Low 13-150 [facility] Comment on above: Result Comment: FERRITIN Reference Ranges: Adult Males 20 - 60 years: 30 - 400 ng/mL Adult females 17 - 60 years: 13 - 150 ng/mL Adults greater than 60 years: no established reference range Pediatrics: no established reference range Performed By: #### U TOSHA ROUSE #### [facility] [address] [place] [address] [place], [place] 4389883 Repairer [employer]: Omero Murry MD HCG Qualitative, Serumon HCG ( test) Ql Negative NEGATIVE B [facility] Comment on above: Specimens with hCG l evels near the threshold of the test (25 mIU/mL) may give a negative or indeterminate result. In such cases, another test should be performed with a new specimen in 48-72 hours. If early is suspected clinically in this setting, correlation with quantitative serum b-hCG level is suggested. [facility] has confirmed the use of plasma for this test. This has not been cleared or approved by the U.[place]. Food and Drug Administration. The FDA has determined that such clearance is not necessary. [facility] HCG Screen, Bloodon 04-29-20 24 HCG Screen, Blood Negative Normal NEG [facility] Comment on above: Result Comment: Spec imens with hCG levels near the threshold of the test (25 mIU/mL) may give a negative or indeterminate result. In such cases, another test should be performed with a new specimen in 48-72 hours. If early is suspected clinically in this setting, correlation with quantitative serum b-hCG level is suggested. [facility] has confirmed the use of plasma for this test. This has not been cleared or approved by the U.S. Food and Drug Administration. The FDA has determined that such clearance is not necessary. Performed By: #### U AX, UMICAO #### [facility] [address] [place] [address] Repaire[employer]: Omero Murry MD Iron Binding Cap.on 04-29-20 24 % Fe Saturation 12 % Low 20-55 [facility] Comment on above: Performed By: #### U AXMEAGANICAO #### [facility] [address] [place] [address] Repairer Sh[employer]: Omero Murry MD Iron [Mass/Vol] 47 ug/dL Normal 37-145 [facility] Comment on above: Performed By: #### U AX UMICAO #### [facility] [address] [place] [address] [place], [place] 5300783 Repairer [employer]: Omero Murry MD Total Fe Binding Cap 381 ug/dL Normal 250-450 [facility] Comment on above: Performed By: #### U AX, UMICAO #### [facility] [address] [place] [address] Repairer Sh[employer]: Omero Murry MD Unbound Fe Bind Cap 334 ug/dL Normal 112-347 [facility] Comment on above: Performed By: #### U AX, UMICAO #### [facility] [address] [place] [address] Repairer [employer]: Omero Murry MD Iron and TIBCon 04-29-2024 Iron [Mass/Vol] 47 ug/dL 37 - 145 ug/dL [facility] Iron binding capacity [Mass/Vol] 381 ug/dL 250 - 450 ug/dL [facility] Iron saturation [Mass fraction] 12 % Low 20 - 55 % [facility] UIBC 334 ug/dL 112 - 347 ug/dL [facility] No Panel Informationon 04-29 Interpretation and review of laboratory results Abnormal [facility] Sedimentation Rateon 024 ESR Photometric method (Bld) [Velocity] 6 [facility] Sedimentation Rate 6 mm/Hr Normal 0-20 [facility] Comment on above: Performed By: #### TOSHA BAILEY #### [facility] [address] [place] [address] Repairer [employer]: Omero Murry MD T4, Freeon 04-29-2024 Free T4 [Mass/Vol] 1.2 ng/dL 0.92 - 1. 68 ng/dL [facility] TSHon 04-29-2024 TSH Qn 1.92 m[IU]/L [facility] Thyroid Stim. Horm.on 2023 Thyroid Stim. Horm. 1.92 uIU/mL Normal 0.30-5.00 [facility] Comment on above: Performed By: #### TOSHA BAILEY #### [facility] [address] [place] [address] Repairer [employer]: Omero Murry MD Thyroxine, Freeon 04-29-2024 Thyroxine, Free 1.2 ng/dL Normal 0.92-1.68 [facility] Comment on above: Performed By: #### W P #### [facility] [address] [place] [address] Repairer [employer]: Omero Murry MD CBC AND AUTO DIFFon 03-15-20 24 ABSOLUTE BASOPHIL 0.0 X10E9/L Normal 0.0-0.2 [facility] Comment on above: Performed By: #### C BCA, CMP, 1988-02 #### [facility] ([id number]) [address] [place] [address] ABSOLUTE NEUTROPHIL 5.7 X10E9/L Normal 1.5-6.6 [facility] Comment on above: Performed By: #### C SYBIL [facility], 1988-02 #### [facility] ([id number]) [address] [place] [address] Basophils/100 WBC (Bld) 0.5 % Normal [facility] Comment on above: Performed By: #### Bharat DEVINE [facility], 1988-02 #### [facility] ([id number]) [address] [place] [address] 6[address] Eosinophils (Bld) [#/Vol] 0.0 10*3/uL Normal 0.0-0.4 [facility] Comment on above: Performed By: #### Bharat DEVINE [facility], 1988-02 #### [facility] ([id number]) [address] [place] [address] 82721 Eosinophils/100 WBC (Bld) 0.2 % Normal [facility] Comment on above: Performed By: #### Bharat DEVINE [facility], 1988-02 #### [facility] ([id number]) [address] [place] [address] 28352 Erythrocyte distribution width (RBC) [Ratio] 15.6 % High 11.5-15.0 [facility] Comment on above: Performed By: #### Bharat DEVINE [facility], 1988-02 #### [facility] ([id number]) [address] [place] [address] 71287 Hematocrit (Bld) [Volume fraction] 35.1 % Normal 35-47 [facility] Comment on above: Performed By: #### Bharat DEVINE [facility], 1988-02 #### [facility] ([id number]) [address] [place] [address] 72953 Hemoglobin (Bld) [Mass/Vol] 11.8 g/dL Normal 11.7-15.5 [facility] Comment on above: Performed By: #### Bharat DEVINE [facility], 1988-02 #### [facility] ([id number]) [address] [place] [address]27 Lymphocytes (Bld) [#/Vol] 1.7 10*3/uL Normal 1.0-3.5 [facility] Comment on above: Performed By: #### Bharat DEVINE [facility], 1988-02 #### [facility] ([id number]) [address] [place] [address] 88218 Lymphocytes/100 WBC (Bld) 20.2 % Normal [facility] Comment on above: Performed By: #### Bharat DEVINE [facility], 1988-02 #### [facility] ([id number]) [address] [place] [address] 44041 MCH (RBC) [Entitic mass] 27.3 pg Normal 27-34 [facility] Comment on above: Performed By: #### Bharat DEVINE [facility], 1988-02 #### [facility] ([id number]) [address] [place] [address] 64303 MCHC (RBC) [Mass/Vol] 33.7 g/dL Normal 32-36 [facility] Comment on above: Performed By: #### Bharat DEVINE [facility], 1988-02 #### [facility] ([id number]) [address] [place] [address] 61215 MCV (RBC) [Entitic vol] 81 fL Normal 80-100 [facility] Comment on above: Performed By: #### Bharat DEVINE [facility], 1988-02 #### [facility] ([id number]) [address] [place] [address] 36151 Monocytes (Bld) [#/Vol] 1.0 10*3/uL High 0-0.9 [facility] Comment on above: Performed By: #### Bharat DEVINE [facility], 1988-02 #### [facility] ([id number]) [address] [place] [address] 18117 Monocytes/100 WBC (Bld) 12.1 % Normal [facility] Comment on above: Performed By: #### Bharat DEVINE [facility], 1988-02 #### [facility] ([id number]) [address] [place] [address] 06371 Neutrophils/100 WBC (Bld) 67.0 % Normal [facility] Comment on above: Performed By: #### Bharat DEVINE [facility], 1988-02 #### [facility] ([id number]) [address] [place] [address] 47604 Platelet mean volume (Bld) [Entitic vol] 8.0 fL Normal 7-12 [facility] Comment on above: Performed By: #### Bharat DEVINE [facility], 1988-02 #### [facility] ([id number]) [address] [place] [address] 01796 Platelets (Bld) [#/Vol] 226 10*3/uL Normal 150-450 [facility] Comment on above: Performed By: #### Bharat DEVINE [facility], 1988-02 #### [facility] ([id number]) [address] [place] [address] 11638 RBC COUNT 4.35 X10E12/L Normal 3.80-5.20 [facility] Comment on above: Performed By: #### Bharat DEVINE [facility], 1988-02 #### [facility] ([id number]) [address] [place] [address] 58265 WBC (Bld) [#/Vol] 8.5 10*3/uL Normal 4.0-11.0 [facility] Comment on above: Performed By: #### Bharat DEVINE [facility], 1988-02 #### [facility] ([id number]) [address] [place] [address] 38202 COMPREHENSIVE METABOLIC PANE Josh 03-15-2024 Albumin [Mass/Vol] 4.3 g/dL Normal 3.2-5.3 [facility] Comment on above: Performed By: #### C SYBIL [facility], 1989-02 #### [facility] ([id number]) [address] [place] [address] [id number] ALP [Catalytic activity/Vol] 71 U/L Normal 39-130 [facility] Comment on above: Performed By: #### C SYBIL [facility], 1989-02 #### [facility] ([id number]) [address] [place] [address] [id number] ALT [Catalytic activity/Vol] 28 U/L Normal 0-31 [facility] Comment on above: Performed By: #### Bharat DEVINE [facility], 1988-02 #### [facility] ([id number]) [address] [place] [address] 20822 Anion gap [Moles/Vol] 9 mmol/L Normal 5-15 [facility] Comment on above: Performed By: #### C SYBIL [facility], 1988-02 #### [facility] ([id number]) [address] [place] [address] 83517 AST [Catalytic activity/Vol] 20 U/L Normal 0-41 [facility] Comment on above: Performed By: #### C SYBIL [facility], 1988-02 #### [facility] ([id number]) [address] [place] [address] 06623 Bilirubin [Mass/Vol] 1.0 mg/dL Normal 0.3-1.2 [facility] Comment on above: Performed By: #### C SYBIL [facility], 1988-02 #### [facility] ([id number]) [address] [place] [address] 94538 Calcium [Mass/Vol] 9.0 mg/dL Normal 8.5-10.5 [facility] Comment on above: Performed By: #### C SYBIL [facility], 1988-02 #### [facility] ([id number]) [address] [place] [address] 86580 Chloride [Moles/Vol] 101 mmol/L Normal 98-109 [facility] Comment on above: Performed By: #### C SYBIL [facility], 1988-02 #### [facility] ([id number]) [address] [place] [address] 68479 CO2 [Moles/Vol] 24 mmol/L Normal 22-32 [facility] Comment on above: Performed By: #### Bharat DEVINE [facility], 1988-02 #### [facility] ([id number]) [address] [place] [address] 23424 Creatinine [Mass/Vol] 0.79 mg/dL Normal 0.40-1.00 [facility] Comment on above: Result Comment: METH OD TRACEABLE TO IDMS STANDARD Performed By: #### C SYBIL [facility], 1988-02 #### [facility] ([id number]) [address] [place] [address] 61054 eGFR (CKD-EPI) NON-RACE DEPENDENT >90 Normal >59 [facility] Comment on above: Result Comment: Reported eGFR is based on the CKD-EPI 2020 equation that does not use a race coefficient. Performed By: #### Bharat DEVINE [facility], 1988-02 #### [facility] ([id number]) [address] [place] [address] 57134 Glucose [Mass/Vol] 97 mg/dL Normal 65-99 [facility] Comment on above: Performed By: #### Bharat DEVINE [facility], 1988-02 #### [facility] ([id number]) [address] [place] [address] 93084 Potassium [Moles/Vol] 3.6 mmol/L Normal 3.5-5.0 [facility] Comment on above: Performed By: #### C SYBIL [facility], 1988-02 #### [facility] ([id number]) [address] [place] [address] 23556 Protein [Mass/Vol] 8.2 g/dL High 6.0-8.0 [facility] Comment on above: Performed By: #### C SYBIL [facility], 1988-02 #### [facility] ([id number]) [address] [place] [address] 49000 Sodium [Moles/Vol] 134 mmol/L Normal 134-146 [facility] Comment on above: Performed By: #### Bharat DEVINE [facility], 1988-02 #### [facility] ([id number]) [address] [place] [address] 53582 Urea nitrogen [Mass/Vol] 7 mg/dL Normal 5-23 [facility] Comment on above: Performed By: #### Bharat DEVINE [facility], 1988-02 #### [facility] ([id number]) [address] [place] [address] 05844 CRP [Mass/Vol]on 03-15-2024 C REACTIVE PROTEIN 8.3 mg/dL High 0.000-0.744 [facility] Comment on above: Performed By: #### Bharat DEVINE [facility], 1988-02 #### [facility] ([id number]) [address] [place] [address] ABDOMEN AND PELVIS WO CON Ton [...] Guzman Ellison on 03/15/2024 8:48 PM Normal [facility] HCG ( test) Ql (U)o n 03-15-2024 Beta HCG ( test) Ql (U) Negative Normal NEG [facility] Comment on above: Performed By: #### 2 106-3 #### [facility] ([id number]) [address] [place] [address] 15942 URINE CULTUREon 03-15-2024 Bacteria identified Cx Nom (U) CULTURE RESULTS NO GROWTH Normal [facility] Comment on above: Performed By: #### 6 30-4 #### [facility] ([id number]) [address] [place] [address] URN MACROSCOPIC NURon 2023 BILIRUBIN TONG Negative Normal NEG [facility] Comment on above: Performed By: #### N UM #### [facility] ([id number]) [address] [place] [address] 20306 BLOOD/HGB TONG Trace Abnormal NEG [facility] Comment on above: Performed By: #### N UM #### [facility] ([id number]) [address] [place] [address] 33308 GLUCOSE TONG Negative Normal NEG [facility] Comment on above: Performed By: #### N UM #### [facility] ([id number]) [address] [place] [address] KETONES TONG Negative Normal NEG [facility] Comment on above: Performed By: #### N UM #### [facility] ([id number]) [address] [place] [address] 84715 LEUKOCYTE ESTERASE TONG Trace Abnormal NEG [facility] Comment on above: Performed By: #### N UM #### [facility] ([id number]) [address] [place] [address] 10397 NITRITE TONG Negative Normal NEG [facility] Comment on above: Performed By: #### N UM #### [facility] ([id number]) [address] [place] [address] 53651 PH TONG 5.5 Normal 5.0-8.5 [facility] Comment on above: Performed By: #### N UM #### [facility] ([id number]) [address] [place] [address] 64051 PROTEIN TONG Trace Abnormal NEG [facility] Comment on above: Performed By: #### N UM #### [facility] ([id number]) [address] [place] [address] 72746 SPECIFIC GRAVITY TONG 1.015 Normal 1.003-1.035 [facility] Comment on above: Performed By: #### N UM #### [facility] ([id number]) [address] [place] [address] 39225 UROBILINOGEN TONG 1.0 eu/dL Normal <1.1 [facility] Comment on above: Performed By: #### N UM #### [facility] ([id number]) [address] [place] [address] 91441 TYPE AND SCREENon 12-29-2023 ABO and Rh group Nom (Bld) Blood group O Rh(D) positive [facility] Arm Band Number [id number] [facility] Blood Bank Sample Expiration 12/31/2023,2359 [facility] Blood group antibodies identified Nom Negative [facility] CBC with Auto Differentialon 12-28-2023 Basophils (Bld) [#/Vol] [facility] Basophils/100 WBC (Bld) 0 % 0 - 2 % [facility] Eosinophils (Bld) [#/Vol] 0.03 10*3/uL [facility] Eosinophils/100 WBC (Bld) 0 % Low 1 - 4 % [facility] Erythrocyte distribution width (RBC) [Ratio] 13.1 % 11.8 - 14.4 % [facility] Hematocrit (Bld) [Volume fraction] 33.6 % Low 36.3 - 47.1 % [facility] Hemoglobin (Bld) [Mass/Vol] 11.0 g/dL Low 11.9 - 15.1 g/dL [facility] Immature granulocytes (Bld) [#/Vol] [facility] Immature granulocytes/100 WBC (Bld) 0 % 0 [facility] Interpretation and review of laboratory results Abnormal [facility] Lymphocytes/100 WBC (Bld) 28 % 25 - 45 % [facility] Lymphocytes/100 WBC (Bld) 2.07 % [facility] MCH (RBC) [Entitic mass] 28.1 pg 25.2 - 33.5 pg [facility] MCHC (RBC) [Mass/Vol] 32.7 g/dL 28.4 - 34.8 g/dL [facility] MCV (RBC) [Entitic vol] 85.9 fL 82.6 - 102.9 fL [facility] Monocytes/100 WBC (Bld) 7 % 2 - 8 % [facility] Monocytes/100 WBC (Bld) 0.51 % [facility] Neutrophils/100 WBC (Bld) 65 % High 34 - 64 % [facility] Nucleated RBC/100 WBC (Bld) [Ratio] 0.0 % 0.0 per 100 WBC [facility] Platelet mean volume (Bld) [Entitic vol] 10.3 fL 8.1 - 13.5 fL [facility] Platelets (Bld) [#/Vol] 247 10*3/uL [facility] RBC (Bld) [#/Vol] 3.91 10*6/uL Low 3.95 - 5.1 1 m/uL [facility] Segmented neutrophils/100 WBC (Bld) 4.78 % [facility] WBC other (Bld) [#/Vol] 7.4 B ON [facility] Comprehensive Metabolic Pane josh 12-28-2023 Albumin [Mass/Vol] 3.5 g/dL 3.5 - 5.2 g/dL [facility] Albumin/Globulin [Mass ratio] 1.0 {ratio} 1.0 - 2.5 [facility] ALP [Catalytic activity/Vol] 138 U/L High 35 - 104 U/L [facility] ALT [Catalytic activity/Vol] 7 U/L 5 - 33 U/L [facility] Anion gap [Moles/Vol] 10 mmol/L 9 - 17 mmol/L [facility] AST [Catalytic activity/Vol] 13 U/L NINF - 32 U/L [facility] Bilirubin [Mass/Vol] 0.3 mg/dL 0.3 - 1 .2 mg/dL [facility] Calcium [Mass/Vol] 8.4 mg/dL Low 8.6 - 10. 4 mg/dL [facility] Chloride [Moles/Vol] 101 mmol/L 98 - 10 7 mmol/L [facility] CO2 [Moles/Vol] 21 mmol/L 20 - 31 mmol/L [facility] Creatinine [Mass/Vol] 0.6 mg/dL 0.5 - 0.9 mg/dL [facility] GFR/1.73 sq M.predicted MDRD (S/P/Bld) [Vol rate/Area] - PINF [facility] Comment on above: These results are [...] [Mass/Vol] 96 mg/dL 70 - 99 mg/dL [facility] Interpretation and review of laboratory results Abnormal [facility] Potassium [Moles/Vol] 4.0 mmol/L 3.7 - 5.3 mmol/L [facility] Protein [Mass/Vol] 7.0 g/dL 6.4 - 8.3 g/dL [facility] Sodium [Moles/Vol] 132 mmol/L Low 135 - 144 mmol/L [facility] Urea nitrogen [Mass/Vol] 9 mg/dL 6 - 20 mg/dL [facility] Urea nitrogen/Creatinine [Mass ratio] 15 mg/mg 9 - 20 [facility] Microscopic Urinalysison Bacteria LM Ql (Urine sed) 1+ Abnormal None [facility] Epithelial cells LM.HPF (Urine sed) [#/Area] 0 TO 2 [facility] Interpretation and review of laboratory results Abnormal [facility] Mucus Ql (Urine sed) TRACE Abnormal None [facility] RBC LM.HPF (Urine sed) [#/Area] None [facility] WBC LM.HPF (Urine sed) [#/Area] 0 TO 2 [facility] Urinalysison 12-28-2023 Bilirubin Ql (U) Negative NEGATIVE [facility] Clarity (U) Clear Clear [facility] Color (U) Yellow Yellow [facility] Glucose Test strip (U) [Mass/Vol] Negative NEGATIVE mg/dL [facility] Hemoglobin Auto test strip Ql (U) Negative NEGATIVE [facility] Interpretation and review of laboratory results Abnormal [facility] Ketones (U) [Mass/Vol] TRACE Abnormal NEGAT JG mg/dL [facility] Leukocyte esterase Test strip Ql (U) TRACE Abnormal NEGATIVE [facility] Nitrite Ql (U) Negative NEGATIVE [facility] pH (U) 7.0 [pH] 5.0 - 9.0 [facility] Protein (U) [Mass/Vol] Negative NEGAT JG mg/dL [facility] Specific gravity (U) [Rel density] 1.025 High 1.010 - 1.020 [facility] Urobilinogen Qn (U) ELEVATED 0.0 - 1. 0 EU/dL [facility] HIV Screenon 06-05-2023 HIV 1+2 Ab+HIV1 p24 Ag IA Ql Non-Reactive NONREACTIVE [facility] Comment on above: No laboratory eviden ce of HIV infection. If acute HIV infection is suspected, consider testing for HIV-1 RNA. [facility] Hepatitis C Antibodyon 06-05 HCV Ab IA Ql Non-Reactive NONREACTIVE [facility] Comment on above: The hepatitis C [...] recommended by ordering HCV RNA by PCR. [facility] TYPE AND SCREENon 0 06-05-2023 ABO and Rh group Nom (Bld) Blood group O Rh(D) positive [facility] Blood group antibodies identified Nom Negative [facility] HCG, Quantitative, on 02-22-2023 hCG Quant NINF [facility] Comment on above: Non-preg premeno <=5 Postmeno <=8 Male <=3 If HCG results do not concur with clinical observations, additional testing to confirm results is recommended. [facility] CBC with Auto Differentialon 10-13-2022 Absolute Eos # 0.00 [facility] Absolute Immature Granulocyte 0.00 [facility] Absolute Lymph # 0.29 Low [facility] Absolute [place] # 0.46 [facility] Basophils (Bld) [#/Vol] 0.00 10*3/uL [facility] Basophils/100 WBC (Bld) 0 % 0 - 2 % B [facility] Eosinophils/100 WBC (Bld) 0 % Low 1 - 4 % [facility] Hematocrit (Bld) [Volume fraction] 39.9 % 36.3 - 47.1 % [facility] Hemoglobin (Bld) [Mass/Vol] 13.1 g/dL 11.9 - 15.1 g/dL [facility] Immature granulocytes/100 WBC (Bld) 0 % 0 [facility] Interpretation and review of laboratory results Abnormal [facility] Lymphocytes/100 WBC (Bld) 5 % Low 25 - 45 % [facility] MCH (RBC) [Entitic mass] 29.2 pg 25.0 - 35.0 pg [facility] MCHC (RBC) [Mass/Vol] 32.8 g/dL 28.4 - 34.8 g/dL [facility] MCV (RBC) [Entitic vol] 88.9 fL 78.0 - 102.0 fL [facility] Monocytes/100 WBC (Bld) 8 % 2 - 8 % B [facility] Morphology [place] (Bld) [Interp] Normal [facility] NRBC Automated 0.0 0.0 per 100 WBC [facility] Platelet distribution width (Bld) [Ratio] 12.3 % 11.8 - 14.4 % [facility] Platelet mean volume (Bld) [Entitic vol] 9.6 fL 8.1 - 13.5 fL [facility] Platelets (Bld) [#/Vol] 240 10*3/uL [facility] RBC (Bld) [#/Vol] 4.49 10*6/uL 3.95 - 5.1 1 m/uL [facility] Segmented neutrophils/100 WBC (Bld) 87 % High 34 - 64 % [facility] Segs Absolute 5.05 [facility] WBC (Bld) [#/Vol] 5.8 10*3/uL [facility] COVID-19, Rapidon 10-13-2022 SARS-CoV-2 (COVID-19) RNA JULIO CÉSAR+probe Ql (Unsp spec) Not detected Not Detected [facility] Comment on above: Rapid NAAT: The [...] management decisions. Fact sheet for Healthcare Providers: https://www.fda.gov/media/377812/download Fact sheet for Patients: https://www.fda.gov/media/765375/download Methodology: Isothermal Nucleic Acid Amplification Specimen Description .NASOPHARYNGEAL SWAB [facility] Comprehensive Metabolic Pane josh 10-13-2022 Albumin [Mass/Vol] 4.1 g/dL 3.5 - 5.2 g/dL [facility] Albumin/Globulin [Mass ratio] 1.1 {ratio} 1.0 - 2.5 [facility] ALP (Bld) [Catalytic activity/Vol] 139 U/L High 35 - 104 U/L [facility] ALT [Catalytic activity/Vol] 23 U/L 5 - 33 U/L [facility] Anion gap [Moles/Vol] 11 mmol/L 9 - 17 mmol/L [facility] AST [Catalytic activity/Vol] 17 U/L NINF - 32 U/L [facility] Bilirubin [Mass/Vol] 0.2 mg/dL Low 0.3 - 1 .2 mg/dL [facility] Calcium [Mass/Vol] 9.5 mg/dL 8.6 - 10. 4 mg/dL [facility] Chloride [Moles/Vol] 98 mmol/L 98 - 10 7 mmol/L [facility] CO2 [Moles/Vol] 23 mmol/L 20 - 31 mmol/L [facility] Creatinine [Mass/Vol] 0.6 mg/dL 0.50 - 0.90 mg/dL [facility] GFR/1.73 sq M.predicted MDRD (S/P/Bld) [Vol rate/Area] - PINF [facility] Comment on above: Effective Jul 25, [...] [Mass/Vol] 98 mg/dL 70 - 99 mg/dL [facility] Interpretation and review of laboratory results Abnormal [facility] Potassium [Moles/Vol] 3.9 mmol/L 3.7 - 5.3 mmol/L [facility] Protein [Mass/Vol] 7.7 g/dL 6.4 - 8.3 g/dL [facility] Sodium [Moles/Vol] 132 mmol/L Low 135 - 144 mmol/L [facility] Urea nitrogen (BldV) [Mass/Vol] 12 mg/dL 6 - 20 mg/dL [facility] Urea nitrogen/Creatinine (Bld) [Mass ratio] 20 9 - 20 [facility] Lactic Acidon 10-13-2022 Lactate [Moles/Vol] 1.1 mmol/L 0.5 - 2. 2 mmol/L [facility] Microscopic Urinalysison Bacteria, UA TRACE Abnormal None [facility] Epithelial Cells UA 0 TO 2 [facility] Interpretation and review of laboratory results Abnormal [facility] Mucus, UA TRACE Abnormal None [facility] RBC, UA 0 TO 2 [facility] WBC, UA 2 TO 5 [facility] Mononucleosis Screenon 10-13 Mononucleosis Screen Negative NEGATIVE [facility] Rapid influenza A/B antigens on 10-13-2022 Flu A Antigen Negative NEGATIVE [facility] Comment on above: for Influenza A Anti gen Flu B Antigen Negative NEGATIVE [facility] Comment on above: for Influenza B Anti gen. [facility] Strep Screen Group A Throato n 10-13-2022 S. pyogenes Ag Ql (Throat) Negative NEGATIVE [facility] Comment on above: Rapid Strep A negati ve. A negative Rapid Group A Strep Screen result does not rule out the possibility of Group A Streptococci in the specimen. A Group A Strep DNA test is available upon request. Source .THROAT SWAB [facility] Urinalysis with Reflex to Cu ltureon 10-13-2022 Bilirubin Urine Negative NEGATIVE [facility] Color, UA Yellow Yellow [facility] Glucose, Ur Negative NEGATIVE [facility] Interpretation and review of laboratory results Abnormal [facility] Ketones Ql (U) Negative NEGATIVE [facility] Leukocyte esterase Test strip Ql (U) Negative NEGATIVE [facility] Nitrite, Urine Negative NEGATIVE [facility] pH, UA 7.0 5.0 - 9.0 [facility] Protein, UA Negative NEGATIVE [facility] Specific Alder, UA 1.025 High 1.010 - 1.020 B [facility] Turbidity UA Clear Clear [facility] Urine Hgb Negative NEGATIVE [facility] Urobilinogen, Urine Normal Normal [facility] CBCon 10-06-2022 Hematocrit (Bld) [Volume fraction] 32.1 % Low 36.3 - 47.1 % [facility] Hemoglobin (Bld) [Mass/Vol] 10.8 g/dL Low 11.9 - 15.1 g/dL [facility] Interpretation and review of laboratory results Abnormal [facility] MCH (RBC) [Entitic mass] 29.8 pg 25.0 - 35.0 pg [facility] MCHC (RBC) [Mass/Vol] 33.6 g/dL 28.4 - 34.8 g/dL [facility] MCV (RBC) [Entitic vol] 88.4 fL 78.0 - 102.0 fL [facility] NRBC Automated 0.0 0.0 per 100 WBC [facility] Platelet distribution width (Bld) [Ratio] 12.9 % 11.8 - 14.4 % [facility] Platelet mean volume (Bld) [Entitic vol] 10.4 fL 8.1 - 13.5 fL [facility] Platelets (Bld) [#/Vol] 223 10*3/uL [facility] RBC (Bld) [#/Vol] 3.63 10*6/uL Low 3.95 - 5.1 1 m/uL [facility] WBC (Bld) [#/Vol] 8.0 10*3/uL [facility] DRUG SCREEN MULTI URINEon Amphetamine Screen, Ur Negative NEGATIVE [facility] Barbiturate Screen, Ur Negative NEGATIVE [facility] Benzodiazepine Screen, Urine Negative NEGATIVE [facility] Buprenorphine Urine Negative NEGATIVE [facility] Cannabinoid Scrn, Ur Negative NEGATIVE [facility] Cocaine Metabolite, Urine Negative NEGATIVE [facility] Methadone Screen, Urine Negative NEGATIVE [facility] Methamphetamine, Urine Negative NEGATIVE [facility] Opiates, Urine Negative NEGATIVE [facility] Oxycodone Screen, Ur Negative NEGATIVE [facility] Phencyclidine, Urine Negative NEGATIVE [facility] Propoxyphene, Urine Negative NEGATIVE [facility] Tricyclic Antidepressants, Urine Negative NEGATIVE [facility] Comment on above: Drug screen results are to be used for medical purposes only. All positive results are unconfirmed. Testing for employment or legal uses should be sent to a reference laboratory for confirmation. [facility] TYPE AND SCREENon 10-06-2022 ABO/Rh Positive [facility] Arm Band Number [id number] [facility] Expiration Date 10/09/2022,2882 [facility] BMPon 09-03-2022 Anion gap [Moles/Vol] 10 mmol/L 9 - 17 mmol/L [facility] Calcium [Mass/Vol] 9.2 mg/dL 8.6 - 10. 4 mg/dL [facility] Chloride [Moles/Vol] 102 mmol/L 98 - 10 7 mmol/L [facility] CO2 [Moles/Vol] 23 mmol/L 20 - 31 mmol/L [facility] Creatinine [Mass/Vol] 0.5 mg/dL 0.50 - 0.90 mg/dL [facility] GFR/1.73 sq M.predicted MDRD (S/P/Bld) [Vol rate/Area] - PINF [facility] Comment on above: Effective Jul 25, [...] [Mass/Vol] 84 mg/dL 70 - 99 mg/dL [facility] Potassium [Moles/Vol] 3.9 mmol/L 3.7 - 5.3 mmol/L [facility] Sodium [Moles/Vol] 135 mmol/L 135 - 144 mmol/L [facility] Urea nitrogen (BldV) [Mass/Vol] 6 mg/dL 6 - 20 mg/dL [facility] Urea nitrogen/Creatinine (Bld) [Mass ratio] 12 9 - 20 [facility] CBC with Auto Differentialon 09-03-2022 Absolute Eos # 0.04 [place] Absolute Immature Granulocyte 0.04 [facility] Absolute Lymph # 1.19 Low [facility] Absolute [place] # 0.46 [facility] Basophils Absolute [facility] Basophils/100 WBC (Bld) 0 % 0 - 2 % B ON [facility] Eosinophils/100 WBC (Bld) 1 % 1 - 4 % [facility] Hematocrit (Bld) [Volume fraction] 33.5 % Low 36.3 - 47.1 % [facility] Hemoglobin (Bld) [Mass/Vol] 11.4 g/dL Low 11.9 - 15.1 g/dL [facility] Immature granulocytes/100 WBC (Bld) 1 % High 0 [facility] Interpretation and review of laboratory results Abnormal [facility] Lymphocytes/100 WBC (Bld) 15 % Low 25 - 45 % [facility] MCH (RBC) [Entitic mass] 30.6 pg 25.0 - 35.0 pg [facility] MCHC (RBC) [Mass/Vol] 34.0 g/dL 28.4 - 34.8 g/dL [facility] MCV (RBC) [Entitic vol] 90.1 fL 78.0 - 102.0 fL [facility] Monocytes/100 WBC (Bld) 6 % 2 - 8 % B ON [facility] NRBC Automated 0.0 0.0 per 100 WBC [facility] Platelet distribution width (Bld) [Ratio] 13.3 % 11.8 - 14.4 % [facility] Platelet mean volume (Bld) [Entitic vol] 9.7 fL 8.1 - 13.5 fL [facility] Platelets (Bld) [#/Vol] 194 10*3/uL [facility] RBC (Bld) [#/Vol] 3.72 10*6/uL Low 3.95 - 5.1 1 m/uL [facility] Segmented neutrophils/100 WBC (Bld) 77 % High 34 - 64 % [facility] Segs Absolute 6.12 [facility] WBC (Bld) [#/Vol] 7.9 10*3/uL [facility] COVID-19, Rapidon 09-03-2022 SARS-CoV-2 (COVID-19) RNA JULIO CÉSAR+probe Ql (Unsp spec) Not detected Not Detected [facility] Comment on above: Rapid NAAT: The [...] management decisions. Fact sheet for Healthcare Providers: https://www.fda.gov/media/947458/download Fact sheet for Patients: https://www.Cognitum.gov/media/509999/download Methodology: Isothermal Nucleic Acid Amplification Specimen Description .NASOPHARYNGEAL SWAB [facility] Magnesiumon 09-03-2022 Interpretation and review of laboratory results Abnormal [facility] Magnesium [Mass/Vol] 1.6 mg/dL Low 1.7 - 2 .2 mg/dL [facility] No Panel Informationon 09-03 [facility] Rapid influenza A/B antigens on 09-03-2022 Flu A Antigen Negative NEGATIVE [facility] Comment on above: for Influenza A Anti gen Flu B Antigen Negative NEGATIVE [facility] Comment on above: for Influenza B Anti gen. [facility] Microscopic Urinalysison Bacteria, UA TRACE Abnormal None [facility] Epithelial Cells UA 0 TO 2 [facility] Interpretation and review of laboratory results Abnormal [facility] Mucus, UA 2+ Abnormal None [facility] RBC, UA 5 TO 10 [facility] WBC, UA 20 TO 50 [facility] Urinalysison 07-14-2022 Bilirubin Urine Negative NEGATIVE [facility] Color, UA Yellow Yellow [facility] Glucose, Ur Negative NEGATIVE [facility] Interpretation and review of laboratory results Abnormal [facility] Ketones Ql (U) Negative NEGATIVE [facility] Leukocyte esterase Test strip Ql (U) SMALL Abnormal NEGATIVE [facility] Nitrite, Urine Negative NEGATIVE [facility] pH, UA 7.0 5 - 9 [facility] Protein, UA Negative NEGATIVE [facility] Specific Alder, UA 1.020 1.01 - 1.02 [facility] Turbidity UA Clear Clear [facility] Urine Hgb 1+ Abnormal NEGATIVE [facility] Urobilinogen, Urine ELEVATED Abnormal Normal [facility] CBC with Auto Differentialon 05-10-2022 Absolute Eos # 0.04 [facility] Absolute Immature Granulocyte [facility] Absolute Lymph # 2.27 [facility] Absolute [place] Zandt # 0.46 [facility] Basophils Absolute [facility] Basophils/100 WBC (Bld) 0 % 0 - 2 % B [facility] Eosinophils/100 WBC (Bld) 1 % 1 - 4 % [facility] Hematocrit (Bld) [Volume fraction] 36.2 % Low 36.3 - 47.1 % [facility] Hemoglobin (Bld) [Mass/Vol] 11.9 g/dL 11.9 - 15.1 g/dL [facility] Immature granulocytes/100 WBC (Bld) 0 % 0 [facility] Interpretation and review of laboratory results Abnormal [facility] Lymphocytes/100 WBC (Bld) 29 % 25 - 45 % [facility] MCH (RBC) [Entitic mass] 29.8 pg 25 - 35 pg [facility] MCHC (RBC) [Mass/Vol] 32.9 g/dL 28.4 - 34.8 g/dL [facility] MCV (RBC) [Entitic vol] 90.5 fL 78 - 102 fL [facility] Monocytes/100 WBC (Bld) 6 % 2 - 8 % B ON [facility] NRBC Automated 0.0 0.0 per 100 WBC [facility] Platelet distribution width (Bld) [Ratio] 12.9 % 11.8 - 14.4 % [facility] Platelet mean volume (Bld) [Entitic vol] 9.5 fL 8.1 - 13.5 fL [facility] Platelets (Bld) [#/Vol] 229 10*3/uL [facility] RBC (Bld) [#/Vol] 4.00 10*6/uL 3.95 - 5.1 1 m/uL [facility] Segmented neutrophils/100 WBC (Bld) 64 % 34 - 64 % [facility] Segs Absolute 5.15 [facility] WBC (Bld) [#/Vol] 8.0 10*3/uL [facility] Microscopic Urinalysison - [facility] Epithelial Cells UA 2 TO 5 [facility] RBC, UA 10 TO 20 [facility] WBC, UA 10 TO 20 [facility] US OB 14 PLUS WEEKS SINGLE O R FIRST GESTATIONon 05-10-2022 A single live intrauterine with estimated gestational age of 18 weeks 0 days and heart rate of 153 beats per minute by ultrasound. The estimated weight is 233.15 g. ALINE of 10.18 but subjectively appears decreased on the ultrasound. [facility] EXAMINATION: TRANSABDOMINAL SECOND/THIRD TRIMESTER OBSTETRIC PELVIC [...] weeks 1 day CERVICAL LENGTH: 3.8 cm. [facility] Froylan Mendez - 05/10/2022 EXAMINATION: TRANSABDOMINAL SECOND/THIRD TRIMESTER OBSTETRIC [...] but subjectively appears decreased on the ultrasound. [employer] Work Phone: Radiology Study observation (narrative) [facility] Work Phone: US OB 14 PLUS WEEKS SINGLE O R FIRST GESTATIONOrdered By: Froylan Mendez on 05-10-2022 [employer] Work Phone: Urinalysison 05-10-2022 Bilirubin Urine Negative NEGATIVE [facility] [employer] Color, UA Yellow Yellow [facility] [facility] Glucose, Ur Negative NEGATIVE [employer] [facility] Interpretation and review of laboratory results Abnormal [facility] [employer]ettle Ketones Ql (U) 1+ Abnormal NEGATIVE [employer] [facility] drchrono [facility] Leukocyte esterase Test strip Ql (U) TRACE Abnormal NEGATIVE [employer] [facility] Nitrite, Urine Negative NEGATIVE [place] [employer] pH, UA 6.0 5 - 9 [employer] [facility] Protein, UA TRACE Abnormal NEGATIVE [employer] [facility] Specific Alder, UA High 1.01 - 1.02 [employer] Turbidity UA Clear Clear [employer] [facility] Urine Hgb 3+ Abnormal NEGATIVE [employer] [facility] Urobilinogen, Urine Normal Normal [facility] hCG, quantitative, on 05-10-2022 hCG Quant [id number] High NINF [facility] Comment on above: Non-preg premeno <=5 Postmeno <=8 Male <=3 If HCG results do not concur with clinical observations, additional testing to confirm results is recommended. Elevated results not associated with may be found in patients with other diseases such as tumors of the germ cells (testis, ovaries, etc.), bladder, pancreas, stomach, lungs, and liver. Interpretation and review of laboratory results Abnormal [facility] HIV Screenon 03-07-2022 HIV Ag/Ab Non-Reactive NONREACTIVE [facility] Comment on above: No laboratory eviden ce of HIV infection. If acute HIV infection is suspected, consider testing for HIV-1 RNA. [facility] Hepatitis C Antibodyon 03-07 Hepatitis C Ab Non-Reactive NONREACTIVE [facility] ealt Comment on above: The hepatitis C procedure [...] recommended by ordering HCV RNA by PCR. [facility] TYPE AND SCREENon 0 03-07-2022 ABO/Rh Positive [facility] Profile Ion 022 Absolute Eos # 0.06 [facility] th Absolute Immature Granulocyte 0.03 [facility] Absolute Lymph # 2.23 [facility] alth Absolute [place] # 0.50 [facility] lth Basophils (Bld) [#/Vol] 0.03 10*3/uL [facility] Basophils/100 WBC (Bld) 0 % 0 - 2 % [facility] Eosinophils/100 WBC (Bld) 1 % 1 - 4 % [facility] Hematocrit (Bld) [Volume fraction] 38.7 % 36.3 - 47.1 % [facility] Hemoglobin.gastrointest inal spec 1 Ql (Stl) 12.8 g/dL 11.9 - 15.1 g/dL [facility] Hepatitis B Surface Ag Non-Reactive NONREACTIVE [facility] Immature granulocytes/100 WBC (Bld) 0 % 0 [facility] Lymphocytes/100 WBC (Bld) 33 % 25 - 45 % [facility] MCH (RBC) [Entitic mass] 29.9 pg 25.0 - 35.0 pg [facility] MCHC (RBC) [Mass/Vol] 33.1 g/dL 28.4 - 34.8 g/dL [facility] MCV (RBC) [Entitic vol] 90.4 fL 78.0 - 102.0 fL [facility] Monocytes/100 WBC (Bld) 7 % 2 - 8 % M [facility] NRBC Automated 0.0 0.0 per 100 WBC [facility] Platelet distribution width (Bld) [Ratio] 13.0 % 11.8 - 14.4 % [facility] Platelet mean volume (Bld) [Entitic vol] 9.8 fL 8.1 - 13.5 fL [facility] Platelets (Bld) [#/Vol] 281 10*3/uL [facility] RBC (Bld) [#/Vol] 4.28 10*6/uL 3.95 - 5.1 1 m/uL [facility] Rubella virus IgG Ql (S) 43.8 IU/mL [facility] Comment on above: REFERENCE RANGE: <5.0 NON-REACTIVE (non-immune) 5.0 TO 9.9 EQUIVOCAL >=10.0 REACTIVE (immune) Segmented neutrophils/100 WBC (Bld) 59 % 34 - 64 % [facility] Segs Absolute 4.01 [facility] T. pallidum, IgG Non-Reactive NONREACTIVE [facility] Comment on above: T. pallidum antibodies are not detected. There is no serological evidence of infection with T. pallidum (early primary syphilis cannot be excluded). Retest in 2-4 weeks if syphilis is clinically suspect. WBC (Bld) [#/Vol] 6.9 10*3/uL [facility] Urine Drug Screen, Comprehen siveon 03-07-2022 Amphetamine Screen, Ur Negative NEGATIVE [facility] Barbiturate Screen, Ur Negative NEGATIVE [facility] Benzodiazepine Screen, Urine Negative NEGATIVE [facility] Buprenorphine Urine Negative NEGATIVE [facility] Cannabinoid Scrn, Ur Negative NEGATIVE [facility] Cocaine Metabolite, Urine Negative NEGATIVE [facility] Methadone Screen, Urine Negative NEGATIVE [facility] Methamphetamine, Urine Negative NEGATIVE [facility] Opiates, Urine Negative NEGATIVE [facility] th Oxycodone Screen, Ur Negative NEGATIVE [facility] Phencyclidine, Urine Negative NEGATIVE [facility] Propoxyphene, Urine Negative NEGATIVE [facility] Tricyclic Antidepressants, Urine Negative NEGATIVE [facility] Comment on above: Drug screen results are to be used for medical purposes only. All positive results are unconfirmed. Testing for employment or legal uses should be sent to a reference laboratory for confirmation. [facility] Microscopic Urinalysison - [facility] Epithelial Cells UA 10 TO 20 [facility] RBC, UA 0 TO 2 [facility] WBC, UA 5 TO 10 [facility] Urinalysis with Reflex to Cu ltureon 02-04-2022 Bilirubin Urine Negative NEGATIVE [facility] Color, UA Yellow Yellow [facility] Glucose, Ur Negative NEGATIVE [facility] Interpretation and review of laboratory results Abnormal [facility] Ketones Ql (U) Negative NEGATIVE [facility] Leukocyte esterase Test strip Ql (U) SMALL Abnormal NEGATIVE [facility] Nitrite, Urine Negative NEGATIVE [facility] pH, UA 7.0 [facility] Protein, UA Negative NEGATIVE [facility] Specific Alder, UA 1.020 [facility] Turbidity UA SLIGHTLY CLOUDY Abnormal Clear [facility] ealt Urine Hgb Negative NEGATIVE [facility] Urobilinogen, Urine ELEVATED Abnormal Normal [facility] hCG, quantitative, on 02-04-2022 hCG Quant 105 High <5 mIU/mL [facility] Comment on above: Non-preg premeno <=5 Postmeno <=8 Male <=3 If HCG results do not concur with clinical observations, additional testing to confirm results is recommended. Elevated results not associated with may be found in patients with other diseases such as tumors of the germ cells (testis, ovaries, etc.), bladder, pancreas, stomach, lungs, and liver. Interpretation and review of laboratory results Abnormal [facility] hCG, Quantitative, Ordered By: Angelina Mathews on 07-20-2021 hCG Quant <1 <5 IU/L [employer] Work Phone: Comment on above: Non-preg premeno <=5 Postmeno <=8 Male <=3 If HCG results do not concur with clinical observations, additional testing to confirm results is recommended. Elevated results not associated with may be found in patients with other diseases such as tumors of the germ cells (testis, ovaries, etc.), bladder, pancreas, stomach, lungs, and liver. [employer] Work Phone: APTTOrdered By: Sheela Mcdowell on 04-27-2021 aPTT Coag (Bld) [Time] 37.8 s High [facility] Work Phone: Comment on above: IV Heparin Therapy Range: 62.0-94.0 Interpretation and review of laboratory results Abnormal [facility] Phone: [facility] Work Phone: CBC Auto DifferentialOrdered By: Sheela Mcdowell on 04-27-2021 Absolute Eos # 0.09 [facility] Work Phone: Absolute Immature Granulocyte <0.03 [facility] Work Phone: Absolute Lymph # 2.38 [employer] [facility] Work Phone: Absolute Van Zandt # 0.61 [facility] Work Phone: Basophils (Bld) [#/Vol] 0.03 10*3/uL [facility] Work Phone: Basophils/100 WBC (Bld) 0 % 0 - 2 % [facility] Phone: Differential Type NOT REPORTED [facility] Phone: Eosinophils/100 WBC (Bld) 1 % 1 - 4 % [facility] Phone: Hematocrit (Bld) [Volume fraction] 37.9 % 36.3 - 47.1 % [facility] Phone: Hemoglobin.gastrointest inal spec 1 Ql (Stl) 12.2 g/dL 11.9 - 15.1 g/dL [employer] Phone: Immature granulocytes/100 WBC (Bld) 0 % 0 [facility] Phone: Lymphocytes/100 WBC (Bld) 31 % 25 - 45 % [facility] Phone: MCH (RBC) [Entitic mass] 28.1 pg 25.0 - 35.0 pg [employer] Phone: MCHC (RBC) [Mass/Vol] 32.2 g/dL 28.4 - 34.8 g/dL [employer] Phone: MCV (RBC) [Entitic vol] 87.3 fL 78.0 - 102.0 fL [employer] Phone: Monocytes/100 WBC (Bld) 8 % 2 - 8 % [facility] Work Phone: NRBC Automated 0.0 0.0 per 100 WBC [employer] Phone: Platelet distribution width (Bld) [Ratio] 12.6 % 11.8 - 14.4 % [employer] Phone: Platelet Estimate NOT REPORTED [employer] Phone: Platelet mean volume (Bld) [Entitic vol] 9.4 fL 8.1 - 13.5 fL [employer] Phone: Platelets (Bld) [#/Vol] 332 10*3/uL [employer] Phone: RBC (Bld) [#/Vol] 4.34 10*6/uL 3.95 - 5.1 1 m/uL [employer] Phone: RBC (Bld) [#/Vol] NOT REPORTED [employer] Phone: Segmented neutrophils/100 WBC (Bld) 60 % 34 - 64 % [employer] Phone: Segs Absolute 4.63 [employer] Work Phone: WBC (Bld) [#/Vol] 7.8 10*3/uL [employer] Phone: WBC (Bld) [#/Vol] NOT REPORTED [facility] Phone: [employer] Work Phone: Comprehensive Metabolic Pane l w/ Reflex to MGOrdered By: Sheela Mcdowell on 04-27-2021 Albumin [Mass/Vol] 4.4 g/dL 3.2 - 4.5 g/dL [employer] Phone: Albumin/Globulin [Mass ratio] 1.1 {ratio} [employer] Phone: ALP (Bld) [Catalytic activity/Vol] 175 U/L High 47 - 119 U/L [employer] Phone: ALT [Catalytic activity/Vol] 17 U/L 5 - 33 U/L [employer] Phone: Anion gap [Moles/Vol] 13 mmol/L 9 - 17 mmol/L [employer] Phone: AST [Catalytic activity/Vol] 16 U/L <32 [employer] Phone: Bilirubin [Mass/Vol] 0.25 mg/dL Low 0.3 - 1 .2 mg/dL [employer] Phone: Calcium [Mass/Vol] 9.8 mg/dL 8.4 - 10. 2 mg/dL [employer] Phone: Chloride [Moles/Vol] 99 mmol/L 98 - 10 7 mmol/L [employer] Phone: CO2 [Moles/Vol] 24 mmol/L 20 - 31 mmol/L [employer] Phone: Creatinine [Mass/Vol] 0.6 mg/dL 0.50 - 0.90 mg/dL [employer] Phone: Free PSA/Total PSA [Mass fraction] 8.5 g/dL High 6.0 - 8.0 g/dL [employer] Phone: GFR NOT REPORTED >60 mL/min [employer] Phone: GFR Non- Pediatric GFR requires additional information. Refer to NKDEP website for calculator. >60 mL/min [employer] Phone: Glucose [Mass/Vol] 98 mg/dL 60 - 100 mg/dL [employer] Phone: Interpretation and review of laboratory results Abnormal [employer] Phone: Potassium [Moles/Vol] 3.9 mmol/L 3.6 - 4.9 mmol/L [employer] Phone: Sodium [Moles/Vol] 136 mmol/L 135 - 144 mmol/L [employer] Phone: Urea nitrogen (BldV) [Mass/Vol] 14 mg/dL 5 - 18 mg/dL [employer] Phone: Urea nitrogen/Creatinine (Bld) [Mass ratio] 23 High [employer] Phone: [employer] Phone: Laboratory - Chemistry and C hemistry - challengeOrdered By: Sheela Mcdowell on 04-27-2021 GFR/1.73 sq M.predicted MDRD (S/P/Bld) [Vol rate/Area] [employer] Phone: Comment on above: Average GFR for <20 years old not available. Chronic Kidney Disease: <60 mL/min/1.73sq m Kidney failure: <15 mL/min/1.73sq m eGFR calculated using average adult body mass. Additional eGFR calculator available at: http://www.[employer].Dress Code/multiple_crcl_2012.htm Stage 1: Some kidney damage normal GFR Stage 2: Mild kidney damage GFR 60-89 Stage 3: Moderate kidney damage GFR 30-59 Stage 4: Severe kidney damage GFR 15-29 Stage 5: Severe kidney damage GFR <15 ESRD - chronic treatment by dialysis or transplant Protime-INROrdered By: Day Mcdowell on 04-27-2021 INR Coag (Bld) [Relative time] 1.0 {INR} [employer] Phone: Comment on above: Non-therapeutic Range: INR = 0.9-1.2 Therapeutic Range: Moderate Anticoagulant Intensity: INR = 2.0-3.0 High Anticoagulant Intensity: INR = 2.5-3.5 PT Coag (PPP) [Time] 13.3 s [employer] Work Phone: [employer] Work Phone: CBC auto differentialOrdered By: Yana Ridley on 04-20-2021 Absolute Eos # 0.04 [facility] Work Phone: Absolute Immature Granulocyte 0.03 [employer] Work Phone: Absolute Lymph # 3.04 [facility] Work Phone: Absolute Van Zandt # 0.55 [facility] Work Phone: Basophils (Bld) [#/Vol] 10*3/uL [facility] [employer] Work Phone: Basophils/100 WBC (Bld) 0 % 0 - 2 % [employer] Phone: Differential Type NOT REPORTED [employer] Phone: Eosinophils/100 WBC (Bld) 1 % 1 - 4 % [employer] Phone: Hematocrit (Bld) [Volume fraction] 33.0 % Low 36.3 - 47.1 % [employer] Phone: Hemoglobin.gastrointest inal spec 1 Ql (Stl) 10.8 g/dL Low 11.9 - 15.1 g/dL [employer] Phone: Immature granulocytes/100 WBC (Bld) 0 % 0 [employer] Phone: Interpretation and review of laboratory results Abnormal [employer] Phone: Lymphocytes/100 WBC (Bld) 37 % 25 - 45 % [employer] Phone: MCH (RBC) [Entitic mass] 28.7 pg 25.0 - 35.0 pg [employer] Phone: MCHC (RBC) [Mass/Vol] 32.7 g/dL 28.4 - 34.8 g/dL [employer] Phone: MCV (RBC) [Entitic vol] 87.8 fL 78.0 - 102.0 fL [employer] Phone: Monocytes/100 WBC (Bld) 7 % 2 - 8 % [facility] Phone: NRBC Automated 0.0 0.0 per 100 WBC [employer] Phone: Platelet distribution width (Bld) [Ratio] 13.0 % 11.8 - 14.4 % [facility] Phone: Platelet Estimate NOT REPORTED [employer] Phone: Platelet mean volume (Bld) [Entitic vol] 10.9 fL 8.1 - 13.5 fL [employer] Phone: Platelets (Bld) [#/Vol] 220 10*3/uL [employer] Phone: RBC (Bld) [#/Vol] 3.76 10*6/uL Low 3.95 - 5.1 1 m/uL [facility] Phone: RBC (Bld) [#/Vol] NOT REPORTED [facility] Phone: Segmented neutrophils/100 WBC (Bld) 55 % 34 - 64 % [facility] Phone: Segs Absolute 4.58 [employer] Work Phone: WBC (Bld) [#/Vol] 8.3 10*3/uL [employer] Phone: WBC (Bld) [#/Vol] NOT REPORTED [employer] Phone: [facility] Phone: DRUG SCREEN MULTI URINEOrder ed By: Yana Ridley on 04-20-2021 Amphetamine Screen, Ur Negative NEGATIVE [facility] Work Phone: Barbiturate Screen, Ur Negative NEGATIVE [facility] Work Phone: Benzodiazepine Screen, Urine Negative NEGATIVE [facility] Work Phone: Buprenorphine Urine Negative NEGATIVE [facility] Work Phone: Cannabinoid Scrn, Ur Negative NEGATIVE [facility] Work Phone: Cocaine Metabolite, Urine Negative NEGATIVE [facility] Work Phone: MDMA, Urine NOT REPORTED [facility]IVE [facility] Work Phone: Methadone Screen, Urine Negative NEGATIVE [facility] Work Phone: Methamphetamine, Urine Negative NEGATIVE [facility] Work Phone: Opiates, Urine Negative NEGATIVE [facility] Work Phone: Oxycodone Screen, Ur Negative NEGATIVE [facility] Work Phone: Phencyclidine, Urine Negative NEGATIVE [facility] Work Phone: Propoxyphene, Urine Negative NEGATIVE [facility] Work Phone: Test Information NOT REPORTED [facility] Work Phone: Tricyclic Antidepressants, Urine Negative NEGATIVE [facility] Work Phone: Comment on above: Drug screen results are to be used for medical purposes only. All positive results are unconfirmed. Testing for employment or legal uses should be sent to a reference laboratory for confirmation. [employer] Work Phone: Comprehensive Metabolic Pane lOrdered By: Angelina Mathews on 04-14-2021 Albumin [Mass/Vol] 3.6 g/dL 3.2 - 4.5 g/dL [employer] Work Phone: Albumin/Globulin [Mass ratio] 1.1 {ratio} [employer] Work Phone: ALP (Bld) [Catalytic activity/Vol] 198 U/L High 47 - 119 U/L [employer] Phone: ALT [Catalytic activity/Vol] 10 U/L 5 - 33 U/L [employer] Phone: Anion gap [Moles/Vol] 9 mmol/L 9 - 17 mmol/L [employer] Phone: AST [Catalytic activity/Vol] 15 U/L <32 [employer] Phone: Bilirubin [Mass/Vol] 0.24 mg/dL Low 0.3 - 1 .2 mg/dL [employer] Phone: Calcium [Mass/Vol] 9.6 mg/dL 8.4 - 10. 2 mg/dL [employer] Phone: Chloride [Moles/Vol] 106 mmol/L 98 - 10 7 mmol/L [employer] Phone: CO2 [Moles/Vol] 22 mmol/L 20 - 31 mmol/L [employer] Phone: Creatinine [Mass/Vol] 0.6 mg/dL 0.50 - 0.90 mg/dL [employer] Phone: Free PSA/Total PSA [Mass fraction] 7.0 g/dL 6.0 - 8.0 g/dL [employer] Phone: GFR NOT REPORTED >60 mL/min [facility] Phone: GFR Non- Pediatric GFR requires additional information. Refer to NKDEP website for calculator. >60 mL/min [employer] Phone: Glucose [Mass/Vol] 95 mg/dL 60 - 100 mg/dL [employer] Phone: Interpretation and review of laboratory results Abnormal [employer] Phone: Potassium [Moles/Vol] 3.9 mmol/L 3.6 - 4.9 mmol/L [employer] Phone: Sodium [Moles/Vol] 137 mmol/L 135 - 144 mmol/L [employer] Phone: Urea nitrogen (BldV) [Mass/Vol] 9 mg/dL 5 - 18 mg/dL [employer] Phone: Urea nitrogen/Creatinine (Bld) [Mass ratio] 15 [employer] Phone: [employer] Phone: Laboratory - Chemistry and C hemistry - challengeOrdered By: Angelina Mathews on 04-14-2021 GFR/1.73 sq M.predicted MDRD (S/P/Bld) [Vol rate/Area] [employer] Phone: Comment on above: Average GFR for <20 years old not available. Chronic Kidney Disease: <60 mL/min/1.73sq m Kidney failure: <15 mL/min/1.73sq m eGFR calculated using average adult body mass. Additional eGFR calculator available at: http://www.[employer]/multiple_crcl_2012.htm Stage 1: Some kidney damage normal GFR Stage 2: Mild kidney damage GFR 60-89 Stage 3: Moderate kidney damage GFR 30-59 Stage 4: Severe kidney damage GFR 15-29 Stage 5: Severe kidney damage GFR <15 ESRD - chronic treatment by dialysis or transplant Glucose tolerance, 1 houron 02-01-2021 GLU ADMN Glucola [employer] Phone: Glucose tolerance screen 50g 84 mg/dL 70 - 135 mg/dL [employer] Phone: Hemoglobinon 02-01-2021 Hemoglobin.gastrointest inal spec 1 Ql (Stl) 11.7 g/dL Low 11.9 - 15.1 g/dL [employer] Phone: Interpretation and review of laboratory results Abnormal [employer] Phone: Urinalysis with microscopico n 01-04-2021 Amorphous, UA NOT REPORTED None [facility] Work Phone: Bacteria, UA NOT REPORTED None [facility] Work Phone: Bilirubin Urine Negative NEGATIVE [facility] Work Phone: Casts UA NOT REPORTED /LPF [facility] Work Phone: Color, UA YELLOW YELLOW [facility] Work Phone: Crystals, UA NOT REPORTED None /HPF [facility] Work Phone: Epithelial Cells UA 2 TO 5 [facility] Work Phone: Glucose, Ur Negative NEGATIVE [facility] Work Phone: Interpretation and review of laboratory results Abnormal [facility] Work Phone: Ketones Ql (U) Negative NEGATIVE [facility] Work Phone: Leukocyte esterase Test strip Ql (U) Negative NEGATIVE [facility] Work Phone: Mucus, UA NOT REPORTED None [facility] Work Phone: Nitrite, Urine Negative NEGATIVE [facility] Work Phone: Other Observations UA NOT REPORTED NOT REQ. M [facility] [employer] Work Phone: pH, UA 6.0 [facility] Work Phone: Protein (U) [Mass/Vol] Negative NEGATIVE [facility] Work Phone: RBC (U) [#/Vol] 0 TO 2 [facility] Work Phone: Renal Epithelial, UA NOT REPORTED 0 /HPF [facility] Work Phone: Specific [place], UA 1.025 High [facility] [employer] Work Phone: Trichomonas, UA NOT REPORTED None [facility] Work Phone: Turbidity UA CLEAR CLEAR [facility] Work Phone: Urinalysis Comments NOT REPORTED [facility] Work Phone: Urine Hgb Negative NEGATIVE [employer] Phone: Urobilinogen, Urine Normal Normal [employer] Phone: WBC, UA 2 TO 5 [employer] Phone: Yeast, UA NOT REPORTED None [employer] Phone: - [employer] Phone: MRI PELVIS WO CONTRASTon The right ovary contains a 1.8 x 1.3 cm fat-containing lesion compatible with a dermoid. [employer] Phone: EXAMINATION: MRI OF THE PELVIS WITHOUT [...] gastrointestinal tract and osseous structures are unremarkable. [employer] Phone: Jb, pn Incoming Radiant Results From [employer] - 12/11/2020 11:58 AM EST EXAMINATION: MRI [...] cm fat-containing lesion compatible with a dermoid. [facility] Work Phone: PROFILE Ion 020 Basophils (Bld) [#/Vol] 0.03 10*3/uL [place] Basophils/100 WBC (Bld) 1 % 0 - 2 % [place] Differential Type NOT REPORTED [place] Eosinophils (Bld) [#/Vol] 0.04 10*3/uL [place] Eosinophils/100 WBC (Bld) 1 % 1 - 4 % [place] Erythrocyte distribution width (RBC) [Ratio] 12.2 % 11.8 - 14.4 % [place] Hematocrit (Bld) [Volume fraction] 39.0 % 36.3 - 47.1 % [place] Hemoglobin (Bld) [Mass/Vol] 12.6 g/dL 11.9 - 15.1 g/dL [place] Hepatitis B Surface Ag NONREACTIVE NONREACTIVE [place] Immature granulocytes (Bld) [#/Vol] 0 % 0 [place] Immature granulocytes (Bld) [#/Vol] 10*3/uL [place] Interpretation and review of laboratory results Abnormal [place] Lymphocytes (Bld) [#/Vol] 2.19 10*3/uL [place] Lymphocytes/100 WBC (Bld) 38 % 25 - 45 % [place] MCH (RBC) [Entitic mass] 29.6 pg 25 - 35 pg [place] MCHC (RBC) [Mass/Vol] 32.3 g/dL 28.4 - 34.8 g/dL [place] MCV (RBC) [Entitic vol] 91.8 fL 78 - 102 fL [place] Monocytes (Bld) [#/Vol] 0.55 10*3/uL [place] Monocytes/100 WBC (Bld) 10 % High 2 - 8 % [place] Platelet mean volume (Bld) [Entitic vol] 9.3 fL 8.1 - 13.5 fL [place] Platelets (Bld) [#/Vol] NOT REPORTED [place] Platelets (Bld) [#/Vol] 308 10*3/uL [place] RBC (Bld) [#/Vol] 4.25 10*6/uL 3.95 - 5.1 1 m/uL [place] RBC morphology finding Nom (Bld) NOT REPORTED [place] Rubella virus IgG Ql (S) 49.1 IU/mL [place] Comment on above: REFERENCE RANGE: <5.0 NON-REACTIVE (non-immune) 5.0 TO 9.9 EQUIVOCAL >=10.0 REACTIVE (immune) Segmented neutrophils/100 WBC (Bld) 50 % 34 - 64 % [place] Segs Absolute 2.97 [place] T. pallidum, IgG NONREACTIVE NONREACTIVE [place] Comment on above: T. pallidum antibodies are not detected. There is no serological evidence of infection with T. pallidum (early primary syphilis cannot be excluded). Retest in 2-4 weeks if syphilis is clinically suspect. WBC (Bld) [#/Vol] 5.8 10*3/uL [place] WBC (Bld) [#/Vol] 0.0 10*3/uL 0.0 per 10 0 WBC [place] WBC Morphology NOT REPORTED [place] HCG, Quantitative, on 08-31-2020 hCG Quant 9039 High <5 IU/L [place] Comment on above: Non-preg premeno <=5 Postmeno <=8 Male <=3 If HCG results do not concur with clinical observations, additional testing to confirm results is recommended. Elevated results not associated with may be found in patients with other diseases such as tumors of the germ cells (testis, ovaries, etc.), bladder, pancreas, stomach, lungs, and liver. Interpretation and review of laboratory results Abnormal [place] HIV Screenon 08-31-2020 HIV Ag/Ab NONREACTIVE NONREACTIVE [place] Comment on above: No laboratory eviden ce of HIV infection. If acute HIV infection is suspected, consider testing for HIV-1 RNA. Hepatitis C Antibodyon 08-31 Hepatitis C Ab NONREACTIVE NONREACTIVE [place] Comment on above: The hepatitis C [...] TYPE AND SCREENon 1 10-31-2019 ABO/Rh Positive [place] Urine Drug Screen, Comprehen siveon 08-31-2020 Amphetamine Screen, Ur Negative NEGATIVE [place] Barbiturate Screen, Ur Negative NEGATIVE [place] Benzodiazepine Screen, Urine Negative NEGATIVE [place] Buprenorphine Urine Negative NEGATIVE [place] Cannabinoid Scrn, Ur Negative NEGATIVE [place], [place] Cocaine Metabolite, Urine Negative NEGATIVE [place] MDMA, Urine NOT REPORTED NEGATIVE [place] Methadone Screen, Urine Negative NEGATIVE [place] Methamphetamine, Urine Negative NEGATIVE [facility], [place] Opiates, Urine Negative NEGATIVE [place], [place] Oxycodone Screen, Ur Negative NEGATIVE [place] Phencyclidine, Urine Negative NEGATIVE [place] Propoxyphene, Urine Negative NEGATIVE [place] Test Information NOT REPORTED [place] Tricyclic Antidepressants, Urine Negative NEGATIVE [place] Comment on above: Drug screen results are to be used for medical purposes only. All positive results are unconfirmed. Testing for employment or legal uses should be sent to a reference laboratory for confirmation. ABO/RHon 08-29-2020 ABO/Rh Positive [place] CBC auto differentialon Basophils (Bld) [#/Vol] 0.05 10*3/uL [place] Basophils/100 WBC (Bld) 1 % 0 - 2 % [place] Differential Type NOT REPORTED [place] Eosinophils (Bld) [#/Vol] 0.06 10*3/uL [place] Eosinophils/100 WBC (Bld) 1 % 1 - 4 % [place] Erythrocyte distribution width (RBC) [Ratio] 12.2 % 11.8 - 14.4 % [place] Hematocrit (Bld) [Volume fraction] 37.6 % 36.3 - 47.1 % [place] Hemoglobin (Bld) [Mass/Vol] 12.6 g/dL 11.9 - 15.1 g/dL [place] Immature granulocytes (Bld) [#/Vol] 10*3/uL [place] Immature granulocytes (Bld) [#/Vol] 0 % 0 [place] Lymphocytes (Bld) [#/Vol] 2.96 10*3/uL [place] Lymphocytes/100 WBC (Bld) 35 % 25 - 45 % [place] MCH (RBC) [Entitic mass] 29.9 pg 25 - 35 pg [place] MCHC (RBC) [Mass/Vol] 33.5 g/dL 28.4 - 34.8 g/dL [place] MCV (RBC) [Entitic vol] 89.3 fL 78 - 102 fL [place] Monocytes (Bld) [#/Vol] 0.61 10*3/uL [place] Monocytes/100 WBC (Bld) 7 % 2 - 8 % [place] Platelet mean volume (Bld) [Entitic vol] 9.0 fL 8.1 - 13.5 fL [place] Platelets (Bld) [#/Vol] 299 10*3/uL [place] Platelets (Bld) [#/Vol] NOT REPORTED [place] RBC (Bld) [#/Vol] 4.21 10*6/uL 3.95 - 5.1 1 m/uL [place] RBC morphology finding Nom (Bld) NOT REPORTED [place] Segmented neutrophils/100 WBC (Bld) 56 % 34 - 64 % [place] Segs Absolute 4.77 [place] WBC (Bld) [#/Vol] 8.5 10*3/uL [place] WBC (Bld) [#/Vol] 0.0 10*3/uL 0.0 per 10 0 WBC [place] WBC Morphology NOT REPORTED [place] Microscopic Urinalysison Amorphous, UA NOT REPORTED None [place] Bacteria, UA TRACE Abnormal None [place] Casts UA NOT REPORTED /LPF [place] Crystals, UA NOT REPORTED None /HPF [place] Epithelial Cells UA 0 TO 2 [place] Interpretation and review of laboratory results Abnormal [place] Mucus, UA TRACE Abnormal None [place] Other Observations UA SPERM PRESENT NOT REQ. [place] RBC (U) [#/Vol] 0 TO 2 [place] Renal Epithelial, UA NOT REPORTED 0 /HPF [place] Trichomonas, UA NOT REPORTED None [facility] [place] WBC, UA 0 TO 2 [place] Yeast, UA NOT REPORTED None [place], [place] - [place] US OB TRANSVAGINALon 020 Jb, Mhpn Incoming Radiant Results From [email or web address] - 08/29/2020 4:13 AM EST EXAMINATION: FIRST [...] hemorrhage. Yolk Sac: Present Pole: Not identified [place] Rump Length: Not measured Heart Rate: Not [...] blood products. Continued attention on follow-up recommended. [place] EXAMINATION: FIRST TRIMESTER OBSTETRIC ULTRASOUND 08/29/2020 [...] hemorrhage. Yolk Sac: Present Pole: Not identified [place] Rump Length: Not measured Heart Rate: Not [...] echogenicity in the posterior cul-de-sac is nonspecific. [place] Intrauterine gestational sac containing a yolk [...] blood products. Continued attention on follow-up recommended. [place] Urinalysison 08-29-2020 Bilirubin Urine Negative NEGATIVE [facility] [place], [place] Color, UA YELLOW YELLOW [place], [place] Glucose, Ur Negative NEGATIVE [place] Interpretation and review of laboratory results Abnormal [place] Ketones Ql (U) Negative NEGATIVE [place] Leukocyte esterase Test strip Ql (U) Negative NEGATIVE [place] Nitrite, Urine Negative NEGATIVE [place] pH, UA 6.0 [place] Protein (U) [Mass/Vol] Negative NEGATIVE [place] Specific [place], UA 1.025 High [place], [place] Turbidity UA CLEAR CLEAR [place] Urinalysis Comments NOT REPORTED [place] Urine Hgb TRACE Abnormal NEGATIVE [place] Urobilinogen, Urine Normal Normal [place] hCG, quantitative, on 08-29-2020 hCG Quant [id number] High <5 IU/L [place] Comment on above: Non-preg premeno <=5 Postmeno <=8 Male <=3 If HCG results do not concur with clinical observations, additional testing to confirm results is recommended. Elevated results not associated with may be found in patients with other diseases such as tumors of the germ cells (testis, ovaries, etc.), bladder, pancreas, stomach, lungs, and liver. Interpretation and review of laboratory results Abnormal [place] HCG Qualitative, Serumon hCG Qual Positive Abnormal NEGATIVE [place] Comment on above: If HCG results do not concur with clinical observations, additional testing to confirm result is recommended. This test is not labeled for use as a tumor marker. [facility] has confirmed the use of plasma for this test. This has not been cleared or approved by the U.S. Food and Drug Administration. The FDA has determined that such clearance is not necessary. Interpretation and review of laboratory results Abnormal [place] D-dimer, quantitativeon D-Dimer, Quant 0.19 [place], [place] Comment on above: Elevated levels of [...] Auto Differentialon Basophils (Bld) [#/Vol] 0.04 10*3/uL [place] Basophils/100 WBC (Bld) 0 % 0 - 2 % [place] Differential Type NOT REPORTED [place] Eosinophils (Bld) [#/Vol] 0.06 10*3/uL [place] Eosinophils/100 WBC (Bld) 1 % 1 - 4 % [place] Erythrocyte distribution width (RBC) [Ratio] 12.1 % 11.8 - 14.4 % [place] Hematocrit (Bld) [Volume fraction] 39.8 % 36.3 - 47.1 % [place] Hemoglobin (Bld) [Mass/Vol] 13.0 g/dL 11.9 - 15.1 g/dL [place] Immature granulocytes (Bld) [#/Vol] 0 % 0 [place] Immature granulocytes (Bld) [#/Vol] 0.03 10*3/uL [place] Interpretation and review of laboratory results Abnormal [place] Lymphocytes (Bld) [#/Vol] 2.37 10*3/uL [place] Lymphocytes/100 WBC (Bld) 26 % 25 - 45 % [place] MCH (RBC) [Entitic mass] 29.2 pg 25 - 35 pg [place] MCHC (RBC) [Mass/Vol] 32.7 g/dL 28.4 - 34.8 g/dL [place] MCV (RBC) [Entitic vol] 89.4 fL 78 - 102 fL [place], [place] Monocytes (Bld) [#/Vol] 0.54 10*3/uL [place], [place] Monocytes/100 WBC (Bld) 6 % 2 - 8 % [place] Platelet mean volume (Bld) [Entitic vol] 9.2 fL 8.1 - 13.5 fL [place] Platelets (Bld) [#/Vol] 364 10*3/uL [place] Platelets (Bld) [#/Vol] NOT REPORTED [place] RBC (Bld) [#/Vol] 4.45 10*6/uL 3.95 - 5.1 1 m/uL [place] RBC morphology finding Nom (Bld) NOT REPORTED [place] Segmented neutrophils/100 WBC (Bld) 67 % High 34 - 64 % [place] Segs Absolute 6.16 [place], [place] WBC (Bld) [#/Vol] 0.0 10*3/uL 0.0 per 10 0 WBC [place] WBC (Bld) [#/Vol] 9.2 10*3/uL [place] WBC Morphology NOT REPORTED [place] Drug screen multi urineon Amphetamine Screen, Ur Negative NEGATIVE [place] Barbiturate Screen, Ur Negative NEGATIVE [place] Benzodiazepine Screen, Urine Negative NEGATIVE [place], [place] Buprenorphine Urine Negative NEGATIVE [place] Cannabinoid Scrn, Ur Negative NEGATIVE [place], [place] Cocaine Metabolite, Urine Negative NEGATIVE [place] MDMA, Urine NOT REPORTED NEGATIVE [place] Methadone Screen, Urine Negative NEGATIVE [place] Methamphetamine, Urine Negative NEGATIVE [place] Opiates, Urine Negative NEGATIVE [place], [place] Oxycodone Screen, Ur Negative NEGATIVE [place], [place] Phencyclidine, Urine Negative NEGATIVE [place], [place] Propoxyphene, Urine Negative NEGATIVE [place] Test Information NOT REPORTED [place] Tricyclic Antidepressants, Urine Negative NEGATIVE [place] Comment on above: Drug screen results are to be used for medical purposes only. All positive results are unconfirmed. Testing for employment or legal uses should be sent to a reference laboratory for confirmation. Microscopic Urinalysison Amorphous, UA NOT REPORTED None [place] Bacteria, UA 1+ Abnormal None [place] Casts UA NOT REPORTED /LPF [place] Crystals, UA NOT REPORTED None /HPF [place] Epithelial Cells UA 2 TO 5 [place] Interpretation and review of laboratory results Abnormal [place] Mucus, UA TRACE Abnormal None [place] Other Observations UA NOT REPORTED NOT REQ. [place] RBC (U) [#/Vol] 0 TO 2 [place], [place] Renal Epithelial, UA NOT REPORTED 0 /HPF [place] Trichomonas, UA NOT REPORTED None [place], [place] WBC, UA 2 TO 5 [place], [place] Yeast, UA NOT REPORTED None [place] - [place] , Urineon 0 Beta HCG ( test) Ql (U) Negative NEGATIVE [place] Comment on above: Specimens with hCG l evels near the threshold of the test (25 mIU/mL) may give a negative or indeterminate result. In such cases, another test should be performed with a new specimen in 48-72 hours. If early is suspected clinically in this setting, correlation with quantitative serum b-hCG level is suggested. [employer] has confirmed the use of plasma for this test. This has not been cleared or approved by the U.S. Food and Drug Administration. The FDA has determined that such clearance is not necessary. Salicylateon 12-24-2019 Interpretation and review of laboratory results Abnormal [place] Salicylate Lvl <1 Low 3 - 10 mg/dL [place] TSH without Reflexon 020 TSH Qn 1.76 m[IU]/L [place] Urinalysis, reflex to micros copicon 12-24-2019 Bilirubin Urine Negative NEGATIVE [place] Color, UA YELLOW YELLOW [place], [place] Glucose, Ur Negative NEGATIVE [place] Interpretation and review of laboratory results Abnormal [place] Ketones Ql (U) Negative NEGATIVE [place] Leukocyte esterase Test strip Ql (U) SMALL Abnormal NEGATIVE [place] Nitrite, Urine Negative NEGATIVE [facility], [place] pH, UA 5.5 [place] Protein (U) [Mass/Vol] Negative NEGATIVE [place] Specific [place], UA >1.030 High [place], [place] Turbidity UA CLEAR CLEAR [place] Urinalysis Comments NOT REPORTED [place] Urine Hgb Negative NEGATIVE [place] Urobilinogen, Urine Normal Normal [place] C-Reactive ProteinOrdered By : Akanksha Pimentel on 11-05-2019 CRP [Mass/Vol] 5.3 mg/L High 0 - 5 mg/L [facility] Work Phone: Interpretation and review of laboratory results Abnormal [facility] Work Phone: CBC Auto DifferentialOrdered By: Akanksha Pimentel on 11-05-2019 Absolute Eos # 0.16 [facility] Work Phone: Absolute Immature Granulocyte <0.03 [facility] Work Phone: Absolute Lymph # 3.23 [facility] Work Phone: Absolute [place] # 0.55 [facility] Work Phone: Basophils (Bld) [#/Vol] 0.06 10*3/uL [facility] Work Phone: Basophils/100 WBC (Bld) 1 % 0 - 2 % [employer] Phone: Differential Type NOT REPORTED [employer] Phone: Eosinophils/100 WBC (Bld) 2 % 1 - 4 % [employer] Phone: Erythrocyte distribution width (RBC) [Ratio] 12.2 % 11.8 - 14.4 % [employer] Phone: Hematocrit (Bld) [Volume fraction] 42.8 % 36.3 - 47.1 % [employer] Phone: Hemoglobin (Bld) [Mass/Vol] 13.7 g/dL 11.9 - 15.1 g/dL [employer] Phone: Immature granulocytes/100 WBC (Bld) 0 % 0 [employer] Phone: Lymphocytes/100 WBC (Bld) 42 % 25 - 45 % [employer] Phone: MCH (RBC) [Entitic mass] 29.4 pg 25 - 35 pg [employer] Phone: MCHC (RBC) [Mass/Vol] 32.0 g/dL 28.4 - 34.8 g/dL [employer] Phone: MCV (RBC) [Entitic vol] 91.8 fL 78 - 102 fL [employer] Phone: Monocytes/100 WBC (Bld) 7 % 2 - 8 % [employer] Phone: NRBC Automated 0.0 0.0 per 100 WBC [employer] Phone: Platelet Estimate NOT REPORTED [employer] Phone: Platelet mean volume (Bld) [Entitic vol] 9.0 fL 8.1 - 13.5 fL [employer] Phone: Platelets (Bld) [#/Vol] 326 10*3/uL [employer] Phone: RBC (Bld) [#/Vol] 4.66 10*6/uL 3.95 - 5.1 1 m/uL [employer] Work Phone: RBC morphology finding Nom (Bld) NOT REPORTED [employer] Work Phone: Segmented neutrophils/100 WBC (Bld) 48 % 34 - 64 % [employer] Work Phone: Segs Absolute 3.69 [employer] Work Phone: WBC (Bld) [#/Vol] 7.7 10*3/uL [employer] Work Phone: WBC Morphology NOT REPORTED [employer] Work Phone: Comprehensive Metabolic Pane lOrdered By: Akanksha Pimentel on 11-05-2019 Albumin [Mass/Vol] 4.5 g/dL 3.2 - 4.5 g/dL [employer] Phone: Albumin/Globulin [Mass ratio] 1.3 {ratio} [employer] Phone: ALP [Catalytic activity/Vol] 85 U/L 50 - 162 U/L [employer] Phone: ALT [Catalytic activity/Vol] 13 U/L 5 - 33 U/L [employer] Phone: Anion gap [Moles/Vol] 13 mmol/L 9 - 17 mmol/L [employer] Phone: AST [Catalytic activity/Vol] 14 U/L <32 [employer] Phone: Bilirubin [Mass/Vol] 0.27 mg/dL Low 0.3 - 1 .2 mg/dL [employer] Phone: Bun/Cre Ratio 17 [employer] Work Phone: Calcium [Mass/Vol] 9.8 mg/dL 8.4 - 10. 2 mg/dL [employer] Work Phone: Chloride [Moles/Vol] 100 mmol/L 98 - 10 7 mmol/L [employer] Phone: CO2 [Moles/Vol] 26 mmol/L 20 - 31 mmol/L [employer] Phone: Creatinine [Mass/Vol] 0.65 mg/dL 0.57 - 0.87 mg/dL [employer] Phone: GFR NOT REPORTED >60 mL/min [employer] Phone: GFR Comment [employer] Phone: Comment on above: Average GFR for <20 years old not available. Chronic Kidney Disease: <60 mL/min/1.73sq m Kidney failure: <15 mL/min/1.73sq m eGFR calculated using average adult body mass. Additional eGFR calculator available at: http://www.[employer]/multiple_crcl_2012.htm GFR Non- Pediatric GFR requires additional information. Refer to [employer] website for calculator. >60 mL/min [employer] Phone: GFR Staging [employer] Phone: Comment on above: Stage 1: Some kidney damage normal GFR Stage 2: Mild kidney damage GFR 60-89 Stage 3: Moderate kidney damage GFR 30-59 Stage 4: Severe kidney damage GFR 15-29 Stage 5: Severe kidney damage GFR <15 ESRD - chronic treatment by dialysis or transplant Glucose [Mass/Vol] 87 mg/dL 60 - 100 mg/dL [employer] Phone: Potassium [Moles/Vol] 4.7 mmol/L 3.6 - 4.9 mmol/L [employer] Phone: Protein [Mass/Vol] 7.9 g/dL 6 - 8 g/dL [employer] Phone: Sodium [Moles/Vol] 139 mmol/L 135 - 144 mmol/L [employer] Phone: Urea nitrogen [Mass/Vol] 11 mg/dL 5 - 18 mg/dL [employer] Phone: Lipid PanelOrdered By: Akanksha Pimentel on 11-05-2019 Cholesterol [Mass/Vol] 159 mg/dL <200 [facility] Work Phone: Comment on above: Cholesterol Guidelines: <200 Desirable 200-240 Borderline >240 Undesirable Cholesterol in HDL [Mass/Vol] 43 mg/dL >40 [facility] Phone: Comment on above: HDL Guidelines: <40 Undesirable 40-59 Borderline >59 Desirable Cholesterol in LDL [Mass/Vol] 84 mg/dL 0 - 130 mg/dL [employer] Phone: Comment on above: LDL Guidelines: <100 Desirable 100-129 Near to/above Desirable 130-159 Borderline >159 Undesirable Direct (measured) LDL and calculated LDL are not interchangeable tests. Cholesterol.total/Daniela sterol in HDL [Mass ratio] 3.7 {ratio} <5 [facility] Phone: Triglyceride [Mass/Vol] 158 mg/dL High <150 [facility] Phone: Comment on above: Triglyceride Guidelines: <150 Desirable 150-199 Borderline 200-499 High >499 Very high Based on AHA Guidelines for fasting triglyceride, July 2012. VLDL NOT REPORTED High 1 - 30 mg/dL [employer] [facility] [employer] Work Phone: No Panel InformationOrdered By: Akanksha Pimentel on 11-05-2019 Interpretation and review of laboratory results Abnormal [facility] Phone: ReticulocytesOrdered By: Jammie Pimentel on 11-05-2019 Absolute Retic # 0.047 [facility] Work Phone: Immature Retic Fract 8.1 % 2.7 - 18.3 % [facility] [employer] Work Phone: Retic % 1.0 % 0.5 - 1.9 % [facility] Phone: Retic Hemoglobin 32.3 pg 28.2 - 35.7 pg [facility] Phone: Sedimentation RateOrdered By : Akanksha Pimentel on 11-05-2019 Sed Rate 15 mm 0 - 20 mm [employer] Work Phone: CULTURE THROATon 05-26-2019 CULTURE THROAT Isolate [...] F Trimethoprim/Sulfame thoxazole <=20 S F Normal [facility] Comment on above: Performed By: #### S SCRN, THRTCX #### [facility] [address] [place], [place] [address] Lizandro Sierra STREPT SCREENon 05-22-2019 STREP SCREEN A Negative Normal NEGATIVE [facility] Comment on above: Performed By: #### S SCRN, THRTCX #### [facility] [address] [place], [place] [address] Lizandro Sierra HCG, Urine Qualitativeon HCG.beta subunit ( test) Ql (U) Normal [facility] Comment on above: Result Comment: Nega tiveFirst morning urine is the specimen of choice for urine test. False negative results can occur when random urine specimens are tested. A serum test is recommended if results do not correlate with the patient's clinical condition.Performed at [facility],[address], [place] [address] Urinalysis, Strip with Refle xon 05-08-2017 Bilirubin (total) Negative Normal NEG [facility] Comment on above: Performed By: #### U ASR ####Performed at [facility], [place] [address] Glucose mass conc Negative Normal NEG [facility] Comment on above: Performed By: #### U ASR ####Performed at [employer], [address] [place] [id number] Occult Blood Trace Abnormal NEG [facility] Comment on above: Performed By: #### U ASR ####[place] [address] pH of blood 6.0 [pH] Normal 4.5-8.0 [facility] Comment on above: Performed By: #### U ASR ####[place] [address] Protein Negative Normal NEG [facility] Comment on above: Performed By: #### U ASR ####[place] [address] Specific Alder, Urine 1.023 Normal 1.007-1.030 [facility] Comment on above: Performed By: #### U ASR ####[place] [address] Specimen Appearance Clear Normal [facility] Comment on above: Performed By: #### U ASR ####[place] [address] Specimen Color Yellow Normal [facility] Comment on above: Performed By: #### U ASR ####[place] [address] Urine, ketones presence Negative Normal NEG N [facility] Comment on above: Performed By: #### U ASR ####[place] [address] Urine, leukocyte esterase presence Normal NEG [facility] Comment on above: Result Comment: Nega tivePerformed at [facility],[address] [place] [address] Performed By: #### U ASR ####[place] [address] Urine, nitrite presence Negative Normal NEG N [facility] Comment on above: Performed By: #### U ASR ####[place] [address] Urine, urobilinogen 4 mg/dL High <1.1 [facility] Comment on above: Performed By: #### U ASR ####[place] [address] Source Clean catch midstream urine Normal [facility] Comment on above: Performed By: #### U ASR ####Performed at [address] [address] Vital Signs Date Time Vital Sign Value Performing Clinician Facility 01-15-2025 10:26-0400 Body height 170.2 cm Angelina Reid BERUMEN Deshawn CHARMAINEKristan [facility] 01-15-2025 10:26-0400 Body mass index (BMI) [Ratio] 32.73 kg/m2 Angelina Mathews FORENSIC MEDICAL EXAMINER Deshawn MONTELONGO Work Phone: [facility] [employer] 01-15-2025 10:26-0400 Body temperature 97.59 [degF] Angelinaulisses Mathews FORENSIC MEDICAL EXAMINER Deshawn MONTELONGO Work Phone: [facility] [employer] 01-15-2025 10:26-0400 Body weight 94.8 kg Angelina Mathews FORENSIC MEDICAL EXAMINER Deshawn MONTELONGO [facility] 01-15-2025 10:26-0400 Diastolic blood pressure 70 mm[Hg] Angelina Mathews FORENSIC MEDICAL EXAMINER Deshawn MONTELONGO Work Phone: [facility] [employer] 01-15-2025 10:26-0400 Heart rate 87 /min Angelina Hess CNM Work Phone: [facility] [employer] 01-15-2025 10:26-0400 Respiratory rate 16 /min Angelina Mathews FORENSIC MEDICAL EXAMINER Deshawn MONTELONGO Work Phone: [facility] [employer] 01-15-2025 10:26-0400 SaO2% (BldA) [Mass fraction] 98 % Angelina Mathews APRN Deshawn MONTELONGO Work Phone: [facility] [employer] 01-15-2025 10:26-0400 Systolic blood pressure 124 mm[Hg] Angelina eRid BERUMEN Deshawn MONTELONGO Work Phone: [employer] 07-27-2024 23:27-0400 Body temperature 98.4 [degF] Desmond Rodriguez MD Work Phone: [facility] [employer] 07-27-2024 23:27-0400 Diastolic blood pressure 74 mm[Hg] Desmond Rodriguez MD Work Phone: [facility] [employer] 07-27-2024 23:27-0400 Heart rate 72 /min Desmond Rodriguez MD Work Phone: [facility] [employer] 07-27-2024 23:27-0400 Respiratory rate 18 /min Desmond Rodriguez MD Work Phone: [facility] [employer] 07-27-2024 23:27-0400 SaO2% (BldA) [Mass fraction] 99 % Desmond Rodriguez MD Work Phone: [facility] [employer] 07-27-2024 23:27-0400 Systolic blood pressure 129 mm[Hg] Desmond Rodriguez MD Work Phone: [facility] 07-27-2024 21:25-0400 Body height 173 cm Desmond Rodriguez MD Work Phone: [facility] [employer] 07-27-2024 21:25-0400 Body mass index (BMI) [Ratio] 27.28 kg/m2 Desmond Rodriguez MD Work Phone: [facility] [employer] 07-27-2024 21:25-0400 Body weight 81.65 kg Desmond Rodriguez MD Work Phone: [facility] [employer] 12-29-2023 01:13-0500 Diastolic blood pressure 72 mm[Hg] Yana Pool FORENSIC MEDICAL EXAMINER - CNM Work Phone: [facility] [employer] 12-29-2023 01:13-0500 Heart rate 89 /min Yana Pool FORENSIC MEDICAL EXAMINER - CNM Work Phone: [facility] [employer] 12-29-2023 01:13-0500 Systolic blood pressure 112 mm[Hg] Yana Pool FORENSIC MEDICAL EXAMINER - CNM Work Phone: [employer] 12-28-2023 21:09-0500 SaO2% (BldA) [Mass fraction] 97 % Yana Ridley APRN - CNM Work Phone: [facility] [employer] 10-13-2022 10:47-0500 Heart rate 111 /min Steve Russo MD Work Phone: [employer] 10-13-2022 10:47-0500 SaO2% (BldA) [Mass fraction] 96 % Steve Russo MD Work Phone: [employer] 10-13-2022 10:27-0500 Body temperature 100.09 [degF] Steve Russo MD Work Phone: [facility] [employer] 10-13-2022 09:31-0500 Diastolic blood pressure 61 mm[Hg] Steve Russo MD Work Phone: [employer] 10-13-2022 09:31-0500 Systolic blood pressure 121 mm[Hg] Steve Russo MD Work Phone: [employer] 10-13-2022 06:53-0500 Body height 170.2 cm Steve Russo MD Work Phone: [employer] 10-13-2022 06:53-0500 Body mass index (BMI) [Percentile] Per age and sex 91.92 % Steve Russo MD Work Phone: [employer] 10-13-2022 06:53-0500 Body mass index (BMI) [Ratio] 28.19 kg/m2 Steve Russo MD Work Phone: [employer] 10-13-2022 06:53-0500 Body weight 81.65 kg Steve Russo MD Work Phone: [facility] [employer] 10-13-2022 06:53-0500 Respiratory rate 18 /min Steve Russo MD Work Phone: [employer] 10-08-2022 07:39-0500 Body temperature 98.29 [degF] Angelina Hess CNM Work Phone: [employer] 10-08-2022 07:39-0500 Diastolic blood pressure 69 mm[Hg] Angelina Mathews APRN - CNKristan Work Phone: [employer] 10-08-2022 07:39-0500 Heart rate 67 /min Angelina Hess CNM Work Phone: [employer] 10-08-2022 07:39-0500 Respiratory rate 16 /min Angelina Hess CNM Work Phone: [facility] [employer] 10-08-2022 07:39-0500 Systolic blood pressure 124 mm[Hg] Angelina Hess CNM Work Phone: [facility] [employer] 10-06-2022 23:05-0500 SaO2% (BldA) [Mass fraction] 97 % Angelina Hess CNM Work Phone: [employer] 10-06-2022 15:41-0500 Body height 170.2 cm Angelina Hess CNM Work Phone: [facility] [employer] 10-06-2022 15:41-0500 Body mass index (BMI) [Percentile] Per age and sex 94.68 % Angelina Mathews APRN Deshawn MONTELONGO Work Phone: [employer] 10-06-2022 15:41-0500 Body mass index (BMI) [Ratio] 30.07 kg/m2 Angelina Mathews APRN Deshawn MONTELONGO Work Phone: [employer] 10-06-2022 15:41-0500 Body weight 87.09 kg Angelina Mathews APRN Deshawn MONTELONGO Work Phone: [employer] 09-03-2022 14:13-0500 Diastolic blood pressure 69 mm[Hg] Billie Sierra FORENSIC MEDICAL EXAMINER - CNM Work Phone: [employer] 09-03-2022 14:13-0500 Heart rate 108 /min Billie Sierra FORENSIC MEDICAL EXAMINER - CNM Work Phone: [facility] [employer] 09-03-2022 14:13-0500 Systolic blood pressure 107 mm[Hg] Billie Sierra FORENSIC MEDICAL EXAMINER - CNM Work Phone: [facility] [employer] 09-03-2022 13:25-0500 Body temperature 98.2 [degF] Billie Sierra FORENSIC MEDICAL EXAMINER - CNM Work Phone: [facility] [employer] 09-03-2022 13:25-0500 Respiratory rate 16 /min Billie Sierra FORENSIC MEDICAL EXAMINER - CNM Work Phone: [facility] [employer] 09-03-2022 06:00-0500 Diastolic blood pressure 68 mm[Hg] Lexy Tony MD Work Phone: [facility] [employer] 09-03-2022 06:00-0500 SaO2% (BldA) [Mass fraction] 96 % Lexy Tony MD Work Phone: [facility] [employer] 09-03-2022 06:00-0500 Systolic blood pressure 114 mm[Hg] Lexy Tony MD Work Phone: [facility] [employer] 09-03-2022 05:59-0500 Body temperature 97.59 [degF] Lexy Tony MD Work Phone: [facility] [employer] 09-03-2022 05:59-0500 Heart rate 95 /min Lexy Tony MD Work Phone: [facility] [employer] 09-03-2022 05:59-0500 Respiratory rate 18 /min Lexy Tony MD Work Phone: [facility] [employer] 07-14-2022 09:13-0400 Body temperature 98.2 [degF] Angelina Mathews FORENSIC MEDICAL EXAMINER - CN Work Phone: [employer] 07-14-2022 09:13-0400 Diastolic blood pressure 64 mm[Hg] Angelina Mathews FORENSIC MEDICAL EXAMINER - CN Work Phone: [facility] [employer] 07-14-2022 09:13-0400 Heart rate 88 /min Angelina Mathews FORENSIC MEDICAL EXAMINER - CN Work Phone: [facility] [employer] 07-14-2022 09:13-0400 Respiratory rate 16 /min Angelina Mathews FORENSIC MEDICAL EXAMINER - CN Work Phone: [facility] [employer] 07-14-2022 09:13-0400 Systolic blood pressure 116 mm[Hg] Angelina Mathews FORENSIC MEDICAL EXAMINER - CN Work Phone: [facility] [employer] 05-10-2022 02:47-0400 Diastolic blood pressure 54 mm[Hg] Lexy Tony MD Work Phone: [facility] [employer] 05-10-2022 02:47-0400 SaO2% (BldA) [Mass fraction] 98 % Lexy Tony MD Work Phone: [facility] [employer] 05-10-2022 02:47-0400 Systolic blood pressure 120 mm[Hg] Lexy Tony MD Work Phone: [facility] [employer] 05-10-2022 00:43-0400 Body temperature 98.2 [degF] Lexy Tony MD Work Phone: [facility] [employer] 05-10-2022 00:43-0400 Heart rate 90 /min Lexy Tony MD Work Phone: [facility] [employer] 05-10-2022 00:43-0400 Respiratory rate 12 /min Lexy Tony MD Work Phone: [facility] [employer] 02-04-2022 08:50-0400 Body temperature 98.4 [degF] Mathieu Galeano-C Work Phone: [employer] 02-04-2022 08:50-0400 Body weight 84.82 kg [facility] Work Phone: [employer] 02-04-2022 08:50-0400 Diastolic blood pressure 72 mm[Hg] [facility] Work Phone: [employer] 02-04-2022 08:50-0400 Heart rate 86 /min [facility] Work Phone: [employer] 02-04-2022 08:50-0400 Respiratory rate 16 /min [facility] Work Phone: [employer] 02-04-2022 08:50-0400 SaO2% (BldA) [Mass fraction] 99 % [facility] Work Phone: [employer] 02-04-2022 08:50-0400 Systolic blood pressure 144 mm[Hg] [facility] Work Phone: [employer] 08-21-2021 23:07-0400 Diastolic blood pressure 82 mm[Hg] Chani Clifton MD Work Phone: [employer] Work Phone: 08-21-2021 23:07-0400 Heart rate 84 /min Chani Clifton MD Work Phone: [employer] Work Phone: 08-21-2021 23:07-0400 SaO2% (BldA) [Mass fraction] 97 % Chani Clifton MD Work Phone: [employer] Work Phone: 08-21-2021 23:07-0400 Systolic blood pressure 127 mm[Hg] Chani Clifton MD Work Phone: [employer] Work Phone: 08-21-2021 22:17-0400 Body height 172.7 cm Chani Clifton MD Work Phone: [employer] Work Phone: 08-21-2021 22:17-0400 Body mass index (BMI) [Ratio] 28.28 kg/m2 Chani Clifton MD Work Phone: [employer] Work Phone: 08-21-2021 22:17-0400 Body temperature 98.2 [degF] Chani Clifton MD Work Phone: [employer] Work Phone: 08-21-2021 22:17-0400 Body weight 84.37 kg Chani Clifton MD Work Phone: [employer] Work Phone: 08-21-2021 22:17-0400 Respiratory rate 16 /min Chani Clifton MD Work Phone: [employer] Work Phone: 04-27-2021 19:21-0400 Body temperature 99.5 [degF] Sheela Mcdowell MD Work Phone: [employer] Work Phone: 04-27-2021 19:21-0400 Diastolic blood pressure 77 mm[Hg] Sheela Mcdowell MD Work Phone: [employer] Work Phone: 04-27-2021 19:21-0400 Heart rate 88 /min Sheela Mcdowell MD Work Phone: [employer] Work Phone: 04-27-2021 19:21-0400 Respiratory rate 16 /min Sheela Mcdowell MD Work Phone: [employer] Work Phone: 04-27-2021 19:21-0400 SaO2% (BldA) [Mass fraction] 98 % Sheela Mcdowell MD Work Phone: [employer] Work Phone: 04-27-2021 19:21-0400 Systolic blood pressure 122 mm[Hg] Sheela Mcdowell MD Work Phone: [employer] Work Phone: 04-22-2021 15:24-0400 Body temperature 98.71 [degF] Yana Pool FORENSIC MEDICAL EXAMINER - CNM [facility] Phone: [facility] Work Phone: 04-22-2021 15:24-0400 Diastolic blood pressure 77 mm[Hg] Yana Pool FORENSIC MEDICAL EXAMINER - CNM Work Phone: [employer] Work Phone: 04-22-2021 15:24-0400 Heart rate 80 /min Yana Pool FORENSIC MEDICAL EXAMINER - CNM Work Phone: [employer] Work Phone: 04-22-2021 15:24-0400 Respiratory rate 16 /min Yana Pool FORENSIC MEDICAL EXAMINER - CNM Work Phone: [employer] Work Phone: 04-22-2021 15:24-0400 Systolic blood pressure 135 mm[Hg] Yana Pool FORENSIC MEDICAL EXAMINER - CNM Work Phone: [employer] Work Phone: 04-20-2021 16:58-0400 SaO2% (BldA) [Mass fraction] 97 % Yana Pool FORENSIC MEDICAL EXAMINER - CNM Work Phone: [employer] Work Phone: 01-04-2021 13:00-0400 BMI (Body Mass Index) 28.66 kg/m2 [facility]ina [facility] Work Phone: 01-04-2021 13:00-0400 Body Temperature 98.01 [degF] Angelina [facility] Work Phone: 01-04-2021 13:00-0400 Body weight 83.01 kg Angelina Mathews [facility] Work Phone: 01-04-2021 13:00-0400 BP Diastolic 70 mm[Hg] [facility] Work Phone: 01-04-2021 13:00-0400 BP Systolic 123 mm[Hg] Angelina Mathews [employer] Phone: 01-04-2021 13:00-0400 Height 170.2 cm Angelina Mathews [employer] Phone: 01-04-2021 13:00-0400 Pulse (Heart Rate) 101 /min Angelina Mathews [employer] Phone: 01-04-2021 13:00-0400 Respiratory Rate 18 /min Angelina Mathews [employer] Phone: 08-29-2020 04:20-0500 BP Diastolic 72 mm[Hg] Abdon [employer] , [place] 08-29-2020 04:20-0500 BP Systolic 127 mm[Hg] [facility]don [facility] [place] 08-29-2020 04:20-0500 Pulse (Heart Rate) 82 /min [facility]don [facility] [place] 08-28-2020 23:30-0500 Pulse Oximetry 99 % Abdon [facility] [place] 08-28-2020 23:26-0500 Body Temperature 98.71 [degF] Abdon [employer] [place] 08-28-2020 23:26-0500 Body weight 81.65 kg Abdon [employer] , [place] 08-28-2020 23:26-0500 Respiratory Rate 16 /min Abdon JosehpNERITES [place] 12-25-2019 00:32-0500 BP Diastolic 69 mm[Hg] Anjel [facility] [place] 12-25-2019 00:32-0500 BP Systolic 122 mm[Hg] Anjel [employer] , [place] 12-25-2019 00:32-0500 Pulse (Heart Rate) 76 /min [facility] [place] 12-25-2019 00:07-0500 Respiratory Rate 21 /min Anjel [employer] [place] 12-24-2019 20:33-0500 Pulse Oximetry 99 % Anjel [employer] , [place] 12-24-2019 19:31-0500 BMI (Body Mass Index) 26 kg/m2 Anjel Ned [facility] [place], [place] 12-24-2019 19:31-0500 Body Temperature 98.6 [degF] Anjel [facility] [place] [place] 12-24-2019 19:31-0500 Body weight 77.56 kg Anjel Ned [facility] [place] , [place] 12-24-2019 19:31-0500 Height 172.7 cm Anjel Ned Menchaca [facility] , [place] Encounters Encounter Date Encounter Type Care Provider Facility Start: 01-15-2025 End: 01-15-2025 [facility] Start: 01-15-2025 End: 01-15-2025 Subsequent hospital visit by physician Angelina Hess CNM Work Phone: [facility] Start: 01-06-2025 End: 01-06-2025 ambulatory [facility] Start: 12-15-2024 End: 12-15-2024 Emergency department patient visit [facility] Bharat [facility] Start: 12-05-2024 End: 12-05-2024 Clinisync Result Encounter Aga L Floro CNM Work Phone: [facility] External Department Unsolicited Start: 12-05-2024 End: 12-05-2024 Clinisync Result Encounter Aga L Floro CNM Work Phone: [facility] External [facility] Unsolicited Start: 12-05-2024 End: 12-05-2024 Orders Only Aga L Floro CNM Work Phone: [facility] OB Comment on above: Acute cystitis with hematuria (Primary Dx) Start: 10-29-2024 End: 10-29-2024 ambulatory [facility] Start: 07-31-2024 End: 07-31-2024 [facility] Start: 07-31-2024 End: 07-31-2024 Subsequent hospital visit by physician Ra Mata MD Work Phone: [facility] Laboratory Comment on above: Amenorrhea; Positive urine test; Encounter for supervision of other normal in first trimester Start: 07-31-2024 End: 07-31-2024 [facility] Start: 07-27-2024 End: 07-27-2024 Emergency department patient visit Desmond Rodriguez MD Work Phone: [facility] ED Comment on above: Vaginal bleeding in (Primary Dx) Start: 07-22-2024 End: 07-22-2024 Emergency department patient visit [facility] Bharat [facility] Start: 05-26-2024 End: 05-28-2024 Emergency department patient visit MYRTLE ELAINA [facility] Start: 04-29-2024 End: 04-29-2024 [facility] Start: 04-29-2024 End: 04-29-2024 Subsequent hospital visit by physician Ra Mata MD Work Phone: [facility] Start: 03-15-2024 End: 03-16-2024 Emergency department patient visit MATHIEU Gilberto MCHUGH [facility] Start: 12-28-2023 End: 12-29-2023 Subsequent hospital visit by physician Yana Ridley FORENSIC MEDICAL EXAMINER - CNM Work Phone: [facility] Start: 12-05-2023 End: 12-05-2023 Subsequent hospital visit by physician Ra Mata MD Work Phone: [facility] Laboratory Comment on above: 32 weeks gestation o f ; Screen for STD (sexually transmitted disease) Start: 11-06-2023 Telephone encounter Karen thornton APRN-CNM Work Phone: [facility] Start: 08-17-2023 ambulatory Paolo Sky acility:[facility] Start: 06-05-2023 End: 06-05-2023 Subsequent hospital visit by physician Ra Mata MD Work Phone: [facility] Laboratory Comment on above: Encounter for superv ision of other normal in first trimester; Amenorrhea; Positive urine test Start: 02-22-2023 End: 02-22-2023 Subsequent hospital visit by physician Ra Mata MD Work Phone: [facility] Laboratory Start: 10-13-2022 End: 10-13-2022 Emergency department patient visit Steve Russo MD Work Phone: [facility] ED Comment on above: Febrile illness, acu te (Primary Dx); Headache above the eye region; headache Start: 10-06-2022 End: 10-08-2022 Subsequent hospital visit by physician Angelina Mathews APRN - CNM Work Phone: [facility] Start: 09-03-2022 End: 09-03-2022 Subsequent hospital visit by physician Billie Sierra FORENSIC MEDICAL EXAMINER - CNM Work Phone: [facility] Start: 09-03-2022 End: 09-03-2022 Emergency department patient visit Lexy Tony MD Work Phone: [facility] ED Comment on above: Nausea and vomiting, unspecified vomiting type (Primary Dx); Dehydration Start: 07-14-2022 End: 07-14-2022 Evaluation and management of inpatient Angelina Mathews FORENSIC MEDICAL EXAMINER - CNM Work Phone: [facility] Start: 05-10-2022 End: 05-10-2022 Emergency department patient visit Lexy Tony MD Work Phone: [facility] ED Comment on above: Vaginal bleeding in (Primary Dx) Start: 03-07-2022 End: 03-07-2022 Subsequent hospital visit by physician Ra Mata MD Work Phone: [facility] Laboratory Comment on above: Amenorrhea; Encounter for supervision of other normal in first trimester Start: 02-04-2022 End: 02-04-2022 Emergency department patient visit Mathieu Wyatt PA-C Work Phone: [facility] ED Comment on above: Strain of lumbar reg ion, initial encounter (Primary Dx) Start: 08-21-2021 End: 08-21-2021 Emergency department patient visit Chani Clifton MD Work Phone: [facility] ED Comment on above: Acute pharyngitis, u nspecified etiology (Primary Dx) Start: 07-20-2021 End: 07-20-2021 Subsequent hospital visit by physician Ra Mata MD Work Phone: [facility] Laboratory Comment on above: Amenorrhea Start: 04-27-2021 End: 04-27-2021 Emergency department patient visit Sheela Mcdowell MD Work Phone: [facility] ED Comment on above: Vaginal bleeding (Pr imary Dx) Start: 04-20-2021 End: 04-22-2021 Evaluation and management of inpatient Yana Sutherland Khai FORENSIC MEDICAL EXAMINER - CNM Work Phone: [facility] Start: 04-14-2021 End: 04-14-2021 Subsequent hospital visit by physician Ra Mata MD Work Phone: [facility] Laboratory Comment on above: Pruritus of pregnanc y in third trimester Start: 04-05-2021 End: 04-05-2021 Subsequent hospital visit by physician Katey Pimentel FORENSIC MEDICAL EXAMINER - ALUMINUM POOL INSTALLER Work Phone: [facility] Laboratory Comment on above: 36 weeks gestation o f Start: 02-01-2021 End: 02-01-2021 Subsequent hospital visit by physician Katey Pimentel [facility] Laboratory Comment on above: 28 weeks gestation o f Start: 01-04-2021 End: 01-04-2021 Subsequent hospital visit by physician Angelina Mathews Work Phone: [facility] Delivery Start: 12-11-2020 End: 12-13-2020 Subsequent hospital visit by physician [facility] Mri Scanner [facility] MRI Comment on above: Rigid pelvic floor a ffecting , second trimester; Cyst of right ovary Start: 11-26-2020 End: 11-26-2020 Subsequent hospital visit by physician Katey Pimentel [facility] Start: 08-31-2020 End: 08-31-2020 Subsequent hospital visit by physician Katey [facility] Start: 08-31-2020 End: 08-31-2020 Subsequent hospital visit by physician Katey [facility] Laboratory Comment on above: Amenorrhea Start: 08-31-2020 End: 08-31-2020 [facility] Comment on above: Threatened miscarria ge in early Start: 08-28-2020 End: 08-29-2020 Emergency department patient visit Abdon Cornell Work Phone: [facility] ED Comment on above: Threatened miscarria ge in early (Primary Dx) Start: 08-13-2020 End: 08-13-2020 Subsequent hospital visit by physician Katey HOLLEY Laboratory Start: 12-27-2019 End: 12-27-2019 Subsequent hospital visit by physician [employer] Super[employer] [facility] EKG Comment on above: Arrived Start: 12-24-2019 End: 12-25-2019 Emergency department patient visit Anjel Marino Work Phone: [facility] ED Comment on above: Tachycardia (Primary Dx) Start: 11-05-2019 End: 11-05-2019 Subsequent hospital visit by physician Katey Pimentel RN [facility] Laboratory Start: 05-22-2019 End: 05-22-2019 Patient encounter procedure SHEELA MARKER Facility:[facility] Start: 05-08-2017 End: 05-08-2017 Emergency department patient visit [facility] Procedures Date Procedure Procedure Detail Performing Clinician Start: 01-15-2025 Urnls dip stick/tabl et rgnt auto w/o microscopy Angelina Mathews FORENSIC MEDICAL EXAMINER - CNM Work Phone: Start: 12-05-2024 TB UA (CLEAN/CATCH) ABRASIVE WORKER/MICRO IF IND. Aga Ash CNM Work Phone: Start: 12-05-2024 TB URINE MICROSCOPIC ONLY Aga Ash CNM Work Phone: Start: 07-31-2024 Antibody hiv-1&hiv-2 single result Angelina Mathews FORENSIC MEDICAL EXAMINER - CNM Work Phone: Start: 07-27-2024 End: 07-27-2024 Urinalysis microscopic only Desmond Rodriguez MD Work Phone: Start: 07-27-2024 Urnls dip stick/tabl et rgnt auto w/o microscopy Desmond Rodriguez MD Work Phone: Start: 04-29-2024 C-reactive protein Kylie Mata MD Work Phone: Start: 04-29-2024 Comprehensive metabo lic panel Ra Mata MD Work Phone: Start: 04-29-2024 ENT FOOD PANEL Letty Geovanna FORENSIC MEDICAL EXAMINER - COMMUNICATIONS BILLING ANALYST Work Phone: Start: 12-28-2023 Blood typing serologic abo Yana E Pool [employer]IC MEDICAL EXAMINER - CNM Work Phone: Start: 12-28-2023 Comprehensive metabo lic panel Yana E Pool FOR[employer]IC MEDICAL EXAMINER - CNM Work Phone: Start: 12-28-2023 Urinalysis microscopic only Yana E Pool FORENSIC MEDICAL EXAMINER - CNM Work Phone: Start: 12-28-2023 Urnls dip stick/tabl et rgnt auto w/o microscopy Yana E Pool FORENSIC MEDICAL EXAMINER - CNM Work Phone: Start: 12-05-2023 Iadna multiple organ isms amplified probe tq Yana E Pool FORENSIC MEDICAL EXAMINER - CNM Work Phone: Start: 06-05-2023 End: 06-05-2023 Antibody hiv-1&hiv-2 single result Yana E Pool FOR[employer]IC MEDICAL EXAMINER - CNM Work Phone: Start: 02-22-2023 Gonadotropin chorion ic quantitative Michelle Amber FORENSIC MEDICAL EXAMINER - ALUMINUM POOL INSTALLER Work Phone: Start: 10-13-2022 Iaadiadoo streptococ cus group a Steve Russo MD Work Phone: Start: 10-13-2022 Comprehensive metabo lic panel Steve Russo MD Work Phone: Start: 10-13-2022 Heterophile antibodi es screen Steve Russo MD Work Phone: Start: 10-13-2022 Urnls dip stick/tabl et rgnt auto w/o microscopy Steve Russo MD Work Phone: Start: 10-13-2022 COVID-19, RAPID Stvee Russo MD Work Phone: Start: 10-13-2022 End: 10-13-2022 Iaadiadoo influenza Steve Russo MD Work Phone: Start: 10-06-2022 Antibody screen Angelina saxena FORENSIC MEDICAL EXAMINER - CNM Work Phone: Start: 10-06-2022 Blood count complete automated Angelinaulisses Mathews FORENSIC MEDICAL EXAMINER - CNM Work Phone: Start: 10-06-2022 End: 10-06-2022 Blood typing serologic abo Angelina Snyder FORENSIC MEDICAL EXAMINER - CNM Work Phone: Start: 09-03-2022 Basic metabolic pane l calcium total Lexy Tony MD Work Phone: Start: 09-03-2022 COVID-19, RAPID Lexy Tony MD Work Phone: Start: 09-03-2022 Iaadiadoo influenza Kelly Tony MD Work Phone: Start: 07-14-2022 Urinalysis microscopic only Angelina Mathews FORENSIC MEDICAL EXAMINER - CNM Work Phone: Start: 07-14-2022 Urnls dip stick/tabl et rgnt auto w/o microscopy Angelina Mathews FORENSIC MEDICAL EXAMINER - CNM Work Phone: Start: 05-10-2022 Us [...] 03-07-2022 Antibody hiv-1&hiv-2 single result Angelina Mathews FORENSIC MEDICAL EXAMINER - CNM Work Phone: Start: 03-07-2022 Drug screen, qualitate/multi Angelina Mathews FORENSIC MEDICAL EXAMINER - CNM Work Phone: Start: 02-04-2022 Gonadotropin chorion ic quantitative [facility] Work Phone: Start: 02-04-2022 Urinalysis microscopic only [facility] Work Phone: Start: 02-04-2022 Urnls dip stick/tabl et rgnt auto w/o microscopy [facility] Work Phone: Start: 07-20-2021 Gonadotropin chorion ic quantitative Angelina Mathews FORENSIC MEDICAL EXAMINER - CNM Work Phone: Start: 04-27-2021 Prothrombin time Lashell Mcdowell MD Work Phone: Start: 04-20-2021 Blood count complete auto&auto difrntl wbc Yana E Pool FORENSIC MEDICAL EXAMINER - CNM Work Phone: Start: 04-20-2021 Drug screen class list a Yana E Pool FORENSIC MEDICAL EXAMINER - CNM Work Phone: Start: 04-14-2021 Comprehensive metabo lic panel Angelina Mathews FORENSIC MEDICAL EXAMINER - CNM Work Phone: Start: 02-01-2021 Blood count hemoglobin Angelina Mathews Work Phone: Start: 02-01-[address] gtt 3 specimens Angelina Mathews Work Phone: Start: 01-04-2021 Urnls dip stick/tabl et reagent auto microscopy Angelina Mathews Work Phone: Start: 12-11-2020 Mri pelvis w/o contr ast material Ross Pardo Work Phone: Start: 08-31-2020 Antibody screen Katey Pimentel Start: 08-31-2020 Blood typing serologic abo Angelina Mathews Work Phone: Start: 08-31-2020 Antibody hiv-1&hiv-2 single result Angelina Mathews Work Phone: Start: 08-31-2020 Hepatitis c antibody Laboy robin Mathews Work Phone: Start: 08-31-2020 Obstetric panel Angelina Mathews Work Phone: Start: 08-31-2020 Drug screen, qualitate/multi Angelina Mathews Work Phone: Start: 08-31-2020 Gonadotropin chorion ic quantitative Abdon Rushing Cornell Work Phone: Start: 08-29-2020 Us preg uterus real time w/image dcmtn transvag Abdon Rushing Cornell Work Phone: Start: 08-28-2020 Blood count complete auto&auto difrntl wbc Abdon Cornell Work Phone: Start: 08-28-2020 Blood typing serologic abo Abdon Cornell Work Phone: Start: 08-28-2020 Gonadotropin chorion ic quantitative Abdon Kristan Cornell Work Phone: Start: 08-28-2020 Urinalysis microscopic only Abdon Cornell Work Phone: Start: 08-28-2020 Urnls dip stick/tabl et rgnt auto w/o microscopy Abdon Kristan Cornell Work Phone: Start: 08-13-2020 Gonadotropin chorion ic qualitative Akanksha Pimentel Work Phone: Start: 12-24-2019 Fibrin dgradj produc ts d-dimer quantitative Anjel Koko Marino Work Phone: Start: 12-24-2019 Drug screen class list a Anjel Marino Work Phone: Start: 12-24-2019 Urinalysis microscopic only Anjel Marino Work Phone: Start: 12-24-2019 Urine test visual color cmprsn meths Anjelgia Marino Work Phone: Start: 12-24-2019 Urnls dip stick/tabl et rgnt auto w/o microscopy Anjelgia Marino Work Phone: Start: 12-24-2019 Assay of thyroid stimulating hormone tsh Anjelgia Marino Work Phone: Start: 12-24-2019 Assay of salicylate Eta gia Marino Work Phone: Start: 12-24-2019 Blood count complete auto&auto difrntl wbc Anjelgia Marino Work Phone: Start: 11-05-2019 Comprehensive metabo lic panel Akanksha Pimentel FORENSIC MEDICAL EXAMINER - ALUMINUM POOL INSTALLER Work Phone: Start: 11-05-2019 Lipid panel Akanksha wiseman FORENSIC MEDICAL EXAMINER - ALUMINUM POOL INSTALLER Work Phone: Plan of Treatment Date Care Activity Detail Author Start: 2064 Respiratory Syncytial Virus (RSV) or age 60 yrs+ (1 - 1-dose 60+ series) Respiratory Syncytial Virus (RSV) or age 60 yrs+ (1 - 1-dose 60+ series) [facility] Start: 01-06-2026 DTaP/Tdap/Td vaccine (5 - Tdap) DTaP/Tdap/Td vaccine (5 - Tdap) [facility] Comment on above: Postponed from 2015 (Patient Refus ed) Start: 07-31-2025 Screening for Chlamydia trachomatis Chlamydia/GC screen [facility] Start: 07-27-2025 Screening for Chlamydia trachomatis Chlamydia/GC screen [facility] Start: 03-18-2025 End: 03-18-2025 Patient encounter procedure 03/18/2025 10:10 AM EDT Routine [facility] Part of [address] [place] [address] Angelina Mathews, FORENSIC MEDICAL EXAMINER - CNM [address] [place] [address] [address] [place] [address] 03/17 EDIN 03/15 [facility] Comment on above: 03/17 EDIN 03/15 Start: 03-18-2025 End: 03-18-2025 Professional / ancillary services management 03/18/2025 9:30 AM EDT Ancillary Procedure [facility] [address] [place] [address] start bpps at 32 weeks weekly with growth every 3-4 weeks (2VC). [facility] Comment on above: start bpps at 32 weeks weekly with growt h every 3-4 weeks (2VC). Start: 03-10-2025 End: 03-10-2025 Patient encounter procedure 03/10/2025 10:00 AM EDT Routine [facility] & [address] [place] [address] Angelina Mathews, FORENSIC MEDICAL EXAMINER - CNM [address] [place] [address] [address] [place] [address] start bpps at 32 weeks weekly with growth every 3-4 weeks (2VC).EDIN 03/15 [facility] Comment on above: start bpps at 32 weeks weekly with growt h every 3-4 weeks (2VC).EDIN 03/15 Start: 03-10-2025 End: 03-10-2025 Professional / ancillary services management 03/10/2025 9:30 AM EDT Ancillary Procedure [facility] [address] [place], [place] [id number] start bpps at 32 weeks weekly with growth every 3-4 weeks (2VC). [facility] Comment on above: start bpps at 32 weeks weekly with growt h every 3-4 weeks (2VC). Start: 03-04-2025 End: 03-04-2025 Patient encounter procedure 03/04/2025 10:30 AM EDT Routine [facility] [address] [place] [address] Angelina Mathews APRN - CNM [address] [place] [address] [address] [place] [address] Angelina out of office 03/03--EDIN 03/15--34 and 38 week growth sonos [facility] Comment on above: Angelina out of office 03/03--EDIN 03/15--34 a nd 38 week growth sonos Start: 03-04-2025 End: 03-04-2025 Professional / ancillary services management 03/04/2025 10:00 AM EDT Ancillary Procedure [facility] [address] [place] [address] 34 and 38 week growth sonos [facility] Comment on above: 34 and 38 week growth sonos Start: 02-24-2025 End: 02-24-2025 Patient encounter procedure 02/24/2025 10:00 AM EDT Routine [facility] [address] [place] [address] Angelina Mathews APRN - CNM [address] [place] [address] [address] [place] [address] start bpps at 32 weeks weekly with growth every 3-4 weeks (2VC). [facility] Comment on above: start bpps at 32 weeks weekly with growt h every 3-4 weeks (2VC). Start: 02-24-2025 End: 02-24-2025 Professional / ancillary services management 02/24/2025 9:30 AM EDT Ancillary Procedure [facility] [address] [place] [address] start bpps at 32 weeks weekly with growth every 3-4 weeks (2VC). [facility] Comment on above: start bpps at 32 weeks weekly with growt h every 3-4 weeks (2VC). Start: 02-17-2025 End: 02-17-2025 Patient encounter procedure 02/17/2025 1:40 PM EDT Routine [facility] [address] [place] [address] Angelina Mathews APRN - JAYDA [address] [place] [address] [address] [place], [place] [id number] start bpps at 32 weeks weekly with growth every 3-4 weeks (2VC). [facility] Comment on above: start bpps at 32 weeks weekly with growt h every 3-4 weeks (2VC). Start: 02-17-2025 End: 02-17-2025 Professional / ancillary services management 02/17/2025 1:00 PM EDT Ancillary Procedure [facility] & [address] [place] [address] start bpps at 32 weeks weekly with growth every 3-4 weeks (2VC). [facility] Comment on above: start bpps at 32 weeks weekly with growt h every 3-4 weeks (2VC). Start: 02-10-2025 End: 02-10-2025 Patient encounter procedure 02/10/2025 10:00 AM EDT Routine [facility] [address] [place] [address] Angelina Mathews, [place] - JAYDA [address] [place] [address] [address] [place] [address] start bpps at 32 weeks weekly with growth every 3-4 weeks (2VC). [facility] Comment on above: start bpps at 32 weeks weekly with growt h every 3-4 weeks (2VC). Start: 02-10-2025 End: 02-10-2025 Professional / ancillary services management 02/10/2025 9:30 AM EDT Ancillary Procedure [facility] [address] [place] [address] start bpps at 32 weeks weekly with growth every 3-4 weeks (2VC). [facility] Comment on above: start bpps at 32 weeks weekly with growt h every 3-4 weeks (2VC). Start: 02-04-2025 End: 02-04-2025 Patient encounter procedure 02/04/2025 11:00 AM EDT Routine [facility] [address] [place] [address] Angelina Mathews APRN - CNM [address] [place] [address] [address] [place] [address] 34 and 38 week growth phelps health[facility] Comment on above: 34 and 38 week growth sonos Start: 02-04-2025 End: 02-04-2025 Professional / ancillary services management 02/04/2025 10:30 AM EDT Ancillary Procedure [facility] Part of [address] [place] [address] 34 and 38 week growth sonos [facility] Comment on above: 34 and 38 week growth sonos Start: 01-27-2025 End: 01-27-2025 Patient encounter procedure 01/27/2025 9:40 AM EDT Routine [facility] [address] [place] [address] Angelina Mathews APRN - JAYDA [address] [place] [address] Dr [address] [place] [address] start bpps at 32 weeks weekly with growth every 3-4 weeks (2VC). [facility] Comment on above: start bpps at 32 weeks weekly with growt h every 3-4 weeks (2VC). Start: 01-27-2025 End: 01-27-2025 Professional / ancillary services management 01/27/2025 9:00 AM EDT Ancillary Procedure [facility] & [address] [place] [id number] start bpps at 32 weeks weekly with growth every 3-4 weeks (2VC). [facility] Comment on above: start bpps at 32 weeks weekly with growt h every 3-4 weeks (2VC). Start: 01-20-2025 End: 01-20-2025 Patient encounter procedure 01/20/2025 11:30 AM EDT Routine [address] [place] [id number] Angelina Mathews, FORENSIC MEDICAL EXAMINER - CN[address] [place] [id number] start bpps at 32 weeks weekly with growth every 3-4 weeks (2VC). [facility] Comment on above: start bpps at 32 weeks weekly with growt h every 3-4 weeks (2VC). Start: 01-20-2025 End: 01-20-2025 Professional / ancillary services management 01/20/2025 11:00 AM EDT Ancillary Procedure [facility] & [address] [place], [place] [address] start bpps at 32 weeks weekly with growth every 3-4 weeks (2VC). [facility] Comment on above: start bpps at 32 weeks weekly with growt h every 3-4 weeks (2VC). Start: 01-06-2025 End: 01-06-2025 Patient encounter procedure 01/06/2025 9:30 AM EDT Routine [facility]OLOG[facility] [address] [place] [address] Angelina Mathews APRN - JAYDA [address] [place] [address] [address] [place] [address] EDIN 03/15 [facility] GYNECOLOGY [facility] Comment on above: EDIN 03/15 Start: 01-06-2025 End: 01-06-2025 Professional / ancillary services management 01/06/2025 9:00 AM EDT Ancillary Procedure [facility] GYNECOLOGY [address] [place] [address] EDIN 03/15 [facility] Comment on above: EDIN 03/15 Start: 01-01-2025 Screening for Chlamydia trachomatis Chlamydia/GC screen [facility] Start: 12-14-2024 Tdap Vaccine during Tdap Vaccine during [facility] Start: 12-05-2024 DTaP/Tdap/Td vaccine (5 - Tdap) DTaP/Tdap/Td vaccine (5 - Tdap) [facility] Comment on above: Postponed from 2015 (Patient Refus ed) Start: 12-05-2024 Screening for Chlamydia trachomatis Chlamydia/GC screen [facility] Start: 11-03-2024 Screening for Chlamydia trachomatis Chlamydia Screening [facility] Start: 11-03-2024 Tobacco Screening Tobacco Screening [facility] Start: 10-29-2024 End: 10-29-2024 Patient encounter procedure 10/29/2024 11:00 AM EST Routine [facility]ECOLOGY Part [address] [place] [address] Angelina Mathews, [place] - JAYDA [address] [place] [address] OB 20 wk US [facility]OLOG[facility] Comment on above: OB 20 wk US Start: 10-29-2024 End: 10-29-2024 Professional / ancillary services management 10/29/2024 10:00 AM EST Ancillary Procedure [facility] [address] [place] [address] OB 20 wk US [facility] Comment on above: OB 20 wk US Start: 10-25-2024 Depression Screen Depression Screen [facility] Start: 09-30-2024 End: 09-30-2024 Patient encounter procedure 09/30/2024 8:50 AM EST Routine [facility] [address] [place] [address] Angelina Mathews, FORENSIC MEDICAL EXAMINER - CNM [address] [place] [address] [address] [place] [address] OB-USs scheduled [facility] Comment on above: OB-USs scheduled Start: 09-02-2024 End: 09-02-2024 Patient encounter procedure 09/02/2024 8:50 AM EST Routine [facility] [address] [place] [address] Angelina Mathews, FORENSIC MEDICAL EXAMINER - CNM [address] [place] [address] [address] [place] [address] OB TBE-USs scheduled [facility] Comment on above: OB TBE-USs scheduled Start: 08-12-2024 Adult BMI Screening Adult BMI Screening [facility] [employer] [facility] Start: 07-31-2024 End: 07-31-2024 Professional / ancillary services management 07/31/2024 10:00 AM EDT Ancillary Procedure [address] [facility] [place] [id number] New OB, SS, LMP 06/02/24 [facility] Comment on above: New OB, SS, LMP 06/02/24 Start: 07-31-2024 End: 07-31-2024 ambulatory 07/31/2024 9:00 AM EDT Initial [facility] Part [address] [place] [phone] New OB, SS, LMP 06/02/24 [facility] Comment on above: New OB, SS, LMP 06/02/24 Start: 06-23-2024 COVID-19 Vaccine ( season) COVID-19 Vaccine ( season) [facility] Start: 06-23-2024 COVID-19 Vaccine () COVID-19 Vaccine () [facility] Start: 05-23-2024 Influenza vaccination Flu vaccine (#1) [facility] Start: 01-30-2024 End: 01-30-2024 Patient encounter procedure 01/30/2024 11:00 AM EDT Routine [facility]OLOG[facility] Part of [address] [place] [address] Yana Ridley APRN - JAYDA [address] [place] [address] [address] [place] [address] ob / nst [facility] Comment on above: ob / nst Start: 01-23-2024 End: 01-23-2024 Patient encounter procedure 01/23/2024 9:20 AM EDT Routine [facility]YNECOLOGY Part [address] [place] [address] Yana Ridley APRN - JAYDA [address] [place] [address] [address] [place] [address] ob [facility] Comment on above: ob Start: 01-16-2024 End: 01-16-2024 Patient encounter procedure 01/16/2024 9:30 AM EDT Routine [facility]OLOG[facility] Part of [address] [place] [address] Yana Ridley APRN - JAYDA [address] [place] [address] [address] [place] [address] ob [facility]OLOG[facility] Part [facility] Comment on above: ob Start: 01-09-2024 End: 01-09-2024 Patient encounter procedure 01/09/2024 9:10 AM EDT Routine [facility]YNECOLOGY Part of [address] [place] [address] Yana Ridley APRN - JAYDA [address] [place] [address] Dr [address] [place] [address] ob [facility] & [facility] Comment on above: ob Start: 01-02-2024 End: 01-02-2024 Patient encounter procedure 01/02/2024 10:20 AM EDT Routine [facility]OLOGY [address] [place] [address] Yana Ridley APRN - JAYDA [address] [place] [address] [address] [place] [address] ob / gbs [facility] Comment on above: ob / gbs Start: 12-19-2023 End: 12-19-2023 Patient encounter procedure 12/19/2023 2:00 PM EST Routine [facility] GYNECOLOGY Part [address] [place] [address] Yana Ridley APRN - JAYDA [address] [place] [address] [address] [facility] [place] [id number] ob [facility] GYNECOLOGY [facility] Comment on above: ob Start: 10-28-2023 Tdap Vaccine during Tdap Vaccine during [facility] Start: 07-03-2023 End: 07-03-2023 Patient encounter procedure 07/03/2023 Routine Obstetrics and Gynecology Yana Ridley APRN - JAYDA [address] [place], [place] [id number] [facility] Start: 07-03-2023 End: 07-03-2023 Professional / ancillary services management 07/03/2023 Ancillary Procedure Obstetrics and Gynecology [facility]YNECOLOG[facility] Start: 05-23-2023 Influenza vaccination [facility] Start: 03-07-2023 Screening for Chlamydia trachomatis [facility] Start: 02-24-2023 End: 02-24-2023 Admission to same day surgery center 02/24/2023 Surgery IP Unit Juan C Nicole MD [address] [facility] KNEE ARTHROSCOPY-DIAGNOSTIC , MEDIAL MENISCECTOMY VS REPAIR [facility] Comment on above: KNEE ARTHROSCOPY-DIAGNOSTIC , MEDIAL MEN ISCECTOMY VS REPAIR Start: 02-24-2023 End: 02-24-2023 Arthroscopy knee diagnostic w/wo synovial bx spx KNEE ARTHROSCOPY Acute medial meniscus tear of left knee, initial encounter 02/24/2023 11:00 AM EDT [facility] Start: 02-24-2023 Subsequent hospital visit by physician 02/24/2023 Hospital Encounter IP Unit Juan C Nicole MD [address] [place], [facility] Start: 11-21-2022 End: 11-21-2022 ambulatory 11/21/2022 Visit Obstetrics and Gynecology Angelina Mathews, [place] - JAYDA [address] [place], [place] [id number] [facility] Start: 10-10-2022 End: 10-10-2022 Patient encounter procedure 10/10/2022 Routine Obstetrics and Gynecology Angelina Mathews APRN - CNM [address] [place] [address] [facility] Start: 10-03-2022 End: 10-03-2022 Patient encounter procedure 10/03/2022 Routine Obstetrics and Gynecology Angelina Mathews APRN - CNM [address] [place] [address] [facility] Start: 09-26-2022 End: 09-26-2022 Patient encounter procedure 09/26/2022 Routine Obstetrics and Gynecology Angelina Mathews APRN - CNM [address] [place] [address] [facility] Start: 09-19-2022 End: 09-19-2022 Patient encounter procedure 09/19/2022 Routine Obstetrics and Gynecology Angelina Mathews APRN - CNM [address] [place] [address] [facility] Start: 09-05-2022 End: 09-05-2022 Patient encounter procedure 09/05/2022 Routine Obstetrics and Gynecology Angelina Mathews APRN - CNM [address] [place] [address] [facility] Start: 2022 Adult BMI Follow Up Plan Adult BMI Follow Up Plan [facility] Start: 08-08-2022 End: 08-08-2022 Patient encounter procedure 08/08/2022 Routine Obstetrics and Gynecology Angelina Mathews APRN - CNM [address] [place] [address] [facility] Start: 08-08-2022 End: 08-08-2022 Professional / ancillary services management 08/08/2022 Ancillary Procedure Obstetrics and Gynecology [facility] & [facility] Start: 07-19-2022 End: 07-19-2022 Patient encounter procedure 07/19/2022 Routine Obstetrics and Gynecology Yana Ridley APRN - JAYDA [address] [place] [address] [facility] & [facility] Start: 06-23-2022 Influenza vaccination [facility] Start: 05-30-2022 End: 05-30-2022 Patient encounter procedure 05/30/2022 Routine Obstetrics and Gynecology Angelina Mathews APRN - CNM [address] [place] [address] [facility] & [facility] Start: 05-30-2022 End: 05-30-2022 Professional / ancillary services management 05/30/2022 Ancillary Procedure Obstetrics and Gynecology [facility] Start: 05-23-2022 Influenza vaccination Flu vaccine (#1) [facility] Start: 04-04-2022 End: 04-04-2022 Patient encounter procedure 04/04/2022 Routine Obstetrics and Gynecology Angelina Mathews APRN - CNM [address] [place] [address] [facility] GYNEC[facility]Y [facility] Start: 03-07-2022 End: 03-07-2022 Professional / ancillary services management 03/07/2022 Ancillary Procedure Obstetrics and Gynecology [facility] & [facility] Start: 03-07-2022 End: 03-07-2022 ambulatory 03/07/2022 Initial Obstetrics and Gynecology [facility] & [facility] Start: 01-12-2022 Depression Screen Depression Screen [facility] Start: 10-08-2021 End: 10-08-2021 Admission to same day surgery center 10/08/2021 Surgery IP Unit Ciera Martínez, DO [address] [facility] [place] [address] OVARIAN CYSTECTOMY LAPAROSCOPIC- POSSIBLE RIGHT SALPINGOOPHORETOMY MTHZ OR Comment on above: OVARIAN CYSTECTOMY LAPAROSCOPIC- POSSIBL E RIGHT SALPINGOOPHORETOMY Start: 10-08-2021 Subsequent hospital visit by physician 10/08/2021 Hospital Encounter IP Unit Ciera Martínez, DO [address] [facility] [place] [address] [facility] Start: 08-31-2021 Screening for Chlamydia trachomatis Chlamydia screen [facility] Start: 08-10-2021 End: 08-10-2021 Patient encounter procedure 08/10/2021 Office Visit Obstetrics and Gynecology Ciera Martínez, DO [address] [facility] [place] [address] [facility] Start: 07-21-2021 End: 07-21-2021 Patient encounter procedure 07/21/2021 Procedure visit Obstetrics and Gynecology Angelina Mathews APRN - CNM [address] [place], [place] [id number] [facility] Start: 06-23-2021 Influenza vaccination [facility] Work Phone: Start: 05-04-2021 End: 05-04-2021 ambulatory 05/04/2021 Visit Obstetrics and Gynecology Angelina Mathews APRN - CNM [address] [place], [place] [id number] [facility] Start: 04-27-2021 End: 04-27-2021 Patient encounter procedure 04/27/2021 Routine Obstetrics and Gynecology Angelina Mathews APRN - CNM [address] [place] [address] [phone] [facility] Start: 04-19-2021 End: 04-19-2021 Patient encounter procedure 04/19/2021 Routine Obstetrics and Gynecology Yana Ridley APRN - CNM [address] [place] [address] [phone] [facility] Start: 04-14-2021 End: 04-14-2021 Patient encounter procedure 04/14/2021 Routine Obstetrics and Gynecology Angelina Mathews APRN - CNM [address] [place] [address] [phone] [facility] Start: 04-14-2021 End: 04-14-2021 Professional / ancillary services management 04/14/2021 Ancillary Procedure Obstetrics and Gynecology [facility] Start: 03-11-2021 End: 03-11-2021 Routine 03/11/2021 Routine Perinatology [facility] Start: 02-16-2021 End: 02-16-2021 Ancillary Procedure [facility] Start: 02-03-2021 End: 02-03-2021 Routine 02/03/2021 Routine Obstetrics and Gynecology Angelina Mathews APRN - CNM [address] [place] [address] [phone] [facility] Start: 01-21-2021 End: 01-21-2021 Routine 01/21/2021 Routine Perinatology [facility] Start: 01-11-2021 End: 01-11-2021 Routine 01/11/2021 Routine Obstetrics and Gynecology Angelina Mathews APRN - CNM [address] [place] [address] [phone] [facility] Start: 12-14-2020 End: 12-14-2020 Ancillary Procedure [facility] Start: 12-08-2020 End: 12-08-2020 Ancillary Procedure [facility] Start: 09-21-2020 End: 09-21-2020 Routine 09/21/2020 Routine Obstetrics and Gynecology Angelina Mathews, FORENSIC MEDICAL EXAMINER - CNM [address] [place] [address] [phone] [facility] Start: 09-07-2020 End: 09-07-2020 Ancillary Procedure 09/07/2020 Ancillary Procedure Obstetrics and Gynecology [facility] Start: 08-31-2020 End: 08-31-2020 Initial 08/31/2020 Initial Obstetrics and Gynecology [facility] Start: 08-31-2020 End: 09-01-2020 hCG, Quantitative, hCG, Quantitative, Lab Routine Threatened miscarriage in early Expected: 08/31/2020, Expires: 09/01/2020 [place], [place] Comment on above: Expected: 08/31/2020, Expires: 0 Start: 2020 COVID-19 Vaccine (1) COVID-19 Vaccine (1) [facility] [employer] Phone: Start: 2020 Meningococcal (ACWY) vaccine (1 - 2-dose series) Meningococcal (ACWY) vaccine (1 - 2-dose series) [facility] Start: 2020 Meningococcal B vaccine (1 of 2 - Standard) Meningococcal B vaccine (1 of 2 - Standard) [facility] Start: 2020 Screening for Chlamydia trachomatis Chlamydia screen [place], [place] Start: 06-23-2020 Influenza vaccination Flu vaccine (#1) [place], [place] Start: 2019 HIV screen HIV screen [facility] [employer] Work Phone: Start: 2019 HIV screening HIV screen [place], [place] Start: 2019 HPV vaccine (1 - 3-dose series) HPV vaccine (1 - 3-dose series) [facility] Start: 06-23-2019 Influenza vaccination Flu vaccine (#1) [facility] Phone: Start: 2016 COVID-19 Vaccine (1) COVID-19 Vaccine (1) [facility] Phone: Start: 2016 Depression Screen Depression Screen [facility] Start: 2016 Depression Screening Depression Screening [facility] Start: 2015 DTaP,Tdap and Td Vaccines (5 - Tdap) DTaP,Tdap and Td Vaccines (5 - Tdap) [facility] Start: 2015 HPV vaccine (1 - 2-dose series) HPV vaccine (1 - 2-dose series) [facility] Start: 2015 HPV vaccine (1 - Female 2-dose series) HPV vaccine (1 - Female 2-dose series) [facility] [employer] Phone: Start: 2015 Meningococcal (ACWY) vaccine (1 - 2-dose series) Meningococcal (ACWY) vaccine (1 - 2-dose series) [facility] Phone: Start: 2011 DTaP/Tdap/Td vaccine (1 - Tdap) DTaP/Tdap/Td vaccine (1 - Tdap) [facility] Start: 2009 COVID-19 Vaccine (1) COVID-19 Vaccine (1) [facility] Start: 2008 Polio vaccine (4 of 4 - 4-dose series) Polio vaccine (4 of 4 - 4-dose series) [facility] Start: 2008 Varicella vaccine (2 of 2 - 2-dose childhood series) Varicella vaccine (2 of 2 - 2-dose childhood series) [facility] Start: 2005 Hepatitis A vaccine (1 of 2 - 2-dose series) Hepatitis A vaccine (1 of 2 - 2-dose series) [facility] Start: 2005 Measles,Mumps,Rubella (MMR) vaccine (1 of 2 - Standard series) Measles,Mumps,Rubella (MMR) vaccine (1 of 2 - Standard series) [facility] Start: 2005 Varicella vaccine (1 of 2 - 2-dose childhood series) Varicella vaccine (1 of 2 - 2-dose childhood series) [facility] Start: 04-19-2005 Hepatitis B vaccine (3 of 3 - 3-dose series) Hepatitis B vaccine (3 of 3 - 3-dose series) [facility] Start: 02-22-2005 COVID-19 Vaccine (#1) COVID-19 Vaccine (#1) [facility] Start: 2004 Polio vaccine (1 of 3 - 4-dose series) Polio vaccine (1 of 3 - 4-dose series) [facility] Start: 2004 Polio vaccine 0-18 (1 of 3 - 4-dose series) Polio vaccine 0-18 (1 of 3 - 4-dose series) [facility] Work Phone: Start: 2004 Hepatitis B vaccine (1 of 3 - 3-dose primary series) Hepatitis B vaccine (1 of 3 - 3-dose primary series) [facility] Start: 2004 Hepatitis B vaccine (1 of 3 - 3-dose series) Hepatitis B vaccine (1 of 3 - 3-dose series) [facility] End: 11-26-2020 Alpha Fetoprotein, Maternal Alpha Fetoprotein, Maternal Lab Routine Once for 1 Occurrences starting 11/26/2020 until 11/26/2020 [place], [place] Comment on above: Once for 1 Occurrences starting 11/26/19 until 11/26/2020 Alpha Fetoprotein, Maternal Alpha Fetoprotein, Maternal Lab Routine 11/26/2020 5:20 PM [place], [place] End: 07-14-2022 Bacteria identified in Urine by Culture [facility] Work Phone: Comment on above: One Time for 1 Occurrences starting 06/24 until 07/14/2022 End: 12-28-2023 Bacteria identified in Urine by Culture Urine culture Microbiology Routine One Time for 1 Occurrences starting 12/28/2023 until 12/28/2023 [facility] Comment on above: One Time for 1 Occurrences starting 04/2024 until 12/28/2023 End: 04-14-2021 Bile Acids, Total Bile Acids, Total Lab Routine Pruritus of in third trimester 1 Occurrences starting 04/14/2021 until 04/14/2021 [employer] Phone: Comment on above: 1 Occurrences starting 04/14/2021 until 04/14/2021 Bile Acids, Total Bile Acids, To akila Lab Routine Pruritus of in third trimester 04/14/2021 10:02 AM EDT [employer] Phone: C.trachomatis N.gonorrhoeae DNA C.trachomatis N.gonorrhoeae DNA Microbiology Routine 32 weeks gestation of Screen for STD (sexually transmitted disease) 12/05/2023 10:00 AM EST [employer] C.trachomatis N.gonorrhoeae DNA C.trachomatis N.gonorrhoeae DNA Microbiology STAT 07/27/2024 11:32 PM EDT [employer] End: 08-31-2020 C.trachomatis N.gonorrhoeae DNA, Urine C.trachomatis N.gonorrhoeae DNA, Urine Microbiology Routine Amenorrhea 1 Occurrences starting 08/31/2020 until 08/31/2020 [employer] Comment on above: 1 Occurrences starting 08/31/2020 until 08/31/2020 C.trachomatis N.gonorrhoeae DNA, Urine C.trachomatis N.gonorrhoeae DNA, Urine Microbiology Routine Amenorrhea 08/31/2020 4:28 PM EST [employer] End: 03-07-2022 C.trachomatis N.gonorrhoeae DNA, Urine [employer] Phone: Comment on above: 1 Occurrences starting 03/07/2022 until 03/07/2022 End: 06-05-2023 C.trachomatis N.gonorrhoeae DNA, Urine [employer] Comment on above: 1 Occurrences starting 06/05/2023 until 06/05/2023 End: 07-31-2024 C.trachomatis N.gonorrhoeae DNA, Urine [employer] Comment on above: 1 Occurrences starting 07/31/2024 until 07/31/2024 Celiac Disease Panel Celiac Dise ase Panel Lab Routine 04/29/2024 11:47 AM EDT [employer] Work Phone: End: 04-05-2021 Culture, Strep B Screen, Vaginal/Rectal Culture, Strep B Screen, Vaginal/Rectal Microbiology Routine 36 weeks gestation of 1 Occurrences starting 04/05/2021 until 04/05/2021 [employer] Phone: Comment on above: 1 Occurrences starting 04/05/2021 until 04/05/2021 Culture, Strep B Scr een, Vaginal/Rectal Culture, Strep B Screen, Vaginal/Rectal Microbiology Routine 36 weeks gestation of 04/05/2021 5:57 PM EDT [employer] Phone: End: 08-31-2020 Culture, Urine Culture, Urine Microbiology Routine Amenorrhea 1 Occurrences starting 08/31/2020 until 08/31/2020 [employer] Comment on above: 1 Occurrences starting 08/31/2020 until 08/31/2020 Culture, Urine Culture, Urine Microbiology Routine Amenorrhea 08/31/2020 4:27 PM EST [employer] End: 03-07-2022 Culture, Urine [employer] Phone: Comment on above: 1 Occurrences starting 03/07/2022 until 03/07/2022 End: 05-10-2022 Culture, Urine Culture, Urine Microbiology Routine Once for 1 Occurrences starting 05/10/2022 until 05/10/2022 [employer] Phone: Comment on above: Once for 1 Occurrences starting 05/10/20 22 until 05/10/2022 Culture, Urine Culture, Urine Microbiology Routine 05/10/2022 12:51 AM EDT [employer] Phone: End: 06-05-2023 Culture, Urine [employer] Comment on above: 1 Occurrences starting 06/05/2023 until 06/05/2023 End: 07-31-2024 Culture, Urine [employer] Comment on above: 1 Occurrences starting 07/31/2024 until 07/31/2024 ENT Food Panel ENT Food Panel L ab Routine 04/29/2024 11:47 AM EDT [employer] End: 11-05-2019 Lan-Hernandez virus VCA antibody panel Lan-Hernandez virus VCA antibody panel Lab Routine Once for 1 Occurrences starting 11/05/2019 until 11/05/2019 [employer] Phone: Comment on above: Once for 1 Occurrences starting 11/05/19 20 until 11/05/2019 Lan-Hernandez virus V CA antibody panel Lan-Hernandez virus VCA antibody panel Lab Routine 11/05/2019 8:05 AM [employer] Phone: nonstress test nonst ress test OB Routine Daily until discontinued starting 12/29/2023 [employer] Comment on above: Daily until discontinued starting 2023 End: 01-15-2025 nonstress test nonstress test OB Routine One Time for 1 Occurrences starting 01/15/2025 until 01/15/2025 [employer] Comment on above: One Time for 1 Occurrences starting 12/22 until 01/15/2025 End: 11-26-2020 MISCELLANEOUS TESTING MISCELLANEOUS TESTING Lab Routine Once for 1 Occurrences starting 11/26/2020 until 11/26/2020 [employer] Comment on above: Once for 1 Occurrences starting 11/26/19 until 11/26/2020 MISCELLANEOUS TESTING MISCELLANE OUS TESTING Lab Routine 11/26/2020 5:20 PM [facility] [employer] Nonrebreather mask oxygen Nonreb reather mask oxygen Respiratory Care Routine As directed - RT (PRN) until discontinued starting 07/14/2022 [employer] Phone: Comment on above: As directed - RT (PRN) until discontinue d starting 07/14/2022 Nonrebreather mask oxygen Nonreb reather mask oxygen Respiratory Care Routine As directed - RT (PRN) until discontinued starting 09/03/2022 [employer] Phone: Comment on above: As directed - RT (PRN) until discontinue d starting 09/03/2022 End: 11-05-2019 Path Review, Smear Path Review, Smear Lab Routine Once for 1 Occurrences starting 11/05/2019 until 11/05/2019 [employer] Phone: Comment on above: Once for 1 Occurrences starting 11/05/19 until 11/05/2019 Path Review, Smear Path Review, Smear Lab Routine 11/05/2019 8:05 AM [employer] Phone: End: 06-05-2023 Profile I [employer] Comment on above: 1 Occurrences starting 06/05/2023 until 06/05/2023 End: 10-13-2022 Procalcitonin [employer] Phone: Comment on above: One Time for 1 Occurrences starting 09/23 until 10/13/2022 End: 07-14-2022 SVE SVE Point of Care Testing Routine One Time for 1 Occurrences starting 07/14/2022 until 07/14/2022 [employer] Phone: Comment on above: One Time for 1 Occurrences starting 06/24 until 07/14/2022 End: 09-03-2022 SVE SVE Point of Care Testing Routine One Time for 1 Occurrences starting 09/03/2022 until 09/03/2022 [employer] Phone: Comment on above: One Time for 1 Occurrences starting 08/23 until 09/03/2022 End: 12-28-2023 SVE SVE Point of Care Testing Routine One Time for 1 Occurrences starting 12/28/2023 until 12/28/2023 [employer] Comment on above: One Time for 1 Occurrences starting 04/2024 until 12/28/2023 End: 01-04-2021 US OB 14 PLUS WEEKS SINGLE OR FIRST GESTATION US OB 14 PLUS WEEKS SINGLE OR FIRST GESTATION Imaging Routine Once for 1 Occurrences starting 01/04/2021 until 01/04/2021 [employer] Phone: Comment on above: Once for 1 Occurrences starting 01/05/20 21 until 01/04/2021 US OB 14 PLUS WEEKS SINGLE OR FIRST GESTATION US OB 14 PLUS WEEKS SINGLE OR FIRST GESTATION Imaging Routine 01/04/2021 2:29 PM EDT [employer] Work Phone: End: 01-04-2021 US OB TRANSVAGINAL US OB TRANSVAGINAL Imaging Routine Once for 1 Occurrences starting 01/04/2021 until 01/04/2021 [employer] Work Phone: Comment on above: Once for 1 Occurrences starting 01/05/20 21 until 01/04/2021 US OB TRANSVAGINAL US OB TRANSVA GINAL Imaging Routine 01/04/2021 2:29 PM EDT [employer] Work Phone: End: 01-15-2025 Us uterus limited fetuses [employer] Comment on above: Once for 1 Occurrences starting 01/16/20 until 01/15/2025 End: 07-27-2024 Wet prep, genital [employer] Comment on above: One Time for 1 Occurrences starting 02/2024 until 07/27/2024 Immunizations Immunization Date Immunization Notes Care Provider Fa [facility] 10-07-2022 diphtheria, tetanus toxoids and acellular pertussis vaccine, unspecified formulation Angelina Mathews FORENSIC MEDICAL EXAMINER - [employer] Work Phone: [employer] Work Phone: 10-07-2022 measles, mumps and rubella virus vaccine Angelina Mathews FORENSIC MEDICAL EXAMINER - CNM Work Phone: [employer] Work Phone: 04-20-2021 diphtheria, tetanus toxoids and acellular pertussis vaccine, unspecified formulation Yana Pool FORENSIC MEDICAL EXAMINER - CNM Work Phone: [employer] Work Phone: 04-20-2021 measles, mumps and rubella virus vaccine Yana Pool FORENSIC MEDICAL EXAMINER - CNM Work Phone: [employer] Work Phone: Payers Date Payer Category Payer Self-pay 2018 Medicaid [place] [employer] [place] [employer] [id number] 2018-Present [phone] [address] [place] [address] [id number] 2016 Unknown [id number] 2016 Unknown [facility] xxxxxxxxxxxx 2016-Present [phone] [address] [place] [address] xxxxxxxxxxxx [id number] 2004 Unknown [id number] 2004 Unknown [id number] [id number] 6 2004 Unknown [id number] [id number] 6 2004 Unknown [id number] [id number] 6 2004 Unknown [id number] [id number] 6 2004 Unknown [id number] [id number] 6 2004 Unknown [id number] [id number] 6 2004 Unknown [id number] 2.16.840.1.305511.3.579.2.128 6 2004 Unknown [id number] 2.16.840.1.355079.3.579.2.173 2004 Unknown [id number] [id number] 2004 Unknown [id number] [id number] 2004 Unknown [id number] [id number] 2004 Unknown [id number] 2.16.840.1.898916.3.579.2.175 2004 Unknown [id number] [id number] 2004 Unknown [id number] [id number] 1985 Unknown [id number] [id number] 1959 Unknown [id number] Unknown [id number] Social History Date Type Detail Facility Start: 12-24-2019 End: 07-14-2022 Tobacco smoking status [facility] Never smoker [employer] Start: 12-24-2019 End: 01-15-2025 Alcohol intake Current non-drinker of alcohol (finding) [employer] Phone: Start: 2004 Sex Assigned At Not on file [employer] Phone: Start: 12-24-2019 End: 07-14-2022 Tobacco use and exposure Never used [employer] [place] Start: 01-25-2022 End: 02-10-2023 Exposure to SARS-CoV-2 (event) [facility] sure [facility] [place] [place] Start: 07-13-2020 [facility] [place] Start: 2004 Sex Assigned At Female [employer] Start: 12-05-2023 End: 07-27-2024 History of Social function [employer] Start: 12-05-2023 End: 07-27-2024 Tobacco use panel [employer] How hard is it for y ou to pay for the very basics like food, housing, medical care, and heating Not hard at all [employer] (I/We) worried haseeb er (my/our) food would run out before (I/we) got money to buy more. Never true [employer] At any time in the p ast 12 months, were you homeless or living in [place] [facility] [including now]? No [employer] The thought of ariel martinez myself has occurred to me Never [employer] Start: 04-04-2022 Gender identity Identifies as female gender (finding) [employer] Start: 04-04-2022 Sexual orientation Heterosexual (finding) [facility] Start: 11-03-2023 Alcohol intake Lifetime non-drinker (finding) [facility] Tobacco smoking stat [facility] Tobacco smoking consumption unknown [facility] Start: 12-02-2012 Sex Female (finding) [employer] Procedure Code Equipment Code Equipment Origin al Text Equipment Identifier Dates Truespan [facility] [employer] [facility] [id number][facility] Start: 02-24-2023 True Span [employer] [id number][facility] Start: 02-24-2023 Clinical Notes 04-22-2021 to 01-15-2025 Discharge InstructionsAttachmentsAmanda Shane RN - 01/15/2025 12:53 PM EDAmanda Wall RN - 01/15/2025 11:58 AM EDAmanda Wall RN - 01/15/2025 11:36 AM EDTDischarge InstructionsAttachments Note Date & Type Note Facility 01-15-2025 Hospital Discharge instructions Amanda Shane RN - 01/15/2025 12:58 PM EDT OUTPATIENT DISCHARGE Dr. Jens Ridley [facility] Dr. Efren Mathews [address] [facility] [id number] [place] [address] or [place] ACTIVITY LIMITATIONS: ( )Up and about as desired and tolerated ( )Up to bathroom only ( )Lay on either side ( )Avoid heavy lifting or exercise ( )No sex ( )No nipple stimulation ( )Complet bedrest ( )Avoid using stairs ( )Increase fluids DRINK AT LEAST eight-8oz. Glasses of water daily. Call your Doctor if: ( )Contractions are every 5 minutes apart (from start of one to the start of the next contraction) lasting 60 seconds for at least 1 hour, strong enough you can not walk or talk through the contraction and regular. ( )Bag of water breaks ( )Vaginal bleeding ( )Unusual pain occurs ( )Decreased movement ( ) labor: If you have 4 contractions in an hour Keep your scheduled follow up appointment. Or call for a follow up on . IN CASE OF EMERGENCY CONTACT LABOR AND DELIVERY . The following attachments cannot be sent through Care Everywhere.: [place] Contractions (Kazakh)documented in this encounter [facility] 01-15-2025 History of Present illness Narrative Call made to OB office, spoke with JAYDA Aviles informed of US results. Reported pt may be discharged. US completed, sports book writer given information about results. Call made to JAYDA Aviles left message with office to call back into the department. US at bedside to complete imaging. JAYDA Aviles informed of ctx pattern and difficulty palpating. Informed of urine results. Provider requested US order be placed. SVE completed per request of JAYDA Aviles. Shade Matcher able to get a fingertip into cervix but unsure of effacement, pt is thick and sports book writer was able to determine presenting part or note a head. JAYDA Aviles notified of SVE. Monitor adjusted as pt asked if ctxs were tracing. Shade Matcher showed pt that some were able to be traced, palpated abdomen while pt reported having a ctx. Palpated minimal/mild. Shade Matcher to bedside, updated pt on POC. Collected urine and sent it to lab, placed pt on EFM and instructed on NST and reason for testing. Pt denies needs at this time SO at bedside, call light within reach. documented in this encounter [facility] 12-05-2024 History of Present illness Narrative Patient is at [facility] with c/o right lower flank pain. Triaged per nurse and patient has LE and blood in urine. Will hydrate, treat for UTI and patient should follow up with her provider. RX Keflex sent to pharmacy in [place] documented in this encounter [facility] 07-27-2024 Hospital Discharge instructions Desmond Rodriguez MD - 07/27/2024 11:38 PM EDT At this time everything is looking well with your . The cervical os was closed and had no active bleeding. The patient was able to be visualized on bedside ultrasound and did have adequate heart rate. Please follow-up with the FASHION ADVISER for results of the vaginitis testing that was performed today as these did not result prior to your discharge. If you develop worsening bleeding such as soaking through more than 1 pad per hour please return the emergency department for repeat assessment. documented in this encounter [facility] 12-29-2023 Hospital Discharge instructions Macey Mayfield RN - 12/29/2023 2:38 AM EST OUTPATIENT DISCHARGE Dr. Jens Ridley [facility] Dr. Efren Mathews [facility] 45 [facility] [address] [facility] [address] [place] ACTIVITY LIMITATIONS: ( x )Up and about [...] AND DELIVERY . documented in this encounter [facility] 11-06-2023 Miscellaneous Notes Opened in error documented in this [facility]23 Telephone encounter Note Opened in error [facility]23 Miscellaneous Notes Call to pt. To discuss lab results and pt. Pt. Advised GBS, chlamydia and gonorrhea are all negative. documented in this encounter [facility] 11-06-2023 Telephone encounter Note Call to pt. To discuss lab results and pt. Pt. Advised GBS, chlamydia and gonorrhea are all negative. [facility] 10-13-2022 Hospital Discharge instructions Steve Russo MD - 10/13/2022 10:41 AM EST Please make sure to drink at least 64 ounces of fluid a day. Take Tylenol and or ibuprofen for fever and pain control. Return to the ER for any recurrence of your symptoms. The following attachments cannot be sent through Care Everywhere.Headache (Kazakh)Fever: General Info (Kazakh) (Kazakh)documented in this encounter [facility] Phone: 10-08-2022 Hospital course Narrative Vaginal Delivery Discharge Summary Gestational Age:39w2d Antepartum complications: none Date of Delivery: Information for the patient's : [place], Baby Boy Mac [[id number]] 10/07/2022 Type of Delivery: Vaginal Labs: CBC [...] Colindres MD documented in this encounter [facility] [employer] Phone: 10-08-2022 Hospital Discharge instructions Jennifer Hill RN - 10/08/2022 10:03 AM EST Follow-up with your OB doctor as specified. [facility] Department phone: Dr. Jens Ridley [facility] Dr. Efren Mathews [address] [facility] [address] [place] DIET Eat a well balanced diet focusing on foods high in fiber and protein. Drink plenty of fluids especially water. To avoid constipation you may take a mild stool softener as recommended by your doctor or freight brake operator. ACTIVITY Gradually increase your activity. Resume exercise regimen only after advice by your doctor or freight brake operator. Avoid lifting anything heavier than a gallon of milk for SIX weeks. Avoid driving until your doctor or freight brake operator has given their approval. Rise slowly from [...] medications as recommended by your doctor or freight brake operator for pain If you develop a warm, [...] vitamins as directed by your doctor or freight brake operator. Refer to the booklet in the folder/binder for more information. If you feel you need more assistance or have questions, please call Caroline De Leon IBCLC, senior recruitment consultant, at or the OB department to [...] your calf. documented in this encounter [facility] [employer] Phone: 10-07-2022 History of Present illness Narrative [...] Consent signed 2143- Time out performed with sports book writerSilvino CRNA and patient 2145- Catheter in [...] rate: Baseline Heart Rate: 148 Accelerations: present Mcfp Variability: moderate Decelerations: absent Contraction frequency: 2 minutes Membranes: Ruptured clear fluid with finger cot Cervix: Dilation: 3 cm Effacement: 70 Station: -2 Position: mid ASSESSMENT & PLAN: Continue care Epidural when ready Department of Obstetrics and Gynecology Progress Note SUBJECTIVE: pt resting well with an epidural OBJECTIVE: Vitals: 10/06/22 2200 10/06/22 2204 10/06/22 2220 10/06/22 223 BP: 120/65 (!) 110/58 (!) 101/59 Pulse: 93 (!) 118 (!) 114 Resp: 18 18 18 Temp: 99.1 F (37.3 C) TempSrc: Oral SpO2: 99% 98% 97% Weight: Height: heart rate: Cat 1 Contraction frequency: 1-3 minutes Membranes: leaking Cervix: Dilation: 5 cm Effacement: 70 Station: -1 Position: mid ASSESSMENT & PLAN: Continue care documented in this encounter [facility] Phone: 09-03-2022 Hospital Discharge instructions Ciera Cornell RN - 09/03/2022 2:29 PM EST OUTPATIENT DISCHARGE Dr. Jens Mathews [address] [place] ACTIVITY LIMITATIONS: (x )Up and about as [...] AND DELIVERY . documented in this encounter [facility] Phone: 09-03-2022 Hospital Discharge instructions Lexy Tony MD - 09/03/2022 7:01 AM EST Thank you for trusting us with your care today. You may use tylenol or ibuprofen as needed for fever and pain. Please also make sure to follow-up with your emery wheel worker Please make an appointment with your primary care doctor for reevalaution in 1-4 days. Please return to the emergency department for any new concerning or worsening symptoms. The following attachments cannot be sent through Care Everywhere.Dehydration (Kazakh)Nausea and Vomiting (Kazakh)documented in this encounter [facility] Phone: 07-14-2022 Hospital Discharge instructions Kristina Tucker RN - 07/14/2022 10:37 AM EDT OUTPATIENT DISCHARGE Dr. Jens Ridley CNM Dr. Efren Mathews CNM [address] [facility] [address] [place] Dr Efren Betts CNM [address] [facility] [place] [address] [phone] Monalisa Ash, MSN, FORENSIC MEDICAL EXAMINER, CNM [facility] [address] [facility] [address] [address] Guerrero [address] [facility] [address] Angelina Rodriguez CNM [address] [place] 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 Keep your scheduled follow up appointment. IN CASE OF EMERGENCY CONTACT LABOR AND DELIVERY . documented in this encounter [facility] Phone: 05-10-2022 Hospital Discharge instructions Lexy Tony MD - 05/10/2022 3:27 AM EDT Thank you for trusting us with your care today. You may use tylenol as needed for pain. Please make sure to follow-up with emery wheel worker in the morning. Please make an appointment with your primary care doctor for reevalaution in 1-4 days. Please return to the emergency department for any new concerning or worsening symptoms. The following attachments cannot be sent through Care Everywhere.: Vaginal Bleeding (Kazakh)documented in this encounter [facility] Phone: 04-27-2021 Hospital Discharge instructions Sheela Mcdowell MD - 04/27/2021 Motrin as needed for any pain. Increase fluids. Follow up with launch commander harbor police as scheduled. Seek medical attention for any heavy bleeding, more than 1 pad per hour passing large golf ball size clots, worsening pain, fevers, chills, foul smelling discharge or any other concerns The following attachments cannot be sent through Care Everywhere. Bleeding: Retained Placenta (Kazakh)documented in this encounter [employer] Phone: 04-22-2021 History of Present illness Narrative [...] EFM continuously assessed. Vaginal delivery of viable infant. Patient actively pushing. RN remains in continuous attendance at the bedside. Assessment & evaluation of heart rate ongoing via continuous EFM. Allen Ridley CNM called in office. Updated that pt [...] requesting an epidural. IV bolus started and ACTIVITY THERAPY SPECIALIST called. Allen Ridley CNM phoned. Updated that pt is uncomfortable [...] positioned on right side for comfort. Allen Ridley CNM in to see pt and AROM. documented in this encounter [facility] [employer] Phone: 04-22-2021 Hospital Discharge instructions Caroline Crowley RN - 04/22/2021 Follow-up with your OB doctor as specified. [facility] Department phone: Dr. Jens Ridley [facility] Dr. Efren Mathews CN [address] [facility] [address] [facility] [address] [place] [address] [place] [address] Efren Betts [facility] [address] [facility] [place] [address] [phone] Monalisa Ash, MSN, FORENSIC MEDICAL EXAMINER, CNM [place] [id number] [facility] [address] [address] Guerrero [facility] [address] [facility] [address] Angelina Rodriguez CN [address] [place], [place] [id number] Billie Sierra CN [address] [place] [place] [address] [phone] DIET Eat a well balanced diet focusing on foods high in fiber and protein. Drink plenty of fluids especially water. To avoid constipation you may take a mild stool softener as recommended by your doctor or freight brake operator. ACTIVITY Gradually increase your activity. Resume exercise regimen only after advice by your doctor or freight brake operator. Avoid lifting anything heavier than a gallon of milk for SIX weeks. Avoid driving until your doctor or freight brake operator has given their approval. Rise slowly from [...] of harming yourself or your infant. If will not stop crying, contact another adult [...] medications as recommended by your doctor or freight brake operator for pain If you develop a warm, [...] vitamins as directed by your doctor or freight brake operator. Refer to the booklet in the folder/binder for more information. If you feel you need more assistance or have questions, please call Caroline De Leon IBCLC, senior recruitment consultant, at or the OB department to [...] they become loose or soiled. If used, Denita should be removed by your care provider. [...] BABY CARE DISCHARGE INSTRUCTIONSdocumented in this encounter [employer] Phone: Evaluation note Diagnosis 36 weeks gestation of state, incidental documented in this encounter [employer] Phone: evaluation note* Diagnosis Pruritus of in third trimester documented in this encounter [employer] Phone: evaluation note* Diagnosis Encounter for induction of labor- Primary Term (normal spontaneous vaginal delivery) Normal delivery documented in this encounter [employer] Phone: evaluation note* Diagnosis Vaginal bleeding- Primary Other specified noninflammatory disorder of vagina documented in this encounter [employer] Phone: evaluation note* Diagnosis Amenorrhea Absence of menstruation documented in this encounter [employer] Phone: evaluation note* Diagnosis Acute pharyngitis, unspecified etiology- Primary documented in this encounter [employer] Phone: evaluation note* Diagnosis Strain of lumbar region, initial encounter- Primary documented in this encounter [employer] Phone: evaluation note* Diagnosis Amenorrhea Absence of menstruation Encounter for supervision of other normal in first trimester documented in this encounter [employer] Phone: evaluation note* Diagnosis Vaginal bleeding in - Primary Unspecified antepartum hemorrhage, unspecified as to episode of care documented in this encounter [facility] Phone: evaluation note* Diagnosis Nausea- Primary Nausea alone documented in this encounter [facility] Phone: evaluation note* Diagnosis Nausea and vomiting, unspecified vomiting type- Primary Dehydration documented in this encounter [facility] Phone: evaluation note* Diagnosis Abdominal pain- Primary Abdominal pain, unspecified site documented in this encounter [facility] Phone: evaluation note* Diagnosis Admitted to labor and delivery- Primary 39 weeks gestation of state, incidental documented in this encounter [facility] Phone: evaluation note* Diagnosis Febrile illness, acute- Primary Fever, unspecified Headache above the eye region Headache headache documented in this encounter [facility] Phone: evaluation note* Diagnosis Encounter for supervision of other normal in first trimester Amenorrhea Absence of menstruation Positive urine test documented in this encounter [employer] note* Diagnosis 32 weeks gestation of state, incidental Screen for STD (sexually transmitted disease) Screening examination for venereal disease documented in this encounter [employer] note* Diagnosis Third trimester - Primary documented in this encounter [employer] note* Diagnosis Vaginal bleeding in - Primary Unspecified antepartum hemorrhage, unspecified as to episode of care documented in this encounter [employer] note* Diagnosis Amenorrhea Absence of menstruation Positive urine test Encounter for supervision of other normal in first trimester documented in this encounter [facility] note* Diagnosis Vagina, candidiasis- Primary Candidiasis of vulva and vagina [facility] Diagnosis Acute cystitis with hematuria- Primary documented in this encounter [facility]* Diagnosis Uterine contractions- Primary [facility] Attachments The following attachments cannot be sent through Care Everywhere. * Sore Throat: Teen (Kazakh) [facility]: Hospital Discharge instructions* Instructions* Mathieu Wyatt PA-C - 02/04/2022 Take Tylenol every 6 hours as needed for pain [id number]. Return to emergency room for any worsening symptoms. Apply heat to the lower back. Follow- up with FASHION ADVISER specialist as scheduled. * Attachments The following attachments cannot be sent through Care Everywhere. * Back: Strain: Teen (Kazakh) documented in [facility] Phone: InstructionsNot on filedocumented in this encounter [facility] [employer] SystemInstructionsNot on filedocumented in this encounter [facility] Summary Purpose Family History No Family History Records FoundNo Family History Records FoundNo Family History Records FoundNo Family History Records FoundNo Family History Records FoundNo Family History Records Found Advance Directives No Advanced Directives Records FoundDocuments on File Type Date Recorded Patient Chips Screen Tender Expl anation Advance Directives and Living Will Power of Guest Services Representative Documents on File Type Date Recorded Patient Chips Screen Tender Expl anation Advance Directives and Living Will Power of Guest Services Representative Documents on File Type Date Recorded Patient Chips Screen Tender Expl anation ACP-Advance Directive ACP-Power of Guest Services Representative Documents on File Type Date Recorded Patient Chips Screen Tender Expl anation ACP-Advance Directive ACP-Power of Guest Services Representative Latest Code Status on File Code Status [...] sent through Care Everywhere. * Miscarriage: Threatened (Kazakh) documented in this encounter* Instructions* Lani Shane RN - 01/04/[address] Jens [address] Dr[address] Efren Mathews [facility] [address] [facility] [address] [facility] [address] [place] Dr Efren Betts [facility] [address] [facility] [place] [address] [phone] Monalisa Ash, MSN, FORENSIC MEDICAL EXAMINER, CNM [address] [address] [address] Guerrero [address] [facility] [address] Angelina Rodriguez CNM [address] [place] [address] [place] [address] Billie Sierra CNM [address] [place] [address] [place] [address] [phone] ACTIVITY LIMITATIONS: ( X )Up and about [...] PELVIS WO CONTRAST Ross Pardo MD [address] [address] Additional Source Comments INFORMATION SOURCE (unrecogn ized section and content) DATE CREATED AUTHOR 04/18/2018 [facility] DATE CREATED AUTHOR AUTHOR'S ORGANIZ ATION 06/22/2019 [facility] DATE CREATED AUTHOR AUTHOR'S ORGANIZ ATION 11/04/2023 [facility] DATE CREATED AUTHOR AUTHOR'S ORGANIZ ATION 12/16/2024 [facility] DATE CREATED AUTHOR AUTHOR'S ORGANIZ ATION 01/16/2025 [facility] DATE CREATED AUTHOR AUTHOR'S ORGANIZ ATION 01/23/2025 [facility] Reason for Visit (unrecogniz ed section and content) Reason Comments Scheduled Induction Specialty Diagnoses / Procedures Referred By Conteva t Referred To Contact Diagnoses Admitted to labor and delivery Khai, Yana Sutherland APRN - CNM [address] [facility] [address] [place] [address] [facility] [address] [place] [address] Referral ID Status Reason Start Date Expiration Date Visits Re quested Visits Authorized [id number] 1 1 Reason Comments Tachycardia increased HR, 150s a t home 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 Reason Specialty Diagnoses / Procedures Referred By Contact Referred To Contact Not Required - Re[facility]o EKG Diagnoses Tachycardia, unspecified Procedures HOLTER MONITOR Ra Mata MD [address] [place] [address] [facility] Ekg [address] [place] [address] Reason Comments Vaginal Bleeding onset approx 2 hours ago, states found out she was 2 weeks ago Status Reason Specialty Diagnoses / Procedures Referre d By Contact Referred To Contact Closed Radiology Diagnoses Rigid pelvic floor affecting , second trimester Cyst of right ovary Procedures MRI pelvis without contrast Ross Pardo MD [address] [facility] [address] [place] [address] [facility] Mri [address] [place] [address] Reason Comments Vaginal Bleeding Status Reason Specialty Diagnoses / Procedures Referre d By Contact Referred To Contact Diagnoses Encounter for induction of labor Term Yana Ridley APRN - [place] [address] [place] [address] [facility] Reason Comments Vaginal Bleeding 6 days post vaginal delivery; going through 2 pads/hour and passing golf ball sized clots Reason Comments Pharyngitis sore throat and coug h since 08/17. Pt is taking amoxicillin per PCP, Also seen in urgent care. Covid negative. Otalgia bilateral ear pain. 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--denies injury--pt states she is 4 weeks [...] Reason: Other - Comment: remains in patient bathroom.)2099 (Due) ibuprofen (ADVIL;MOTRIN) tablet 800 mg 800 mg, Oral, EVERY 8 HOURS, First dose on Mon04/20/21 at 1900, Do not crush or break., 2328 (Given - Provider: Maryam Pena RN) 0300 (Due)1137 (Given - Provider: Ansley Alvares, FRANTZ)1900 (Not Given - Provider: Eri Kim RN [...] Crowley RN - Reason: Loss of IV access)2100 (Due) Equklyf-Qhhsde-Glano Pertussis (BOOSTRIX) injection 0.5 mL 0.5 mL, Intramuscular, PRIOR TO DISCHARGE, Starting on Mon04/20/21 at 1843, For 1 dose, If not previously administered during at 27-36 weeks as recommended by CDC., witch augusto-glycerin (TUCKS) pad Topical, 2 TIMES DAILY, First dose on Mon04/20/21 at 2100, Apply to perineal area. Patient is capable and may self administer at bedside., 2328 (Given - Provider: Maryam Pena, RN) 1454 (Not Given - Provider: Martha Funes RN - Reason: Patient/family refused)2013 (Not Given - Provider: Eri Kim RN - Reason: Other - Comment: Remains at patient's bedside) 1204 (Not Given - Provider: Caroline Crowley RN - Reason: Other - Comment: Remains in patient bathroom.)2100 (Due) Continuous Medication Order 04/20/2021 04/21/2021 04/22/2021 lactated ringers infusion (CANCELED) Intravenous, at 125 mL/hr, CONTINUOUS, Starting on Mon04/20/21 at 0600, Labor and Delivery 0530 (New Bag - Provider: Glenda Leblanc RN)1217 (New Bag - Provider: Paula Massey, FRANTZ)1307 (Rate/Dose Change - Provider: Paula Massey, FRANTZ)1409 (New Bag - Provider: Paula Massey, FRANTZ) [...] every 2-3 minutes with cervical changes or Severance units (MVU) greater than 200 in a [...] Delivery 0605 (New Bag - Provider: Glenda Leblanc, RN)0635 (Rate/Dose Change - Provider: Glenda Leblanc [...] or break., 2328 (Given - Provider: Maryam Pena, FRANTZ) lansinoh lanolin ointment Topical, PRN, Dry Skin, nipple discomfort, Starting on Mon04/20/21 at 1843, nalbuphine (NUBAIN) injection 10 mg (CANCELED) 10 mg, Intravenous, EVERY 2 HOURS PRN, Pain Moderate (4-6), Pain Severe (7-10), For moderate pain 4-6, Starting on Mon04/20/21 at 0529, PRN for pain, Labor and Delivery 1035 (Given - Provider: Paula Massey RN)1252 (Given - Provider: Paula Massey, FRANTZ) oxytocin (PITOCIN) 10 unit bolus from the [...] Delivery 1718 (Rate/Dose Change - Provider: Paula Massey RN) sodium chloride flush 0.9 % injection 10 mL 10 mL, Intravenous, PRN, Line Care, Starting on e 04/20/21 at 1843, After every IV line use, [...] STAT 1030 (Given - Provid er: Kristina Tucker RN) Scheduled Medication Order 09/01/2022 09/02/2022 09/03/2022 0.9 [...] 0906. Pt has at bedside using as needed.)0900 (Due)2100 (Due) ibuprofen (ADVIL;MOTRIN) tablet 800 mg 800 mg, Oral, EVERY 8 HOURS, First dose on Mon10/07/22 at 0130, Until Discontinued, Once tolerating PO, discontinue Toradol and begin ibuprofen 8 hours after the final dose of Toradol. Alternate ibuprofen and acetaminophen every 4 hours., 0207 (Given - Provider: Magdalean Jefferson RN)1448 (Given - Provider: Martha Funes, FRANTZ)173 (Due)223 (Given - Provider: Connie Garnett RN - Comment: due now, last given at 1448.) 1233 (Given - Provider: Jennifer Hill RN)173 (Due) measles, mumps & rubella vaccine (MMR) [...] Midline or Central Line = 20 mL/lumen, 0900 (Due)2100 (Not Given - Provider: Connei Garnett RN - Reason: Loss of IV access - Comment: IV taken out per order.) 0900 (Due)2100 (Due) gefdcvs-thpzib-veocs pertussis (BOOSTRIX) injection 0.5 mL 0.5 mL, IntraMUSCular, PRIOR TO DISCHARGE, 1 dose, Starting on Mon10/07/22 at 0111, Until Discontinued, If not previously administered during at 27-36 weeks as recommended by CDC., witch augusto-glycerin (TUCKS) pad Topical, 2 TIMES DAILY, First dose on Mon10/07/22 at 0130, Apply to perineal area. Patient is capable and may self administer at bedside., 013 (Due)0905 (Given - Provider: Martha Funes RN)2100 (Not Given - Provider: Connie Garnett RN - Reason: Other - Comment: pt received 10/07/22. Pt has at bedside using as needed .) 0900 (Due)2100 (Due) Continuous Medication Order 10/06/2022 10/07/2022 10/08/2022 lactated ringers infusion (CANCELED) IntraVENous, at 125 mL/hr, CONTINUOUS, Starting on Yajaira 10/06/22 at 1715, Labor and Delivery 1711 (New Bag - Provider: Jennifer Ferreira RN) 0315 (Stopped - Provider: Magdalena Jefferson RN) oxytocin [...] every 2-3 minutes with cervical changes or Severance units (MVU) greater than 200 in a [...] 1859 (New Bag - Provider: Jennifer Ferreira RN)193 (Rate/Dose Change - Provider: Magdalena Jefferson, FRANTZ)2014 (Rate/Dose Change - Provider: Magdalena Jefferson, FRANTZ)2044 (Rate/Dose Change - Provider: Magdalena Jefferson RN)2115 (Rate/Dose Change - Provider: Magdalena Jefferson RN)2199 (Rate/Dose Change - Provider: Magdalena Jefferson, FRANTZ)2233 (Rate/Dose Change - Provider: Magdalena Jefferson RN)2323 (Rate/Dose Change - Provider: Magdalena Jefferson RN - Comment: Per verbal order by Leydi Ridley CNM) 0015 (Stopped - Provider: Magdalena Jefferson, FRANTZ) PRN Medication Order 10/06/2022 10/07/2022 10/08/2022 0.9 [...] mL/hr, IntraVENous, PRN, 1 dose, Starting on Mon10/06/22 at 1655, Until Discontinued, Bleeding, For Post [...] Jefferson RN) [id number] (Stopped - Provider: Macey Mayfield RN) Linked Groups Order Group 1: penicillin [...]
Care Teams (unrecognized sec tion and content) Customer Solutions Supervisor Relationship Specialty Start Date End Date Ra Mata MD [address] [place], [place] [phone] PCP - General Pediatrics 04/14/21 Customer Solutions Supervisor Relationship Specialty Start Date End Date Ra Mata MD [address] [place], [place] [phone] PCP - General Pediatrics 04/14/21 Customer Solutions Supervisor Relationship Specialty Start Date End Date Ra Mata MD [address] [place], [place] [phone] PCP - General Pediatrics 04/14/21 Customer Solutions Supervisor Relationship Specialty Start Date End Date Ra Mata MD [address] [place], [place] [phone] PCP - General Pediatrics 04/14/21 Customer Solutions Supervisor Relationship Specialty Start Date End Date Ra Mata MD [address] [place] [phone] PCP - General Pediatrics 04/14/21 Customer Solutions Supervisor Relationship Specialty Start Date End Date Ra Mata MD [address] [place] [phone] PCP - General Pediatrics 04/14/21 Customer Solutions Supervisor Relationship Specialty Start Date End Date Ra Mata MD [address] [place] [phone] PCP - General Pediatrics 04/14/21 Customer Solutions Supervisor Relationship Specialty Start Date End Date Ra Mata MD [address] [place] [phone] PCP - General Pediatrics 04/14/21 Customer Solutions Supervisor Relationship Specialty Start Date End Date Ra Mata MD [address] [place] [phone] PCP - General Pediatrics 04/14/21 Customer Solutions Supervisor Relationship Specialty Start Date End Date Ra Mata MD [address] [place] [phone] PCP - General Pediatrics 04/14/21 Customer Solutions Supervisor Relationship Specialty Start Date End Date Ra Mata MD [address] [place] [phone] PCP - General Pediatrics 04/14/21 Customer Solutions Supervisor Relationship Specialty Start Date End Date Ra Mata MD [address] [place] [phone] PCP - General Pediatrics 04/14/21 Customer Solutions Supervisor Relationship Specialty Start Date End Date Ra Mata MD [address] [place] [phone] PCP - General Pediatrics 08/12/23 Customer Solutions Supervisor Relationship Specialty Start Date End Date Ra Mata MD [address] [place] [phone] PCP - General Pediatrics 08/12/23 Customer Solutions Supervisor Relationship Specialty Start Date End Date Ra Mata MD [address] [place] [phone] PCP - General Pediatrics 04/14/21 FOR RECORDS PERTAINING TO PATIENTS WHO ARE [...] BE BASED ON THE PRIMARY CLINICAL RECORDS. [facility]. provides no warranty or guarantee of the accuracy or completeness of information in this document."
[2025-01-25 01:11] VITALS: BP 122/65; PULSE 93
[2025-01-25 01:39] LABS: Bilirubin Urine NEGATIVE (NEGATIVE); Blood Urine NEGATIVE (NEGATIVE); Clarity Urine CLEAR (CLEAR); Color Urine YELLOW (YELLOW); Glucose Urine UA NEGATIVE (NEGATIVE); Ketones Urine NEGATIVE (NEGATIVE); Leukocyte Esterase Urine NEGATIVE (NEGATIVE); Nitrite Urine NEGATIVE (NEGATIVE); Protein Urine NEGATIVE (NEG/TRACE); Specific Gravity Urine >=1.030 (1.005-1.025)
[2025-01-25 01:40] LABS: Urine Microscopic Indicated NO
[2025-01-25] MEDS: 0.9 % SODIUM CHLORIDE 1,000 ML 999 ML IV (03:02)
[2025-01-25] MEDS: 0.9 % SODIUM CHLORIDE 1,000 ML 125 ML IV (04:05)
[2025-01-25 06:49] VITALS: BP 110/59; PULSE 79
[2025-01-25] MEDS: NIFEdipine 10 MG CAPSULE PO (06:49)
[2025-01-25 07:35] VITALS: BP 111/64; PULSE 81; TEMP 36.1
--- NOTE | 2025-01-25 10:41 | PC.NURSE ---
discharge instructions given, pt verbalized understanding.
--- NOTE | 2025-01-25 10:57 | PM.OBPN ---
OB - PN: Subj Subjective Narrative: 19 yo at 32wks presents with ptc, sve-cl thick high, pt has ho 2vc during this Exam Constitutional Vital Signs, click to edit/add: Last Vital Signs Temp 97.0 F L 01/25/25 07:35 Pulse 81 01/25/25 07:35 BP 111/64 01/25/25 07:35 Documenting provider has reviewed patient's vital signs: yes Common normals: no apparent distress Respiratory Common normals: normal respiratory effort and clear to auscultation bilaterally Cardio Common normals: regular rate and regular rhythm GI Common normals: Normal to inspection, nondistended, normoactive bowel sounds present Extremity Common normals: no clubbing, cyanosis or edema and no calf tenderness Results Labs Labs: Urine 01/25/25 Range/Units 01:00 Urine Color Yellow (YELLOW) Urine Clarity Clear (CLEAR) Urine pH 6.0 (5.0-9.0) Ur Specific [place] >=1.030 A (1.005-1.025) Urine Protein Negative (NEG/TRACE) mg/dL Urine Glucose (UA) Negative (NEGATIVE) mg/dL OB - PN: A/P Assessment and Plan (1) Intrauterine : (2) contractions: Plan iv hydration, cl reviewed, procardia was given, ctxns resolved Time Spent with Patient Time: Total time spent is greater than 50% in coordination of care (as documented) at patient's floor/unit and/or counseling patient: Total time spent with greater than 50% in coordination of care (as documented) at patient's floor/unit and/or counseling patient: less than 15 minutes
== END 2025-01-25 10:42 | disposition home or self-care (01) ==
PROVIDERS: Admitting Provider Obstetrics & Gynecology; PCP Pediatrics; Visit Provider Obstetrics & Gynecology
DX: O47.03 False labor before 37 completed weeks of gestation, third trimester (principal); Z3A.33 33 weeks gestation of pregnancy
CPT/HCPCS: 59025; 76817; 81003; G0378; G0379